=== PATIENT | female | born 1990 | race Caucasian/White ===

== ENCOUNTER → 2016-08-04 | Outpatient (CLI) | payer MEDICAID, SELFPAY ==
[~2016-08-04] VITALS: Ht 172.7 cm; Wt 60.8 kg
[~2016-08-04] MED LIST: ABIL5TAB5 PO; ALBU17IN INH; BENA25CA2 PO; EYE OU; LAMI25TA PO; LIDOCAINE 2% INJ 100 MG/5 ML SDV (FOR ANES.) As Ordered ONE; LINZ145C PO; MIREIUD IU; NS 1,000 ML IV SCH; PROPOFOL 500 MG/50 ML VIAL As Ordered ONE; SING10TA32 PO; TOPA25TA10 PO; TRAZ50TA4 PO; VIST25CA PO; WELLTAB38 PO; ZOLO100T PO
--- NOTE | 2016-08-04 12:05 | ROOR ---
Patient Name: Vero Husain Procedure Date: 08/04/2016 11:27 AM Date of : 1990 Age: 26 Room: OP02 Gender: Female Note Status: Finalized Procedure: Colonoscopy Indications: Suspected irritable bowel syndrome, Irritable bowel syndrome with constipation, previous history of "transient colitis/fecal impaction" Providers: Brooks IQBAL MD Referring MD: [facility] Aleta Requesting Provider: Medicines: Monitored Anesthesia Care Complications: No immediate complications. Procedure: Pre-Anesthesia Assessment: - The heart rate, respiratory rate, oxygen saturations, blood pressure, adequacy of pulmonary ventilation, and response to care were monitored throughout the procedure. The Colonoscope was introduced through the anus and advanced to the terminal ileum, with identification of the appendiceal orifice and IC valve. The colonoscopy was technically difficult and complex due to a tortuous colon. Successful completion of the procedure was aided by changing the patient's position and withdrawing the scope and replacing with the 'babyscope'. The patient tolerated the procedure well. The quality of the bowel preparation was good. Findings: The perianal and digital rectal examinations were normal. The colon (entire examined portion) appeared normal. The terminal ileum appeared normal. Biopsies for histology were taken with a cold forceps from the entire colon for evaluation of microscopic colitis. (Exam: Complete, Prep: Good or Excellent.) Impression: - The entire examined colon is normal. - The examined portion of the ileum was normal. - Biopsies were taken with a cold forceps from the entire colon for evaluation of microscopic colitis. - There is no evidence of colitis. Irritable Bowel Syndrome/IBS is suspected. - ---Note is made of a long redundant colon-likely prone to irregularity, constipation, incomplete emptying symptoms. Recommendation: - Use Linzess (linaclotide) 145 mcg PO daily. - (the script was sent to your pharmacy on file) - Telephone endoscopist for pathology results in 2 weeks. Brooks Iqbal MD Brooks IQBAL MD 08/04/2016 12:04:51 PM This report has been signed electronically. Number of Addenda: 0 Note Initiated On: 08/04/2016 11:27 AM Estimated Blood Loss: Estimated blood loss: none.
[2016-08-04 13:00] VITALS: BP 106/68
== END ==
LOC: M OPP 09:40
PROVIDERS: ATTEND Internal Medicine Gastroenterology
DX: K62.5 Hemorrhage of anus and rectum (principal); K52.9 Noninfective gastroenteritis and colitis, unspecified; K59.00 Constipation, unspecified; Q43.8 Other specified congenital malformations of intestine; F31.9 Bipolar disorder, unspecified; G43.909 Migraine, unspecified, not intractable, without status migrainosus; R23.3 Spontaneous ecchymoses; J45.909 Unspecified asthma, uncomplicated; Z79.899 Other long term (current) drug therapy; Z88.1 Allergy status to other antibiotic agents; Z91.040 Latex allergy status; Z88.0 Allergy status to penicillin; Z91.09 Other allergy status, other than to drugs and biological substances; Z79.51 Long term (current) use of inhaled steroids

== ENCOUNTER → 2016-12-20 | Outpatient (REF) | payer OTHER ==
[~2016-12-20] MED LIST changes: -LIDOCAINE 2% INJ 100 MG/5 ML SDV (FOR ANES.) As Ordered ONE; -NS 1,000 ML IV SCH; -PROPOFOL 500 MG/50 ML VIAL As Ordered ONE
== END ==
LOC: M SFHCLERA 09:41
PROVIDERS: ATTEND Nurse Practitioner Family
DX: J02.9 Acute pharyngitis, unspecified (principal)

== ENCOUNTER → 2016-12-20 | Outpatient (CLI) | payer OTHER ==
--- NOTE | 2016-12-20 10:11 | REP ---
Clinical: shortness of breath. Comparison: 10/05/2015. Technique: PA and lateral. Findings: The mediastinum and cardiac silhouette are normal. The lung manzo are clear and without acute consolidation, effusion, or pneumothorax. The skeletal structures are intact and normal. Impression: 1. No acute cardiopulmonary process. Signed by Abdiel Hernández MD 12/20/2016 10:01 A
== END ==
LOC: M LRY 09:45
PROVIDERS: ATTEND Nurse Practitioner Family
DX: R06.02 Shortness of breath (principal)

== ENCOUNTER → 2017-01-15 | Outpatient (REF) | payer OTHER | LOC: M LAB REF 12:32 | PROVIDERS: ATTEND Family Medicine Addiction Medicine | DX: J02.8 Acute pharyngitis due to other specified organisms (principal) ==

== ENCOUNTER 2017-03-16 01:12 | Emergency (ER) | payer OTHER ==
[~2017-03-16 01:12] MED LIST changes: +ABIL1TAB11 PO; -ABIL5TAB5 PO; +TOPA1TAB PO; -TOPA25TA10 PO; +TRAZ50TA11 PO; -TRAZ50TA4 PO
== END 2017-03-16 02:28 | disposition left against medical advice (07) ==
LOC: M ED 01:12
DX: R11.10 Vomiting, unspecified (principal); Z53.29 Procedure and treatment not carried out because of patient's decision for other reasons

== ENCOUNTER → 2017-05-14 | Outpatient (CLI) | payer OTHER ==
[2017-05-14 15:28] LABS: MEAN CORPUSCULAR HEMOGLOBIN 29.5 pg (27.0-33.0); MEAN CORPUSCULAR HGB CONC 33.4 g/dl (32.0-36.5); MEAN CORPUSCULAR VOLUME 88.3 fl (80.0-96.0); RED CELL DISTRIBUTION WIDTH 12.7 % (11.5-14.5); WHITE BLOOD COUNT 6.5 10^3/uL (4.0-10.0)
== END ==
LOC: M WUC 11:27
PROVIDERS: ATTEND Nurse Practitioner Psychiatric/Mental Health
DX: F33.9 Major depressive disorder, recurrent, unspecified (principal); F41.9 Anxiety disorder, unspecified

== ENCOUNTER → 2017-09-26 | Outpatient (REF) | payer OTHER | LOC: M SFHCLERA 12:06 | DX: R50.9 Fever, unspecified (principal); R05 Cough ==

== ENCOUNTER → 2018-02-22 | Outpatient (CLI) | payer OTHER ==
[2018-02-22 17:26] LABS: BASO # 0.1 10^3/uL (0.0-0.2); BASO % 0.5 % (0.0-1.0); EOS # 0.7 10^3/uL (0.0-0.50); EOS % 5.8 % (0.0-3.0); ESTIMATED AVERAGE GLUCOSE 100 MG/DL (60-110); HEMATOCRIT 44.3 % (36.0-47.0); HEMOGLOBIN 14.9 g/dl (12.0-15.5); HEMOGLOBIN A1c 5.1 %; IMMATURE GRANULOCYTE % 0.3 % (0-3.0); LYMPH # 3.5 10^3/uL (1.5-6.5); LYMPH % 29.2 % (24.0-44.0); MEAN CORPUSCULAR HEMOGLOBIN 29.1 pg (27.0-33.0); MEAN CORPUSCULAR HGB CONC 33.6 g/dl (32.0-36.5); MEAN CORPUSCULAR VOLUME 86.5 fl (80.0-96.0); MONO # 0.6 10^3/uL (0.0-0.8); MONO % 5.3 % (0.0-5.0); NEUTROPHILS # 7.1 10^3/uL (1.8-7.7); NEUTROPHILS % 58.9 % (36.0-66.0); PLATELET COUNT, AUTOMATED 356 10^3/uL (150-450); RED BLOOD COUNT 5.12 10^6/uL (4.00-5.40)
[2018-02-22 17:36] LABS: ALBUMIN 3.7 GM/DL (3.2-5.2); ALKALINE PHOSPHATASE 98 U/L (45-117); ALT/SGPT 29 U/L (12-78); ANION GAP 8 MEQ/L (8-16); AST/SGOT 15 U/L (7-37); BILIRUBIN,TOTAL 0.4 MG/DL (0.2-1.0); BLOOD UREA NITROGEN 8 MG/DL (7-18); CARBON DIOXIDE LEVEL 24 MEQ/L (21-32); CHLORIDE LEVEL 108 MEQ/L (98-107); CREATININE FOR GFR 0.96 MG/DL (0.55-1.30); GLOMERULAR FILTRATION RATE > 60.0 (>60); GLUCOSE, FASTING 80 MG/DL (70-100); POTASSIUM SERUM 4.2 MEQ/L (3.5-5.1); SODIUM LEVEL 140 MEQ/L (136-145); TOTAL PROTEIN 7.4 GM/DL (6.4-8.2); VITAMIN B12 LEVEL 288 PG/ML (247-911)
[2018-02-22 17:58] LABS: TOTAL 25(OH) VITAMIN D 33.7 NG/ML (30.0-100.0)
== END ==
LOC: M WUC 15:29
DX: F31.32 Bipolar disorder, current episode depressed, moderate (principal)
CPT/HCPCS: 84443

== ENCOUNTER → 2018-08-11 | Outpatient (REF) | payer OTHER ==
[~2018-08-11] MED LIST changes: +MIRE1IUD IU; -MIREIUD IU; +TRAZ-160 PO; -TRAZ50TA11 PO
[2018-08-11 15:19] LABS: CHLAMYDIA DNA AMPLIFICATION NEGATIVE (NEGATIVE); GC DNA AMPLIFICATION NEGATIVE (NEGATIVE)
== END ==
LOC: M LAB REF 12:53
PROVIDERS: ATTEND Advanced Practice Midwife
DX: R30.0 Dysuria (principal)

== ENCOUNTER → 2018-09-13 | Outpatient (REF) | payer OTHER | LOC: M LAB REF 13:00 | PROVIDERS: ATTEND Advanced Practice Midwife | DX: Z12.4 Encounter for screening for malignant neoplasm of cervix (principal); R30.0 Dysuria ==

== ENCOUNTER 2019-05-07 13:14 | Emergency (ER) | payer OTHER ==
[~2019-05-07] VITALS: Ht 172.7 cm; Wt 85.1 kg
[~2019-05-07 13:14] MED LIST changes: -TRAZ-160 PO; +TRAZ-252 PO; +ZOFR4TAB16 PO
[2019-05-07] MEDS ORDERED: ABIL1INJ IM (13:21)
[2019-05-07] MEDS ORDERED: IBUPROFEN 400 MG TAB PO ONE (14:30)
[2019-05-07 14:45] VITALS: BP 137/86
== END 2019-05-07 14:48 | disposition home or self-care (01) ==
LOC: M ED 13:14
DX: S80.11XA Contusion of right lower leg, initial encounter (principal); W01.198A Fall on same level from slipping, tripping and stumbling with subsequent striking against other object, initial encounter; Y92.59 Other trade areas as the place of occurrence of the external cause; Y93.89 Activity, other specified; Y99.0 Civilian activity done for income or pay; Z91.048 Other nonmedicinal substance allergy status; Z88.0 Allergy status to penicillin; Z91.040 Latex allergy status; Z88.1 Allergy status to other antibiotic agents; Z79.899 Other long term (current) drug therapy

== ENCOUNTER 2019-06-05 18:17 | Emergency (ER) | payer OTHER ==
[~2019-06-05] VITALS: Ht 172.7 cm; Wt 84.5 kg
[~2019-06-05 18:17] MED LIST changes: +ABIL1INJ IM
[2019-06-05] MEDS ORDERED: SERO1TAB3 PO (18:50)
[2019-06-05] MEDS ORDERED: methylPREDNISolone INJ 125 MG/2 ML VIAL (J2930) IV ONE (19:15)
[2019-06-05] MEDS ORDERED: IPRATROPIUM 0.5MG/ALBUTEROL 2.5MG INH SOL UD 3ML (DUONEB)(J7620) NEB ONE (19:15)
--- NOTE | 2019-06-05 19:37 | REP ---
Two-view chest: 06/05/2019. Indication: Dyspnea. Comparison: 12/20/2016. Findings: The lungs are clear. There is no pleural effusion or pneumothorax. The cardiac silhouette is not enlarged. Impression: No acute cardiopulmonary process. Electronically Signed by Ihsan West DO 06/05/2019 07:28 P
[2019-06-05 19:44] LABS: BASO # 0.1 10^3/uL (0.0-0.2); BASO % 0.5 % (0.0-1.0); EOS # 0.6 10^3/uL (0.0-0.5); EOS % 5.6 % (0.0-3.0); HEMATOCRIT 41.6 % (36.0-47.0); HEMOGLOBIN 13.6 g/dl (12.0-15.5); LYMPH # 2.9 10^3/uL (1.5-5.0); LYMPH % 27.3 % (24.0-44.0); MEAN CORPUSCULAR HEMOGLOBIN 28.9 pg (27.0-33.0); MEAN CORPUSCULAR HGB CONC 32.7 g/dl (32.0-36.5); MEAN CORPUSCULAR VOLUME 88.5 fl (80.0-96.0); MONO # 0.5 10^3/uL (0.0-0.8); MONO % 4.6 % (0.0-5.0); NEUTROPHILS # 6.5 10^3/uL (1.5-8.5); NEUTROPHILS % 61.8 % (36.0-66.0); PLATELET COUNT, AUTOMATED 321 10^3/uL (150-450); WHITE BLOOD COUNT 10.5 10^3/uL (4.0-10.0)
[2019-06-05 20:09] LABS: INFLUENZA A AMPLIFICATION NEGATIVE (NEGATIVE); INFLUENZA B AMPLIFICATION NEGATIVE (NEGATIVE)
[2019-06-05 20:18] LABS: BLOOD UREA NITROGEN 10 MG/DL (7-18); CALCIUM LEVEL 9.3 MG/DL (8.5-10.1); CARBON DIOXIDE LEVEL 27 MEQ/L (21-32); CHLORIDE LEVEL 107 MEQ/L (98-107); CK-MB VALUE MASS < 1.0 NG/ML (<3.6); CPK CREATINE PHOSPHOKINASE 118 U/L (26-192); CREATININE FOR GFR 1.32 MG/DL (0.55-1.30); GLOMERULAR FILTRATION RATE 50.7 (>60); GLUCOSE, FASTING 88 MG/DL (70-100); MB/CK RELATIVE INDEX 0.85 (< OR =4); POTASSIUM SERUM 3.4 MEQ/L (3.5-5.1); SODIUM LEVEL 141 MEQ/L (136-145); TROPONIN I < 0.02 NG/ML (< 0.10)
[2019-06-05] MEDS ORDERED: ISOVUE-370 76% 100ML VIAL (Q9967) As Ordered ONE (20:22)
[2019-06-05 21:30] VITALS: BP 118/81
[2019-06-05] MEDS ORDERED: AZIT-12 PO (21:33)
[2019-06-05] MEDS ORDERED: PRED20TA PO (21:34)
[2019-06-05] MEDS ORDERED: POTASSIUM CHLORIDE 10 MEQ SR TABLET PO ONE (22:00)
--- NOTE | 2019-06-06 06:25 | ECGEPIP ---
[facility] - ED Test Date: 2019-06-05 Pat Name: KERVIN MCMAHAN Department: Room: - Gender: Female Cloth Mender: kirstin : 1990 Requested By: ORALIA Mccrary Order Number: [id number] Reading MD: Graham Shirley Measurements Intervals [place] Rate: 82 P: 35 ME: 167 QRS: 31 QRSD: 80 T: 40 QT: 355 QTc: 416 Interpretive Statements SINUS RHYTHM WITH SINUS ARRHYTHMIA SIMILAR TO 03/29/16 Electronically Signed on 06-06-2019 6:25:38 EST by Graham Shirley
--- NOTE | 2019-06-06 13:03 | REP ---
CT of the chest with IV contrast, CT pulmonary angiography protocol: Comparison is the PA and lateral plain film study earlier today. There are no comparison chest CT studies. There are no emboli in the pulmonary trunk or central pulmonary arteries. There are no emboli in the pulmonary lobe or segment branches. There are no infiltrates or pleural effusions. There are no lung masses or nodules. There is dependent atelectasis in the posterior lung manzo. There is no mediastinal or hilar lymph node enlargement. There is no axillary lymph node enlargement. The thoracic aorta is unremarkable. Cardiac size is normal. There is no pericardial effusion. The visualized upper abdominal contents are unremarkable. Impression: There are no pulmonary emboli. Otherwise, negative CT study of the chest except for dependent atelectasis. Electronically Signed by Suresh Parr MD 06/06/2019 12:54 P
== END 2019-06-05 22:03 | disposition home or self-care (01) ==
LOC: EDBD 18:17 → M ED 18:17
DX: J45.901 Unspecified asthma with (acute) exacerbation (principal); F31.89 Other bipolar disorder; G43.119 Migraine with aura, intractable, without status migrainosus; Z79.899 Other long term (current) drug therapy; J30.89 Other allergic rhinitis; J30.2 Other seasonal allergic rhinitis; Z88.0 Allergy status to penicillin; Z88.1 Allergy status to other antibiotic agents; Z88.8 Allergy status to other drugs, medicaments and biological substances; Z91.040 Latex allergy status
CPT/HCPCS: 71046; 71275; 80048; 82550; 82553; 84443; 85025; 85379; 87502; 93005; 93041; 94760; 96374; 99285; J2930; Q9967

== ENCOUNTER → 2019-06-27 | Outpatient (REF) | payer OTHER ==
[~2019-06-27] MED LIST changes: +AZIT-12 PO; +PRED20TA PO; +SERO1TAB3 PO
[2019-07-04 00:07] LABS: BORDETELLA PARAPERTUSSIS PCR Negative (Negative); BORDETELLA PERTUSSIS BY PCR Negative (Negative)
== END ==
LOC: M SFHCLERA 10:28
PROVIDERS: ATTEND Physician Assistant
DX: Z20.818 Contact with and (suspected) exposure to other bacterial communicable diseases (principal); R05 Cough

== ENCOUNTER → 2020-01-23 | Outpatient (CLI) | payer OTHER ==
[2020-01-23 17:13] LABS: ALBUMIN 3.8 GM/DL (3.2-5.2); ALT/SGPT 28 U/L (12-78); BILIRUBIN,TOTAL 0.5 MG/DL (0.2-1.0); BLOOD UREA NITROGEN 9 MG/DL (7-18); C REACTIVE PROTEIN QUANTITATIV 0.51 MG/DL (0.00-0.30); CALCIUM LEVEL 9.3 MG/DL (8.5-10.1); CARBON DIOXIDE LEVEL 23 MEQ/L (21-32); CHLORIDE LEVEL 108 MEQ/L (98-107); CHOLESTEROL LEVEL 229 MG/DL (<200); CHOLESTEROL RISK RATIO 4.872 (<5); CREATININE FOR GFR 1.03 MG/DL (0.55-1.30); GLOMERULAR FILTRATION RATE > 60.0 (>60); GLUCOSE, FASTING 104 MG/DL (70-100); HDL CHOLESTEROL 47 MG/DL (>40); LDL CHOLESTEROL 160 MG/DL (<100); NON-HDL-C 182 MG/DL; POTASSIUM SERUM 4.8 MEQ/L (3.5-5.1); SODIUM LEVEL 137 MEQ/L (136-145); TOTAL PROTEIN 7.5 GM/DL (6.4-8.2); TRIGLYCERIDES LEVEL 108 MG/DL (<150)
[2020-01-23 17:17] LABS: BASO # 0.1 10^3/uL (0.0-0.2); BASO % 0.3 % (0.0-1.0); EOS # 0.2 10^3/uL (0.0-0.5); EOS % 1.2 % (0.0-3.0); HEMATOCRIT 44.8 % (36.0-47.0); HEMOGLOBIN 14.7 g/dl (12.0-15.5); LYMPH # 1.5 10^3/uL (1.5-5.0); LYMPH % 8.4 % (24.0-44.0); MEAN CORPUSCULAR HEMOGLOBIN 28.2 pg (27.0-33.0); MEAN CORPUSCULAR HGB CONC 32.8 g/dl (32.0-36.5); MONO # 0.8 10^3/uL (0.0-0.8); MONO % 4.6 % (0.0-5.0); NEUTROPHILS # 15.3 10^3/uL (1.5-8.5); NEUTROPHILS % 85.1 % (36.0-66.0); PLATELET COUNT, AUTOMATED 420 10^3/uL (150-450); RED BLOOD COUNT 5.21 10^6/uL (4.00-5.40); WHITE BLOOD COUNT 17.9 10^3/uL (4.0-10.0)
== END ==
LOC: M WUC 14:41
PROVIDERS: ATTEND Physician Assistant Medical
DX: K04.7 Periapical abscess without sinus (principal); Z13.220 Encounter for screening for lipoid disorders

== ENCOUNTER → 2020-01-25 | Outpatient (REF) | payer OTHER ==
[2020-01-25 18:04] LABS: BASO # 0.1 10^3/uL (0.0-0.2); BASO % 0.8 % (0.0-1.0); EOS # 0.8 10^3/uL (0.0-0.5); EOS % 8.6 % (0.0-3.0); HEMATOCRIT 42.5 % (36.0-47.0); HEMOGLOBIN 13.9 g/dl (12.0-15.5); LYMPH # 2.8 10^3/uL (1.5-5.0); LYMPH % 31.5 % (24.0-44.0); MEAN CORPUSCULAR HEMOGLOBIN 28.1 pg (27.0-33.0); MEAN CORPUSCULAR HGB CONC 32.7 g/dl (32.0-36.5); MONO # 0.6 10^3/uL (0.0-0.8); MONO % 6.9 % (0.0-5.0); NEUTROPHILS # 4.7 10^3/uL (1.5-8.5); NEUTROPHILS % 51.9 % (36.0-66.0); PLATELET COUNT, AUTOMATED 382 10^3/uL (150-450); RED BLOOD COUNT 4.94 10^6/uL (4.00-5.40)
[2020-01-25 18:48] LABS: HEMOGLOBIN A1c 5.8 %
== END ==
LOC: M SFHCPLAZ 15:43
PROVIDERS: ATTEND Physician Assistant Medical
DX: Z83.3 Family history of diabetes mellitus (principal); K04.7 Periapical abscess without sinus

== ENCOUNTER → 2020-02-14 | Outpatient (CLI) | payer OTHER | LOC: M PLALAB 15:14 | PROVIDERS: ATTEND Advanced Practice Midwife | DX: Z13.79 Encounter for other screening for genetic and chromosomal anomalies (principal) ==

== ENCOUNTER → 2020-05-27 | Outpatient (REF) | payer OTHER | LOC: M SFHCPLAZ 16:55 | PROVIDERS: ATTEND Physician Assistant Medical | DX: J02.9 Acute pharyngitis, unspecified (principal) ==

== ENCOUNTER → 2020-06-21 | Outpatient (CLI) | payer OTHER ==
[~2020-06-21] MED LIST changes: +BENA25CA4 PO; +PREN1TAB11 PO; +PROZ10CA7 PO
--- NOTE | 2020-06-25 07:06 | SLEEPHOME ---
DATE: 06/21/2020 ORDERED BY: ROCK [facility] home sleep testing was performed due to concern for the obstructive sleep apnea syndrome. For testing, a nocturnal T3 respiratory monitoring device was used. Continuous record was made of pulse, oxygen saturation, air flow, chest and abdominal strain, and body position. 9 hours and 59 minutes of data were reviewed. There were 7 hours and 45 minutes marked as time in bed. During the interval marked time in bed, there were 68 respiratory events identified of 10 seconds in duration or greater for a respiratory event index 8.8. The events seen were obstructive. Baseline pulse rate 77. Pulse rate range 24 to 152. Baseline saturation was 93%. Saturations fell to 65%. Testing was performed in both the supine and non-supine positions. IMPRESSION: Abnormal home sleep testing with repetitive respiratory events and oxygen desaturations to 65% with a respiratory event index of 8.8 is consistent with the obstructive sleep apnea syndrome. RECOMMENDATION: The patient should be encouraged to undergo a formal sleep evaluation. [facility]
== END ==
LOC: M SLEEP HO 10:08
PROVIDERS: ATTEND Physician Assistant Medical
DX: G47.33 Obstructive sleep apnea (adult) (pediatric) (principal)

== ENCOUNTER 2020-06-24 06:45 | Emergency (ER) | payer OTHER ==
[~2020-06-24] VITALS: Ht 172.7 cm; Wt 90.2 kg
[~2020-06-24 06:45] MED LIST changes: -BENA25CA4 PO; -PREN1TAB11 PO; -PROZ10CA7 PO
[2020-06-24] MEDS ORDERED: PREN1TAB11 PO (06:53)
[2020-06-24] MEDS ORDERED: PROZ10CA7 PO (06:53)
[2020-06-24 08:00] LABS: BASO # 0.1 10^3/uL (0.0-0.2); BASO % 0.6 % (0.0-1.0); EOS % 9.1 % (0.0-3.0); HEMOGLOBIN 13.4 g/dl (12.0-15.5); LYMPH # 3.4 10^3/uL (1.5-5.0); LYMPH % 31.5 % (24.0-44.0); MEAN CORPUSCULAR HEMOGLOBIN 28.2 pg (27.0-33.0); MEAN CORPUSCULAR HGB CONC 32.7 g/dl (32.0-36.5); MEAN CORPUSCULAR VOLUME 86.3 fl (80.0-96.0); MONO # 0.5 10^3/uL (0.0-0.8); MONO % 4.6 % (0.0-5.0); NEUTROPHILS # 5.8 10^3/uL (1.5-8.5); NEUTROPHILS % 53.9 % (36.0-66.0); PLATELET COUNT, AUTOMATED 351 10^3/uL (150-450); RED BLOOD COUNT 4.75 10^6/uL (4.00-5.40); WHITE BLOOD COUNT 10.8 10^3/uL (4.0-10.0)
--- NOTE | 2020-06-24 08:14 | REP ---
INDICATION: pain, altered sensation fmh hx clots COMPARISON: None. TECHNIQUE: Lerma scale and color Doppler evaluation of the left lower extremity using linear high frequency transducer. FINDINGS: Ultrasound examination of the left lower extremity deep venous structures from the common femoral vein to the popliteal vein demonstrates normal compressibility flow and wave patterns in response to respiration and augmentation. There is no evidence for deep venous thrombosis. IMPRESSION: No evidence for deep venous thrombosis. <Electronically signed by Abdiel Hernández > 06/24/20 [id number]
[2020-06-24 08:22] LABS: BLOOD UREA NITROGEN 13 MG/DL (7-18); CALCIUM LEVEL 8.9 MG/DL (8.5-10.1); CARBON DIOXIDE LEVEL 23 MEQ/L (21-32); CHLORIDE LEVEL 111 MEQ/L (98-107); CK-MB VALUE MASS < 1.0 NG/ML (<3.6); CPK CREATINE PHOSPHOKINASE 87 U/L (26-192); GLOMERULAR FILTRATION RATE > 60.0 (>60); GLUCOSE, FASTING 100 MG/DL (70-100); MB/CK RELATIVE INDEX 1.15 (< OR =4); POTASSIUM SERUM 4.4 MEQ/L (3.5-5.1); SODIUM LEVEL 140 MEQ/L (136-145)
[2020-06-24 08:34] LABS: HCG, SERUM QUALITATIVE NEGATIVE (NEGATIVE)
[2020-06-24 08:53] VITALS: BP 125/81
[2020-06-25] MEDS ORDERED: BENA25CA4 PO (21:49)
== END 2020-06-24 08:55 | disposition home or self-care (01) ==
LOC: M ED 06:45
DX: M62.831 Muscle spasm of calf (principal); K21.9 Gastro-esophageal reflux disease without esophagitis; F31.89 Other bipolar disorder; F41.9 Anxiety disorder, unspecified; F19.10 Other psychoactive substance abuse, uncomplicated; Z79.899 Other long term (current) drug therapy; Z88.0 Allergy status to penicillin; Z88.1 Allergy status to other antibiotic agents; Z88.8 Allergy status to other drugs, medicaments and biological substances; Z91.89 Other specified personal risk factors, not elsewhere classified; Z91.040 Latex allergy status

== ENCOUNTER 2020-06-25 20:00 | Emergency (ER) | payer OTHER ==
[~2020-06-25] VITALS: Ht 172.7 cm; Wt 90.0 kg
[~2020-06-25 20:00] MED LIST changes: +PREN1TAB11 PO; +PROZ10CA7 PO
[2020-06-25] MEDS ORDERED: FAMOTIDINE 20 MG TAB PO ONE (20:30)
[2020-06-25] MEDS ORDERED: BENA25CA4 PO (21:49)
[2020-06-25 21:57] VITALS: BP 118/71
== END 2020-06-25 22:13 | disposition home or self-care (01) ==
LOC: M ED 20:00
DX: L23.9 Allergic contact dermatitis, unspecified cause (principal); Z79.899 Other long term (current) drug therapy; Z88.0 Allergy status to penicillin; Z88.1 Allergy status to other antibiotic agents; Z88.8 Allergy status to other drugs, medicaments and biological substances; Z91.89 Other specified personal risk factors, not elsewhere classified; Z91.040 Latex allergy status

== ENCOUNTER 2020-06-29 17:17 | Emergency (ER) | payer OTHER ==
[~2020-06-29] VITALS: Ht 172.7 cm; Wt 88.9 kg
[~2020-06-29 17:17] MED LIST changes: +BENA25CA4 PO
[2020-06-29 17:18] VITALS: BP 121/77
[2020-06-29] MEDS ORDERED: OMEP40CA97 PO (17:24)
[2020-06-29] MEDS ORDERED: ACETAMINOPHEN 500 MG TAB PO ONE (18:30)
[2020-06-29] MEDS ORDERED: LIDOCAINE 5% (LIDODERM) PATCH TD ONE (18:30)
[2020-06-29] MEDS ORDERED: CYCLOBENZAPRINE 5MG TABLET PO ONE (18:30)
[2020-06-29] MEDS ORDERED: BACL10TA2 PO (19:33)
[2020-06-29] MEDS ORDERED: LIDO5DIS41 TOP (19:33)
[2020-06-29] MEDS ORDERED: **NOTE PATIENT COMMENT** MISC XX SCH (21:00)
== END 2020-06-29 20:04 | disposition home or self-care (01) ==
LOC: M ED 17:17
DX: S16.1XXA Strain of muscle, fascia and tendon at neck level, initial encounter (principal); M62.838 Other muscle spasm; X58.XXXA Exposure to other specified factors, initial encounter; Y92.9 Unspecified place or not applicable; Y93.9 Activity, unspecified; Y99.9 Unspecified external cause status; G43.909 Migraine, unspecified, not intractable, without status migrainosus; F32.9 Major depressive disorder, single episode, unspecified; F41.9 Anxiety disorder, unspecified; F60.3 Borderline personality disorder; Z79.899 Other long term (current) drug therapy; J30.81 Allergic rhinitis due to animal (cat) (dog) hair and dander; J30.2 Other seasonal allergic rhinitis; Z88.0 Allergy status to penicillin; Z88.1 Allergy status to other antibiotic agents; Z88.8 Allergy status to other drugs, medicaments and biological substances; Z91.040 Latex allergy status

== ENCOUNTER → 2020-09-06 | Outpatient (REF) | payer OTHER ==
[~2020-09-06] MED LIST changes: +BACL10TA2 PO; +LIDO5DIS41 TOP; +OMEP40CA97 PO
[2020-09-06 16:59] LABS: BASO # 0.1 10^3/uL (0.0-0.2); BASO % 0.4 % (0.0-1.0); EOS # 1.2 10^3/uL (0.0-0.5); EOS % 9.4 % (0.0-3.0); HEMATOCRIT 42.6 % (36.0-47.0); HEMOGLOBIN 13.8 g/dl (12.0-15.5); LYMPH # 3.3 10^3/uL (1.5-5.0); LYMPH % 27.1 % (24.0-44.0); MEAN CORPUSCULAR HEMOGLOBIN 28.1 pg (27.0-33.0); MEAN CORPUSCULAR HGB CONC 32.4 g/dl (32.0-36.5); MEAN CORPUSCULAR VOLUME 86.8 fl (80.0-96.0); MONO # 0.7 10^3/uL (0.0-0.8); MONO % 5.8 % (0.0-5.0); NEUTROPHILS % 57.1 % (36.0-66.0); PLATELET COUNT, AUTOMATED 405 10^3/uL (150-450); RED BLOOD COUNT 4.91 10^6/uL (4.00-5.40); WHITE BLOOD COUNT 12.2 10^3/uL (4.0-10.0)
[2020-09-06 17:23] LABS: ALBUMIN 3.7 GM/DL (3.2-5.2); ALT/SGPT 25 U/L (12-78); BILIRUBIN,TOTAL 0.2 MG/DL (0.2-1.0); BLOOD UREA NITROGEN 10 MG/DL (7-18); CALCIUM LEVEL 9.3 MG/DL (8.5-10.1); CARBON DIOXIDE LEVEL 26 MEQ/L (21-32); CHLORIDE LEVEL 106 MEQ/L (98-107); CHOLESTEROL LEVEL 227 MG/DL (<200); CHOLESTEROL RISK RATIO 5.536 (<5); CREATININE FOR GFR 0.95 MG/DL (0.55-1.30); FREE T4 0.79 NG/DL (0.76-1.46); GLOMERULAR FILTRATION RATE > 60.0 (>60); GLUCOSE, FASTING 95 MG/DL (70-100); HCG, SERUM QUALITATIVE NEGATIVE (NEGATIVE); HDL CHOLESTEROL 41 MG/DL (>40); LDL CHOLESTEROL 138 MG/DL (<100); NON-HDL-C 186 MG/DL; POTASSIUM SERUM 4.3 MEQ/L (3.5-5.1); SODIUM LEVEL 138 MEQ/L (136-145); TOTAL PROTEIN 7.7 GM/DL (6.4-8.2); TRIGLYCERIDES LEVEL 241 MG/DL (<150)
[2020-09-06 17:31] LABS: HEMOGLOBIN A1c 5.2 %
== END ==
LOC: M SFHCPLAZ 14:56
PROVIDERS: ATTEND Physician Assistant Medical
DX: J45.909 Unspecified asthma, uncomplicated (principal); Z13.220 Encounter for screening for lipoid disorders; R73.01 Impaired fasting glucose; E66.9 Obesity, unspecified; Z32.01 Encounter for pregnancy test, result positive

== ENCOUNTER → 2020-10-03 | Outpatient (CLI) | payer OTHER ==
--- NOTE | 2020-10-03 16:08 | REPPI ---
INDICATION: M54.5 ACUTE MIDLINE LOW BACK PAIN WITHOUT SCIATICA. COMPARISON: 11/27/2012. TECHNIQUE: Eight views lumbosacral spine performed including lateral flexion and extension views. FINDINGS: No compression fracture. There is no evidence of malalignment. There is no subluxation with flexion or extension. There is no spondylolysis. The disc spaces are normal in thickness. Posterior elements are intact. IMPRESSION: Negative lumbosacral spine series. <Electronically signed by Suresh Lerma > 10/03/20 [id number]
== END ==
LOC: M PLAIMG 14:21
PROVIDERS: ATTEND Physician Assistant Medical
DX: M54.5 Low back pain (principal); R19.7 Diarrhea, unspecified

== ENCOUNTER → 2020-10-24 | Outpatient (REF) | payer OTHER | LOC: M SFHCPLAZ 09:47 | PROVIDERS: ATTEND Physician Assistant | DX: R30.0 Dysuria (principal) ==

== ENCOUNTER → 2020-11-07 | Outpatient (REF) | payer OTHER ==
[2020-11-07 14:12] LABS: APPEARANCE, URINE CLEAR (CLEAR); BACTERIA, URINE AUTO NEGATIVE (NEGATIVE); BILIRUBIN, URINE AUTO NEGATIVE (NEGATIVE); BLOOD, URINE BLOOD NEGATIVE (NEGATIVE); COLOR, URINE YELLOW (YELLOW); GLUCOSE, URINE (UA) AUTO NEGATIVE (NEGATIVE); KETONE, URINE AUTO NEGATIVE (NEGATIVE); LEUKOCYTE ESTERASE, URINE AUTO NEGATIVE (NEGATIVE); MUCUS, URINE SMALL (NEGATIVE); NITRITE, URINE AUTO NEGATIVE (NEGATIVE); PROTEIN, URINE AUTO NEGATIVE (NEGATIVE); RBC, URINE AUTO 1 /HPF (0-3); SPECIFIC GRAVITY URINE AUTO 1.023 (1.002-1.035); SQUAMOUS EPITHELIAL CELL UR AU 0 /HPF (0-6); UROBILINOGEN, URINE AUTO 0.2 mg/dL (0.0-2.0); WBC, URINE AUTO 1 /HPF (0-3)
== END ==
LOC: M SFHCWAGY 13:14
PROVIDERS: ATTEND Physician Assistant Medical
DX: R33.9 Retention of urine, unspecified (principal)

== ENCOUNTER → 2020-12-13 | Outpatient (CLI) | payer OTHER | LOC: M WHC 16:11 | PROVIDERS: ATTEND Obstetrics & Gynecology | DX: R10.2 Pelvic and perineal pain (principal) ==

== ENCOUNTER → 2020-12-17 | Outpatient (REF) | payer OTHER ==
[2020-12-17 11:03] LABS: BASO # 0.1 10^3/uL (0.0-0.2); BASO % 0.6 % (0.0-1.0); EOS # 0.8 10^3/uL (0.0-0.5); EOS % 9.7 % (0.0-3.0); HEMATOCRIT 40.3 % (36.0-47.0); LYMPH # 2.2 10^3/uL (1.5-5.0); LYMPH % 26.6 % (24.0-44.0); MEAN CORPUSCULAR HEMOGLOBIN 28.6 pg (27.0-33.0); MEAN CORPUSCULAR HGB CONC 32.3 g/dl (32.0-36.5); MEAN CORPUSCULAR VOLUME 88.6 fl (80.0-96.0); MONO # 0.5 10^3/uL (0.0-0.8); MONO % 6.2 % (2.0-8.0); NEUTROPHILS # 4.8 10^3/uL (1.5-8.5); NEUTROPHILS % 56.5 % (36.0-66.0); PLATELET COUNT, AUTOMATED 314 10^3/uL (150-450); RED BLOOD COUNT 4.55 10^6/uL (4.00-5.40); WHITE BLOOD COUNT 8.4 10^3/uL (4.0-10.0)
[2020-12-17 11:35] LABS: HCG, SERUM QUALITATIVE NEGATIVE (NEGATIVE)
[2020-12-17 11:40] LABS: ALBUMIN 3.4 GM/DL (3.2-5.2); ALT/SGPT 30 U/L (12-78); BILIRUBIN,TOTAL 0.3 MG/DL (0.2-1.0); BLOOD UREA NITROGEN 11 MG/DL (7-18); CALCIUM LEVEL 8.5 MG/DL (8.5-10.1); CARBON DIOXIDE LEVEL 25 MEQ/L (21-32); CHLORIDE LEVEL 106 MEQ/L (98-107); CHOLESTEROL LEVEL 246 MG/DL (<200); CREATININE FOR GFR 0.79 MG/DL (0.55-1.30); FREE T4 0.82 NG/DL (0.76-1.46); GLOMERULAR FILTRATION RATE > 60.0 (>60); GLUCOSE, FASTING 84 MG/DL (70-100); HDL CHOLESTEROL 49 MG/DL (>40); LDL CHOLESTEROL 172 MG/DL (<100); NON-HDL-C 197 MG/DL; POTASSIUM SERUM 4.6 MEQ/L (3.5-5.1); SODIUM LEVEL 138 MEQ/L (136-145); TRIGLYCERIDES LEVEL 125 MG/DL (<150)
== END ==
LOC: M SFHCPLAZ 09:10
PROVIDERS: ATTEND Physician Assistant Medical
DX: Z13.220 Encounter for screening for lipoid disorders (principal); F33.0 Major depressive disorder, recurrent, mild; N91.2 Amenorrhea, unspecified

== ENCOUNTER → 2020-12-24 | Outpatient (CLI) | payer OTHER ==
--- NOTE | 2020-12-24 08:05 | REP ---
INDICATION: R10.2 PELVIC PAIN COMPARISON: 03/26/2011 TECHNIQUE: Transabdominal pelvic ultrasound followed by transvaginal examination for better evaluation of the endometrium and adnexa with color Doppler evaluation of the ovaries. FINDINGS: Bladder is under distended and measures 5.7 x 1.9 x 5.8 cm Normal anteverted uterus measures 6.3 x 3.3 x 3.8 cm. The endometrial complex measures 5 mm thickness. No discrete uterine or endometrial abnormalities are appreciated. Bilateral ovaries are normal in appearance and vascularity without evidence for torsion. Right ovary measures 2.8 x 1.7 x 2.2 cm; R I = 0.56. Left ovary measures 3.1 x 1.9 x 2.5 cm; R I = 0.57. No pelvic fluid or adnexal mass lesion IMPRESSION: Normal pelvic ultrasound <Electronically signed by Abdiel Hernández > 12/24/20 0801
== END ==
LOC: M WHC 07:17
PROVIDERS: ATTEND Obstetrics & Gynecology
DX: R10.2 Pelvic and perineal pain (principal)

== ENCOUNTER 2021-01-10 17:06 | Emergency (ER) | payer OTHER ==
[~2021-01-10] VITALS: Ht 172.7 cm; Wt 93.2 kg
[2021-01-10 17:06] VITALS: BP 119/64
== END 2021-01-10 17:25 | disposition left against medical advice (07) ==
LOC: M ED 17:06
DX: Z53.21 Procedure and treatment not carried out due to patient leaving prior to being seen by health care provider (principal)

== ENCOUNTER → 2021-01-29 | Outpatient (CLI) | payer OTHER ==
[~2021-01-29] MED LIST changes: +OMEP40CA4 PO; -OMEP40CA97 PO
[2021-01-29 15:22] LABS: BASO # 0.1 10^3/uL (0.0-0.2); BASO % 0.6 % (0.0-1.0); EOS # 1.7 10^3/uL (0.0-0.5); EOS % 16.3 % (0.0-3.0); HEMATOCRIT 42.6 % (36.0-47.0); HEMOGLOBIN 13.6 g/dl (12.0-15.5); LYMPH # 2.6 10^3/uL (1.5-5.0); LYMPH % 24.8 % (24.0-44.0); MEAN CORPUSCULAR HEMOGLOBIN 28.2 pg (27.0-33.0); MEAN CORPUSCULAR HGB CONC 31.9 g/dl (32.0-36.5); MEAN CORPUSCULAR VOLUME 88.4 fl (80.0-96.0); MONO # 0.5 10^3/uL (0.0-0.8); MONO % 4.7 % (2.0-8.0); NEUTROPHILS # 5.5 10^3/uL (1.5-8.5); NEUTROPHILS % 53.2 % (36.0-66.0); PLATELET COUNT, AUTOMATED 389 10^3/uL (150-450); RED BLOOD COUNT 4.82 10^6/uL (4.00-5.40); WHITE BLOOD COUNT 10.4 10^3/uL (4.0-10.0)
[2021-01-29 15:32] LABS: INR 0.94; PROTHROMBIN TIME 12.8 SECONDS (12.5-14.3)
[2021-01-29 15:33] LABS: PARTIAL THROMBOPLASTIN TIME 24.6 SECONDS (24.2-38.5)
[2021-01-29 15:53] LABS: ALBUMIN 3.6 GM/DL (3.2-5.2); ALT/SGPT 30 U/L (12-78); BILIRUBIN,TOTAL 0.3 MG/DL (0.2-1.0); BLOOD UREA NITROGEN 11 MG/DL (7-18); CARBON DIOXIDE LEVEL 25 MEQ/L (21-32); CHLORIDE LEVEL 105 MEQ/L (98-107); CREATININE FOR GFR 0.94 MG/DL (0.55-1.30); GLOMERULAR FILTRATION RATE > 60.0 (>60); GLUCOSE, FASTING 82 MG/DL (70-100); POTASSIUM SERUM 4.6 MEQ/L (3.5-5.1); SODIUM LEVEL 136 MEQ/L (136-145); TOTAL PROTEIN 7.1 GM/DL (6.4-8.2)
== END ==
LOC: M PLALAB 13:40
PROVIDERS: ATTEND Physician Assistant Medical
DX: K92.1 Melena (principal)

== ENCOUNTER 2021-02-06 11:28 | Emergency (ER) | payer OTHER ==
[~2021-02-06] VITALS: Ht 172.7 cm; Wt 90.9 kg
[~2021-02-06 11:28] MED LIST changes: -ALBU8.5H INH; -MELO7.5T35 PO; -ONDA4TAB6 PO; -PROP10TA56 PO; -REGL10TA6 PO
[2021-02-06] MEDS ORDERED: NS 1,000 ML IV SCH (11:35)
[2021-02-06 12:10] LABS: BASO # 0.1 10^3/uL (0.0-0.2); BASO % 0.4 % (0.0-1.0); EOS # 1.8 10^3/uL (0.0-0.5); EOS % 12.2 % (0.0-3.0); HEMATOCRIT 42.7 % (36.0-47.0); HEMOGLOBIN 13.8 g/dl (12.0-15.5); LYMPH # 2.3 10^3/uL (1.5-5.0); LYMPH % 15.7 % (24.0-44.0); MEAN CORPUSCULAR HEMOGLOBIN 27.9 pg (27.0-33.0); MEAN CORPUSCULAR HGB CONC 32.3 g/dl (32.0-36.5); MEAN CORPUSCULAR VOLUME 86.4 fl (80.0-96.0); MONO # 0.6 10^3/uL (0.0-0.8); MONO % 4.2 % (2.0-8.0); NEUTROPHILS # 9.9 10^3/uL (1.5-8.5); NEUTROPHILS % 67.1 % (36.0-66.0); PLATELET COUNT, AUTOMATED 401 10^3/uL (150-450); RED BLOOD COUNT 4.94 10^6/uL (4.00-5.40); WHITE BLOOD COUNT 14.8 10^3/uL (4.0-10.0)
[2021-02-06] MEDS ORDERED: METOCLOPRAMIDE INJ 10MG/2ML VIAL (J2765 PER 1) IV ONE (12:10)
[2021-02-06] MEDS ORDERED: KETOROLAC 30 MG/ML 1ML VIAL IV ONE (12:10)
[2021-02-06 12:35] LABS: ALBUMIN 3.9 GM/DL (3.2-5.2); ALT/SGPT 30 U/L (12-78); BILIRUBIN,DIRECT < 0.1 MG/DL (0.0-0.2); BILIRUBIN,TOTAL 0.4 MG/DL (0.2-1.0); BLOOD UREA NITROGEN 14 MG/DL (7-18); CALCIUM LEVEL 9.2 MG/DL (8.5-10.1); CARBON DIOXIDE LEVEL 23 MEQ/L (21-32); CHLORIDE LEVEL 109 MEQ/L (98-107); CREATININE FOR GFR 0.94 MG/DL (0.55-1.30); GLOMERULAR FILTRATION RATE > 60.0 (>60); GLUCOSE, FASTING 119 MG/DL (70-100); LIPASE 92 U/L (73-393); POTASSIUM SERUM 4.1 MEQ/L (3.5-5.1); SODIUM LEVEL 139 MEQ/L (136-145); TOTAL PROTEIN 7.5 GM/DL (6.4-8.2)
[2021-02-06 12:37] LABS: HCG, SERUM QUALITATIVE NEGATIVE (NEGATIVE)
[2021-02-06] MEDS ORDERED: ISOVUE-370 76% 100ML VIAL As Ordered ONE (13:29)
--- NOTE | 2021-02-06 13:52 | REP ---
INDICATION: abd pain. COMPARISON: 09/26/2014 TECHNIQUE: Axial contrast-enhanced images from the lung bases to the pubic symphysis using 100 cc Isovue 370 intravenous contrast material. Coronal and sagittal reformations obtained. This CT examination was performed using the following dose reduction techniques: Automated exposure control, adjustment of mA and/or kv according to the patient's size, and the use of iterative reconstruction technique. FINDINGS: Liver, spleen, pancreas, gallbladder, bilateral adrenal glands and kidneys are normal. The enteric system demonstrates mild elements of mucosal thickening involving small and large bowel highly suspicious for an acute infectious/inflammatory enterocolitis-primarily involving the distal and sigmoid colon. No evidence for obstruction or perforation. Small amount of associated free fluid identified in the pelvis. No drainable collection or abscess. Pelvis demonstrates normal bladder and age-appropriate uterus/adnexa. No ascites. No free air. No intraperitoneal or retroperitoneal adenopathy. Abdominal aorta and vasculature appear normal. Musculoskeletal structures are intact and without acute osseous abnormality. Lung bases are clear. IMPRESSION: Findings most compatible with acute infectious/inflammatory enterocolitis primarily involving the descending and sigmoid colon. No associated bowel obstruction, perforation, or drainable collection/abscess. <Electronically signed by Abdiel Hernández > 02/06/21 2025
[2021-02-06] MEDS ORDERED: PROP10TA56 PO (14:57)
[2021-02-06] MEDS ORDERED: MELO7.5T35 PO (14:57)
[2021-02-06] MEDS ORDERED: ALBU8.5H INH (14:57)
[2021-02-06] MEDS ORDERED: ONDA4TAB6 PO (14:57)
[2021-02-06] MEDS ORDERED: REGL10TA6 PO (15:22)
[2021-02-06 16:04] VITALS: BP 116/75
--- NOTE | 2021-02-07 08:02 | ED PDOC ---
Post-Departure Follow-Up radiology report faxed to Kristine Justice MD Feb 07, 2021 08:02
== END 2021-02-06 16:05 | disposition home or self-care (01) ==
LOC: M ED 11:28 → EDBD 11:28 → M ED 16:05
DX: K52.9 Noninfective gastroenteritis and colitis, unspecified (principal); K58.9 Irritable bowel syndrome, unspecified; G43.909 Migraine, unspecified, not intractable, without status migrainosus; J45.909 Unspecified asthma, uncomplicated; J30.81 Allergic rhinitis due to animal (cat) (dog) hair and dander; J30.1 Allergic rhinitis due to pollen; Z79.899 Other long term (current) drug therapy; Z88.0 Allergy status to penicillin; Z88.1 Allergy status to other antibiotic agents; Z88.8 Allergy status to other drugs, medicaments and biological substances; Z91.040 Latex allergy status
CPT/HCPCS: 36415; 74177; 80047; 80048; 80076; 83690; 84702; 84703; 85025; 96361; 96374; 96375; 99284; J1885; J2765; Q9967

== ENCOUNTER → 2021-02-06 | Outpatient (REF) | payer OTHER ==
[~2021-02-06] MED LIST changes: +ALBU8.5H INH; +MELO7.5T35 PO; +ONDA4TAB6 PO; +PROP10TA56 PO; +REGL10TA6 PO
== END ==
LOC: M LAB REF 17:17
PROVIDERS: ATTEND Emergency Medicine
DX: R19.7 Diarrhea, unspecified (principal)

== ENCOUNTER → 2021-05-22 | Outpatient (REF) ==
[~2021-05-22] MED LIST changes: +ALBU8.5H INH; +MELO7.5T35 PO; +ONDA4TAB6 PO; +PROP10TA56 PO; +REGL10TA6 PO
== END ==
LOC: M EMP 10:13
PROVIDERS: ATTEND Family Medicine
DX: Z11.52 Encounter for screening for COVID-19 (principal)

== ENCOUNTER → 2021-05-23 | Outpatient (REF) ==
[2021-05-23 12:47] LABS: RSV AMPLIFICATION NEGATIVE (NEGATIVE)
== END ==
LOC: M EMP 11:08
PROVIDERS: ATTEND Family Medicine
DX: Z20.822 Contact with and (suspected) exposure to COVID-19 (principal)

== ENCOUNTER → 2021-05-28 | Outpatient (REF) ==
[2021-05-28 13:04] LABS: RSV AMPLIFICATION NEGATIVE (NEGATIVE)
== END ==
LOC: M EMP 12:07
PROVIDERS: ATTEND Family Medicine
DX: Z20.822 Contact with and (suspected) exposure to COVID-19 (principal)

== ENCOUNTER 2021-06-11 15:57 | Emergency (ER) | payer OTHER ==
[~2021-06-11] VITALS: Ht 172.7 cm; Wt 89.5 kg
[2021-06-11 15:58] VITALS: BP 138/78
--- OUTSIDE RECORDS SUMMARY | 2021-06-11 16:04 | CCD ---
Author Author [facility] Organization [facility] Address Unknown Phone Unavailable Care Team Providers Care Moss Gatherer Name Role Phone Andreea Demarco Unavailable PROBLEMS Type Condition ICD9-CM Code DGV26-YR Code Onset Dates Condition S tatus W/U Status Risk SNOMED Code Notes Problem Other ulcerative colitis without complication K51. 80 Active confirmed 81050568 Problem Family history of migraine headaches Z82.0 Act cleo confirmed 289120217 Problem H/O irritable bowel syndrome Z87.19 Active con firmed 12670361920127 Problem Cyst of ovary, unspecified laterality N83.209 Ac tive confirmed 76785622 Problem Encounter for contraceptive management, unspecified type Z30.9 Active confirmed 185364035 Problem LEVI (obstructive sleep apnea) G47.33 Active confirm ed 20161339 Problem Colon cancer screening Z12.11 Active confirmed 101063050 Problem Lipid screening Z13.220 Active confirmed 305 117199 Problem Exacerbation of asthma, unsp ecified asthma severity, unspecified whether persistent J45.901 Active confirmed 885202188 Problem Gastroesophageal reflux disease, esophagitis pre sence not specified K21.9 Active confirmed 421365086 Problem Mild intermittent asthma without complication J45. 20 Active confirmed 450257141 Problem Family history of diabetes mellitus in first degree relati ve Z83.3 Active confirmed 591310790 Problem Seasonal allergic rhinitis due to pollen J30.1 Active confirmed 47972938 Problem Cervical cancer screening Z12.4 Active confirmed 263988369 Problem Breast cancer screening Z12.39 Active confirmed 824968111 Problem Obstructive sleep apnea G47.33 Active confirmed 32286236 Problem Migraine with aura and without status migrainosu s, not intractable G43.109 Active confirmed 5285279 Problem Obesity (BMI 30.0-34.9) E66.9 Active confirmed 741185816862608 Problem Mild episode of recurrent major depressive disorder F33.0 Active confirmed 349651999 Problem Asthma exacerbation J45.901 Active confirmed 526216838 Problem Infertility, female N97.9 Active confirmed 8081906 Problem Dysthymia F34.1 Active confirmed 55828093 Problem Asthma J45.909 Active confirmed 204314046 Problem Impaired fasting glucose R73.01 Active confirmed 718671423 Problem Positive urine test Z32.01 Active confirm ed 298160571 Problem Seasonal allergic rhinitis, unspecified trigger J3 0.2 Active confirmed 994143383 Problem Amenorrhea N91.2 Active confirmed 43797599 ALLERGIES Allergen (clinical drug ingredient) Drug/Non Drug Allergy do cumented on EMR Reaction Allergy Type Onset Date Status ciprofloxacin Cipro([facility] Code:[address]-72) hives Drug Allergy Active Penicillin (For Allergies Use Only) Hives Drug Allerg y Active metronidazole Flagyl([facility] Code:[address]-53) hives Drug Allergy Active Latex Latex Rash Drug Allergy Active ENCOUNTERS from 1990 to 2021-06-05 Encounter Location Date Provider Diagnosis [place] [id number] [facility] [phone] [place] [address] May, Andreea Demarco IMMUNIZATIONS Vaccine Route Administration Date Status COVID-19 dose #1 given elsewhere Unspecified Unknown Sep Administered Influenza 18 yrs & older Flublok Unknown May 15, 2021 Administered Influenza 6mo & up Fluzone Unknown December 20, 2016 Other s Influenza 6mo & up Fluzone Unknown Jun 03, 2015 Admin istered Influenza 6mo & up Fluzone IM Intramuscular Jul 10, 2014 Admi nistered SOCIAL HISTORY Sex Assigned At : Social History Observation Description Sex Assigned At Unknown Audit Question Answer Notes Total Score: 1 Interpretation: Alcohol Education Drug and Alcohol Question Answer Notes Total Score: 0 Interpretation: No problems reported REASON FOR REFERRAL No Information VITAL SIGNS No information MEDICATIONS Medication SIG (Take, Route, Frequency, Duration) Notes Start Da te End Date Status Propranolol HCl 10 MG 1 tablet Orally bid for 30 Active AirDuo RespiClick 113/14 113-14 MCG/ACT 1 puff Inhalat ion Twice a day for 30 days May, Active Albuterol Sulfate HFA 108 (90 Base) MCG/ACT INHALE 1-2 PUFFS BY MOUTH EVERY 4-6 HOURS NEEDED Active Flonase Allergy Relief 50 MCG/ACT 1-2 sprays each nost ril Nasally Once a day for 30 days Not-Taking Sucralfate 1 GM 1 tablet on an empty stomach Orally four times daily for 30 day(s) Dec, Not-Taking Peak Flow Meter - as directed orally Daily for 999 days Apr, Active FLUoxetine HCl 10 MG 1 capsule Orally Once a day for 30 day(s) November, Active Meloxicam 7.5 MG 1 tablet Orally bid for 30 Not-Taking tiZANidine HCl 2 MG 1 tablet as needed Orally Three times a day for 3 0 Active Omeprazole 40 MG 1 capsule 30 minutes before morning meal Orally bid 30 minutes before breakfast and bedtime for 90 days Dec, Active PROCEDURES No Information RESULTS No Results REASON FOR VISIT work MEDICAL (GENERAL) HISTORY Type Description Date Medical History Blood in stool Medical History Diarrhea Medical History Abdominal pain, generalized Medical History GERD Medical History IBS Medical History ulcerative colitis Medical History Allergic rhinitis, cause unspecified Medical History Hemorrhoids Medical History Migraine Medical History Extrinsic asthma, unspecified Surgical History "Lung scope" -age 3 Surgical History colonoscopy 08-31-11 Hospitalization History pneumonia between ages 5-8 and age [age] Goals Section No Information Health Concerns No Information MEDICAL EQUIPMENT No Information MENTAL STATUS No Information FUNCTIONAL STATUS No Information ASSESSMENTS No Information PLAN OF TREATMENT Next Appt Details Provider Name:Andreea Demarco, 2020-08 11:30:00 AM, [address] [place] [address] , [place], [address], Provider Name:Jena Lacey, 2021-07-02 01:40:00 PM, [address] [place] [address] , [place], [address], Insurance Providers Payer Name Payer Address Payer Phone Insured Name Patient Relati onship to Insured Coverage Start Date Coverage End Date [facility] [address] [facility] [phone] KERVIN MCMAHAN
--- OUTSIDE RECORDS SUMMARY | 2021-06-11 16:04 | CCD ---
Author Author [facility] Organization [facility] Address Unknown Phone Unavailable Care Team Providers Care Concrete Layer Name Role Phone Andreea Demarco Unavailable PROBLEMS Type Condition ICD9-CM Code GSL29-ML Code Onset Dates Condition S tatus W/U Status Risk SNOMED Code Notes Problem Other ulcerative colitis without complication K51. 80 Active confirmed 68991991 Problem Family history of migraine headaches Z82.0 Act cleo confirmed 121857533 Problem H/O irritable bowel syndrome Z87.19 Active con firmed 19271097994054 Problem Cyst of ovary, unspecified laterality N83.209 Ac tive confirmed 82308451 Problem Encounter for contraceptive management, unspecified type Z30.9 Active confirmed 238894319 Problem LEVI (obstructive sleep apnea) G47.33 Active confirm ed 94645710 Problem Colon cancer screening Z12.11 Active confirmed 055238391 Problem Lipid screening Z13.220 Active confirmed 305 583991 Problem Exacerbation of asthma, unsp ecified asthma severity, unspecified whether persistent J45.901 Active confirmed 243083394 Problem Gastroesophageal reflux disease, esophagitis pre sence not specified K21.9 Active confirmed 413437865 Problem Mild intermittent asthma without complication J45. 20 Active confirmed 661128910 Problem Family history of diabetes mellitus in first degree relati ve Z83.3 Active confirmed 716555615 Problem Seasonal allergic rhinitis due to pollen J30.1 Active confirmed 00699233 Problem Cervical cancer screening Z12.4 Active confirmed 438596316 Problem Breast cancer screening Z12.39 Active confirmed 422955683 Problem Obstructive sleep apnea G47.33 Active confirmed 68265564 Problem Migraine with aura and without status migrainosu s, not intractable G43.109 Active confirmed 7557407 Problem Obesity (BMI 30.0-34.9) E66.9 Active confirmed 157922704865226 Problem Mild episode of recurrent major depressive disorder F33.0 Active confirmed 902584260 Problem Asthma exacerbation J45.901 Active confirmed 257146063 Problem Infertility, female N97.9 Active confirmed 1593664 Problem Dysthymia F34.1 Active confirmed 79894390 Problem Asthma J45.909 Active confirmed 969111424 Problem Impaired fasting glucose R73.01 Active confirmed 700919874 Problem Positive urine test Z32.01 Active confirm ed 464513672 Problem Seasonal allergic rhinitis, unspecified trigger J3 0.2 Active confirmed 255808804 Problem Amenorrhea N91.2 Active confirmed 72452000 ALLERGIES Allergen (clinical drug ingredient) Drug/Non Drug Allergy do cumented on EMR Reaction Allergy Type Onset Date Status ciprofloxacin Cipro([facility] Code:[address]-90) hives Drug Allergy Active Penicillin (For Allergies Use Only) Hives Drug Allerg y Active metronidazole Flagyl([facility] Code:[address]-54) hives Drug Allergy Active Latex Latex Rash Drug Allergy Active ENCOUNTERS from 1990 to 2021-06-03 Encounter Location Date Provider Diagnosis [place] [address] [facility] [phone] [place] [address] May, Andreea Demarco IMMUNIZATIONS Vaccine Route Administration [...] Information RESULTS No Results REASON FOR VISIT Hypothyroidism MEDICAL (GENERAL) HISTORY Type Description Date Medical [...] Details Provider Name:Andreea Demarco, 2020-08 11:30:00 AM, [address] [place] [address] , [place], [address], Provider Name:Jena Lacey, 2021-07-02 01:40:00 PM, [address] [place] [address] , [place], [address], Insurance Providers Payer Name Payer Address Payer Phone Insured Name Patient Relati onship to Insured Coverage Start Date Coverage End Date [facility] [address] [facility] [phone] KERVIN MCMAHAN
--- OUTSIDE RECORDS SUMMARY | 2021-06-11 16:04 | CCD ---
Author Author [facility] Organization [facility] Address Unknown Phone Unavailable Care Team Providers Care Senior Mainframe Programmer Analyst Name Role Phone Andreea Demarco Unavailable PROBLEMS Type Condition ICD9-CM Code APE88-IG Code Onset Dates Condition S tatus W/U Status Risk SNOMED Code Notes Problem Other ulcerative colitis without complication K51. 80 Active confirmed 66914185 Problem Family history of migraine headaches Z82.0 Act cleo confirmed 182334080 Problem H/O irritable bowel syndrome Z87.19 Active con firmed 90416599931338 Problem Cyst of ovary, unspecified laterality N83.209 Ac tive confirmed 68808060 Problem Encounter for contraceptive management, unspecified type Z30.9 Active confirmed 446687310 Problem LEVI (obstructive sleep apnea) G47.33 Active confirm ed 20798981 Problem Colon cancer screening Z12.11 Active confirmed 604756555 Problem Lipid screening Z13.220 Active confirmed 305 990478 Problem Exacerbation of asthma, unsp ecified asthma severity, unspecified whether persistent J45.901 Active confirmed 107159449 Problem Gastroesophageal reflux disease, esophagitis pre sence not specified K21.9 Active confirmed 904742669 Problem Mild intermittent asthma without complication J45. 20 Active confirmed 948678744 Problem Family history of diabetes mellitus in first degree relati ve Z83.3 Active confirmed 380510669 Problem Seasonal allergic rhinitis due to pollen J30.1 Active confirmed 55262146 Problem Cervical cancer screening Z12.4 Active confirmed 657213202 Problem Breast cancer screening Z12.39 Active confirmed 225971451 Problem Obstructive sleep apnea G47.33 Active confirmed 41503116 Problem Migraine with aura and without status migrainosu s, not intractable G43.109 Active confirmed 7357868 Problem Obesity (BMI 30.0-34.9) E66.9 Active confirmed 158336364766157 Problem Mild episode of recurrent major depressive disorder F33.0 Active confirmed 655976035 Problem Asthma exacerbation J45.901 Active confirmed 232032200 Problem Infertility, female N97.9 Active confirmed 7691557 Problem Dysthymia F34.1 Active confirmed 21114108 Problem Asthma J45.909 Active confirmed 826767289 Problem Impaired fasting glucose R73.01 Active confirmed 585872751 Problem Positive urine test Z32.01 Active confirm ed 670943395 Problem Seasonal allergic rhinitis, unspecified trigger J3 0.2 Active confirmed 339221428 Problem Amenorrhea N91.2 Active confirmed 51004969 ALLERGIES Allergen (clinical drug ingredient) Drug/Non Drug Allergy do cumented on EMR Reaction Allergy Type Onset Date Status ciprofloxacin Cipro([facility] Code:[address]-56) hives Drug Allergy Active Penicillin (For Allergies Use Only) Hives Drug Allerg y Active metronidazole Flagyl([facility] Code:[address]-50) hives Drug Allergy Active Latex Latex Rash Drug Allergy Active ENCOUNTERS from 1990 to 2021-05-28 Encounter Location Date Provider Diagnosis [address] [phone] [place] [address] May, Andreea Demarco IMMUNIZATIONS Vaccine Route Administration [...] Information RESULTS No Results REASON FOR VISIT 10 day quarantine MEDICAL (GENERAL) HISTORY Type Description Date Medical [...] Details Provider Name:Andreea Demarco, 2020-08 11:30:00 AM, [address] [place] [address] , [place], [address], Provider Name:Jena Lacey, 2021-07-02 01:40:00 PM, [address] [place] [address] , [place], [address], Insurance Providers Payer Name Payer Address Payer Phone Insured Name Patient Relati onship to Insured Coverage Start Date Coverage End Date [facility] [address] [facility] [phone] KERVIN MCMAHAN
--- OUTSIDE RECORDS SUMMARY | 2021-06-11 16:04 | CCD ---
Author Author [facility] Organization [facility] Address Unknown Phone Unavailable Care Team Providers Care Hand Cultivator Name Role Phone Andreea Demarco Unavailable PROBLEMS Type Condition ICD9-CM Code PMP84-KF Code Onset Dates Condition S tatus W/U Status Risk SNOMED Code Notes Problem Encounter for contraceptive management, unspecified type Z30.9 Active confirmed 083111635 Problem Family history of migraine headaches Z82.0 Act cleo confirmed 423192079 Problem Other ulcerative colitis without complication K51. 80 Active confirmed 78109428 Problem Cyst of ovary, unspecified laterality N83.209 Ac tive confirmed 44363421 Problem Colon cancer screening Z12.11 Active confirmed 820622370 Problem Cervical cancer screening Z12.4 Active confirmed 694150199 Problem Exacerbation of asthma, unsp ecified asthma severity, unspecified whether persistent J45.901 Active confirmed 867901228 Problem Asthma J45.909 Active confirmed 823655636 Problem Mild intermittent asthma without complication J45. 20 Active confirmed 997222789 Problem Lipid screening Z13.220 Active confirmed 305 784893 Problem Seasonal allergic rhinitis due to pollen J30.1 Active confirmed 26305432 Problem Gastroesophageal reflux disease, esophagitis pre sence not specified K21.9 Active confirmed 105474480 Problem Breast cancer screening Z12.39 Active confirmed 412946314 Problem Family history of diabetes mellitus in first degree relati ve Z83.3 Active confirmed 359931893 Problem LEVI (obstructive sleep apnea) G47.33 Active confirm ed 60073174 Problem Obstructive sleep apnea G47.33 Active confirmed 75892372 Problem Impaired fasting glucose R73.01 Active confirmed 679260901 Problem Mild episode of recurrent major depressive disorder F33.0 Active confirmed 937675219 Problem Dysthymia F34.1 Active confirmed 12450868 Problem Amenorrhea N91.2 Active confirmed 89260798 Problem H/O irritable bowel syndrome Z87.19 Active con firmed 91969726944750 Problem Asthma exacerbation J45.901 Active confirmed 278489249 Problem Migraine with aura and without status migrainosu s, not intractable G43.109 Active confirmed 6110361 Problem Obesity (BMI 30.0-34.9) E66.9 Active confirmed 148868710073948 Problem Positive urine test Z32.01 Active confirm ed 274581348 Problem Seasonal allergic rhinitis, unspecified trigger J3 0.2 Active confirmed 785877365 ALLERGIES Allergen (clinical drug ingredient) Drug/Non Drug Allergy do cumented on EMR Reaction Allergy Type Onset Date Status ciprofloxacin Cipro([facility] Code:[address]-83) hives Drug Allergy Active Penicillin (For Allergies Use Only) Hives Drug Allerg y Active metronidazole Flagyl([facility] Code:[address]-67) hives Drug Allergy Active Latex Latex Rash Drug Allergy Active ENCOUNTERS from 1990 to 2021-05-23 Encounter Location Date Provider Diagnosis [id number] [facility] [phone] [place] [address] May, Andreea Demarco IMMUNIZATIONS Vaccine Route Administration [...] a day for 30 days May, Active Sucralfate 1 GM 1 tablet on an empty stomach Orally four times daily for 30 day(s) Dec, Active FLUoxetine HCl 10 MG 1 capsule Orally Once a day for 30 day(s) November, Active Flonase Allergy Relief 50 MCG/ACT 1-2 sprays each nost ril Nasally Once a day for 30 days Active Omeprazole 40 MG 1 capsule 30 minutes before morning meal Orally bid 30 minutes before breakfast and bedtime for 90 days Dec, Active Peak Flow Meter - as directed orally Daily for 999 days Apr, Active Meloxicam 7.5 MG 1 tablet Orally bid for 30 Active Albuterol Sulfate HFA 108 (90 Base) MCG/ACT INHALE 1-2 PUFFS BY MOUTH EVERY 4-6 HOURS NEEDED Active tiZANidine HCl 2 MG 1 tablet as needed Orally Three times a day for 3 0 Active PROCEDURES No Information RESULTS No Results REASON FOR VISIT Flu Symptoms MEDICAL (GENERAL) HISTORY Type Description Date Medical [...] Information ASSESSMENTS No Information PLAN OF TREATMENT Medication Medication Name Sig Start Date Stop Date Albuterol Sulfate HFA 108 (90 Base) MCG/ACT INHALE 1-2 PUFFS BY MOUTH EVERY 4-6 HOURS NEEDED Peak Flow Meter - as directed orally Daily for 999 days Apr, AirDuo RespiClick 113/14 113-14 MCG/ACT 1 puff Inhalat ion Twice a day for 30 days May, Omeprazole 40 MG 1 capsule 30 minutes before morning meal Orally bid 30 minutes before breakfast and bedtime for 90 days Dec, Next Appt Details Provider Name:Jena Lacey, 2021-05-28 10:20:00 AM, [address] [facility], , [place], [address], Provider Name:Andreea Demarco, 2020-08 11:30:00 AM, [address] [facility], , [place], [address], Insurance Providers Payer Name Payer Address Payer Phone Insured Name Patient Relati onship to Insured Coverage Start Date Coverage End Date [facility] COMMUNITY PLAN [facility] [address] [facility] [address] KERVIN MCMAHAN self
--- OUTSIDE RECORDS SUMMARY | 2021-06-11 16:05 | CCD | Continuity of Care Document ---
Author Author Vero HUDSON Organization Unknown Address [address] [place] [address] Phone [phone] Care Team Providers Care Olive Picker Name Role Phone [facility] [phone] Problems Description No Information Available Social History Type Date Description Comments Sex Unknown Tobacco Use Start: Unknown Never Smoked Cigarettes ETOH Use Denies alcohol use Allergies and adverse reactions Active Allergies Criticality Reaction | Severity Comments Date Singulair Unable to assess criticality 09/26/2008 Flovent Unable to assess criticality 09/26/2008 Cipro Unable to assess criticality 10/12/2018 Flagyl Unable to assess criticality 10/12/2018 Medications Active Medications SIG Qnty Indications Ordering Provide r Date Albuterol Sulfate (2 .5mg/3ML) 0.083% Nebulizer for use with neb machine, 1 vial inhaled by mouth ever y 4-6 hours as needed 75ml J45.21 Dk Jefferson JR., M.D. 08/05/2017 Prozac Unknown Omeprazole Unknown Immunizations Description No Information Available Vital Signs Date Vital Result Comment 05/17/2021 5:39pm BP Systolic 110 mmHg BP Diastolic 78 mmHg Heart Rate 90 /min Respiratory Rate 18 /min O2 % BldC Oximetry 98 % Body Temperature 96.8 F Weight 197.00 lb Height 68 inches 5'8" BMI (Body Mass Index) 30.0 kg/m2 Pain Level 5 12/06/2018 2:05pm BP Systolic 102 mmHg BP Diastolic 78 mmHg Heart Rate 104 /min Respiratory Rate 17 /min O2 % BldC Oximetry 96 % Body Temperature 97.5 F Weight 160.00 lb Height 68 inches 5'8" BMI (Body Mass Index) 24.3 kg/m2 Pain Level 6 Results Description No Information Available Procedures Date Code Description Status 05/17/2021 07075 Office/Outpatient Established Lo w MDM 20-29 Min Completed Medical Devices Description No Information Available Encounters Type Date Location Provider Dx Diagnosis Office Visit 05/17/2021 12:05p Main Office [facility] J06 .9 Acute upper respiratory infection, unspecified J45.21 Mild intermittent asthma wit h (acute) exacerbation Z20.828 Contact w and exposure to ot h viral communicable diseases Assessments Date Code Description Provider 05/17/2021 J06.9 Acute upper respiratory infectio n, unspecified [facility] Mcgill 05/17/2021 J45.21 Mild intermittent asthma with (a cute) exacerbation [facility] Mcg[facility] 05/17/2021 Z20.828 Contact with and (miller spected) exposure to other viral communicable diseases [facility] Plan of Treatment No Information Available Functional Status Description No Information Available Mental Status Description No Information Available Referrals Description No Information Available
--- OUTSIDE RECORDS SUMMARY | 2021-06-11 16:05 | CCD ---
Author Author [facility] Organization [facility] Address Unknown Phone Unavailable Care Team Providers Care Wool Buyer Name Role Phone Andreea Demarco Unavailable PROBLEMS Type Condition ICD9-CM Code [id number] Code Onset Dates Condition S tatus W/U Status Risk SNOMED Code Notes Problem Encounter for contraceptive management, unspecified type Z30.9 Active confirmed 252228977 Problem Family history of migraine headaches Z82.0 Act cleo confirmed 205044419 Problem Other ulcerative colitis without complication K51. 80 Active confirmed 35935750 Problem Cyst of ovary, unspecified laterality N83.209 Ac tive confirmed 11554890 Problem Colon cancer screening Z12.11 Active confirmed 392415279 Problem Cervical cancer screening Z12.4 Active confirmed 066904094 Problem Exacerbation of asthma, unsp ecified asthma severity, unspecified whether persistent J45.901 Active confirmed 393446031 Problem Asthma J45.909 Active confirmed 094308887 Problem Mild intermittent asthma without complication J45. 20 Active confirmed 129749624 Problem Lipid screening Z13.220 Active confirmed 305 538861 Problem Seasonal allergic rhinitis due to pollen J30.1 Active confirmed 49105750 Problem Gastroesophageal reflux disease, esophagitis pre sence not specified K21.9 Active confirmed 745357741 Problem Breast cancer screening Z12.39 Active confirmed 493417200 Problem Family history of diabetes mellitus in first degree relati ve Z83.3 Active confirmed 449588459 Problem LEVI (obstructive sleep apnea) G47.33 Active confirm ed 73248223 Problem Obstructive sleep apnea G47.33 Active confirmed 06801283 Problem Impaired fasting glucose R73.01 Active confirmed 305071124 Problem Mild episode of recurrent major depressive disorder F33.0 Active confirmed 575603752 Problem Dysthymia F34.1 Active confirmed 04441295 Problem Amenorrhea N91.2 Active confirmed 86221106 Problem H/O irritable bowel syndrome Z87.19 Active con firmed 80208335964570 Problem Asthma exacerbation J45.901 Active confirmed 397426933 Problem Migraine with aura and without status migrainosu s, not intractable G43.109 Active confirmed 5514409 Problem Obesity (BMI 30.0-34.9) E66.9 Active confirmed 172057184255142 Problem Positive urine test Z32.01 Active confirm ed 111334683 Problem Seasonal allergic rhinitis, unspecified trigger J3 0.2 Active confirmed 636636842 ALLERGIES Allergen (clinical drug ingredient) Drug/Non Drug Allergy do cumented on EMR Reaction Allergy Type Onset Date Status ciprofloxacin Cipro([facility] Code:[address]-46) hives Drug Allergy Active Penicillin (For Allergies Use Only) Hives Drug Allerg y Active metronidazole Flagyl([facility] Code:[address]-14) hives Drug Allergy Active Latex (for allergy use only) Rash Drug Allergy Active ENCOUNTERS from 1990 to 2021-05-02 Encounter Location Date Provider Diagnosis [address] [phone] [place] [address] Apr, Andreea Carreroworth Asthma J45.909 IMMUNIZATIONS Vaccine Route Administration Date Status COVID-19 dose #1 given elsewhere Unspecified Unknown Sep Administered Influenza 6mo & up Fluzone Unknown [...] Information RESULTS No Results REASON FOR VISIT Peak Flow Meter MEDICAL (GENERAL) HISTORY Type Description Date Medical [...] No Information FUNCTIONAL STATUS No Information ASSESSMENTS Encounter Date Diagnosis Assessment Notes Treatment Notes Treatm ent Clinical Notes Apr, Asthma (ICD-10 - J45.909) PLAN OF TREATMENT Medication Medication Name Sig [...] Provider Name:Jena Lacey, 2021-05-28 10:20:00 AM, [address] [facility], , [place], [address], Provider Name:Andreea Demarco, 2020-08 11:30:00 AM, [address] [facility], , [place], [address], Insurance Providers Payer Name Payer Address Payer Phone Insured Name Patient Relati onship to Insured Coverage Start Date Coverage End Date [facility] COMMUNITY PLAN [facility] [address] [facility] [address] KERVIN MCMAHAN self
--- OUTSIDE RECORDS SUMMARY | 2021-06-11 16:05 | CCD | Continuity of Care Document ---
Author Author Vero HUDSON Organization Unknown Address [address] [place] [address] Phone [phone] Care Team Providers Care Vocal Artist Name Role Phone [facility] [phone] Problems Description No Information Available Social History [...] Available Procedures Date Code Description Status 05/17/2021 87953 Office/Outpatient Established Lo w MDM 20-29 Min [...]
--- OUTSIDE RECORDS SUMMARY | 2021-06-11 18:38 | CCD ---
Author Author [facility] Organization [facility]st [facility] Address Unknown Phone Unavailable Care Team Providers Care Reading Specialist Name Role Phone Andreea Demarco Unavailable PROBLEMS Type Condition ICD9-CM Code THM07-DC Code Onset Dates Condition S tatus W/U Status Risk SNOMED Code Notes Problem Encounter for contraceptive management, unspecified type Z30.9 Active confirmed 366755757 Problem Family history of migraine headaches Z82.0 Act cleo confirmed 719828520 Problem Other ulcerative colitis without complication K51. 80 Active confirmed 67045438 Problem Cyst of ovary, unspecified laterality N83.209 Ac tive confirmed 35154792 Problem Colon cancer screening Z12.11 Active confirmed 447345772 Problem Cervical cancer screening Z12.4 Active confirmed 078958296 Problem Exacerbation of asthma, unsp ecified asthma severity, unspecified whether persistent J45.901 Active confirmed 257244245 Problem Asthma J45.909 Active confirmed 016244774 Problem Mild intermittent asthma without complication J45. 20 Active confirmed 394637241 Problem Lipid screening Z13.220 Active confirmed 305 613070 Problem Seasonal allergic rhinitis due to pollen J30.1 Active confirmed 00046619 Problem Gastroesophageal reflux disease, esophagitis pre sence not specified K21.9 Active confirmed 344605173 Problem Breast cancer screening Z12.39 Active confirmed 128256640 Problem Family history of diabetes mellitus in first degree relati ve Z83.3 Active confirmed 386884145 Problem LEVI (obstructive sleep apnea) G47.33 Active confirm ed 60274363 Problem Obstructive sleep apnea G47.33 Active confirmed 97677321 Problem Impaired fasting glucose R73.01 Active confirmed 318635312 Problem Mild episode of recurrent major depressive disorder F33.0 Active confirmed 306871841 Problem Dysthymia F34.1 Active confirmed 46544518 Problem Amenorrhea N91.2 Active confirmed 11418834 Problem H/O irritable bowel syndrome Z87.19 Active con firmed 29656675776147 Problem Asthma exacerbation J45.901 Active confirmed 313939644 Problem Migraine with aura and without status migrainosu s, not intractable G43.109 Active confirmed 1723656 Problem Obesity (BMI 30.0-34.9) E66.9 Active confirmed 722993031472931 Problem Positive urine test Z32.01 Active confirm ed 598285132 Problem Seasonal allergic rhinitis, unspecified trigger J3 0.2 Active confirmed 119807503 ALLERGIES Allergen (clinical drug ingredient) Drug/Non Drug Allergy do cumented on EMR Reaction Allergy Type Onset Date Status ciprofloxacin Cipro([facility] Code:[address]-71) hives Drug Allergy Active Penicillin (For Allergies Use Only) Hives Drug Allerg y Active metronidazole Flagyl([facility] Code:[address]-66) hives Drug Allergy Active Latex (for allergy use only) Rash Drug Allergy Active ENCOUNTERS from 1990 to 2021-05-06 Encounter Location Date Provider Diagnosis [address] [facility] [phone] [place] [address] Apr, Andreea Demarco Gastroesophageal reflux dise ase, esophagitis presence not specified K21.9 ; Other ulcerative colitis without complication K51.80 ; Dyspepsia R10.13 and Asthma J45.909 IMMUNIZATIONS Vaccine Route Administration Date [...] REASON FOR REFERRAL No Information VITAL SIGNS Weight 202 lbs Apr, Weight-kg 91.63 kg Apr, Height 67.5 in Apr, BMI 31.17 kg/m2 Apr, Heart Rate 94 /min Apr, Respiratory Rate 18 /min Apr, Temperature 97.1 degrees Fahrenheit Apr, Oximetry 94% Apr, Blood pressure systolic 110 mm Hg Apr, Blood pressure diastolic 68 mm Hg Apr, MEDICATIONS Medication SIG (Take, Route, Frequency, Duration) [...] Information RESULTS No Results REASON FOR VISIT [facility] Follow up MEDICAL (GENERAL) HISTORY Type Description Date Medical [...] Treatment Notes Treatm ent Clinical Notes Apr, Gastroesophageal reflux dise ase, esophagitis presence not specified (ICD-10 - K21.9) Apr, Other ulcerative colitis without complication (I CD-10 - K51.80) Follows c GI in 06/18/2021 again 2017 colonoscopy & Biopsy c Dr. Miles IBS suspect 2011 colon & biopsy Apr, Dyspepsia (ICD-10 - R10.13) resolve Apr, Asthma (ICD-10 - J45.909) Apr, Other 30" chart revie w, H&P, orders/plan PLAN OF TREATMENT Medication Medication Name Sig [...] breakfast and bedtime for 90 days Dec, Treatment Notes Assessment Notes Clinical Notes Other ulcerative colitis without complication Follows c GI in 06/18/2021 [id number] colonoscopy & Biopsy c Dr. Miles IBS [id number] colon & biopsy Dyspepsia resolve Next Appt Details 2 Months c SS Reason: Provider Name:Jena Lacey, 2021-05-28 10:20:00 AM, [address] [place] [address], , [place], [address], Provider Name:Andreea Demarco, 2020-08 11:30:00 AM, [address] [place] [address], , [place], [address], Insurance Providers Payer Name Payer Address Payer Phone Insured Name Patient Relati onship to Insured Coverage Start Date Coverage End Date [facility] COMMUNITY PLAN [facility] [address] [facility] [address] KERVIN MCMAHAN
--- OUTSIDE RECORDS SUMMARY | 2021-06-11 18:38 | CCD ---
Author Author [facility] Organization [facility] Address Unknown Phone Unavailable Care Team Providers Care Technology Assistant Name Role Phone Andreea Demarco Unavailable PROBLEMS Type Condition ICD9-CM Code TTD24-SO Code Onset Dates Condition S tatus W/U Status Risk SNOMED Code Notes Problem Encounter for contraceptive management, unspecified type Z30.9 Active confirmed 315928528 Problem Family history of migraine headaches Z82.0 Act cleo confirmed 202635484 Problem Other ulcerative colitis without complication K51. 80 Active confirmed 78560977 Problem Cyst of ovary, unspecified laterality N83.209 Ac tive confirmed 01686403 Problem Colon cancer screening Z12.11 Active confirmed 635097078 Problem Cervical cancer screening Z12.4 Active confirmed 004004695 Problem Exacerbation of asthma, unsp ecified asthma severity, unspecified whether persistent J45.901 Active confirmed 989364841 Problem Asthma J45.909 Active confirmed 579444357 Problem Mild intermittent asthma without complication J45. 20 Active confirmed 432308886 Problem Lipid screening Z13.220 Active confirmed 305 341279 Problem Seasonal allergic rhinitis due to pollen J30.1 Active confirmed 25462839 Problem Gastroesophageal reflux disease, esophagitis pre sence not specified K21.9 Active confirmed 614049085 Problem Breast cancer screening Z12.39 Active confirmed 497244134 Problem Family history of diabetes mellitus in first degree relati ve Z83.3 Active confirmed 734213293 Problem LEVI (obstructive sleep apnea) G47.33 Active confirm ed 59135205 Problem Obstructive sleep apnea G47.33 Active confirmed 19059723 Problem Impaired fasting glucose R73.01 Active confirmed 275457369 Problem Mild episode of recurrent major depressive disorder F33.0 Active confirmed 956633842 Problem Dysthymia F34.1 Active confirmed 90838750 Problem Amenorrhea N91.2 Active confirmed 62702648 Problem H/O irritable bowel syndrome Z87.19 Active con firmed 32802322286157 Problem Asthma exacerbation J45.901 Active confirmed 124290114 Problem Migraine with aura and without status migrainosu s, not intractable G43.109 Active confirmed 5342743 Problem Obesity (BMI 30.0-34.9) E66.9 Active confirmed 182391412071601 Problem Positive urine test Z32.01 Active confirm ed 224246935 Problem Seasonal allergic rhinitis, unspecified trigger J3 0.2 Active confirmed 497367001 ALLERGIES Allergen (clinical drug ingredient) Drug/Non Drug Allergy do cumented on EMR Reaction Allergy Type Onset Date Status ciprofloxacin Cipro([facility] Code:[address]-41) hives Drug Allergy Active Penicillin (For Allergies Use Only) Hives Drug Allerg y Active metronidazole Flagyl([facility] Code:[address]-27) hives Drug Allergy Active Latex (for allergy use only) Rash Drug Allergy Active ENCOUNTERS from 1990 to 2021-04-15 Encounter Location Date Provider Diagnosis [address] [facility] [phone] [place] [address] Jan, Andreea Demarco IMMUNIZATIONS Vaccine Route Administration Date [...] Notes Start Da te End Date Status AirDuo RespiClick 113/14 113-14 MCG/ACT 1 puff Inhalation Twice a day May, Active Propranolol HCl 10 MG 1 tablet Orally bid for 30 Active Meloxicam 7.5 MG 1 tablet Orally bid for 30 Active Flonase Allergy Relief 50 MCG/ACT 1-2 sprays each nost ril Nasally Once a day for 30 days Active Omeprazole Magnesium 20 MG 1 tablet 30 minutes before morning meal Orally Once a day Active Albuterol Sulfate HFA 108 (90 Base) MCG/ACT INHALE 1-2 PUFFS BY MOUTH EVERY 4-6 HOURS NEEDED for 20 Active tiZANidine HCl 2 MG 1 tablet as needed Orally Three times a day for 3 0 Active FLUoxetine HCl 10 MG 1 capsule Orally Once a day for 30 day(s) November, Active Sucralfate 1 GM 1 tablet on an empty stomach Orally four times daily for 30 day(s) Dec, Active Omeprazole 40 MG 1 capsule 30 minutes before morning meal Orally bid for 30 day(s) Dec, Active PROCEDURES No Information RESULTS No Results REASON FOR VISIT d/c ? MEDICAL (GENERAL) HISTORY Type Description Date Medical [...] Medication Name Sig Start Date Stop Date Omeprazole Magnesium 20 MG 1 tablet 30 minutes before morning meal Orally Once a day Sucralfate 1 GM 1 tablet on an empty stomach Orally four times daily for 30 day(s) Dec, Omeprazole 40 MG 1 capsule 30 minutes before morning meal Orally bid for 30 day(s) Dec, Next Appt Details Provider Name:Andreea Demarco, 04-15 09:30:00 AM, [address] [place] [address], , [place], [address], Provider Name:Jena Lacey, 2021-04-23 01:00:00 PM, [address] [place] [address], , [place], [address], Insurance Providers Payer Name Payer Address Payer Phone Insured Name Patient Relati onship to Insured Coverage Start Date Coverage End Date [facility] COMMUNITY PLAN [facility] [address] [facility] [address] KERVIN MCMAHAN self
--- OUTSIDE RECORDS SUMMARY | 2021-06-11 18:38 | CCD ---
Author Author [facility] Organization [facility] Address Unknown Phone Unavailable Care Team Providers Care Locomotive Boilermaker Name Role Phone Andreea Demarco Unavailable PROBLEMS Type Condition ICD9-CM Code HCH18-TC Code Onset Dates Condition S tatus W/U Status Risk SNOMED Code Notes Problem Encounter for contraceptive management, unspecified type Z30.9 Active confirmed 491238388 Problem Family history of migraine headaches Z82.0 Act cleo confirmed 253391372 Problem Other ulcerative colitis without complication K51. 80 Active confirmed 82197020 Problem Cyst of ovary, unspecified laterality N83.209 Ac tive confirmed 64164386 Problem Colon cancer screening Z12.11 Active confirmed 683760573 Problem Cervical cancer screening Z12.4 Active confirmed 257088799 Problem Exacerbation of asthma, unsp ecified asthma severity, unspecified whether persistent J45.901 Active confirmed 522784077 Problem Asthma J45.909 Active confirmed 111475472 Problem Mild intermittent asthma without complication J45. 20 Active confirmed 891987226 Problem Lipid screening Z13.220 Active confirmed 305 750578 Problem Seasonal allergic rhinitis due to pollen J30.1 Active confirmed 77365689 Problem Gastroesophageal reflux disease, esophagitis pre sence not specified K21.9 Active confirmed 720540446 Problem Breast cancer screening Z12.39 Active confirmed 900530263 Problem Family history of diabetes mellitus in first degree relati ve Z83.3 Active confirmed 014261834 Problem LEVI (obstructive sleep apnea) G47.33 Active confirm ed 37973207 Problem Obstructive sleep apnea G47.33 Active confirmed 36769455 Problem Impaired fasting glucose R73.01 Active confirmed 976265615 Problem Mild episode of recurrent major depressive disorder F33.0 Active confirmed 047220215 Problem Dysthymia F34.1 Active confirmed 84451452 Problem Amenorrhea N91.2 Active confirmed 47317361 Problem H/O irritable bowel syndrome Z87.19 Active con firmed 69046918074108 Problem Asthma exacerbation J45.901 Active confirmed 432696665 Problem Migraine with aura and without status migrainosu s, not intractable G43.109 Active confirmed 0821065 Problem Obesity (BMI 30.0-34.9) E66.9 Active confirmed 797221293685136 Problem Positive urine test Z32.01 Active confirm ed 838012069 Problem Seasonal allergic rhinitis, unspecified trigger J3 0.2 Active confirmed 276883772 ALLERGIES Allergen (clinical drug ingredient) Drug/Non Drug Allergy do cumented on EMR Reaction Allergy Type Onset Date Status ciprofloxacin Cipro([facility] Code:[address]-55) hives Drug Allergy Active Penicillin (For Allergies Use Only) Hives Drug Allerg y Active metronidazole Flagyl([facility] Code:[address]-29) hives Drug Allergy Active Latex (for allergy use only) Rash Drug Allergy Active ENCOUNTERS from 1990 to 2021-04-29 Encounter Location Date Provider Diagnosis [address] [place] [facility] [phone] [place] [address] Apr, Andreea Demarco Gastroesophageal reflux dise ase, esophagitis presence not specified K21.9 IMMUNIZATIONS Vaccine Route Administration Date Status COVID-19 [...] and bedtime for 90 days Dec, Active Albuterol Sulfate HFA 108 (90 Base) MCG/ACT INHALE 1-2 PUFFS BY MOUTH EVERY 4-6 HOURS NEEDED Active Meloxicam 7.5 MG 1 tablet Orally bid for 30 Active Peak Flow Meter - as directed orally Daily for 999 days Apr, Active tiZANidine HCl 2 MG 1 tablet as needed Orally Three times a day for 3 0 Active PROCEDURES No Information RESULTS No Results REASON FOR VISIT clairfy MEDICAL (GENERAL) HISTORY Type Description Date Medical [...] esophagitis presence not specified (ICD-10 - K21.9) PLAN OF TREATMENT Medication Medication Name Sig Start Date Stop Date Peak Flow Meter - as directed orally Daily for 999 days Apr, Albuterol Sulfate HFA 108 (90 Base) MCG/ACT INHALE 1-2 PUFFS BY MOUTH EVERY 4-6 HOURS NEEDED AirDuo RespiClick 113/14 113-14 MCG/ACT 1 puff Inhalat ion Twice a day for 30 days May, Omeprazole 40 MG 1 capsule 30 minutes before morning meal Orally bid 30 minutes before breakfast and bedtime for 90 days Dec, Next Appt Details Provider Name:Jena Lacey, 2021-05-28 10:20:00 AM, [address] [facility], , [place], [address], Provider Name:Andreea Graeme Demarco, 2020-08 11:30:00 AM, [address] [facility], , [place], [address], Insurance Providers Payer Name Payer Address Payer Phone Insured Name Patient Relati onship to Insured Coverage Start Date Coverage End Date [facility] [address] [facility] [phone] KERVIN MCMAHAN self
--- OUTSIDE RECORDS SUMMARY | 2021-06-11 18:38 | CCD ---
Author Author [facility] Organization [facility] Address Unknown Phone Unavailable Care Team Providers Care Hide Buffer Name Role Phone Andreea Demarco Unavailable PROBLEMS Type Condition ICD9-CM Code JKA04-RY Code Onset Dates Condition S tatus W/U Status Risk SNOMED Code Notes Problem Encounter for contraceptive management, unspecified type Z30.9 Active confirmed 760060895 Problem Family history of migraine headaches Z82.0 Act cleo confirmed 148922555 Problem Other ulcerative colitis without complication K51. 80 Active confirmed 19142630 Problem Cyst of ovary, unspecified laterality N83.209 Ac tive confirmed 23468173 Problem Colon cancer screening Z12.11 Active confirmed 111877950 Problem Cervical cancer screening Z12.4 Active confirmed 674085275 Problem Exacerbation of asthma, unsp ecified asthma severity, unspecified whether persistent J45.901 Active confirmed 316989959 Problem Asthma J45.909 Active confirmed 102779063 Problem Mild intermittent asthma without complication J45. 20 Active confirmed 297154598 Problem Lipid screening Z13.220 Active confirmed 305 272207 Problem Seasonal allergic rhinitis due to pollen J30.1 Active confirmed 78186579 Problem Gastroesophageal reflux disease, esophagitis pre sence not specified K21.9 Active confirmed 014553899 Problem Breast cancer screening Z12.39 Active confirmed 777234456 Problem Family history of diabetes mellitus in first degree relati ve Z83.3 Active confirmed 055113705 Problem LEVI (obstructive sleep apnea) G47.33 Active confirm ed 21912881 Problem Obstructive sleep apnea G47.33 Active confirmed 52094632 Problem Impaired fasting glucose R73.01 Active confirmed 382344645 Problem Mild episode of recurrent major depressive disorder F33.0 Active confirmed 355350494 Problem Dysthymia F34.1 Active confirmed 80028391 Problem Amenorrhea N91.2 Active confirmed 95444137 Problem H/O irritable bowel syndrome Z87.19 Active con firmed 42746422065767 Problem Asthma exacerbation J45.901 Active confirmed 367244476 Problem Migraine with aura and without status migrainosu s, not intractable G43.109 Active confirmed 9867294 Problem Obesity (BMI 30.0-34.9) E66.9 Active confirmed 862479894529276 Problem Positive urine test Z32.01 Active confirm ed 897439922 Problem Seasonal allergic rhinitis, unspecified trigger J3 0.2 Active confirmed 168425083 ALLERGIES Allergen (clinical drug ingredient) Drug/Non Drug Allergy do cumented on EMR Reaction Allergy Type Onset Date Status ciprofloxacin Cipro([facility] Code:[address]-65) hives Drug Allergy Active Penicillin (For Allergies Use Only) Hives Drug Allerg y Active metronidazole Flagyl([facility] Code:[address]-19) hives Drug Allergy Active Latex (for allergy use only) Rash Drug Allergy Active ENCOUNTERS from 1990 to 2021-04-23 Encounter Location Date Provider Diagnosis [place] [address] [facility] [phone] [place] [address] Apr, Andreea Demarco IMMUNIZATIONS Vaccine Route Administration Date [...] Information RESULTS No Results REASON FOR VISIT No show MEDICAL (GENERAL) HISTORY Type Description Date Medical [...] Dec, Next Appt Details Provider Name:Andreea Demarco, 04-28 02:00:00 PM, [address] [place] [address], , [place], [address], Provider Name:Jena Lacey, 2021-05-28 10:20:00 AM, [address] [place] [address], , [place], [address], Insurance Providers Payer Name Payer Address Payer Phone Insured Name Patient Relati onship to Insured Coverage Start Date Coverage End Date [facility] [address] [facility] [phone] KERVIN MCMAHAN
--- OUTSIDE RECORDS SUMMARY | 2021-06-11 18:38 | CCD ---
Author Author [facility] Organization [facility] Address Unknown Phone Unavailable Care Team Providers Care Inventory Clerk Name Role Phone Andreea Demarco Unavailable PROBLEMS Type Condition ICD9-CM Code MWH89-SQ Code Onset Dates Condition S tatus W/U Status Risk SNOMED Code Notes Problem Encounter for contraceptive management, unspecified type Z30.9 Active confirmed 699494248 Problem Family history of migraine headaches Z82.0 Act cleo confirmed 241993111 Problem Other ulcerative colitis without complication K51. 80 Active confirmed 30389473 Problem Cyst of ovary, unspecified laterality N83.209 Ac tive confirmed 09735860 Problem Colon cancer screening Z12.11 Active confirmed 611961385 Problem Cervical cancer screening Z12.4 Active confirmed 465312566 Problem Exacerbation of asthma, unsp ecified asthma severity, unspecified whether persistent J45.901 Active confirmed 795873105 Problem Asthma J45.909 Active confirmed 095797140 Problem Mild intermittent asthma without complication J45. 20 Active confirmed 664255398 Problem Lipid screening Z13.220 Active confirmed 305 154700 Problem Seasonal allergic rhinitis due to pollen J30.1 Active confirmed 32768689 Problem Gastroesophageal reflux disease, esophagitis pre sence not specified K21.9 Active confirmed 514443538 Problem Breast cancer screening Z12.39 Active confirmed 970559892 Problem Family history of diabetes mellitus in first degree relati ve Z83.3 Active confirmed 621785748 Problem LEVI (obstructive sleep apnea) G47.33 Active confirm ed 22132361 Problem Obstructive sleep apnea G47.33 Active confirmed 33446436 Problem Impaired fasting glucose R73.01 Active confirmed 605784147 Problem Mild episode of recurrent major depressive disorder F33.0 Active confirmed 077270010 Problem Dysthymia F34.1 Active confirmed 80808688 Problem Amenorrhea N91.2 Active confirmed 91888995 Problem H/O irritable bowel syndrome Z87.19 Active con firmed 03136144206054 Problem Asthma exacerbation J45.901 Active confirmed 106092132 Problem Migraine with aura and without status migrainosu s, not intractable G43.109 Active confirmed 9529111 Problem Obesity (BMI 30.0-34.9) E66.9 Active confirmed 187903343316461 Problem Positive urine test Z32.01 Active confirm ed 713263342 Problem Seasonal allergic rhinitis, unspecified trigger J3 0.2 Active confirmed 190932783 ALLERGIES Allergen (clinical drug ingredient) Drug/Non Drug Allergy do cumented on EMR Reaction Allergy Type Onset Date Status ciprofloxacin Cipro([facility] Code:[address]-17) hives Drug Allergy Active Penicillin (For Allergies Use Only) Hives Drug Allerg y Active metronidazole Flagyl([facility] Code:[address]-05) hives Drug Allergy Active Latex (for allergy use only) Rash Drug Allergy Active ENCOUNTERS from 1990 to 2021-04-18 Encounter Location Date Provider Diagnosis [place] [address] [facility] [phone] [place] [address] Apr, Andreea Demarco IMMUNIZATIONS Vaccine Route Administration [...] Information RESULTS No Results REASON FOR VISIT NO showed MEDICAL (GENERAL) HISTORY Type Description Date Medical [...] Details Provider Name:Andreea Demarco, 04-28 02:00:00 PM, [address] [place] [address], , [place], [address], Provider Name:Jena Lacey, 2021-05-28 10:20:00 AM, [address] [place] [address], , [place], [address], Insurance Providers Payer Name Payer Address Payer Phone Insured Name Patient Relati onship to Insured Coverage Start Date Coverage End Date [facility] [address] [facility] [id number] KERVIN MCMAHAN
--- OUTSIDE RECORDS SUMMARY | 2021-06-11 18:39 | CCD ---
Author Author [facility] Organization [facility] Address Unknown Phone Unavailable Support Name Relationship Address Phone FIVE BELOW [place] [address] KERVIN MCMAHAN Next Of Kin [address] [place] [address] CORRIE GARY Next Of Kin [address] [place] [address] TARGET Next Of Kin [address] [place] [address] Karina Brady Next Of Kin Unknown Unavailable Ciara King Next Of Kin [address] [place] [address] HILARIO [place] Next Of Kin [address] [place] [address] Kiki Chambers Next Of Kin [address] [place] [address] [facility] [place] [address] ST Next Of Kin Unknown Unavailable Shane Mcmahon MD Next Of Kin [address] [place] [address] Moisés Vela Next Of Kin [address] [place] [address] F.Y.E Next Of Kin [address] [place] [address] CHIPOTLE Next Of Kin [address] [facility] [address] [place] [id number] DANOS Next Of Kin [address] [place] [id number] [employer] [place] [address] [employer] [place] [address] Unavailable BATH [employer]KS Next Of Kin [address] [facility] [address] [place] [address] [employer]ATH [employer]ODY Next [place] [address] UE Next Of Kin Unknown Unavailable [place] [address] Unavailable TREASURE Next Of Kin [address] [place] [address] [place] [address] KARINA CLIFTON Next Of Kin [address] [place] [address] KARINA BRADY Next Of Kin [address] [place] [address] CORRIE G[place], [place] [phone] Karina Clifton [employer]CON [employer] [address] [place] [address] Unavailable Care Team Providers Care Framing Carpenter Name Role Phone Maring, Marshal PA Unavailable Unavailable Maring, Marshal PA Unavailable Unavailable Maring, Marshal PA Unavailable Unavailable Maring, Marshal PA Unavailable Unavailable Maring, Marshal PA Unavailable Unavailable Maring, Marshal PA Unavailable Unavailable Maring, Marshal PA Unavailable Unavailable Maring, Marshal PA Unavailable Unavailable Maring, Marshal PA Unavailable Unavailable Maring, Marshal PA Unavailable Unavailable Maring, Marshal PA Unavailable Unavailable Maring, Marshal PA Unavailable Unavailable Maring, Marshal PA Unavailable Unavailable Maring, Marshal PA Unavailable Unavailable Maring, Marshal PA Unavailable Unavailable Maring, Marshal PA Unavailable Unavailable Jeannie Mott PA Unavailable Unavailable LETTIERE, A KIMBERLY PA Unavailable Unavailable LETTIERE, A KIMBERLY PA Unavailable Unavailable LETTIERE, A KIMBERLY PA Unavailable Unavailable LETTIERE, A KIMBERLY PA Unavailable Unavailable LETTIERE, A KIMBERLY PA Unavailable Unavailable LETTIERE, A KIMBERLY PA Unavailable Unavailable LETTIERE, A KIMBERLY PA Unavailable Unavailable LETTIERE, A KIMBERLY PA Unavailable Unavailable LETTIERE, A KIMBERLY PA Unavailable Unavailable LETTIERE, A KIMBERLY PA Unavailable Unavailable LETTIERE, A KIMBERLY PA Unavailable Unavailable LETTIERE, A KIMBERLY PA Unavailable Unavailable LETTIERE, A KIMBERLY PA Unavailable Unavailable LETTIERE, A KIMBERLY PA Unavailable Unavailable LETTIERE, A KIMBERLY PA Unavailable Unavailable LETTIERE, A KIMBERLY PA Unavailable Unavailable LETTIERE, A KIMBERLY PA Unavailable Unavailable LETTIERE, A KIMBERLY PA Unavailable Unavailable LETTIERE, A KIMBERLY PA Unavailable Unavailable LETTIERE, A KIMBERLY PA Unavailable Unavailable LETTIERE, A KIMBERLY PA Unavailable Unavailable LETTIERE, A KIMBERLY PA Unavailable Unavailable LETTIERE, A KIMBERLY PA Unavailable Unavailable LETTIERE, A KIMBERLY PA Unavailable Unavailable LETTIERE, A KIMBERLY PA Unavailable Unavailable LETTIERE, A KIMBERLY PA Unavailable Unavailable LETTIERE, A KIMBERLY PA Unavailable Unavailable LETTIERE, A KIMBERLY PA Unavailable Unavailable LETTIERE, A KIMBERLY PA Unavailable Unavailable LETTIERE, A KIMBERLY PA Unavailable Unavailable LETTIERE, A KIMBERLY PA Unavailable Unavailable ROM, "" Unavailable Unavailable Harish Reynaga MD Unavailable Unavailable Harish Reynaga MD Unavailable Unavailable Harish Reynaga MD Unavailable Unavailable Harish Reynaga MD Unavailable Unavailable Harish Reynaga MD Unavailable Unavailable Harish Reynaga MD Unavailable Unavailable NONE , MD ON NONE Unavailable Unavailable Darlene Pastrana MD Unavailable Unavailable Darlene Pastrana MD Unavailable Unavailable Darlene Pastrana MD Unavailable Unavailable Darlene Pastrana MD Unavailable Unavailable Darlene Pastrana MD Unavailable Unavailable Darlene Pastrana MD Unavailable Unavailable Darlene Pastrana MD Unavailable Unavailable Darlene Pastrana MD Unavailable Unavailable Darlene Pastrana MD Unavailable Unavailable Darlene Pastrana MD Unavailable Unavailable Darlene Pastrana MD Unavailable Unavailable Darlene Pastrana MD Unavailable Unavailable Darlene Pastrana MD Unavailable Unavailable Darlene Pastrana MD Unavailable Unavailable Darlene Pastrana MD Unavailable Unavailable Darlene Pastrana MD Unavailable Unavailable Darlene Pastrana MD Unavailable Unavailable Darlene Pastrana MD Unavailable Unavailable Darlene Pastrana MD Unavailable Unavailable Darlene Pastrana MD Unavailable Unavailable Darlene Pastrana MD Unavailable Unavailable Darlene Pastrana MD Unavailable Unavailable Darlene Pastrana MD Unavailable Unavailable Darlene Pastrana MD Unavailable Unavailable Darlene Pastrana MD Unavailable Unavailable Darlene SPEAR MD Unavailable Unavailable Darlene SPEAR MD Unavailable Unavailable Darlene SPEAR MD Unavailable Unavailable Darlene SPEAR MD Unavailable Unavailable Darlene SPEAR MD Unavailable Unavailable Darlene SPEAR MD Unavailable Unavailable Darlene SPEAR MD Unavailable Unavailable Darlene SPEAR MD Unavailable Unavailable CHRISTIANO, Darlene MOE MD Unavailable Unavailable CHANLIECALEXSANDRA, C ABHI MD Unavailable Unavailable CHANLIECALEXSANDRA, C ABHI MD Unavailable Unavailable NON, PHYSICIAN STAFF Unavailable Unavailable Odilon, Ezequiel Adam MD Unavailable Unavailable Odilon, Ezequiel Adam MD Unavailable Unavailable Odilon, Ezequiel Adam MD Unavailable Unavailable Homer, Ezequiel Jair MD Unavailable Unavailable Homer, Ezequiel Jair MD Unavailable Unavailable Odilon, Ezequiel Jair MD Unavailable Unavailable Homer, Ezequiel Jair MD Unavailable Unavailable Odilon, Ezequiel Jair MD Unavailable Unavailable Homer, Ezequiel Jair MD Unavailable Unavailable Homer, Ezequiel Jair MD Unavailable Unavailable Homer, Ezequiel Jair MD Unavailable Unavailable Odilon, Ezequiel Jair MD Unavailable Unavailable Odilon, Ezequiel Jair MD Unavailable Unavailable Re-disclosure Warning The records that you are about to access may contain information from federally-assisted alcohol or drug abuse programs. If such information is present, then the following federally mandated warning applies: This information has been disclosed to you from records protected by federal confidentiality rules (42 CFR part 2). The federal rules prohibit you from making any further disclosure of this information unless further disclosure is expressly permitted by the written consent of the person to whom it pertains or as otherwise permitted by 42 CFR part 2. A general authorization for the release of medical or other information is NOT sufficient for this purpose. The Federal rules restrict any use of the information to criminally investigate or prosecute any alcohol or drug abuse patient.The records that you are about to access may contain highly sensitive health information, the redisclosure of which is protected by Article 27-F of the [facility] Public Health law. If you continue you may have access to information: Regarding HIV / AIDS; Provided by facilities licensed or operated by the [facility] Office of Mental Health; or Provided by the [facility] Office for People With Developmental Disabilities. If such information is present, then the following [facility] mandated warning applies: This information has been disclosed to you from confidential records which are protected by state law. State law prohibits you from making any further disclosure of this information without the specific written consent of the person to whom it pertains, or as otherwise permitted by law. Any unauthorized further disclosure in violation of state law may result in a fine or nursing home sentence or both. A general authorization for the release of medical or other information is NOT sufficient authorization for further disc losure. Allergies and Adverse Reactions Type Description Substance Reaction Status Data Source(s ) Drug allergy Flagyl Flagyl [facility] Drug allergy Cipro Cipro [facility] Family History Family Member Name Family Member Gender Family Member Status Date o f Status Description Data Source(s) Unknown Unknown Problem MEDENT ([facility], ) Encounters Encounter Providers Location Date Indications Data Source(s ) Outpatient Attender: Cornelia Pastrana MDAttender: Jeannie WILKERSON 05/30/2021 11:57:03 AM EDT - 05/30/2021 02:48:37 PM EDT [facility] ([facility]) Unknown [address] [facility] [place] [address] 05/28/2021 12:00:00 AM EDT eCW1 ([facility]) Unknown [address] [facility] Y [address] 05/28/2021 12:00:00 AM EDT eCW1 ([facility]) Unknown [address] [facility] [address] Y [address] 05/23/2021 12:00:00 AM EDT eCW1 ([facility]) Outpatient Attender: KIMBERLY ladd 05/17/2021 12:05:00 PM EDT MEDENT ([facility]) Unknown [address] [facility] [place] [address] 05/15/2021 12:00:00 AM EDT eCW1 ([facility]) Unknown [address] [facility] [place] [address] 05/01/2021 12:00:00 AM EDT eCW1 ([facility]) Outpatient [address] [facility] Y [address] 04/28/2021 12:00:00 AM EDT eCW1 ([facility]) Unknown [address] [facility] Y [address] 04/28/2021 12:00:00 AM EDT eCW1 ([facility]) Unknown [address] [facility] [address] [place] [address] 04/16/2021 12:00:00 AM EDT eCW1 ([facility]) Unknown [address] [facility] [place] [address] 04/16/2021 12:00:00 AM EDT eCW1 ([facility]) Unknown [address] [facility] [place] [address] 03/10/2021 12:00:00 AM EDT eCW1 ([facility]) Unknown [address] [facility] [place] [address] 02/27/2021 12:00:00 AM EDT eCW1 ([facility] Unknown [address] [facility] [place] [address] 02/13/2021 12:00:00 AM EDT eCW1 ([facility] Outpatient [address] [facility] [place] [address] 01/29/2021 12:00:00 AM EDT eCW1 ([facility]) Unknown [address] [facility] [place] [address] 01/27/2021 12:00:00 AM EDT eCW1 ([facility]) Emergency Attender: ABHI SPEAR MDConsultant: RAJAN SIBLEY 01/26/2021 12:56:00 PM EDT - 01/26/2021 04:33:00 PM EDT [facility] Patient discharged. Emergency Attender: Harish Reynaga MD 01/11/2021 02:32:00 PM EDT - 01/11/2021 06:00:00 PM EDT [facility] Patient discharged. Outpatient Attender: Marshal WILKERSON 01/11/20 04:25:24 PM EDT - 01/10/2021 04:49:19 PM EDT [facility] ([facility] ) Unknown [address] [facility] [place] [address] 12/27/2020 12:00:00 AM EDT eCW1 ([facility]) Unknown [address] [facility] [place] [address] 12/18/2020 12:00:00 AM EDT eCW1 ([facility]) Outpatient [address] [facility] [place] [address] 12/17/2020 12:00:00 AM EDT eCW1 ([facility]) Outpatient [address] [facility] [place] [address] 12/13/2020 12:00:00 AM EDT eCW1 ([facility]) Unknown [address] [facility] [place] [address] 12/09/2020 12:00:00 AM EDT eCW1 ([facility]) Unknown [address] [facility] [place] [address] 12/05/2020 12:00:00 AM EDT eCW1 ([facility]) Unknown [address] [facility] [place] [address] 12/03/2020 12:00:00 AM EDT eCW1 ([facility]) Unknown [address] [facility] [place] [address] 11/15/2020 12:00:00 AM EDT eCW1 ([facility]) Unknown [address] [facility] [place] [address] 11/15/2020 12:00:00 AM EDT eCW1 ([facility]) Outpatient [address] [facility] [place] [address] 11/07/2020 12:00:00 AM EDT eCW1 ([facility]) Outpatient [address] [facility] [place] [address] 10/24/2020 12:00:00 AM EDT eCW1 ([facility]) Unknown [address] [facility] [place] [address] 10/23/2020 12:00:00 AM EDT eCW1 ([facility]) Unknown [address] [facility] [place] [address] 10/07/2020 12:00:00 AM EST eCW1 ([facility]) Unknown [address] [facility] [place] [address] 10/07/2020 12:00:00 AM EST eCW1 ([facility]) Outpatient [address] [facility] [place] [address] 10/03/2020 12:00:00 AM EST eCW1 ([facility]) Unknown [address] [facility] [place] [address] 10/01/2020 12:00:00 AM EST eCW1 ([facility]) Unknown [address] [facility] [place] [address] 09/23/2020 12:00:00 AM EST eCW1 ([facility]) Unknown [address] [facility] [place] [address] 09/18/2020 12:00:00 AM EST eCW1 ([facility] [place] [address] [facility] [place] [address] 09/17/2020 12:00:00 AM EST [facility] Emergency Attender: Jair Donald MD Attender: NONE NONE MDAdmitter: Jair Donald MDConsultant: "" ROM OP-EMERGENCY DEPARTMENT 09/15/2020 10:40:00 AM EST - 09/15/2020 02:15:00 PM EST [facility] Patient discharged. Outpatient [address] [facility] [place] [address] 09/06/2020 12:00:00 AM EST eCW1 ([facility]) Unknown [address] [facility] [place] [address] 09/05/2020 12:00:00 AM EST [facility]CW1 [facility] Outpatient Attender: Marshal WILKERSON 09/01/19 03:11:30 PM EST - 09/01/2020 03:39:47 PM EST [facility] ([facility] ) [place] [address] [facility] [place] [address] 08/28/2020 12:00:00 AM EST eCW1 ([facility]) Unknown [address] [facility] [place] [address] 08/09/2020 12:00:00 AM EST eCW1 ([facility]) Unknown [address] [facility] [place] [address] 07/15/2020 12:00:00 AM EST eCW1 ([facility]) Unknown [address] [facility] [place] [address] 07/09/2020 12:00:00 AM EST eCW1 ([facility]) Unknown [address] [facility] [place] [address] 07/01/2020 12:00:00 AM EST eCW1 ([facility]) Unknown [address] [facility] [place] [address] 06/25/2020 12:00:00 AM EST eCW1 ([facility]) Unknown [address] [facility] [place] [address] 06/10/2020 12:00:00 AM EST eCW1 ([facility]) Outpatient [address] [facility] [place] [address] 05/27/2020 12:00:00 AM EDT eCW1 ([facility]) Unknown [address] [facility] [place] [address] 05/27/2020 12:00:00 AM EDT eCW1 ([facility]) Unknown [address] [facility] [place] [address] 05/27/2020 12:00:00 AM EDT eCW1 ([facility]) Outpatient [address] [facility] [place] [address] 05/16/2020 12:00:00 AM EDT eCW1 ([facility]) Immunizations Vaccine Date Status Description Data Source(s) influenza, recombinant, quadrIvalent,injectable, prese rvative free 05/15/2021 10:16:00 AM EDT completed eCW1 ([facility]) influenza, recombinant, quadrIvalent,injectable, prese rvative free 05/15/2021 10:16:00 AM EDT completed eCW1 ([facility]) influenza, recombinant, quadrIvalent,injectable, prese rvative free 05/15/2021 10:16:00 AM EDT completed eCW1 ([facility]) influenza, recombinant, quadrIvalent,injectable, prese rvative free 05/15/2021 10:16:00 AM EDT completed eCW1 ([facility]) COVID-19 dose #1 given elsewhere Unspecified 10/16/2020 03:3 1:00 PM EDT completed eCW1 ([facility]) COVID-19 dose #1 given elsewhere Unspecified 10/16/2020 03:3 1:00 PM EDT completed eCW1 ([facility]) COVID-19 dose #1 given elsewhere Unspecified 10/16/2020 03:3 1:00 PM EDT completed eCW1 ([facility]) COVID-19 dose #1 given elsewhere Unspecified 10/16/2020 03:3 1:00 PM EDT completed eCW1 ([facility]) COVID-19 dose #1 given elsewhere Unspecified 10/16/2020 03:3 1:00 PM EDT completed eCW1 ([facility]) COVID-19 dose #1 given elsewhere Unspecified 10/16/2020 03:3 1:00 PM EDT completed eCW1 ([facility]) COVID-19 dose #1 given elsewhere Unspecified 10/16/2020 03:3 1:00 PM EDT completed eCW1 ([facility]) COVID-19 dose #1 given elsewhere Unspecified 10/16/2020 03:3 1:00 PM EDT completed eCW1 ([facility]) COVID-19 dose #1 given elsewhere Unspecified 10/16/2020 03:3 1:00 PM EDT completed eCW1 ([facility]) COVID-19 dose #1 given elsewhere Unspecified 10/16/2020 03:3 1:00 PM EDT completed eCW1 ([facility]) COVID-19 dose #1 given elsewhere Unspecified 10/16/2020 03:3 1:00 PM EDT completed eCW1 ([facility]) COVID-19 dose #1 given elsewhere Unspecified 10/16/2020 03:3 1:00 PM EDT completed eCW1 ([facility]) COVID-19 dose #1 given elsewhere Unspecified 10/16/2020 03:3 1:00 PM EDT completed eCW1 ([facility]) COVID-19 dose #1 given elsewhere Unspecified 10/16/2020 03:3 1:00 PM EDT completed eCW1 ([facility]) COVID-19 dose #1 given elsewhere Unspecified 10/16/2020 03:3 1:00 PM EDT completed eCW1 ([facility]) COVID-19 dose #1 given elsewhere Unspecified 10/16/2020 03:3 1:00 PM EDT completed eCW1 ([facility]) COVID-19 dose #1 given elsewhere Unspecified 10/16/2020 03:3 1:00 PM EDT completed eCW1 ([facility]) COVID-19 dose #1 given elsewhere Unspecified 10/16/2020 03:3 1:00 PM EDT completed eCW1 ([facility]) COVID-19 dose #1 given elsewhere Unspecified 10/16/2020 03:3 1:00 PM EDT completed eCW1 ([facility]) COVID-19 dose #1 given elsewhere Unspecified 10/16/2020 03:3 1:00 PM EDT completed eCW1 ([facility]) COVID-19 dose #1 given elsewhere Unspecified 10/16/2020 03:3 1:00 PM EDT completed eCW1 ([facility]) COVID-19 dose #1 given elsewhere Unspecified 10/16/2020 03:3 1:00 PM EDT completed eCW1 ([facility]) COVID-19 dose #1 given elsewhere Unspecified 10/16/2020 03:3 1:00 PM EDT completed eCW1 ([facility]) COVID-19 dose #1 given elsewhere Unspecified 10/16/2020 03:3 1:00 PM EDT completed eCW1 ([facility]) COVID-19 dose #1 given elsewhere Unspecified 10/16/2020 03:3 1:00 PM EDT completed eCW1 ([facility]) COVID-19 dose #1 given elsewhere Unspecified 10/16/2020 03:3 1:00 PM EDT completed eCW1 ([facility]) COVID-19 VACCINE Prashant 10/16/2020 12:00:00 AM EDT completed [facility] Vaccine Series Complete: YESThis Data wa s Submitted to [facility] Via [employer]. Medications Medication Brand Name Start Date Product Form Dose Route Admi nistrative Instructions Pharmacy Instructions Status Indications Reaction Description Data Source(s) Peak Flow Meter - UNK 04/28/2021 12:00:00 AM EDT active Peak Flow Meter - eCW1 ([facility]) Peak Flow Meter - UNK 04/28/2021 12:00:00 AM EDT active Peak Flow Meter - eCW1 ([facility]) Peak Flow Meter - UNK 04/28/2021 12:00:00 AM EDT active Peak Flow Meter - eCW1 ([facility]) Peak Flow Meter - UNK 04/28/2021 12:00:00 AM EDT active Peak Flow Meter - eCW1 ([facility]) Peak Flow Meter - UNK 04/28/2021 12:00:00 AM EDT active Peak Flow Meter - eCW1 ([facility]) Peak Flow Meter - UNK 04/28/2021 12:00:00 AM EDT active Peak Flow Meter - eCW1 ([facility]) Peak Flow Meter - UNK 04/28/2021 12:00:00 AM EDT active Peak Flow Meter - eCW1 ([facility]) Sucralfate 1000 MG Oral Tablet Sucralfate 1 GM Sucralfate 1 GM 01/29/2021 12:00:00 AM EDT 1.0 {tablet_on_an_empty_stomach} active Sucralfate 1 GM eCW1 ([facility]) Omeprazole 40 MG Delayed Release Oral Capsule Omeprazole 40 MG 01/29/2021 12:00:00 AM EDT active Omeprazo le 40 MG eCW1 ([facility]) Omeprazole 40 MG Delayed Release Oral Capsule Omeprazole 40 MG 01/29/2021 12:00:00 AM EDT active Omeprazo le 40 MG eCW1 ([facility]) Omeprazole 40 MG Delayed Release Oral Capsule Omeprazole 40 MG 01/29/2021 12:00:00 AM EDT active Omeprazo le 40 MG eCW1 ([facility]) Sucralfate 1000 MG Oral Tablet Sucralfate 1 GM Sucralfate 1 GM 01/29/2021 12:00:00 AM EDT 1.0 {tablet_on_an_empty_stomach} active Sucralfate 1 GM eCW1 ([facility]) Omeprazole 40 MG Delayed Release Oral Capsule Omeprazole 40 MG 01/29/2021 12:00:00 AM EDT active Omeprazo le 40 MG eCW1 ([facility]) Omeprazole 40 MG Delayed Release Oral Capsule Omeprazole 40 MG 01/29/2021 12:00:00 AM EDT active Omeprazo le 40 MG eCW1 ([facility]) Omeprazole 40 MG Delayed Release Oral Capsule Omeprazole 40 MG 01/29/2021 12:00:00 AM EDT active Omeprazo le 40 MG eCW1 ([facility]) Sucralfate 1000 MG Oral Tablet Sucralfate 1 GM Sucralfate 1 GM 01/29/2021 12:00:00 AM EDT 1.0 {tablet_on_an_empty_stomach} suspended Sucralfate 1 GM eCW1 ([facility]) Omeprazole 40 MG Delayed Release Oral Capsule Omeprazole 40 MG 01/29/2021 12:00:00 AM EDT active Omeprazo le 40 MG eCW1 ([facility]) Sucralfate 1000 MG Oral Tablet Sucralfate 1 GM Sucralfate 1 GM 01/29/2021 12:00:00 AM EDT 1.0 {tablet_on_an_empty_stomach} active Sucralfate 1 GM eCW1 ([facility]) Sucralfate 1000 MG Oral Tablet Sucralfate 1 GM Sucralfate 1 GM 01/29/2021 12:00:00 AM EDT 1.0 {tablet_on_an_empty_stomach} suspended Sucralfate 1 GM eCW1 ([facility]) Omeprazole 40 MG Delayed Release Oral Capsule Omeprazole 40 MG 01/29/2021 12:00:00 AM EDT active Omeprazo le 40 MG eCW1 ([facility]) Sucralfate 1000 MG Oral Tablet Sucralfate 1 GM Sucralfate 1 GM 01/29/2021 12:00:00 AM EDT 1.0 {tablet_on_an_empty_stomach} active Sucralfate 1 GM eCW1 ([facility]) Sucralfate 1000 MG Oral Tablet Sucralfate 1 GM Sucralfate 1 GM 01/29/2021 12:00:00 AM EDT 1.0 {tablet_on_an_empty_stomach} active Sucralfate 1 GM eCW1 ([facility]) Omeprazole 40 MG Delayed Release Oral Capsule Omeprazole 40 MG 01/29/2021 12:00:00 AM EDT active Omeprazo le 40 MG eCW1 ([facility]) Omeprazole 40 MG Delayed Release Oral Capsule Omeprazole 40 MG 01/29/2021 12:00:00 AM EDT active Omeprazo le 40 MG eCW1 ([facility]) Sucralfate 1000 MG Oral Tablet Sucralfate 1 GM Sucralfate 1 GM 01/29/2021 12:00:00 AM EDT 1.0 {tablet_on_an_empty_stomach} active Sucralfate 1 GM eCW1 ([facility]) Omeprazole 40 MG Delayed Release Oral Capsule Omeprazole 40 MG 01/29/2021 12:00:00 AM EDT active Omeprazo le 40 MG eCW1 ([facility]) Sucralfate 1000 MG Oral Tablet Sucralfate 1 GM Sucralfate 1 GM 01/29/2021 12:00:00 AM EDT 1.0 {tablet_on_an_empty_stomach} active Sucralfate 1 GM eCW1 ([facility]) Omeprazole 40 MG Delayed Release Oral Capsule Omeprazole 40 MG 01/29/2021 12:00:00 AM EDT active Omeprazo le 40 MG eCW1 ([facility]) Sucralfate 1000 MG Oral Tablet Sucralfate 1 GM Sucralfate 1 GM 01/29/2021 12:00:00 AM EDT 1.0 {tablet_on_an_empty_stomach} suspended Sucralfate 1 GM eCW1 ([facility]) Sucralfate 1000 MG Oral Tablet Sucralfate 1 GM Sucralfate 1 GM 01/29/2021 12:00:00 AM EDT 1.0 {tablet_on_an_empty_stomach} active Sucralfate 1 GM eCW1 ([facility]) Omeprazole 40 MG Delayed Release Oral Capsule Omeprazole 40 MG 01/29/2021 12:00:00 AM EDT active Omeprazo le 40 MG eCW1 ([facility]) Sucralfate 1000 MG Oral Tablet Sucralfate 1 GM Sucralfate 1 GM 01/29/2021 12:00:00 AM EDT 1.0 {tablet_on_an_empty_stomach} active Sucralfate 1 GM eCW1 ([facility]) Sucralfate 1000 MG Oral Tablet Sucralfate 1 GM Sucralfate 1 GM 01/29/2021 12:00:00 AM EDT 1.0 {tablet_on_an_empty_stomach} active Sucralfate 1 GM eCW1 ([facility]) Fluoxetine 10 MG Oral Capsule FLUoxetine HCl 10 MG FLUoxetin e HCl 10 MG 12/17/2020 12:00:00 AM EDT 1.0 {capsule} active FLUoxetine HCl 10 MG eCW1 ([facility]) Fluoxetine 10 MG Oral Capsule FLUoxetine HCl 10 MG FLUoxetin e HCl 10 MG 12/17/2020 12:00:00 AM EDT 1.0 {capsule} active FLUoxetine HCl 10 MG eCW1 ([facility]) Fluoxetine 10 MG Oral Capsule FLUoxetine HCl 10 MG FLUoxetin e HCl 10 MG 12/17/2020 12:00:00 AM EDT 1.0 {capsule} active FLUoxetine HCl 10 MG eCW1 ([facility]) Fluoxetine 10 MG Oral Capsule FLUoxetine HCl 10 MG FLUoxetin e HCl 10 MG 12/17/2020 12:00:00 AM EDT 1.0 {capsule} active FLUoxetine HCl 10 MG eCW1 ([facility]) Fluoxetine 10 MG Oral Capsule FLUoxetine HCl 10 MG FLUoxetin e HCl 10 MG 12/17/2020 12:00:00 AM EDT 1.0 {capsule} active FLUoxetine HCl 10 MG eCW1 ([facility]) Fluoxetine 10 MG Oral Capsule FLUoxetine HCl 10 MG FLUoxetin e HCl 10 MG 12/17/2020 12:00:00 AM EDT 1.0 {capsule} active FLUoxetine HCl 10 MG eCW1 ([facility]) Fluoxetine 10 MG Oral Capsule FLUoxetine HCl 10 MG FLUoxetin e HCl 10 MG 12/17/2020 12:00:00 AM EDT 1.0 {capsule} active FLUoxetine HCl 10 MG eCW1 ([facility]) Fluoxetine 10 MG Oral Capsule FLUoxetine HCl 10 MG FLUoxetin e HCl 10 MG 12/17/2020 12:00:00 AM EDT 1.0 {capsule} active FLUoxetine HCl 10 MG eCW1 ([facility]) Fluoxetine 10 MG Oral Capsule FLUoxetine HCl 10 MG FLUoxetin e HCl 10 MG 12/17/2020 12:00:00 AM EDT 1.0 {capsule} active FLUoxetine HCl 10 MG eCW1 ([facility]) Fluoxetine 10 MG Oral Capsule FLUoxetine HCl 10 MG FLUoxetin e HCl 10 MG 12/17/2020 12:00:00 AM EDT 1.0 {capsule} active FLUoxetine HCl 10 MG eCW1 ([facility]) Fluoxetine 10 MG Oral Capsule FLUoxetine HCl 10 MG FLUoxetin e HCl 10 MG 12/17/2020 12:00:00 AM EDT 1.0 {capsule} active FLUoxetine HCl 10 MG eCW1 ([facility]) Fluoxetine 10 MG Oral Capsule FLUoxetine HCl 10 MG FLUoxetin e HCl 10 MG 12/17/2020 12:00:00 AM EDT 1.0 {capsule} active FLUoxetine HCl 10 MG eCW1 ([facility]) Fluoxetine 10 MG Oral Capsule FLUoxetine HCl 10 MG FLUoxetin e HCl 10 MG 12/17/2020 12:00:00 AM EDT 1.0 {capsule} active FLUoxetine HCl 10 MG eCW1 ([facility]) Fluoxetine 10 MG Oral Capsule FLUoxetine HCl 10 MG FLUoxetin e HCl 10 MG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 eCW1 ([facility]) Name Value Range Interpretation Code Description Data Ale rce(s) Supporting Document(s) 82 70-100 GLUCOSE, FASTING eCW1 ([facility]) 0.94 0.55-1.30 CREATININE FOR GFR eCW1 ([facility]) 11 7-18 BLOOD UREA NITROGEN eCW1 ([facility]) 136 136-145 SODIUM LEVEL eCW1 ([facility]) > 60.0 >60 GLOMERULAR FILTRATION RATE eCW 1 ([facility]) 105 98-107 CHLORIDE LEVEL eCW1 ([facility]) 4.6 3.5-5.1 POTASSIUM SERUM eCW1 ([facility]) 25 21-32 CARBON DIOXIDE LEVEL eCW1 ([facility]) 9.0 8.5-10.1 CALCIUM LEVEL eCW1 ([facility]) 16 7-37 AST/SGOT eCW1 ([facility]) 30 12-78 ALT/SGPT eCW1 ([facility]) 94 45-117 ALKALINE PHOSPHATASE eCW1 ([facility]) 0.3 0.2-1.0 BILIRUBIN,TOTAL eCW1 ([facility]) 3.6 3.2-5.2 ALBUMIN eCW1 ([facility]) 7.1 6.4-8.2 TOTAL PROTEIN eCW1 ([facility]) 1.0 1.2-2.2 ALBUMIN/GLOBULIN RATIO eCW1 ([facility]) ID Date Data Source CBC with Differential 01/29/2021 12:00:00 AM EDT eCW1 ([facility]) Name Value Range Interpretation Code Description Data Ale rce(s) Supporting Document(s) 10.4 4.0-10.0 WHITE BLOOD COUNT eCW1 ([facility]) 13.6 12.0-15.5 HEMOGLOBIN eCW1 ([facility]) 4.82 4.00-5.40 RED BLOOD COUNT eCW1 ([facility]) 31.9 32.0-36.5 MEAN CORPUSCULAR HGB CONC eCW1 ([facility]) 88.4 80.0-96.0 MEAN CORPUSCULAR VOLUME e CW1 ([facility]) 42.6 36.0-47.0 HEMATOCRIT eCW1 ([facility]) 28.2 27.0-33.0 MEAN CORPUSCULAR HEMOGLOB IN eCW1 ([facility]) 389 150-450 PLATELET COUNT, AUTOMATED eCW1 ([facility]) 12.9 11.5-14.5 RED CELL DISTRIBUTION WID TH eCW1 ([facility]) 53.2 36.0-66.0 NEUTROPHILS % eCW1 ([facility]) 4.7 2.0-8.0 MONO % eCW1 ([facility]) 0.6 0.0-1.0 BASO % eCW1 ([facility]) 24.8 24.0-44.0 LYMPH % eCW1 ([facility]) 16.3 0.0-3.0 EOS % eCW1 ([facility]) 0.5 0.0-0.8 MONO # eCW1 ([facility]) 2.6 1.5-5.0 LYMPH # eCW1 ([facility]) 5.5 1.5-8.5 NEUTROPHILS # eCW1 ([facility]) 1.7 0.0-0.5 EOS # eCW1 ([facility]) 0.1 0.0-0.2 BASO # eCW1 ([facility]) ID Date Data Source [id number] 01/26/2021 12:56:00 PM EDT [facility] 1 OrderSheet [facility] Emergency Department [address] [place] [address] Phone #: ext- [phone] 01/26/2021 12:52 Patient: KERVIN MCMAHAN Sex: F : 1990 Age: 30yWEIGHT:90.7 kg (S) HEIGHT:68 inches (S) BMI:30.4ALLERGIES: Ciprofloxacin, FlagylCHIEF COMPLAINT: abdominal pain, diarrheaDIAGNOSIS: Diarrhea, HemorrhoidsLAB ORDERSOrder Description Priority Entered Acknowledged InitialedCBC w Diff STAT 13:01/26/2021 13:15 Abhi Dudley RN ;CMP STAT 13:01/26/2021 13:15 Abhi Dudley RN ;PT/INR STAT 13:01/26/2021 13:15 Abhi Dudley RN ;PTT STAT 13:01/26/2021 13:15 Abhi Dudley RN ;Urinalysis (Clean STAT 13:01/26/2021 13:35 Abhi Maldonadoton RN ;Type and Screen STAT 13:10 01/26/2021 13:15 Abhi Dudley RN ;HCG Serum Qual STAT 13:01/26/2021 13:15 Abhi Dudley RN ;Occult Blood Stool 13:01/26/2021 13:15 TerryDiagnostic 1 slide Abhi Spear RN ;C Difficile Toxin STAT 13:18 01/26/2021 Ack'd: 16:34 16:34 Syd,Screen Abhi Spear Lisa RN Lisa RN ;DIAGNOSTIC STUDY ORDERSOrder Description Priority Entered Acknowledged Initialed 2 OrderSheet [facility] Emergency Department [address] [place] [address] Phone #: ext- [phone] 01/26/2021 12:52 Patient: KERVIN MCMAHAN Sex: F : 1990 Age: 30yMEDICATION/IV/DRIP/FLUID ORDERSOrder Description Priority Entered Acknowledged InitialedIV NS : 250 mL/hr 13:10 01/26/2021 13:46 Abhi Dudley RN ;Bentyl PO 20 mg 13:10 01/26/2021 13:46 Abhi Dudley RN ; Reason for ordering with alerts: Clinical consideration given -- 13:01/26/2021 Yanique Spearfran 4 mg IVP X 1 14:05 01/26/2021 14:35 Terrydose: 4 mg (NOW Abhi Spear RNx1) ;- (tucks pad for 15:04 01/26/2021 Cancelled: Other 15:18 Christiano,hemorrhoid) Abhi Spear ;GENERAL ORDERSOrder Description Priority Entered Acknowledged InitialedBlood Pressure 13:10 01/26/2021 13:15 SamreenyMonitAbhi Jackson RN ;Oven Dumper 13:01/26/2021 13:15 Ernesto(continuous) Abhi Spear RN ;NPO 13:01/26/2021 13:15 Abhi Dudley RN ;Saline Lock 13:01/26/2021 13:35 Abhi Dudley RN ;[Electronically signed by Kimmy Velarde RN (16:35 01/26/2021)][Electronically signed by Abhi Spear (22:16 01/26/2021)][Electronically locked by Kimmy Velarde RN (16:35 01/26/2021)] Name Value Range Interpretation Code Description Data Ale rce(s) Supporting Document(s) ID Date Data Source [id number] 01/26/2021 12:56:00 PM EDT [facility] 1 Medication Reconciliation Report [facility] Emergency Department [address] [place] [address] Phone #: [phone] uxq- [phone] 01/26/2021 12:52 Patient: EKRVIN MCMAHAN Sex: F : 1990 Age: 30yWeight: 90.7 kgHeight/Length: 68 in.BMI: 30.4ALLERGIES: Ciprofloxacin, FlagylThe patient's Home Medications are listed below:THE FOLLOWING MEDICATIONS NEED TO BE RECONCILED: Albuterol Sulfate Inhalation, prn Meloxicam Oral (15 mg), daily Omeprazole Oral (40 mg), daily Propranolol HCl Oral (10 mg), 2x a day PROzac Oral (10 mg), daily tiZANidine HCl Oral (2 mg), prnThe source(s) of the original Home Medication information:patientThe following Medications were given to the patient in the Emergency Department:IV NS IV Fluids bolus 0, then 250 mL/hr, administered: 13:27 06/27/2021Bentyl [PO] PO 20 mg, administered: 13:25 01/26/2021Zofran [IVP] IVP 4 mg, administered: 14:30 01/26/2021The following Medications were prescribed to the patient:Anusol-HC 2.5 % topical cream with perineal applicator Apply 1 a small amount twice a day for 7 days --to the external hemorrhoid. Dispense 30 gram. Refills: 0. Substitution permitted.Pharmacy - [facility] [id number] [place] [address] ; [place] [address]. . 2 Medication Reconciliation Report [facility] Emergency Department [address] [place] [address] Phone #: ext- [phone] 01/26/2021 12:52 Patient: KERVIN MCMAHAN Sex: F : 1990 Age: 30yondansetron 4 mg disintegrating tablet Take 1 tablet three times a day for 3 days -- prn nausea/vomiting.Dispense 9 tablet. Refills: 0. Substitution permitted.Pharmacy - [facility] [id number] [place] [address] ; [place] [address]. . -- Abhi Spear Name Value Range Interpretation Code Description Data Ale rce(s) Supporting Document(s) ID Date Data Source [id number] 01/26/2021 12:56:00 PM EDT [facility] 1 Medication Administration Record [facility] Emergency Department [address] [place] [address] Phone #: ext- [phone] 01/26/2021 12:52 Patient: KERVIN MCMAHAN Sex: F : 1990 Age: 30yWeight: 90.7 kgHeight/Length: 68 inBMI: 30.4ALLERGIES: Ciprofloxacin, Flagyl Date/Time Medication Administered Medication OrderedStart IV NS IV NS : 250 mL/hr13:27 01/26/2021 Dose: IV FluidsErnesto Francis RN Rate: 250 mL/hr over 4 hour(s)---- Dispensed: 1000 mL bagStop Site: #1 left AC16:30 1LKimmy Lovett RNGiven BENTYL [PO] (DICYCLOMINE HCL) Bentyl PO 20 mg13:25 01/26/2021 Dose: 20 mg Capsules Isela Hurt ZOFRAN [IVP] (ONDANSETRON HCL) Zofran 4 mg IVP X 1 dose: 4 mg14:30 01/26/2021 Dose: 4 mg IVP (NOW x1)Ernesto Francis RN Site: #1 left AC Name Value Range Interpretation Code Description Data Ale rce(s) Supporting Document(s) ID Date Data Source [id number] 01/26/2021 12:56:00 PM EDT [facility] 1 General Instructions [facility] Emergency Department [address] [place] [address] Phone #: ext- [phone] 01/26/2021 12:52 Patient: KERVIN MCMAHAN Sex: F : 1990 Age: 30yDiarrheaBleeding external hemorrhoids. No prolapsed or thrombosed hemorrhoids.INSTRUCTIONS(your hemoglobin and hematocrit were normal. you had a bleeding external hemorrhoid that has stoppedbleeding apply anusol cream on your hemorrhoid. hot sitz bath. take kaopectate 30 mg after eachloose BM not to exceed 8 doses a day. take zofran as needed for nausea and vomiitng).Prescription Medications:Anusol-HC 2.5 % topical cream with perineal applicator Apply 1 a small amount twice a day for 7 days --to the external hemorrhoid. Dispense 30 gram. Refills: 0. Substitution permitted.Pharmacy - [facility] [employer] [place] [address] ; [place] [address]. .ondansetron 4 mg disintegrating tablet Take 1 tablet three times a day for 3 days -- prn nausea/vomiting.Dispense 9 tablet. Refills: 0. Substitution permitted.Pharmacy - [employer] [place] [address] ; [place] [address]. .Follow-up:Follow up with your healthcare provider in three days if not better. Reason for referral: evaluation andtreatment. Summary of care provided to patient via paper. ADDITIONAL INFORMATIONNonspecific Vomiting and Diarrhea (Adult)Vomiting and diarrhea can have many causes, including: Helping your body get rid of harmful substances Gastroenteritis caused by viruses, parasites, bacteria, or toxins. Allergy to or side effect of a food or medicine Severe stress or worry (anxiety) Other illnesses 2 General Instructions [facility] Emergency Department [address] [place] [address] Phone #: ext- [phone] 01/26/2021 12:52 Patient: KERVIN MCMAHAN Sex: F : 1990 Age: 30y PregnancyIt is often hard to pinpoint an exact cause, even with testing. Vomiting and diarrhea often go awaywithin a day or two without problems. If they continue, though, they can lead to too much loss of fluid(dehydration). This can be serious if not treated.Home careMedicines You may use acetaminophen or NSAID medicines like ibuprofen or naproxen to control fever, unless another medicine was prescribed. If you have chronic liver or kidney disease, talk with your healthcare provider before using these medicines. Also talk with your provider if you've had a stomach ulcer or gastrointestinal bleeding. Don't give aspirin to anyone under 18 years of age who is ill with a fever because it may cause severe disease or . Don't use NSAID medicines if you are already taking one for another condition (like arthritis) or are on aspirin (such as for heart disease or after a stroke) 3 General Instructions [facility] Emergency Department [address] [place] [address] Phone #: ext- [phone] 01/26/2021 12:52 Patient: KERVIN MCMAHAN [facility]#: [id number] Sex: F : 1990 Age: 30y Aniu-pvd-ehqyadt medicines for diarrhea, nausea, and vomiting are generally OK unless you have bleeding, fever, or severe abdominal pain.General care If symptoms are severe, rest at home for the next 24 hours, or until you are feeling better. Washing your hands with soap and water, or using alcohol-based hand j2ee software engineer is the best way to stop the spread of infection. Wash your hands after touching anyone who is sick. Wash your hands after using the toilet and before meals. Clean the toilet after each use. Dry your hands with a single use towel. Caffeine, tobacco, and alcohol can make the diarrhea, cramping, and pain worse. Remember, caffeine not only is in coffee, but also is in chocolate, some energy drinks, and teas.Diet Water and clear liquids are important so you don't get dehydrated. Drink a small amount at a time. Don't guzzle down the drinks. That may increase your nausea, make cramping worse, and cause the drinks to come back up. Sports drinks may also help if you are healthy and not too dehydrated. They have too much sugar and not enough electrolytes and can sometimes make things worse. Also, don't drink beverages that are too acidic, like orange juice and grape juice. If you are very dehydrated, commercially available products called oral rehydration solutions are best.Food Don't force yourself to eat, especially if you have cramps, diarrhea, or vomiting. Eat just a little at a time, and then wait a few minutes before you try to eat more. Don't eat fatty, greasy, spicy, or fried foods. Don't eat dairy products if you have diarrhea. They can make it worse.During the first 24 hours (the first full day), follow the diet below: Beverages: Oral rehydration solutions, sports drinks, soft drinks without caffeine, mineral water, and decaffeinated tea and coffee Soups: Clear broth, consomm, and bouillon Desserts: Plain gelatin, popsicles, and fruit juice bars 4 General Instructions [facility] Emergency Department [address] [place] [address] Phone #: ext- [phone] 01/26/2021 12:52 Patient: KERVIN MCMAHAN Sex: F : 1990 Age: 30yDuring the next 24 hours (the second day), you may add the following to the above if you are better. Ifnot, continue what you did the first day: Hot cereal, plain toast, bread, rolls, crackers Plain noodles, rice, mashed potatoes, chicken noodle or rice soup Unsweetened canned fruit (avoid pineapple), bananas Limit fat intake to less than 15 grams per day by avoiding margarine, butter, oils, mayonnaise, sauces, gravies, fried foods, peanut butter, meat, poultry, and fish. Limit fiber. Avoid raw or cooked vegetables, fresh fruits (except bananas) and bran cereals. Limit caffeine and chocolate. No spices or seasonings except salt.During the next 24 hours: Gradually resume a normal diet, as you feel better and your symptoms improve. If at any time your symptoms start getting worse again, go back to clear liquids until you feel better.Food preparation If you have diarrhea, you should not prepare food for others. When preparing foods, wash your hands before and after. Wash your hands or use alcohol-based j2ee software engineer after using cutting boards, countertops, and knives that have been in contact with raw food. Dry your hands with a single use towel. Keep uncooked meats away from cooked and hzgxu-xz-yjw foods.Follow-up careFollow up with your healthcare provider, or as advised. Call if you don't get better in the next 2 to 3days. If a stool (diarrhea) sample was taken, or cultures done, you will be told if they are positive, or ifyour treatment needs to be changed. You may call as directed for the results.If X-rays were taken, you will be notified of any new findings that may affect your careCall 911Call 911 if any of these occur: Trouble breathing 5 General Instructions [facility] Emergency Department [address] [place] [address] Phone #: ext- [phone] 01/26/2021 12:52 Patient: KERVIN MCMAHAN Sex: F : 1990 Age: 30y Chest pain Confusion Severe drowsiness or trouble awakening Fainting or loss of consciousness Rapid heart rate Seizure Stiff neck Severe weakness, dizziness, or lightheadednessWhen to seek medical adviceCall your healthcare provider right away if any of these occur: Bloody or black vomit or stools Severe, steady abdominal pain or any abdominal pain that is getting worse Severe headache or stiff neck An inability to hold down even sips of liquids for more than 12 hours Vomiting that lasts more than 24 hours Diarrhea that lasts more than 24 hours Fever of 100.4F (38.0C) or higher, or as directed by your healthcare provider Yellowish color to your skin or the whites of your eyes Signs of dehydration, such as dry mouth, little urine (less than every 6 hours), or very dark urine [employer]. [address] [place] [address]. All rights reserved. This information is not intended as asubstitute for professional medical care. Always follow your healthcare professional's instructions.Hemorrhoids 6 General Instructions [facility] Emergency Department [address] [place] [address] Phone #: ext- [phone] 01/26/2021 12:52 Patient: KERVIN MCMAHAN Sex: F : 1990 Age: 30yHemorrhoids are swollen and inflamed veins inside the rectum and near the anus. The rectum is thelast several inches of the colon. The anus is the passage between the rectum and the outside of thebody.CausesThe veins can become swollen due to increased pressure in them. This is most often caused by: Chronic constipation or diarrhea Straining when having a bowel movement Sitting too long on the toilet A low-fiber diet PregnancySymptoms Bleeding from the rectum. You may notice this after bowel movements. Lump near the anus Itching around the anus Pain around the anus Mucus leaks from the anusThere are different types of hemorrhoids. Depending on the type you have and the severity, you maybe able to treat yourself at home. In some cases, a procedure may be the best treatment option. Your 7 General Instructions [facility] Emergency Department [address] [place] [id number] Phone #: ext- [phone] 01/26/2021 12:52 Patient: KERVIN MCMAHAN Sex: F : 1990 Age: 30yhealthcare provider can tell you more about this, if needed.Home careGeneral care To get relief from pain or itching, try: o Medicines. Your healthcare provider may recommend stool softeners, suppositories, or laxatives to help manage constipation. Use these exactly as directed. o Sitz baths. A sitz bath involves sitting in a few inches of warm bath water. Be careful not to make the water so hot that you burn yourself--test it before sitting in it. Soak for about 10 to 15 minutes a few times a day. This may help relieve pain. o Topical products. Your healthcare provider may prescribe or recommend creams, ointments, or pads that can be applied to the hemorrhoid. Use these exactly as directed.Tips to help prevent hemorrhoids Eat more fiber. Fiber adds bulk to stool and absorbs water as it moves through your colon. This makes stool softer and easier to pass. o Increase the fiber in your diet with more fiber-rich foods. These i nclude fresh fruit, vegetables, and whole grains. o Take a fiber supplement or bulking agent, if advised by your healthcare provider. These include products such as psyllium or methylcellulose. Drink more water. Your healthcare provider may direct you to drink plenty of water. This can help keep stool soft. Be more active. Frequent exercise aids digestion and helps prevent constipation. It may also help make bowel movements more regular. Don't strain during bowel movements. This can make hemorrhoids more likely. Also, don't sit on the toilet for long periods of time.Follow-up careFollow up with your healthcare provider as advised. If a culture or imaging tests were done, someonewill let you know the results when they are ready. This may take a few days or longer. If yourhealthcare provider recommends a procedure for your hemorrhoids, these options can be discussed.Options may include surgery and outpatient office treatments.When to seek medical advice 8 General Instructions [facility] Emergency Department [address] [place] [address] Phone #: [phone] 01/26/2021 12:52 --------- Patient: KERVIN MCMAHAN Sex: F : 1990 Age: 30yCall your healthcare provider right away if any of these occur: Increased bleeding from the rectum Increased pain around the rectum or anus Weakness or dizzinessCall 911Call 911 if any of these occur: Trouble breathing or swallowing Fainting or loss of consciousness Unusually fast heart rate Vomiting blood Large amounts of blood in stool or black, tarry stools [id number] [employer]. [address] [place] [address]. All rights reserved. This information is not intended as asubstitute for professional medical care. Always follow your healthcare professional's instructions.Lower Gastrointestinal (GI) Bleeding (Stable)You have signs of blood in your stool. This is called rectal b leeding. The bleeding may have begun inanother part of your gastrointestinal (GI) tract. If the blood is bright red, it is likely coming from thelower part of the GI tract. If the blood is black or dark, it might be coming from higher up in the GItract. Very small amounts of GI bleeding may not be visible and can only be discovered during a teston your stool. Possible causes of lower GI bleeding include: Swollen inflamed veins in the rectum (hemorrhoids) Tear in the lining of the anus (anal fissures) Inflammation of a small pouch in the intestine (diverticulitis) Inflammatory bowel disease (Crohn's disease or ulcerative colitis) Polyps (growths) in the intestine Swelling and irritation of the colon (infectious colitis) Colon cancerNote: Iron supplements and medicines for diarrhea or upset stomach can cause black stools. Foodssuch as licorice and red beets can also discolor the stool and be mistaken for bleeding. These are not 9 General Instructions [facility] Emergency Department [address] [place] [address] Phone #: ext- [phone] 01/26/2021 12:52 Patient: KERVIN MCMAHAN Sex: F : 1990 Age: 30ybleeding and are not a cause for alarm.Home careYou have not lost a large amount of blood and your condition appears stable at this time. You mayresume normal activity as long as you feel well.Don't take NSAIDs, such as aspirin, ibuprofen, or naproxen. They can irritate the stomach and causefurther bleeding. If you are taking these medicines for other medical reasons, talk to your healthcareprovider before you stop them.Follow-up careFollow up with your healthcare provider, or as advised. Further tests may be needed to find the causeof your bleeding.When to seek medical adviceCall your healthcare provider right away for any of the following: Large amount of rectal bleeding Increasing abdominal pain Weakness, dizzinessCall 911Call 911 if any of the following occur: Loss of consciousness Vomiting blood [phone] [employer]. [address] [place] [address], [place] [address]. All rights reserved. This information is not intended as asubstitute for professional medical care. Always follow your healthcare professional's instructions. You have been given the following additional information: Vomiting and Diarrhea, Nonspecific (Adult) Hemorrhoids Lower GI Bleeding (Stable) 10 General Instructions [facility] Emergency Department [address] [place] [address] Phone #: [phone]- [phone] 01/26/2021 12:52 Patient: KERVIN MCMAHAN Sex: F : 1990 Age: 30y(Electronically signed by Abhi Spear 01/26/2021 22:16) Name Value Range Interpretation Code Description Data Ale rce(s) Supporting Document(s) ID Date Data Source [id number] 01/26/2021 12:56:00 PM EDT [facility] 1 Clinical Report - Nurses [facility] Emergency Department [address] [place] [address] Phone #: ext- [phone] 01/26/2021 12:52 Patient: KERVIN MCMAHAN Sex: F : 1990 Age: 30yTRIAGEArrived by private vehicle. Historian: patient.Triage time: 12:58 01/26/2021. Acuity: LEVEL 3.Chief Complaint: ABDOMINAL PAIN and DIARRHEA.Alert. No acute distress.( Pt was on Keflex and finished it. Since then she has had dark loose stools. She feels like she had ahemorrhoid pop and is having issues with it, She has passed clots rectally.). 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 SEPSIS SCREEN NEGATIVE. No suspected or confirmedsigns of infection present. --13:04 01/26/21 Daniela Cool R.N.13:01 01/26/21. BP: 113/71. MAP: 85. HR: 63. RR: 16. O2 saturation: 99% on room air. Temp: 97.1 F(oral). Pain level now: 02/08. --13:04 Daniela Cool R.N.Weight: 90.7 kg stated. Height/Length: 68 inches Per Patient. BMI: 30.4. --12:58 01/26/21 Daniela Cool R.N.MedicationsAlbuterol Sulfate Inhalation, as needed. --13:04 01/26/21 Daniela Cool R.N. Meloxicam Oral (Tablet 15 mg), daily. Omeprazole Oral (Capsule Delayed Release 40 mg), daily. Propranolol HCl Oral (Tablet 10 mg), 2x a day. PROzac Oral (Capsule 10 mg), daily. tiZANidine HCl Oral (Tablet 2 mg), as needed. --13:01/26/21 Daniela Cool R.N.AllergiesCiprofloxacin.Flagyl. --13:01/26/21 Daniela Cool R.N.PROBLEMS:Asthma.Back Pain.Anxiety Reaction.Bipolar Disorder. 2 Clinical Report - Nurses [facility] Emergency Department [address] [place] [address] Phone #: [phone]- [phone] 01/26/2021 12:52 Patient: KERVIN MCMAHAN Sex: F : 1990 Age: 30y UTI - Urinary Tract Infection. Ovarian Cyst. Depression. --13:01/26/21 Daniela Cool R.N. Medication/allergy information source: the patient. --13:01/26/21 Dainela Cool R.N. ADDITIONAL SURGERIES: Colonoscopy. --13:01/26/21 Daniela Cool R.N. History PAST MEDICAL HX: Last normal menstrual period- January 18. SOCIAL HX: Never smoker. Occasional alcohol use. Drug use. (Took a Marijuana Edible yesterday to help her stomach). No recent travel. No known contact with a sick individual. She was offered HIV testing but declined. Patient education was provided. She was offered hepatitis C testing but declined. Patient education was provided. She has not traveled outside the [place] Infectious disease exposure: No infectious disease exposure. (COVID screen negative, pt was vaccinated for COVID). Patient is not a known carrier of tuberculosis, hepatitis, HIV, MRSA or VRE. Patient is not a known carrier of CRE. SELF HARM ASSESSMENT: Self harm assessment was performed. The patient answered "no" to the question(s) "Do you have thoughts of harming or killing yourself?", "Do you have a plan for harming or killing yourself?" and "Have you recently had thoughts about harming or killing others?". ABUSE ASSESSMENT: Abuse assessment. The patient had positive responses to the question(s) "Do you feel safe in your home?" (yes). Abuse denied. No suspicion of abuse. No report of abuse. NUTRITIONAL RISK ASSESSMENT: The nutritional risk assessment revealed no deficiencies. FUNCTIONAL ASSESSMENT: Functional assessment: no impairments noted. LEARNING NEEDS ASSESSMENT: The learning needs assessment revealed no barriers. FALL RISK ASSESSMENT: Fall risk assessment completed. No risk factors identified. SKIN INTEGRITY ASSESSMENT: Skin integrity risk assessment completed. No skin integrity risk identified. --13:04 01/26/21 Daniela Cool R.N. Interventions Identification band on patient. --13:04 01/26/21 Daniela Cool R.N. 13:15 01/26/21. Allergy band on patient. --13:50 01/26/21 Ernesto Francis RN.PHYSICAL [id number]:14 01/26/21. Ambulatory to room. 3 Clinical Report - Nurses [facility] Emergency Department [address] [place] [address] Phone #: ext- [phone] 01/26/2021 12:52 Patient: KERVIN MCMAHAN Sex: F : 1990 Age: 30y GENERAL / NEURO / PSYCH: Alert. Oriented X 4. RESPIRATORY: Respirations not labored. Breath sounds within normal limits. CVS: Capillary refill less than 2 seconds. GI / : Abdomen soft and nontender. Bowel sounds within normal limits. SKIN: Skin is warm and dry. --13:14 01/26/21 Ernesto Francis RN.NURSING PROGRESS NOTESPatient gowned. Reassurance given. Three patient identifiers checked. Call light placed in reach. Siderails up x 2. Bed placed in lowest position. Brakes of bed on. --13:04 01/26/21 Daniela Cool R.N. 13:25 01/26/2021 Bentyl (Dicyclomine HCl) PO Capsules 20 mg given. Allergies verified and confirmed 5 rights. Information reviewed with patient. --13:46 01/26/21 Ernesto Francis RN 13:27 01/26/2021 Site #1 started via IV in the left antecubital space with an 20g angiocath; one attempt. Saline lock flushed with 10 mL saline. --13:45 01/26/21 Ernesto Francis RN 13:27 01/26/2021 Started bag #1 1000 mL IV Fluids IV NS; at 250 mL/hr over 4 hour(s) via site #1 via IV pump. Allergies verified and confirmed 5 rights. IV patency established. IV site checked: no pain, redness, or swelling. IV flushed thoroughly pre- and post- medication administration. Information reviewed with patient. --13:46 01/26/21 Ernesto Francis RN Checked patient name and birthdate: patient confirmed. Blood samples drawn from the right antecubital space by tech. Checked patient name and birthdate. Clean catch urine collected; sample sent to lab for urinalysis. Specimen labeled in the presence of the patient ([id number]). --13:47 01/26/21 Ernesto Francis RN 13:58 01/26/21. BP: 102/68. MAP: 79. HR: 68. RR: 19. O2 saturation: 98%. --13:59 01/26/21 [facility] 14:30 01/26/2021 Zofran (Ondansetron HCl) IVP 4 mg given over 30 second(s) via site #1. Allergies verified and confirmed 5 rights. IV patency established. IV site checked: no pain, redness, or swelling. IV flushed thoroughly pre- and post-medication administration. IVP given by RN. Information reviewed with patient. --14:35 01/26/21 Ernesto Francis RN 15:04 01/26/21. BP: 99/61. MAP: 73. HR: 61. RR: 17. O2 saturation: 98%. --15:04 01/26/21 [facility] 16:13 01/26/21. BP: 102/59. MAP: 73. HR: 62. RR: 18. O2 saturation: 97%. --16:14 01/26/21 Eduardo leadlighterLorri Hicks ER TechBernie 16:30 01/26/2021 IV Fluids IV NS via IV site #1 Discontinued: discontinued upon discharge. Total amount infused: 500 mL. --16:35 01/26/21 Kimmy Velarde RN.DISPOSITION / DISCHARGE Condition at departure: improved. No learning barriers present. Discharge instructions provided and 4 Clinical Report - Nurses [facility] Emergency Department [address] [place] [address] Phone #: ext- [phone] 01/26/2021 12:52 Patient: KERVIN MCMAHAN Sex: F : 1990 Age: 30y reviewed with the patient. Reviewed medication(s) side effects, precautions, dosing and course information. Prescription(s) sent electronically to pharmacy. Reviewed referral to a primary care physician. Jud ent verbalized understanding. Written instructions provided. The patient was discharged by the physician. She was discharged home and accompanied by spouse. She left ambulatory and via private vehicle. Spouse driving. --16:34 01/26/21 Kimmy Velarde RN 16:32 01/26/21. BP: 128/76. MAP: 93. HR: 79. RR: 16. O2 saturation: 100%. Temp: 98.2 F. Pain level now: 10/09. --16:34 01/26/21 Kimmy Velarde RN Departure time: 16:34 01/26/2021. --16:34 01/26/21 Kimmy Velarde RN 16:29 01/26/2021 Site #1 removed upon discharge. Pressure dressing applied. --16:34 01/26/21 Kimmy Velarde RN.Locked/Released at 01/26/2021 16:35 by Kimmy Velarde RN Name Value Range Interpretation Code Description Data Ale rce(s) Supporting Document(s) ID Date Data Source [id number] 01/26/2021 12:56:00 PM EDT [facility] 1 Clinical Report - Physicians/Mid Levels [facility] Emergency Department [address] [place] [address] Phone #: ext- [phone] 01/26/2021 12:52 Patient: KERVIN MCMAHAN Sex: F : 1990 Age: 30y Time Seen: 12:53 01/26/2021; initial patient contact, initial documentation. Arrived- By private vehicle. Historian- patient. Disposition decision: 16:18 01/26/2021.HISTORY OF PRESENT ILLNESS Chief Complaint: ABDOMINAL PAIN and DIARRHEA blood in the stools. It is described as cramping. No radiation. It is described as located in the lower abdomen. This started 1 week ago; bleeding started yesterday and is still present (persistent). It was gradual in onset and has been intermittent. At its maximum, severity described as moderate. When seen in the E.D., severity described as moderate. Modifying factors. Not worsened by anything. Not relieved by anything. No nausea, loss of appetite, vomiting or diarrhea. (Patient states that she was taking keflex for an infection and since then has been having diarrhea and had dark stools yesterday she noted blood in her stools that was bright red after her hemorrhoid popped . she has been bleeding from her hemorrhoid so she came to the ER). She has had recent travel.REVIEW OF SYSTEMSLast normal menstrual period- January 17. No constipation, black stools, hematemesis, difficulty withurination or pain with urination. No urinary frequency, bloody stools, fever, headache or sore throat. Nochest pain, difficulty breathing, cough, joint pain or skin rash. No chills or back pain. The patient has nothad weight loss. All other systems reviewed and are negative.PAST HISTORYProblems:Asthma.Back Pain.Anxiety Reaction.Bipolar Disorder.UTI - Urinary Tract Infection.Ovarian Cyst.Depression. Additional Surgeries: Colonoscopy. Medications: Meloxicam Oral (Tablet 15 mg), daily. Omeprazole Oral (Capsule Delayed Release 40 mg), daily. Propranolol HCl Oral (Tablet 10 mg), 2x a day. PROzac Oral (Capsule 10 mg), daily. tiZANidine HCl Oral (Tablet 2 mg), as needed. Albuterol Sulfate Inhalation, as needed. 2 Clinical Report - Physicians/Mid Levels [facility] Emergency Department [address] [place] [address] Phone #: ext- [phone] 01/26/2021 12:52 Patient: KERVIN MCMAHAN Sex: F : 1990 Age: 30y Allergies: Ciprofloxacin. Flagyl.SOCIAL HISTORYNever smoker. Occasional alcohol use. No drug use.ADDITIONAL NOTESThe nursing notes have been reviewed.PHYSICAL EXAMVital Signs: 01/26/2021 13:01 BP: 113/71. MAP: 85. HR: 63. RR: 16. O2 saturation: 99% on room air.Temp: 97.1 F. Pain level now: 7/10. Have been reviewed. Oxygen saturation normal.Appearance: Alert. Oriented X3. No acute distress.Eyes: Pupils equal, round and reactive to light. Eyes normal i nspection.ENT: Pharynx normal.Neck: Normal inspection. Neck supple.CVS: Normal heart rate and rhythm. Heart sounds normal. Pulses normal.Respiratory: No respiratory distress. Painless inspiration. Breath sounds normal. Chest nontender.Abdomen: Soft and nontender. Moderate tenderness in the lower abdomen. No guarding, reboundtenderness or Cobb's or obturator sign present. Bowel sounds normal.Back: Normal inspection. No CVA tenderness.Rectal: Ornament Maker Hand present (lorri). Moderately tender digital exam. Inflamed and bleeding externalhemorrhoids. Sphincter tone normal. Blood per rectum.Skin: Skin warm and dry. Normal skin color. No rash. Normal skin turgor.Extremities: Extremities exhibit normal ROM. No lower extremity edema.Neuro: Oriented X 3. No motor deficit. No sensory deficit.LABS, X-RAYS, AND EKGLaboratory Tests: CBC w Diff: (GRADY: 01/26/2021 13:30) ( MsgRcvd 01/26/2021 14:27) Final results Test Result Flag Units (Reference) CBC W/AUTOMATED DIFF COMPLETE BLOOD COUNT WBC 9.8 10/uL (4.2 - 11.0) RBC 4.68 10/uL (4.20 - 5.40) HEMOGLOBIN 13.4 g/dL (12.0 - 16.0) HEMATOCRIT 39.8 % (37.0 - 47.0) MCV 85.0 fL (81.0 - 101) MCH 28.6 pg (27.0 - 34.0) MCHC 33.7 g/dL (31.0 - 36.0) RDW 13.2 % (11.5 - 14.5) PLATELETS 391 10/uL (150 - 450) MPV 9.6 fL (7.4 - 10.4) NEUT 47.1 % (37.0 - 80.0) LYMPH 27.6 % (25.0 - 40.0) MONO 5.2 % (3.0 - 8.0) EOS 19.3 H % (0.0 - 7.0) 3 Clinical Report - Physicians/Mid Levels [facility] Emergency Department [address] [place] [address] Phone #: ext- [phone] 01/26/2021 12:52 Patient: KERVIN MCMAHAN Sex: F : 1990 Age: 30y BASO 0.5 % (0.0 - 2.5) %IG 0.3 H % (0.0 - 0.0) %NRBC 0.0 % (0.0 - 0.0) #NEUT 4.62 10/uL (2.00 - 6.90) #LYMPH 2.70 10/uL (0.60 - 3.40) #MONO 0.51 10/uL (0.00 - 0.90) #EOS 1.89 H 10/uL (0.00 - 0.70) #BASO 0.05 10/uL (0.00 - 0.20) #IG 0.03 10/uL (0.00 - 0.10) #NRBC 0.00 10/uL (0.00 - 0.00) MANUAL DIFF NOT INDICATED RBC MORPH NOT INDICATEDPT/INR: (GRADY: 01/26/2021 13:30) ( [facility] 01/26/2021 14:42) Final results Test Result Flag Units (Reference) PROTIME 13.1 SECONDS (11.0 - 15.5) INR 0.98 (0.93 - 1.23) \\BLDo\\INR INTERPRETATION\\BLDx\\ Therapeutic range for Coumadin andrelated oral anticoagulants. -International Normalized Ratio (INR): 2.0 - 3.0 for VenousThrombosis, Pulmonary Embolus, Tissue heart valves, Acute OH, Atrial Fibrillation, Valvular heartdisease and recurrent Systemic Embolism. - International Normalized Ratio (INR): 2.5 - 3.5for Mechanical P rosthetic valve.PTT: (GRADY: 01/26/2021 13:30) ( [facility] 01/26/2021 14:42) Final results Test Result Flag Units (Reference) PTT 25.7 SECONDS (24.8 - 36.7)Urinalysis: (GRADY: 01/26/2021 13:25) ( [facility] 01/26/2021 14:28) Final results Test Result Flag Units (Reference) URINALYSIS URINALYSIS SOURCE R COLOR yellow (NORMAL: Yello CLARITY clear (NORMAL: Clear SPEC GRAVITY 1.010 (1.001 - 1.030 pH 7 (5 - 9) GLUCOSE NORM (NORMAL: Negat BILIRUBIN NEG (NORMAL: Negat KETONE NEG (NORMAL: Negat PROTEIN NEG (NORMAL: Negat NITRITE NEG (NORMAL: Negat BLOOD 250 A (NORMAL: Negat LEUK EST NEG (NORMAL: Negat UROBILINOGEN NOR (less than 1.0 MICROSCOPIC See Below WBC 1 - 3 (NORMAL: NONE RBC 0 - 1 (NORMAL: NONE EPITHELIAL FEW (NORMAL: NO NEBeta-HCG, Qual Serum: (GRADY: 01/26/2021 13:30) ( MsgRcvd 01/26/2021 14:43) Final results Test Result Flag Units (Reference) HCG SERUM QUAL NEGATIVE (NORMAL: NEGAT HCG SERUM QL REENTER NEGATIVE (NORMAL: NEGAT { KIT LOT # [id number] ){ KIT EXP DATE07/01/22 ){ PROCEDURAL CONTROL VALID) 4 Clinical Report - Physicians/Mid Levels [facility] Emergency Department [address] [place] [address] Phone #: ext- [phone] 01/26/2021 12:52 Patient: KERVIN MCMAHAN Sex: F : 1990 Age: 30y Occult Blood Stool Diagnostic 1 slide: (GRADY: 01/26/2021 13:10) ( MsgRcvd 01/26/2021 13:30) Final results Test Result Flag Units (Reference) OCCULT BLOOD POSITIVE A (NORMAL: NEGAT OCCULT BLOOD REENTER POSITIVE A (NORMAL: NEGAT { HEMOCCULT LOT # [id number] ){ LOT EXP DATE 12/21 ){ PROCEDURAL CONTROL POS/NEG VALID ).PROGRESS AND PROCEDURESCourse of Care: 14:57 01/26/21. Patient has an external hemorrhoid that was bleeding but has stopped.rectal exam did not show stools on the rectal vault but was heme positive which is most likely secondarytto the blood from the hemorrhoid. her H/H is normal. she has not provided us with stools for c dif 15:03 01/26/21. Patient was given a trial of fluids and crackers in the ER. ordered tuck pads for her hemorrhoids. no BM in the Er. we do not have Tucks pads or anusol cream in the hospital . I prescribe d her anusol cream to be applied BID to the hemorrhoid. Patient and spouse counseled in person several times regarding the patient's stable condition, test results, diagnosis and need for follow-up. Patient and spouse agrees with plan of care. 15:16. Disposition: Discharged home in good and improved condition (16:19). Condition: good and stable. Discharge decision based on the following: patient's condition is improved; patient is ambulatory; patient drinking fluids; patient's exam is improved; no seriously abnormal test results; improving condition on repeat evaluation; social support is adequate; transportation is available; follow-up is available; clinical impression is consistent with outpatient treatment.CLINICAL IMPRESSION Diarrhea Bleeding external hemorrhoids. No prolapsed or thrombosed hemorrhoids.INSTRUCTIONS (your hemoglobin and hematocrit were normal. you had a bleeding external hemorrhoid that has stopped bleeding apply anusol cream on your hemorrhoid. hot sitz bath. take kaopectate 30 mg after each loose BM not to exceed 8 doses a day. take zofran as needed for nausea and vomiitng). Prescription Medications: Anusol-HC 2.5 % topical cream with perineal applicator Apply 1 a small amount twice a day for 7 days -- 5 Clinical Report - Physicians/Mid Levels [facility] Emergency Department [address] [place] [address] Phone #: ext- [phone] 01/26/2021 12:52 Patient: KERVIN MCMAHAN Sex: F : 1990 Age: 30y to the external hemorrhoid. Dispense 30 gram. Refills: 0. Substitution permitted. Pharmacy - [facility] [address] ; [place] [address]. . ondansetron 4 mg disintegrating tablet Take 1 tablet three times a day for 3 days -- prn nausea/vomiting. Dispense 9 tablet. Refills: 0. Substitution permitted. Pharmacy - [facility] [id number] [place] [address] ; [place] [address]. . Follow-up: Follow up with your healthcare provider in three days if not better. Reason for referral: evaluation and treatment. Summary of care provided to patient via paper.(Electronically signed by Abhi Spear 01/26/2021 22:16) Name Value Range Interpretation Code Description Data Ale rce(s) Supporting Document(s) ID Date Data Source [id number] 01/26/2021 02:42:00 PM EDT [facility] Name Value Range Interpretation Code Description Data Ale rce(s) Supporting Document(s) aPTT in Blood by Coagulation assay 25.7 SECONDS 24.8 - 36.7 [facility] ID Date Data Source [id number] 01/26/2021 02:41:00 PM EDT [facility] Name Value Range Interpretation Code Description Data Ale rce(s) Supporting Document(s) Prothrombin time (PT) 13.1 SECONDS 11.0 - 15.5 [facility] INR in Platelet poor plasma by Coagulation assay 0.98 0.93 - 1. 23 [facility] \\BLDo\\INR INTERPRETATION\\BLDx\\ Therapeutic range for Coumadin and related oral anticoagulants. - International Normalized Ratio (INR): 2.0 - 3.0 for Venous Thrombosis, Pulmonary Embolus, Tissue heart valves, Acute OH, Atrial Fibrillation, Valvular heart disease and recurrent Systemic Embolism. -International Normalized Ratio (INR): 2.5 - 3.5 for Mechanical Prosthetic valve. ID Date Data Source [id number] 01/26/2021 02:27:00 PM EDT [facility] Name Value Range Interpretation Code Description Data Ale rce(s) Supporting Document(s) CBC W/AUTOMATED DIFF [facility] COMPLETE BLOOD COUNT Leukocytes [#/volume] in Blood by Automated count 9.8 10^3/uL 4.2 - 1 1.0 [facility] Erythrocytes [#/volume] in Blood by Automated count 4.68 10^6/uL 4. 20 - 5.40 [facility] Hemoglobin [Mass/volume] in Blood 13.4 g/dL 12.0 - 16.0 [facility] Hematocrit [Volume Fraction] of Blood by Automated count 39.8 % 3 7.0 - 47.0 [facility] Erythrocyte mean corpuscular volume [Entitic volume] by Auto mated count 85.0 fL 81.0 - 101 [facility] Erythrocyte mean corpuscular hemoglobin [Entitic mass] by Automated count 28.6 pg 27.0 - 34.0 [facility] Erythrocyte mean corpuscular hemoglobin concentration [Mass/volume] by Automated count 33.7 g/dL 31.0 - 36.0 [facility] Erythrocyte distribution width [Ratio] by Automated count 13.2 % 11.5 - 14.5 [facility] Platelets [#/volume] in Blood by Automated count 391 10^3/uL 150 - 45 0 [facility] Platelet mean volume [Entitic volume] in Blood by Automated count 9.6 fL 7.4 - 10.4 [facility] Neutrophils/100 leukocytes in Blood by Automated count 47.1 % 37. 0 - 80.0 [facility] Lymphocytes/100 leukocytes in Blood by Manual count 27.6 % 25.0 - 40.0 [facility] Monocytes/100 leukocytes in Blood by Automated count 5.2 % 3.0 - 8.0 [facility] Eosinophils/100 leukocytes in Blood by Automated count 19.3 % 0.0 - 7.0 H [facility] Basophils/100 leukocytes in Blood by Automated count 0.5 % 0.0 - 2.5 [facility] %IG 0.3 % 0.0 - 0.0 [facility] %NR[facility] 0.0 % 0.0 - 0.0 [facility] al Neutrophils [#/volume] in Blood by Automated count 4.62 10^3/uL 2.00 - 6.90 [facility] Lymphocytes [#/volume] in Blood by Automated count 2.70 10^3/uL 0.60 - 3.40 [facility] Monocytes [#/volume] in Blood by Automated count 0.51 10^3/uL 0.00 - 0.90 [facility] Eosinophils [#/volume] in Blood by Automated count 1.89 10^3/uL 0.00 - 0.70 H [facility] Basophils [#/volume] in Blood by Automated count 0.05 10^3/uL 0.00 - 0.20 [facility] #IG 0.03 10^3/uL 0.00 - 0.10 [facility] ospital #NRBC 0.00 10^3/uL 0.00 - 0.00 [facility] ospital MANUAL DIFF NOT INDICATED [facility] RBC MORPH NOT INDICATED [facility] spital ID Date Data Source [id number] 01/26/2021 03:23:00 PM EDT [facility] Name Value Range Interpretation Code Description Data Ale rce(s) Supporting Document(s) ABO group [Type] in Blood A [facility] Rh [Type] in Blood POSITIVE [facility] AB SCREEN NEGATIVE NORMAL: NEGATIVE [facility] { ABO/RH REENTER A POSITIVE{ AB SCREEN RE-ENTER NEGATIVE ID Date Data Source [id number] 01/26/2021 02:48:00 PM EDT [facility] Name Value Range Interpretation Code Description Data Ale rce(s) Supporting Document(s) COMPREHENSIVE METABOLIC PANEL [facility] COMPREHENSIVE METABOLIC PANEL Sodium [Moles/volume] in Serum or Plasma 138 mEq/L 134 - 153 [facility] Potassium [Moles/volume] in Serum or Plasma 4.1 mEq/L 3.6 - 5.0 [facility] Chloride [Moles/volume] in Serum or Plasma 104 mEq/L 98 - 107 [facility] Carbon dioxide, total [Moles/volume] in Serum or Plasma 24 MEQ/L 22 - 30 [facility] Glucose [Mass/volume] in Serum or Plasma 98 MG/DL 70 - 99 [facility] BUN 10 MG/DL 7 - 21 [facility] Creatinine [Mass/volume] in Serum or Plasma 0.9 MG/DL 0.7 - 1.5 [facility] BUN/CREAT 11 8 - 27 [facility] al Protein [Mass/volume] in Serum or Plasma 7.6 G/DL 6.3 - 8.2 [facility] Albumin [Mass/volume] in Serum or Plasma 4.2 G/DL 3.9 - 5.0 [facility] Globulin [Mass/volume] in Serum by calculation 3.4 GM/DL 2.4 - 3.2 H [facility] A/G RATIO 1.2 0.8 - 2.0 [facility] Calcium [Mass/volume] in Serum or Plasma 9.6 MG/DL 8.4 - 10.2 [facility] Bilirubin.total [Mass/volume] in Serum or Plasma <0.7 MG/DL 0.2 - 1.3 [facility] Alkaline phosphatase [Enzymatic activity/volume] in Serum or Plasma 100 U/L 38 - 126 [facility] Aspartate aminotransferase [Enzymatic activity/volume] in Serum or Plasma 23 U/L 5 - 40 [facility] Alanine aminotransferase [Enzymatic activity/volume] in Seru m or Plasma 23 U/L 7 - 56 [facility] Anion gap 3 in Serum or Plasma 10.0 mmol/L 8.0 - 16.0 [facility] AGE 30 yrs [facility] NON-AA GFR >60 mL/min [facility] ital AFR AMER GFR >60 mL/min [facility] Ho spital Male GFR In terprentation 20-49 yrs >60 mL/min Normal 50-59 yrs >56 mL/min Normal 60-69 yrs >49 mL/min Normal 70-79yrs >42 mL/min Normal 80 and above >35 mL/min Normal Female GFR Interpretation 20-39 yrs >60 mL/min Normal 40-49 yrs >58 mL/min Normal 50-59 yrs >51 mL/min Normal 60-69 yrs >45 mL/min Normal 70-79 yrs >39 mL/min Normal 80 and above >32 mL/min Normal ID Date Data Source [id number] 01/26/2021 02:43:00 PM EDT [facility] Name Value Range Interpretation Code Description Data Ale rce(s) Supporting Document(s) HCG SERUM QUAL NEGATIVE NORMAL: NEGATIVE [facility] HCG SERUM QL REENTER NEGATIVE NORMAL: NEGATIVE [facility] { KIT LOT # [id number] ){ KIT EXP DATE 07/01/22 ){ PROCEDURAL CONTROL VALID ) ID Date Data Source [id number] 01/26/2021 02:27:00 PM EDT [facility] Name Value Range Interpretation Code Description Data Ale rce(s) Supporting Document(s) [facility] SOURCE R [facility] COLOR yellow NORMAL: Yellow [facility] ospital CLARITY clear NORMAL: Clear [facility] Ho spital Specific gravity of Urine by Test strip 1.010 1.001 - 1.030 [facility] pH 7 5 - 9 [facility] al Glucose [Mass/volume] in Urine by Test strip NORM NORMAL: Negat [facility] Bilirubin.total [Presence] in Urine by Test strip NEG NORMAL: Negative [facility] Ketones [Presence] in Urine by Test strip NEG NORMAL: Negative [facility] Protein [Mass/volume] in Urine by Test strip NEG NORMAL: Negat [facility] Nitrite [Presence] in Urine by Test strip NEG NORMAL: Negative [facility] BLOOD 250 NORMAL: Negative A [facility] LEUK EST NEG NORMAL: Negative [facility] Urobilinogen [Mass/volume] in Urine by Test strip NOR less susi n 1.0 mg/dL [facility] MICROSCOPIC See Below [facility] ital WBC 1 - 3 NORMAL: NONE SEEN [facility] Erythrocytes [#/volume] in Urine by Test strip 0 - 1 NORMAL: NON E SEEN [facility] EPITHELIAL FEW NORMAL: NONE SEEN [facility] ID Date Data Source [id number] 01/26/2021 01:27:00 PM EDT [facility] Name Value Range Interpretation Code Description Data Ale rce(s) Supporting Document(s) OCCULT BLOOD POSITIVE NORMAL: NEGATIVE A [facility] OCCULT BLOOD REENTER POSITIVE NORMAL: NEGATIVE A [facility] { HEMOCCULT LOT # [id number] ){ LOT EXP DATE 12/21 ){ PROCEDURAL CONTROL POS/NEG VALID ) ID Date Data Source [id number] 01/13/2021 10:40:00 AM EDT [facility] [address] [place] [address] PHONE: [phone] FAX: [phone] Name .................. : MARJ GALEANA Acct Number.................. : [id number] ROOM. ................. : [facility] MR Number ................... : [id number] Stay type ............. : E/R Discharge Date......... ... : 01/11/21 Admit Date ......... : 01/11/21 Admit Phys .................... : LUIS MANUEL Colon Date of ....... : 1990 Family Phys ................... : Phone .................. : [phone] Age ................................ : 30 Film# .................. .:[id number] Sex ................................. : F Unsigned transcriptions are preliminary reports and do not represent a medical or legal document CT ABD & PELV W/O ORAL W/O IV [id number] COMPLETE:01/11/21 17:06 ARLEEN [id number] Reason(s): flank pain and UTI. ? renal stone CT OF THE ABDOMEN AND PELVIS WITHOUT CONTRAST: FINDINGS: The liver, spleen, pancreas, adrenals, kidneys appear unremarkable. The gallbladder is contracted, but otherwise appears unremarkable. No calculi are seen at the kidneys. There is no hydronephrosis. No ureteral calculi are seen. There is no bowel dilatation or evidence of obstruction. No free fluid, pneumoperitoneum or lymphadenopathy is i dentified. A very small fat-containing umbilical hernia is present. The uterus and right ovary appear unremarkable. There is a cyst/follicle at the left ovary measuring approximately 2.4 cm. The urinary bladder is unremarkable. Phleboliths are seen in the pelvis. The aorta is normal size without focal aneurysm. The lung bases are clear. No suspicious osseous lesion or acute fracture is identified. The appendix is not clearly identified, but no inflammation is seen in the right lower quadrant to suggest appendicitis. There are no signs of diverticulitis. IMPRESSION: Very small fat-containing umbilical hernia. 2.4 cm cyst/follicle at the left ovary. Further evaluation may be made with ultrasound. Otherwise, no acute disease. While performing the above CT examination, radiation dose reduction was accomplished utilizing automated exposure control, adjusting of the mA and kV based on the patient's body size and/or the use of imperative reconstructive techniques. CT dose: 864.5 mGycm Electronically Reviewed and Signed By Arun Golden MD , 01/13/21 10:40, TDS Transcribe Initials: WILLIAN , Transcribe Date: 01/12/21 11:23, Dictation Date: Page 1 of 2 [place] [address] PHONE: [phone] FAX: [phone] Name .................. : MARJ GALEANA Acct Number.................. : [id number] ROOM. ................. : -1A MR Number ................... : [id number] Stay type ............. : E/R Discharge Date......... ... : 01/11/21 Admit Date ......... : 01/11/21 Admit Phys .................... : LUIS MANUEL Colon Date of ....... : 1990 Family Phys ................... : Phone .................. : [phone] Age ................................ : 30 Film# .................. .:[id number] Sex ................................. : F Unsigned transcriptions are preliminary reports and do not represent a medical or legal document CT ABD & PELV W/O ORAL W/O [place] [id number] COMPLETE:01/11/21 17:06 ARLEEN [id number] Reason(s): flank pain and UTI. ? renal stone Copy for: CHRIS VELARDE via fax Copy for: EMERGENCY DEPT via modem Copy for: 710 MED REC DISCHARGED Page 2 of 2 Name Value Range Interpretation Code Description Data Ale rce(s) Supporting Document(s) ID Date Data Source [id number] 01/11/2021 02:32:00 PM EDT [facility] 1 OrderSheet [facility] Emergency Department [address] [place] [address] Phone #: ext- [phone] 01/11/2021 14:31 Patient: KERVIN MCMAHAN Sex: F : 1990 Age: 30yWEIGHT:92.0 kg (S) HEIGHT:68 inches (S) BMI:30.8ALLERGIES: Ciprofloxacin, FlagylCHIEF COMPLAINT: flank painDIAGNOSIS: Urinary tract infectious disease, Cyst of ovaryLAB ORDERSOrder Description Priority Entered Acknowledged InitialedUrinalysis (Clean STAT 14:47 01/11/2021 14:47 Wendy Peguero) Marian Peguero R.N., R.N.; Per protocol; Reno Reynaga Urine Qual STAT 14:54 01/11/2021 14:54 Syd Velarde Lisa RN; Kimmy CARRIZALES Verbal order per; Angel CallCCBC w Diff STAT 15:12 01/11/2021 15:20 Tristen Velarde RN P.A.-C; Reason for ordering with alerts: Clinical consideration given -- 15:12 01/11/2021 Tristen Glynn-CCMP STAT 15:12 01/11/2021 15:20 Tristen Velarde RN P.A.-C; Reason for ordering with alerts: Clinical consideration given -- 15:12 01/11/2021 Tristen Glynn-CLipase STAT 15:12 01/11/2021 15:20 Tristen Velarde RN P.A.-C; Reason for ordering with alerts: Clinical consideration given -- 15:12 01/11/2021 Tristen Glynn-CCulture, Urine STAT 15:12 01/11/2021 15:20 Syd,(Urine, Clean Tristen Oneal RNCat) P.A.-C; Reason for ordering with alerts: Clinical consideration given -- 15:12 01/11/2021 Tristen Glynn-CLactic Acid STAT 15:12 01/11/2021 15:20 Tristen Velarde RN 2 OrderSheet [facility] Emergency Department [address] [place] [address] Phone #: ext- [phone] 01/11/2021 14:31 [id number] Sex[facility] F : 1990 Age: 30y P.A.-C; Reason for ordering with alerts: Clinical consideration given -- 15:12 01/11/2021 Tristen Glynn-CDIAGNOSTIC STUDY ORDERSOrder Description Priority Entered Acknowledged InitialedCT ABD PEL W/O STAT 16:33 01/11/2021 16:36 Syd,Oral W/O IV Tristen Oneal RNContrast P.A.- C;(Oxygen?(No))(IV?(Yes)) Reason for Study: flank pain and UTI. ? renal stoneMEDICATION/IV/DRIP/FLUID ORDERSOrder Description Priority Entered Acknowledged InitialedNS IV : Bolus 500 15:12 01/11/2021 15:41 Syd,mL, then 100 mL/hr Tristen Oneal RN P.A.-C; Reason for ordering with alerts: Clinical consideration given -- 15:12 01/11/2021 Tristen Glynn-CZofran IVP 4 mg 15:12 01/11/2021 15:41 Tristen Velarde RN P.A.-C; Reason for ordering with alerts: Clinical consideration given -- 15:12 01/11/2021 Tristen Glynn-CTylenol 1 g PO X1 15:12 01/11/2021 15:41 Syd,dose: 1000 mg Tristen Oneal RN(NOW x1) P.A.- C; Reason for ordering with alerts: Clinical consideration given -- 15:12 01/11/2021 Tristen Glynn-CRocephin 17:09 01/11/2021 17:17 Syd,(1gm/50mL) IVPB Tristen Oneal [id number] mg with P.A.-C;Dextrose 50 mlspike bag (D5W)GENERAL ORDERSOrder Description Priority Entered Acknowledged InitialedNPO 15:12 01/11/2021 15:20 Tristen Velarde RN P.A.-C; Reason for ordering with alerts: Clinical consideration given -- 15:12 01/11/2021 Tristen Oropeza P.A.-C 3 OrderSheet [facility] Emergency Department [address] [place] [address] Phone #: ext- [phone] 01/11/2021 14:31 Patient: KERVIN MCMAHAN Sex: F : 1990 Age: 30ySaline Lock 15:12 01/11/2021 15:41 Tristen Velarde RN, P.A.-C; Reason for ordering with alerts: Clinical consideration given -- 15:12 01/11/2021 Tristen Oropeza P.A.-C[Electronically signed by Kimmy Velarde RN (18:01/11/2021)][Electronically signed by Tristen Oropeza P.A.-C (20:01/11/2021)][Electronically locked by Kimmy Velarde RN (18:01/11/2021)] Name Value Range Interpretation Code Description Data Ale rce(s) Supporting Document(s) ID Date Data Source [id number] 01/11/2021 02:32:00 PM EDT [facility] 1 Medication Reconciliation Report [facility] Emergency Department [address] [place] [address] Phone #: ext- [phone] 01/11/2021 14:31 Patient: KERVIN MCMAHAN Sex: F : 1990 Age: 30yWeight: 92.0 kgHeight/Length: 68 in.BMI: 30.8ALLERGIES: Ciprofloxacin, FlagylThe patient's Home Medications are listed below:THE FOLLOWING MEDICATIONS NEED TO BE RECONCILED: Albuterol Sulfate Inhalation, prn Meloxicam Oral (15 mg), daily Omeprazole Oral (40 mg), daily Propranolol HCl Oral (10 mg), 2x a day PROzac Oral (10 mg), daily tiZANidine HCl Oral (2 mg), prnThe source(s) of the original Home Medication information:Not obtained.The following Medications were given to the patient in the Emergency Department:NS [IV] IV Fluids bolus 500 mL over 30 minute(s), then 100 mL/hr, administered: 15:41 01/11/2021Zofran [IVP] IVP 4 mg, administered: 15:01/11/2021Tylenol [PO] PO 1000 mg, administered: 15:01/11/2021OCEPHIN (1GM/50ML) [IVPB] IVPB bolus 0, then 1 gm 100 mL/hr, administered: 17:17 01/11/2021The following Medications were prescribed to the patient:cephalexin 500 mg capsule Take 1 capsule three times a day for 7 days -- Dispense 21 capsule.Refills: 0. Substitution permitted. 2 Medication Reconciliation Report [facility] Emergency Department [address] [place] [address] Phone #: ext- [phone] 01/11/2021 14:31 Patient: KERVIN MCMAHAN Sex: F : 1990 Age: 30yPh[facility]acy [id number] - [id number] [place] [address] ; [place] [address]. Phone: . -- Tristen Oropeza P.A.-C Name Value Range Interpretation Code Description Data Ale rce(s) Supporting Document(s) ID Date Data Source [id number] 01/11/2021 [facility]:32[facility] Administration Record [facility] Emergency Department [address] [place] [address] Phone #: ext- [phone] 01/11/2021 14:31 Patient: KERVIN MCMAHAN Sex: F : 1990 Age: 30yWeight: 92.0 kgHeight/Length: 68 inBMI: 30.8ALLERGIES: Flagyl, Ciprofloxacin Date/Time Medication Administered Medication OrderedStart NS [IV] NS IV : Bolus 500 mL, then 74345:41 01/11/2021 Dose: IV Fluids mL/hrKimmy Velarde RN Rate: 100 mL/hr over 4 hour(s)---- Bolus: 500 mL over 30 minute(s)Stop Dispensed: 1000 mL bag18:01 01/11/2021 Site: #1 right Kimmy Villegas RNGiven ZOFRAN [IVP] (ONDANSETRON HCL) Zofran IVP 4 mg15:41 01/11/2021 Dose: 4 mg IVPLKimmy Lovett RN Site: #1 right ACGiven TYLENOL [PO] (APAP) Tylenol 1 g PO X1 dose: 1000 mg15:41 01/11/2021 Dose: 1000 mg PO (NOW x1)Kimmy Velarde RNStart ROCEPHIN (1GM/50ML) [IVPB] Rocephin (1gm/50mL) IVPB 425129:17 01/11/2021 (CEFTRIAXONE SODIUM) mg with Dextrose 50 ml spike Kimmy Garzon RN Dose: 1 gm IVPB (D5W)---- Rate: 100 mL/hr over 30 minute(s)Stop Dispensed: 50 mL bag17:45 01/11/2021 Site: #1 right Kimmy Villegas RN Name Value Range Interpretation Code Description Data Ale rce(s) Supporting Document(s) ID Date Data Source [id number] 01/11/2021 02:32:00 PM EDT [facility] 1 General Instructions [facility] Emergency Department [address] [place] [address] Phone #: ext- [phone] 01/11/2021 14:31 Patient: KERVIN MCMAHAN Sex: F : 1990 Age: 30yAcute urinary tract infection with cystitis. No hematuria.Single simple left ovarian cyst.INSTRUCTIONSTake Tylenol (Acetaminophen) or Motrin (Ibuprofen) as needed for fever control. Take medicationaccording to label instructions.Drink plenty of fluids.(Recommend to f/u with PCP for repeat UA upon completion of abx regimen.Recommend to utilize OTC Motrin and Tylenol to control inflammation and pain management.Recommend to follow the instructions on the bottle and not to exceed.).Warnings: GENERAL WARNINGS: Return or contact your physician immediately if your conditionworsens or changes unexpectedly, if not improving as expected, or if other problems arise.Prescription Medications:cephalexin 500 mg capsule Take 1 capsule three times a day for 7 days -- Dispense 21 capsule.Refills: 0. Substitution permitted.Pharmacy - [facility] [address] [place] [facility] [id number] [place] [address] ; [place] [address]. .Follow-up:Return to the emergency department as needed. Follow up with your healthcare provider in about twodays if not better. Call for an appointment.Understanding of the discharge instructions verbalized by patient. ADDITIONAL INFORMATIONBladder Infection, Female (Adult) 2 General Instructions [facility] Emergency Department [address] [place] [address] Phone #: ext- [phone] 01/11/2021 14:31 Patient: KERVIN MCMAHAN Sex: F : 1990 Age: 30yUrine normally doesn't have any germs (bacteria) in it. But bacteria can get into the urinary tract fromthe skin around the rectum. Or they can travel in the blood from other parts of the body. Once theyare in your urinary tract, they can cause infection in these areas: The urethra (urethritis) The bladder (cystitis) The kidneys (pyelonephritis)The most common place for an infection is in the bladder. This is called a bladder infection. This isone of the most common infections in women. Most bladder infections are easily treated. They arenot serious unless the infection spreads to the kidney.The terms bladder infection, UTI, and cystitis are often used to describe the same thing. But they arenot always the same. Cystitis is an inflammation of the bladder. The most common cause of cystitis isan infection.SymptomsThe infection causes inflammation in the urethra and bladder. This causes many of the symptoms.The most common symptoms of a bladder infection are: Pain or burning when urinating Having to urinate more often than normal Urgent need to urinate 3 General Instructions [facility] Emergency Department [address] [place] [address] Phone #: mtu- [phone] 01/11/2021 14:31 Patient: KERVIN MCMAHAN Sex: F : 1990 Age: 30y Only a small amount of urine comes out Blood in urine Belly (abdominal) discomfort. This is often in the lower belly above the pubic bone. Cloudy urine Strong- or bad-smelling urine Unable to urinate (urinary retention) Unable to hold urine in (urinary incontinence) Fever Loss of appetite Confusion (in older adults)CausesBladder infections are not contagious. You can't get one from someone else, from a toilet seat, orfrom sharing a bath.The most common cause of bladder infections is bacteria from the bowels. The bacteria get onto theskin around the opening of the urethra. From there, they can get into the urine. Then they travel up tothe bladder, causing inflammation and infection. This often happens because of: Wiping incorrectly after urinating. Always wipe from front to back. Bowel incontinence Procedures such as having a catheter put in Older age Not emptying your bladder. This can give bacteria a chance to grow in your urine. Fluid loss (dehydration) Constipation Having sex Using a diaphragm for controlTreatment 4 General Instructions [facility] Emergency Department [address] [place] [address] Phone #: ext- [phone] 01/11/2021 14:31 Patient: KERVIN MCMAHAN Sex: F : 1990 Age: 30yBladder infections are diagnosed by a urine test and urine culture. They are treated with antibiotics.They often clear up quickly without problems. Treatment helps prevent a more serious kidneyinfection.MedicinesMedicines can help in the treatment of a bladder infection: Take antibiotics until they are used up, even if you feel better. It's important to finish them to make sure the infection has cleared. You can use acetaminophen or ibuprofen for pain, fever, or discomfort, unless another medicine was prescribed. If you have long-term (chronic) liver or kidney disease, talk with your healthcare provider before using these medicines. Also talk with your provider if you've ever had a stomach ulcer or GI (gastrointestinal) bleeding, or are taking blood-thinner medicines. If you are given phenazopydridine to reduce burning with urination, it will make your urine a bright orange color. This can stain clothing.Care and preventionThese self-care steps can help prevent future infections: Drink plenty of fluids. This helps to prevent dehydration and flush out your bladder. Do this unless you must restrict fluids for other health reasons, or your healthcare provider told you not to. Clean yourself correctly after going to the bathroom. Wipe from front to back after using the toilet. This helps prevent the spread of bacteria. Urinate more often. Don't try to hold urine in for a long time. Wear loose-fitting clothes and cotton underwear. Don't wear tight-fitting pants. Improve your diet and prevent constipation. Eat more fresh fruits and vegetables, and fiber. Eat less junk foods and fatty foods. Don't have sex until your symptoms are gone. Don't have caffeine, alcohol, and spicy foods. These can irritate your bladder. Urinate right after you have sex to flush out your bladder. If you use control pills and have frequent bladder infections, discuss it wi th your healthcare provider.Follow-up care 5 General Instructions [facility] Emergency Department [address] [place] [address] Phone #: ext- [phone] 01/11/2021 14:31 Patient: KERVIN MCMAHAN Sex: F : 1990 Age: 30yCall your healthcare provider if all symptoms are not gone after 3 days of treatment. This is especiallyimportant if you have repeat infections.If a culture was done, you will be told if your treatment needs to be changed. If directed, you cancall to find out the results.If X-rays were done, you will be told if the results will affect your treatment.Call [phone] [phone] if any of the following occur: Trouble breathing Hard to wake up or confusion Fainting (loss of consciousness) Fast heart rateWhen to get medical adviceCall your healthcare provider right away if any of these occur: Fever of 100.4F (38.0C) or higher, or as directed by your healthcare provider Symptoms are not better after 3 days of treatment Back or belly pain that gets worse Repeated vomiting, or unable to keep medicine down Weakness or dizziness Vaginal discharge Pain, redness, or swelling in the outer vaginal area (labia) [id number] [employer]. [address] [place] [address], [place] [address]. All rights reserved. This information is not intended as asubstitute for professional medical care. Always follow your healthcare professional's instructions.Ovarian Cysts 6 General Instructions [facility] Emergency Department [address] [place] [address] Phone #: ext- [phone] 01/11/2021 14:31 Patient: KERVIN MCMAHAN Sex: F : 1990 Age: 30yThe ovaries are two small organs located on each side of a woman's uterus (womb). They are part ofthe female reproductive system. Ovarian cysts are sacs filled with fluid or tissue that form on or insidethe ovaries.Ovarian cysts are common in women, especially during childbearing years. There are different typesof cysts. Most are harmless (benign) and go away on their own. They often cause no symptoms. Ifsymptoms do occur, they can include mild pain or pressure in the lower belly (abdomen).Cysts that are large or break (rupture) may cause more severe pain and symptoms. In these cases,you may need hospital care or treatment such as surgery. You may need more extensive treatment ifa cyst causes an ovary to twist (called torsion) or if your doctor suspects your cyst is cancerous. Keepin mind that most cysts are not cancerous, however.General care To help relieve pain, your healthcare provider may recommend using qbdq-dsm-tzzneks pain medicine. If needed, your provide may prescribe stronger pain medicine. Depending on the type of cyst you have, your healthcare provider may advise taking control pills. These help shrink cysts in certain cases. They may also help prevent new cysts from forming. Be sure to take these medicines as directed if they are prescribed. Your healthcare provider may advise you to watch your symptoms over time to see if they go away or worsen. Regular ultrasound tests may also be advised. These can help check if a cyst goes away or grows in size.Follow-up careFollow up with your healthcare provider, or as advised. 7 General Instructions [facility] Emergency Department [address] [place] [address] Phone #: ext- [phone] 01/11/2021 14:31 [id number] Sex[facility] F D OB: 1990 Age: 30yWhen to seek medical adviceCall your healthcare provider right away if any of these occur: Pain worsens or fails to get better with home treatment Fever of 100.4F (38C) or higher (or other fever amount directed by your healthcare provider) Nausea and vomiting Weakness, dizziness, or fainting Abnormal vaginal bleeding [id number] [employer]. [address] [place] [address]. All rights reserved. This information is not intended as asubstitute for professional medical care. Always follow your healthcare professional's instructions.Pelvic Pain, Uncertain CausePelvic pain is pain felt in the lowest part of the belly (abdomen) and between the hipbones. The painmay occur suddenly and recently (acute). Or the pain may last for 6 months or longer (chronic).There are many possible causes of pelvic pain. The pain may be due to a problem in the femalereproductive system. Or, it may be due to a problem in the digestive, urinary, or musculoskeletalsystems.Based on your visit today, the exact cause of your pelvic pain is not certain. Your condition does notappear to be serious at this time. But it is important for you to keep watching for any new symptomsor worsening of your condition. 8 General Instructions [facility] Emergency Department [address] [place] [address] Phone #: ext- [phone] 01/11/2021 14:31 Patient: KERVIN MCMAHAN Sex: F : 1990 Age: 30yGeneral careYour healthcare provider may advise a number of ways to help manage your pain. These can include: Taking ccvo-nsi-ongnloe pain medicine. Stronger pain medicine may also be prescribed, if needed. Applying heat to the pelvic area. Use a heating pad or a hot pack. Taking a hot bath may also help. Getting plenty of rest. Making certain lifestyle changes. These can include practicing good posture and getting regular exercise. Studies have shown that these changes help reduce pelvic pain in some women. Seeing a physical therapist or pain specialist. These healthcare providers can discuss other ways to manage pain with you.Follow-up careFollow up with your healthcare provider, or as advised.When to seek medical adviceCall your healthcare provider right away if any of the following occur: Fever of 100.4F or higher, or as directed by your healthcare provider Pain worsens or you have sudden, severe pain or new pain Nausea, vomiting, sweating, or restlessness Dizziness or fainting Unusual vaginal discharge Abnormal vaginal bleeding (especially bleeding after menopause) [id number] [employer]. [address] [place] [address]. All rights reserved. This information is not intended as asubstitute for professional medical care. Always follow your healthcare professional's instructions. You have been given the following additional information: Bladder Infection, Female (Adult) Ovarian Cyst Pelvic Pain, Unknown Cause 9 General Instructions [facility] Emergency Department [address] [place] [address] Phone #: [phone] 01/11/2021 14:31 Patient: KERVIN MCMAHAN Sex: F : 1990 Age: 30y(Electronically signed by Tristen Oropeza P.A.-C 01/11/2021 20:12) Name Value Range Interpretation Code Description Data Ale rce(s) Supporting Document(s) ID Date Data Source [id number] 01/11/2021 02:32:00 PM EDT [facility] 1 Clinical Report - Nurses [facility] Emergency Department [address] [place] [address] Phone #: ext- [phone] 01/11/2021 14:31 Patient: KERVIN MCMAHAN Sex: F : 1990 Age: 30yTRIAGEArrived by private vehicle. Historian: patient. Accompanied by family.Acuity: LEVEL 3.Chief Complaint: PELVIC PAIN, PAINFUL URINATION and LOW BACK PAIN.Alert. No acute distress.Onset. (2 weeks ago). ( PT has been having pelvic pain, painful urination, and low back pain off and onsince August. This episode has been going on for 2 weeks. She had a pelvic ultrasound 12/24 which cameback normal. Yesterday, [facility] went to [facility] and had a UA that came back normal. She was told to go [facility] ER for further testing.). 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 SEPSIS SCREEN NEGATIVE.No suspected or confirmed signs of infection present.DOROTHY COMA SCORE: 15- eyes open- spontaneous (4); best verbal response- oriented (5); bestmotor response- obeys commands (6). --14:44 01/11/21 Marian Peguero R.N.14:33 01/11/21. BP: 128/84. MAP: 98. HR: 107. RR: 18. O2 saturation: 97%. Temp: 98.3 F. Pain levelnow: 01/09. --14:44 01/11/21 Marian Peguero R.N.Weight: 92 kg stated. Height/Length: 68 inches Per Patient. BMI: 30.8. --14:39 01/11/21 Marian Peguero R.N.MedicationstiZANidine HCl Oral (Tablet 2 mg), as needed. --14:41 01/11/21 Marian Peguero R.N. PROzac Oral (Capsule 10 mg), daily. --14:41 01/11/21 Marian Peguero R.N. Omeprazole Oral (Capsule Delayed Release 40 mg), daily. --14:41 01/11/21 Marian Peguero R.N. Albuterol Sulfate Inhalation, as needed. --14:41 01/11/21 Marian Peguero R.N. Propranolol HCl Oral (Tablet 10 mg), 2x a day. --14:42 01/11/21 Marian Peguero R.N. Meloxi cam Oral (Tablet 15 mg), daily. --14:42 01/11/21 Marian Peguero R.N.AllergiesCiprofloxacin. --14:40 01/11/21 Marian Peguero R.N.Flagyl. --14:40 01/11/21 Marian Peguero R.N. 2 Clinical Report - Nurses [facility] Emergency Department [address] [place] [address] Phone #: ext- [phone] 01/11/2021 14:31 Patient: KERVIN MCMAHAN Sex: F : 1990 Age: 30y PROBLEMS: Bipolar Disorder. Depression. Anxiety Reaction. Back Pain. Asthma. --14:43 01/11/21 Marian Peguero R.N. ADDITIONAL SURGERIES: Colonoscopy. --14:43 01/11/21 Marian Peguero R.N. History PAST MEDICAL HX: Last normal menstrual period- December 18. Denies current . SOCIAL HX: Never smoker. No alcohol use or drug use. She was offered HIV testing but declined and hepatitis C testing but declined. She has not traveled outside the [place] Infectious disease exposure: The patient was not exposed to C-diff, VRE, CRE or Coronavirus. Patient is a known carrier of MRSA. (Had MRSA in 2017 in a tattoo on her wrist). SELF HARM ASSESSMENT: Self harm assessment was performed. The patient answered "no" to the question(s) "Have you recently felt down, depressed, or hopeless?", "Do you have thoughts of harming or killing yourself?", "Do you have a plan for harming or killing yourself?", "Have you recently had thoughts about harming or killing others?", "Do you have any dangerous items in your possession?", "Have you noticed less interest or pleasure in doing things?", "Are you here because you tried to hurt yourself?" and "Have you ever tried to hurt yourself before today?". ABUSE ASSESSMENT: No report of abuse. NUTRITIONAL RISK ASSESSMENT: The nutritional risk assessment revealed no deficiencies. FUNCTIONAL ASSESSMENT: Functional assessment: no impairments noted. LEARNING NEEDS ASSESSMENT: The learning needs assessment revealed no barriers. FALL RISK ASSESSMENT: Fall risk assessment completed. No risk factors identified. SKIN INTEGRITY ASSESSMENT: Skin integrity risk assessment completed. No skin integrity risk identified. --14:44 01/11/21 Marian Peguero R.N. Interventions Identification and allergy band on patient. To treatment room. --14:44 01/11/21 Marian Peguero R.N.PHYSICAL ASSESSMENTAmbulatory to room.GENERAL / NEURO / PSYCH: Alert. Oriented X 4. Appears in no acute distress.HEENT: Mucous membranes are pink. 3 Clinical Report - Nurses [facility] Emergency Department [address] [place] [address] Phone #: [phone]- [phone] 01/11/2021 14:31 Patient: KERVIN MCMAHAN Sex: F : 1990 Age: 30y RESPIRATORY: Respirations not labored. Breath sounds within normal limits. CVS: Capillary refill less than 2 seconds. GI / : Abdomen soft. Abdominal tenderness in the left lower quadrant. Bowel sounds within normal limits. Pain with urination. She has had frequency of urination. Urgency of urination. ( vaginal itching). SKIN: Skin is warm and dry. --15:00 01/11/21 Kimmy Velarde RN.NURSING PROGRESS NOTESPatient gowned. Reassurance given. Two patient identifiers checked. Call light placed in reach.Patient ready for evaluation- ED physician notified. --14:45 01/11/21 Marian Peguero R.N. 15:30 01/11/2021 Site #1 started via IV in the right antecubital space with an 20g angiocath; one attempt. Saline lock flushed with 5 mL saline. --15:40 01/11/21 Kimmy Velarde RN 15:41 01/11/2021 Started bag #1 1000 mL IV Fluids NS; bolus of 500 mL over 30 minute(s) then at 100 mL/hr over 4 hour(s) via site #1 via IV pump. Allergies verified and confirmed 5 rights. IV patency established. IV site checked: no pain, redness, or swelling. IV flushed thoroughly pre- and post- medication administration. Information reviewed with patient including reason for taking this medication. Verbalizes understanding. --15:41 01/11/21 Kimmy Velarde RN 15:41 01/11/2021 Zofran (Ondansetron HCl) IVP 4 mg given via site #1. Allergies verified and confirmed 5 rights. IV patency established. IV site checked: no pain, redness, or swelling. IV flushed thoroughly pre- and post- medication administration. IVP given by RN. Information reviewed with patient including reason for taking this medication. Verbalizes understanding. --15:41 01/11/21 Kimmy Vlearde RN 15:41 01/11/2021 Tylenol (APAP) PO 1000 mg given. Allergies verified and confirmed 5 rights. Information reviewed with patient including reason for taking this medication. Verbalizes understanding. --15:41 6/12/21 Kimmy Velarde RN 16:03 01/11/21. BP: 125/76. MAP: 92. HR: 91. RR: 16. O2 saturation: 99%. --16:03 01/11/21 [place] leadlighter, Lorri, ER Tech1 16:45 01/11/21. BP: 107/61. MAP: 76. HR: 85. RR: 16. O2 saturation: 96%. --16:45 01/11/21 [place] leadlighter, [facility], ER Tech1 ( amb to bathroom without problems). --16:51 01/11/21 Kimmy Velarde RN Patient transported to [place] by wheelchair with radiology specialist. --16:54 01/11/21 Kimmy Velarde RN 17:17 01/11/2021 Started 1 gm of ROCEPHIN (1GM/50ML) (cefTRIAXone Sodium) IVPB in bag #1 50 mL; at 100 mL/hr over 30 minute(s) via site #1. via IV pump. Allergies verified and confirmed 5 rights. IV patency established. IV site checked: no pain, redness, or swelling. IV flushed thoroughly pre- and post-medication administration. Information reviewed with patient including reason for taking this medication. Verbalizes understanding. --17:17 01/11/21 Kimmy Velarde RN 4 Clinical Report - Nurses [facility] Emergency Department [address] [place] [address] Phone #: [phone]- [phone] 01/11/2021 14:31 Patient: KERVIN MCMAHAN Sex: F : 1990 Age: 30y 17:45 01/11/2021 ROCEPHIN (1GM/50ML) IVPB via IV site #1 Discontinued: completed. Total amount infused: 50 mL. --18:02 01/11/21 Kimmy Velarde RN 18:01 01/11/2021 IV Fluids NS via IV site #1 Discontinued: discontinued. Total amount infused: 750 mL. --18:01 01/11/21 Kimmy Velarde RN.DISPOSITION / DISCHARGE 17:51 01/11/21. BP: 107/73. MAP: 84. HR: 81. RR: 16. O2 saturation: 99%. Temp: 98.1 F. Pain level now: 10/09. --17:51 01/11/21 [facility] Tech, [facility] Tech1 Departure time: 17:59 01/11/2021. --17:59 01/11/21 Kimmy Velarde RN Condition at departure: improved and stable. No learning barriers present. Discharge instructions provided and reviewed with the patient. Reviewed medication(s) side effects, precautions, dosing and course information. Prescription(s) sent electronically to pharmacy. Reviewed referrals. Verbalized understanding. Written instructions provided. The patient was discharged by the physician transport assistant. She was discharged home and accompanied by spouse. She left ambulatory and via private vehicle. Spouse driving. --18:00 01/11/21 Kimmy Velarde RN 17:55 01/11/2021 Site #1 removed upon discharge. Pressure dressing applied. --18:00 01/11/21 Kimmy Velarde RN.Locked/Released at 01/11/2021 18:03 by Kimmy Velarde RN Name Value Range Interpretation Code Description Data Ale rce(s) Supporting Document(s) ID Date Data Source [id number] 01/11/2021 02:32:00 PM EDT [facility] 1 Clinical Report - Physicians/Mid Levels [facility] Emergency Department [address] [place] [address] Phone #: ext- [phone] 01/11/2021 14:31 Patient: KERVIN MCMAHAN Sex: F : 1990 Age: 30y Time Seen: 15:12 01/11/2021; initial patient contact, initial documentation. Arrived- By private vehicle. Historian- patient. Disposition decision: 17:47 01/11/2021.HISTORY OF PRESENT ILLNESS Chief Complaint: FLANK PAIN. This started about 2 weeks ago and is still present. It is described as "pain", sharp, cramping and dull and it is described as located in the left pelvis and the left flank. No nausea, loss of appetite, vomiting or diarrhea. (PT has been having pelvic pain, painful urination, and low back pain off and on since August. This episode has been going on for 2 weeks. She had a pelvic ultrasound 12/24 which came back normal. Yesterday, she went to [facility] and had a UA that came back normal. She was told to go to the ER for further testing.)). Similar symptoms previously. None. Recent medical care: Not recently seen/ assessed.REVIEW OF SYSTEMSLast normal menstrual period was 4 weeks ago. No constipation, black stools, hematemesis, bloodystools or fever. No headache, sore throat, chest pain, difficulty breathing or cough. No joint pain, skinrash, chills or back pain. The patient has had difficulty with urination, and pain on urination but not hadweight loss. The patient has had urinary frequency. Last bowel movement: today. All other systemsreviewed and are negative.PAST HISTORYSee nurses notes. Problems: Bipolar Disorder. Depression. Anxiety Reaction. Back Pain. Asthma. Additional Surgeries: Colonoscopy. Medications: Meloxicam Oral (Tablet 15 mg), daily. Propranolol HCl Oral (Tablet 10 mg), 2x a day. Albuterol Sulfate Inhalation, as needed. 2 Clinical Report - Physicians/Mid Levels [facility] Emergency Department [address] [place] [address] Phone #: ext- [phone] 01/11/2021 14:31 Patient: KERVIN MCMAHAN Sex: F : 1990 Age: 30y Omeprazole Oral (Capsule Delayed Release 40 mg), albino y. PROzac Oral (Capsule 10 mg), daily. tiZANidine HCl Oral (Tablet 2 mg), as needed. Allergies: Ciprofloxacin. Flagyl.SOCIAL HISTORYNever smoker. No alcohol use or drug use.ADDITIONAL NOTESThe nursing notes have been reviewed.PHYSICAL EXAMVital Signs: 01/11/2021 14:33 BP: 128/84. MAP: 98. HR: 107. RR: 18. O2 saturation: 97%. Temp: 98.3 F.Pain level now: 01/09. Have been reviewed. Oxygen saturation normal.Appearance: Alert. Oriented X3. No acute distress.Eyes: Eyelids appear normal to inspection. Conjunctivae and sclerae appear normal to inspection.Corneas appear normal to inspection. Pupils equal, round and reactive to light. EOMs intact. Periorbitalareas appear normal to inspection. Anterior chambers clear.ENT: Normal ENT inspection. Airway intact. TM's normal. Ears normal. Nose normal. Nares normal.Pharynx normal. Moist mucous membranes. Uvula midline. Voice normal.Neck: Normal inspection.CVS: Normal heart rate and rhythm. No JVD present. Pulses normal. Capillary refill normal. Strongperipheral pulses. Pulses: right radial 2+; left radial 2+; right dorsalis pedis 2+; left dorsalis pedis 2+; rightposterior tibial 2+; left posterior tibial 2+.Respiratory: Chest normal on inspection. No respiratory distress. Lungs clear. Good chest movement.Breath sounds normal and equal.Abdomen: Soft. Tenderness in the left side of the abdomen, left lower quadrant and lower abdomen.Bowel sounds normal. No distention.Back: Mild CVA tenderness on the left.Skin: Skin warm and dry.Extremities: Extremities exhibit normal ROM. No lower extremity edema. No calf tenderness. No lowerextremity edema.Neuro: Awake. Alert. Mood/affect normal. Speech normal. No motor deficit. No sensory deficit.Psych: Cognition normal. Thought process and content normal. Insight and judgement normal.LABS, X-RAYS, AND EKGCT Abdomen - Pelvis: Chantel house Terence - 01/11/2021 5:23:01 PMno calcs/hydro catherineChantel nava Terence - 01/11/2021 5:22:42 PM 3 Clinical Report - Physicians/Mid Levels [facility] Emergency Department [address] [place] [address] Phone #: ext- [phone] 01/11/2021 14:31 Patient: KERVIN MCMAHAN Sex: F : 1990 Age: 30yVery small fat-containing umbilical hernia. 2.4 cm cyst/follicle of the left ovary. Otherwise, no acute disease.The study was interpreted by the radiologist.Laboratory Tests:CT ABD PEL W/O Oral W/O IV Contrast: (GRADY: 01/11/2021 16:33) ( MogRcvd 01/11/2021 17:06) InProgressCT ABDReason(s): flank pain and UTI. ? renal stoneTRANSPORTATION: WC IV? IV?(Yes) O2? Oxygen?(No) RoCBC w Diff: (CO LL: 01/11/2021 15:25) ( MsgRcvd 01/11/2021 15:37) Final results Test Result Flag Units (Reference) CBC W/AUTOMATED DIFF COMPLETE BLOOD COUNT WBC 10.4 10/uL (4.2 - 11.0) RBC 4.61 10/uL (4.20 - 5.40) HEMOGLOBIN 13.4 g/dL (12.0 - 16.0) HEMATOCRIT 39.6 % (37.0 - 47.0) MCV 85.9 fL (81.0 - 101) MCH 29.1 pg (27.0 - 34.0) MCHC 33.8 g/dL (31.0 - 36.0) RDW 13.3 % (11.5 - 14.5) PLATELETS 369 10/uL (150 - 450) MPV 9.8 fL (7.4 - 10.4) NEUT 56.2 % (37.0 - 80.0) LYMPH 26.7 % (25.0 - 40.0) MONO 4.4 % (3.0 - 8.0) EOS 12.0 H % (0.0 - 7.0) BASO 0.4 % (0.0 - 2.5) %IG 0.3 H % (0.0 - 0.0) %NRBC 0.0 % (0.0 - 0.0) #NEUT 5.82 10/uL (2.00 - 6.90) #LYMPH 2.76 10/uL (0.60 - 3.40) #MONO 0.46 10/uL (0.00 - 0.90) #EOS 1.24 H 10/uL (0.00 - 0.70) #BASO 0.04 10/uL (0.00 - 0.20) #IG 0.03 10/uL (0.00 - 0.10) #NRBC 0.00 10/uL (0.00 - 0.00) MANUAL DIFF NOT INDICATED RBC MORPH NOT INDICATEDCMP: (GRADY: 01/11/2021 15:25) ( MsgRcvd 01/11/2021 15:59) Final results Test Result Flag Units (Reference) COMPREHENSIVE METABOLIC PANEL COMPREHENSIVE METABOLIC PANEL SODIUM 138 mEq/L (134 - 153) POTASSIUM 3.9 mEq/L (3.6 - 5.0) CHLORIDE 106 mEq/L (98 - 107) CO2 22 MEQ/L (22 - 30) GLUCOSE 106 H MG/DL (70 - 99) BUN 12 MG/DL (7 - 21) CREATININE 0.8 MG/DL (0.7 - 1.5) BUN/CREAT 15 (8 - 27) TOTAL PROTEIN 6.8 G/DL (6.3 - 8.2) ALBUMIN 4.1 G/DL (3.9 - 5.0) GLOBULIN 2.7 GM/DL (2.4 - 3.2) 4 Clinical Report - Physicians/Mid Levels [facility] Emergency Department [address] [place] [address] Phone #: ext- [phone] 01/11/2021 14:31 Patient: KERVIN MCMAHAN Sex: F : 1990 Age: 30y A/G RATIO 1.5 (0.8 - 2.0) CALCIUM 9.2 MG/DL (8.4 - 10.2) TOTAL BILI <0.7 MG/DL (0.2 - 1.3) ALKALINE PHOS 90 U/L (38 - 126) SGOT/AST 17 U/L (5 - 40) SGPT/ALT 19 U/L (7 - 56) ANION GAP 10.0 mmol/L (8.0 - 16.0) AGE 30 yrs NON-AA GFR >60 mL/min AFR AMER GFR >60 mL/min Male GFR Interprentation 20-49 yrs >60 mL/min Ripodu26-07 yrs >56 mL/min Normal 60-69 yrs >49 mL/min Normal 70-79yrs>42 mL/min Normal 80 and above >35 mL/min Normal Female GFRInterpretation 20-39 yrs >60 mL/min Normal 40-49 yrs >58 mL/minNormal 50-59 yrs >51 mL/min Normal 60-69 yrs >45 mL/min Zdrguj15-15 yrs >39 mL/min Normal 80 and above >32 mL/min NormalLipase: (GRADY: 01/11/2021 15:25) ( MsgRcvd 01/11/2021 15:52) Final results Test Result Flag Units (Reference) LIPASE 35 U/L (13 - 60)Culture, Urine: (GRADY: 01/11/2021 15:12) ( MsgRcvd 01/11/2021 15:28) CanceledSOURCE: Urine, Clean CatchLactic Acid: (GRADY: 01/11/2021 15:25) ( [facility]37) Final results Test Result Flag Units (Reference) LACTIC ACID 1.4 MMOL/L (0.2 - 2.2)Beta-HCG, Qual Urine: (GRADY: 01/11/2021 14:40) ( [facility] 01/11/2021 15:07) Final results Test Result Flag Units (Reference) HCG URINE QUAL NEGATIVE (NORMAL: NEGAT HCG URINE QL REENTER NEGATIVE (NORMAL: NEGAT { KIT LOT # [id number] ){ KIT EXP [id number] ){ PROCEDURAL CONTROL VALID)Urinalysis: (GRADY: 01/11/2021 14:40) ( [facility] 01/11/2021 15:04) Final results Test Result Flag Units (Reference) URINALYSIS URINALYSIS SOURCE R COLOR red (NORMAL: Yello CLARITY clear (NORMAL: Clear SPEC GRAVITY 1.020 (1.001 - 1.030 pH 5 (5 - 9) GLUCOSE NORM (NORMAL: Negat BILIRUBIN 6 (NORMAL: Negat KETONE NEG (NORMAL: Negat PROTEIN 15 (NORMAL: Negat NITRITE POS (NORMAL: Negat BLOOD NEG (NORMAL: Negat LEUK EST NEG (NORMAL: Negat UROBILINOGEN 8 (less than 1.0 5 Clinical Report - Physicians/Mid Levels [facility] Emergency Department [address] [place] [address] Phone #: ext- [phone] 01/11/2021 14:31 Patient: KERVIN MCMAHAN Sex: F : 1990 Age: 30y MICROSCOPIC See Below WBC 0 - 1 (NORMAL: NONE RBC None Seen (NORMAL: NONE EPITHELIAL MANY A (NORMAL: NONE BACTERIA 1+ SMALL (NORMAL: NONE.PROGRESS AND PROCEDURESCourse of Care: VSS, NAD, AOx3, interacting well and appropriately, no use of accessory muscle, able tospeak full sentences, stable, non-toxic looking. Enter room and pt lying peacefully in bed in NAD. Patient stable. Denies any new issues, concerns, or complaints. Pt presents to the ER with c/o of L flank pain, LLQ, L lower abd pain with UTI s/s of F/U/D. Pt has takend Azo. PE demos NV itnact b/l UE and LE. Noted L CVA tenderness. ? renal stone. Will obtina labs for further eval. Pending restuls. Reviewed results. Discussed with attending. Agrees wiht discharge. Noted UA results. Pt is on AZO. ? if 2/2 tothis. WIll tx and have pt f/uw ith PCP for repeat UA. Enter room and patient lying peacefully in bed in NAD. Patient stable. Denies any new issues, concerns, or complaints. Discussed results with pt. Discussed tx plan with pt. Discussed and counseled on stable condition. Discussed importance of a f/u with PCP. Discussed return to ER criteria. Answered their questions. Indicates and verbalizes that they understand, agree, and will comply with above. Denies any new questions or concerns. Patient has capacity to understand. Discharge decision based on the following: patient's condition is stable; patient's exam is stable; social support is adequate; transportation is available; follow-up is available. Discussed of OTC Motrin and Tylenol to control inflammation and pain management. Informed to follow di rections on bottle that are appropriate for age and/or weight. Discussed case with health care provider (Reynaga). Disposition: Discharged home in good and improved condition. Condition: good and stable.CLINICAL IMPRESSION Acute urinary tract infection with cystitis. No hematuria. Single simple left ovarian cyst. 6 Clinical Report - Physicians/Mid Levels [facility] Emergency Department [address] [place] [address] Phone #: ext- [phone] 01/11/2021 14:31 Patient: KERVIN MCMAHAN [facility]#: [id number] Sex: F : 1990 Age: 30yINSTRUCTIONS Take Tylenol (Acetaminophen) or Motrin (Ibuprofen) as needed for fever control. Take medication according to label instructions. Drink plenty of fluids. (Recommend to f/u with PCP for repeat UA upon completion of abx regimen. Recommend to utilize OTC Motrin and Tylenol to control inflammation and pain management. Recommend to follow the instructions on the bottle and not to exceed.). Warnings: GENERAL WARNINGS: Return or contact your physician immediately if your condition worsens or changes unexpectedly, if not improving as expected, or if other problems arise. Prescription Medications: cephalexin 500 mg capsule Take 1 capsule three times a day for 7 days -- Dispense 21 capsule. Refills: 0. Substitution permitted. Pharmacy - [facility] [id number] [facility] - [id number] [place] [address] ; [place] [address]. . Follow-up: Return to the emergency department as needed. Follow up with your healthcare provider in about two days if not better. Call for an appointment. Understanding of the discharge instructions verbalized by patient.(Electronically signed by Tristen Oropeza P.A.-C 01/11/2021 20:12) Name Value Range Interpretation Code Description Data Ale rce(s) Supporting Document(s) ID Date Data Source [id number] 01/11/2021 03:37:00 PM EDT [facility] Name Value Range Interpretation Code Description Data Ale rce(s) Supporting Document(s) Lactate [Moles/volume] in Serum or Plasma 1.4 MMOL/L 0.2 - 2.2 [facility] ID Date Data Source [id number] 01/11/2021 03:59:00 PM EDT [facility] Name Value Range Interpretation Code Description Data Ale rce(s) Supporting Document(s) COMPREHENSIVE METABOLIC PANEL [facility] COMPREHENSIVE METABOLIC PANEL Sodium [Moles/volume] in Serum or Plasma 138 mEq/L 134 - 153 [facility] Potassium [Moles/volume] in Serum or Plasma 3.9 mEq/L 3.6 - 5.0 [facility] Chloride [Moles/volume] in Serum or Plasma 106 mEq/L 98 - 107 [facility] Carbon dioxide, total [Moles/volume] in Serum or Plasma 22 MEQ/L 22 - 30 [facility] Glucose [Mass/volume] in Serum or Plasma 106 MG/DL 70 - 99 H [facility] BUN 12 MG/DL 7 - 21 [facility] al Creatinine [Mass/volume] in Serum or Plasma 0.8 MG/DL 0.7 - 1.5 [facility] BUN/CREAT 15 8 - 27 [facility] Protein [Mass/volume] in Serum or Plasma 6.8 G/DL 6.3 - 8.2 [facility] Albumin [Mass/volume] in Serum or Plasma 4.1 G/DL 3.9 - 5.0 [facility] Globulin [Mass/volume] in Serum by calculation 2.7 GM/DL 2.4 - 3.2 [facility] A/G RATIO 1.5 0.8 - 2.0 [facility] Calcium [Mass/volume] in Serum or Plasma 9.2 MG/DL 8.4 - 10.2 [facility] Bilirubin.total [Mass/volume] in Serum or Plasma <0.7 MG/DL 0.2 - 1.3 [facility] Alkaline phosphatase [Enzymatic activity/volume] in Serum or Plasma 90 U/L 38 - 126 [facility] Aspartate aminotransferase [Enzymatic activity/volume] in Serum or Plasma 17 U/L 5 - 40 [facility] Alanine aminotransferase [Enzymatic activity/volume] in Seru m or Plasma 19 U/L 7 - 56 [facility] Anion gap 3 in Serum or Plasma 10.0 mmol/L 8.0 - 16.0 [facility] AGE 30 yrs [facility] al NON-AA GFR >60 mL/min [facility] ital AFR AMER GFR >60 mL/min [facility] Ho spital Male GFR In terprentation 20-49 yrs >60 mL/min Normal 50-59 yrs >56 mL/min Normal 60-69 yrs >49 mL/min Normal 70-79yrs >42 mL/min Normal 80 and above >35 mL/min Normal Female GFR Interpretation 20-39 yrs >60 mL/min Normal 40-49 yrs >58 mL/min Normal 50-59 yrs >51 mL/min Normal 60-69 yrs >45 mL/min Normal 70-79 yrs >39 mL/min Normal 80 and above >32 mL/min Normal ID Date Data Source [id number] 01/11/2021 03:52:00 PM EDT [facility] Name Value Range Interpretation Code Description Data Ale rce(s) Supporting Document(s) Lipase [Enzymatic activity/volume] in Serum or Plasma 35 U/L 13 - 60 [facility] ID Date Data Source [id number] 01/11/2021 03:37:00 PM EDT [facility] Name Value Range Interpretation Code Description Data Ale rce(s) Supporting Document(s) CBC W/AUTOMATED DIFF [facility] COMPLETE BLOOD COUNT Leukocytes [#/volume] in Blood by Automated count 10.4 10^3/uL 4.2 - 11.0 [facility] Erythrocytes [#/volume] in Blood by Automated count 4.61 10^6/uL 4. 20 - 5.40 [facility] Hemoglobin [Mass/volume] in Blood 13.4 g/dL 12.0 - 16.0 [facility] Hematocrit [Volume Fraction] of Blood by Automated count 39.6 % 3 7.0 - 47.0 [facility] Erythrocyte mean corpuscular volume [Entitic volume] by Auto mated count 85.9 fL 81.0 - 101 [facility] Erythrocyte mean corpuscular hemoglobin [Entitic mass] by Automated count 29.1 pg 27.0 - 34.0 [facility] Erythrocyte mean corpuscular hemoglobin concentration [Mass/volume] by Automated count 33.8 g/dL 31.0 - 36.0 [facility] Erythrocyte distribution width [Ratio] by Automated count 13.3 % 11.5 - 14.5 [facility] Platelets [#/volume] in Blood by Automated count 369 10^3/uL 150 - 45 0 [facility] Platelet mean volume [Entitic volume] in Blood by Automated count 9.8 fL 7.4 - 10.4 [facility] Neutrophils/100 leukocytes in Blood by Automated count 56.2 % 37. 0 - 80.0 [facility] Lymphocytes/100 leukocytes in Blood by Manual count 26.7 % 25.0 - 40.0 [facility] Monocytes/100 leukocytes in Blood by Automated count 4.4 % 3.0 - 8.0 [facility] Eosinophils/100 leukocytes in Blood by Automated count 12.0 % 0.0 - 7.0 H [facility] Basophils/100 leukocytes in Blood by Automated count 0.4 % 0.0 - 2.5 [facility] %IG 0.3 % 0.0 - 0.0 H [facility] al %NRBC 0.0 % 0.0 - 0.0 [facility] al Neutrophils [#/volume] in Blood by Automated count 5.82 10^3/uL 2.00 - 6.90 [facility] Lymphocytes [#/volume] in Blood by Automated count 2.76 10^3/uL 0.60 - 3.40 [facility] Monocytes [#/volume] in Blood by Automated count 0.46 10^3/uL 0.00 - 0.90 [facility] Eosinophils [#/volume] in Blood by Automated count 1.24 10^3/uL 0.00 - 0.70 H [facility] Basophils [#/volume] in Blood by Automated count 0.04 10^3/uL 0.00 - 0.20 [facility] #IG 0.03 10^3/uL 0.00 - 0.10 [facility] #NRBC 0.00 10^3/uL 0.00 - 0.00 [facility] MANUAL DIFF NOT INDICATED [facility] RBC MORPH NOT INDICATED [facility] spital ID Date Data Source [id number] 01/16/2021 01:05:00 PM EDT [facility] Name Value Range Interpretation Code Description Data Ale rce(s) Supporting Document(s) CULTURE URINE [facility] spital _CULTURE URINE_$$[id number]$$[id number]$$[id number]$$[id number]$$[id number]$$[id number]$$172675$$261657$$442998$$ 560243$$818394$$394145$$351824$$568494$$957916$$016396$$730847$$080704$$526989$$ 132667$$474854$$576859$$371192$$219577$$410103$$217404$$[id number] -- Continued on next page --Patient: MARJ GALEANA Order: [id number] Page 2Culture: CULTURE URINE Status: Final ==== -- Continued on next page --Patient: MARJ GALEANA Order: [id number] Page 2Culture: CULTURE URINE Status: Prelim =====$$[id number]$$[id number] DATE/TIME: 01/16/2021 11:06Culture: CULTURE URINE Status: FinalIsolate 1 Enterococcus faecalis Flag: A . . . . . . .725,000-50,000 colony forming units per mL Previous result entered on 01/15/2021 05:52 ET Microbiological testing to rule out the presence of possible pathogensis in progress.Urine Culture,Comprehensive: [id number] faecalis Flag: APatient: MARJ GALEANA Order: [id number] Page 3Culture: CULTURE URINE Status: Final ISOLATE 1 Enterococcus faecalis Isolate 1Antibiotic ELBA IntUnits ug/mL Ciprofloxacin S S . . . . . .185-9Levofloxacin S S . . . . . .33089- 8Nitrofurantoin S S . . . . . .363-2Penicillin S S . . . . . .6932-8Tetracycline R R . . . . . .496-0Vancomycin S S . . . . . .524-9P1 Test performed by: [employer] [facility] #: [id number] [address] [place] [address] [id number] [facility] [id number] Director : Sam Marte MD NPI #:Brownell Operator : 01/15/[email or web address].SENT REF 01/16/[email or web address].SENT REF ID Date Data Source [id number] 01/11/2021 03:07:00 PM EDT [facility] Name Value Range Interpretation Code Description Data Ale rce(s) Supporting Document(s) HCG URINE QUAL NEGATIVE NORMAL: NEGATIVE [facility] HCG URINE QL REENTER NEGATIVE NORMAL: NEGATIVE Ca [facility] { KIT LOT # [id number] ){ KIT EXP DATE 07-01-22 ){ PROCEDURAL CONTROL VALID ) ID Date Data Source [id number] 01/11/2021 03:01:00 PM EDT [facility] Name Value Range Interpretation Code Description Data Ale rce(s) Supporting Document(s) URINALYSIS [facility] mini URINALYSIS SOURCE R [facility] COLOR red NORMAL: Yellow [facility] CLARITY clear NORMAL: Clear [facility] Specific gravity of Urine by Test strip 1.020 1.001 - 1.030 [facility] pH 5 5 - 9 [facility] Glucose [Mass/volume] in Urine by Test strip NORM NORMAL: Negat [facility] Bilirubin.total [Presence] in Urine by Test strip 6 NORMAL: Negative [facility] Ketones [Presence] in Urine by Test strip NEG NORMAL: Negative [facility] Protein [Mass/volume] in Urine by Test strip 15 NORMAL: Negat [facility] Nitrite [Presence] in Urine by Test strip POS NORMAL: Negative [facility] BLOOD NEG NORMAL: Negative [facility] Leukocyte esterase [Presence] in Urine by Test strip NEG SACHIN L: Negative [facility] Urobilinogen [Mass/volume] in Urine by Test strip 8 less susi n 1.0 mg/dL [facility] MICROSCOPIC See Below [facility] ital WBC 0 - 1 NORMAL: NONE SEEN [facility] Erythrocytes [#/volume] in Urine by Test strip None Seen NORMAL: NON E SEEN [facility] EPITHELIAL MANY NORMAL: NONE SEEN A [facility] Bacteria [Presence] in Urine sediment by Light microscopy 1+ SMALL NORMAL: NONE SEEN [facility] ID Date Data Source LIPID PANEL (CARDIAC RISK) 12/17/2020 12:00:00 AM EDT eCW1 ( [facility]) Name Value Range Interpretation Code Description Data Ale rce(s) Supporting Document(s) Triglyceride [Mass/volume] in Serum or Plasma by calculation 125 <150 TRIGLYCERIDES LEVEL eCW1 ([facility]) Cholesterol [Moles/volume] in Serum or Plasma 246 <200 CHOLESTEROL LEVEL eCW1 ([facility]) Cholesterol in HDL [Moles/volume] in Serum or Plasma 49 >40 HDL CHOLESTEROL eCW1 ([facility]) Cholesterol in LDL [Mass/volume] in Serum or Plasma by calculation 172 <100 LDL CHOLESTEROL [facility] ([facility]) 197 NON-HDL-C eC ([facility]) 5.020 <5 CHOLESTEROL RISK RATIO eCW1 ([facility]) ID Date Data Source HCG SERUM QUALITATIVE 12/17/2020 12:00:00 AM EDT eCW1 ([facility]) Name Value Range Interpretation Code Description Data Ale rce(s) Supporting Document(s) NEGATIVE NEGATIVE HCG, SERUM QUALITATIVE eC W1 ([facility]) ID Date Data Source FREE T4 & TSH PANEL 12/17/2020 12:00:00 AM EDT eCW1 ([facility]) Name Value Range Interpretation Code Description Data Ale rce(s) Supporting Document(s) 3.550 0.358-3.740 THYROID STIMULATING HORM ONE eCW1 ([facility]) 0.82 0.76-1.46 FREE T4 eCW1 ([facility]) ID Date Data Source URINE CULTURE 11/07/2020 12:00:00 AM EDT eCW1 ([facility]) Name Value Range Interpretation Code Description Data Ale rce(s) Supporting Document(s) URINE CULTURE eCW1 ([facility]) ID Date Data Source UA URINALYSIS 11/07/2020 12:00:00 AM EDT eCW1 ([facility]) Name Value Range Interpretation Code Description Data Ale rce(s) Supporting Document(s) UA URINALYSIS eCW1 ([facility]) ID Date Data Source GASTROINTESTINAL GI PANEL (GIPANEL) 10/03/2020 12:00:00 AM EST eCW1 ([facility]) Name Value Range Interpretation Code Description Data Ale rce(s) Supporting Document(s) This Gastrointestinal PCR Panel detects the following bacteria, GASTROINTESTINAL (GI) PANEL eCW1 ([facility]) ID Date Data Source PLZ SPINE LS W/BENDING 10/03/2020 12:00:00 AM EST eCW1 ([facility]) Name Value Range Interpretation Code Description Data Ale rce(s) Supporting Document(s) PLZ SPINE LS W/BENDING eCW1 ([facility]) ID Date Data Source [id number] 09/15/2020 10:40:00 AM EST [facility] PAGE: [address] [place], [place] [id number] [facility] [place] [id number] MED REC NUM: [id number] : 1990 Physician Discharge Report Clinical Report - Physicians/[facility] Department [address] [place] [id number] Patient: KERVIN MCMAHAN : F : 1990 Age: 30yArrival: 09/15/2020 10:40 Departure: 09/15/2020 14:15 Disposition: Discharge Weight:89.8 kg. Height/Length:68 inches. BMI:30.1 Time Seen: 11:05 09/15/2020. Arrived- By ambulance. Historian- patient. HISTORY OF PRESENT ILLNESSChief Complaint: ALLERGIC REACTION and "HIVES". This started today and is still present. The patient has had a skin rash, itching and swelling but not had trouble swallowing. No difficulty breathing, dizziness or fainting episodes. No cause has been identified. She has recently taken medication (lomotil and tylenol). The patient received treatment from the paramedics prior to arrival including Benadryl. (30-year-old female presents to the ED with generalized hives all over her body since this morning. Patient states she had 2 bouts of diarrhea earlier this morning and took Lomotil and Tylenol. Shortly after taking that she started having generalized hives all over her body which worsened. She took Benadryl 25 mg and EMS gave another 25 mg upon arrival. Patient states she is never had any history with hives and using the 2 drugs. Patient states she did not start any new medications, soaps, or perfumes. Patient denies any trouble breathing, trouble swallowing, dizziness or fainting.). REVIEW OF SYSTEMSNo chills, fatigue, fever, muscle aches or eye irritation. No ear pain, runny nose, sore throat, chest pain or cough. No difficulty breathing, pedal edema, abdominal pain, diarrhea or nausea. No vomiting, urinary frequency, hematuria, back pain or joint pain. No neck pain, dizziness, fainting PAGE: [facility] [address] REC NUM: [id number] : 1990 episodes, headache or difficulty with urination. The patient has had a moderate skin rash consisting of "redness" and "hives" with generalized distribution. All other systems reviewed and are negative. PAST HISTORYSee nurses notes. Problems:no known problems. Additional Surgeries:no known surgeries. Medications: Vitamins Oral 1 pill, daily at bedtime.FLUoxetine HCl Oral (Tablet 10 mg) 1 tablet, daily at bedtime.Omeprazole Oral (Tablet Delayed Release 20 mg) 1 tablet, daily at bedtime.Albuterol Sulfate HFA Inhalation 2 puffs, 4x a day as needed. Allergies:Ciprofloxacin.Flagyl. SOCIAL HISTORYNever smoker. No alcohol use or drug use. No recent travel. FAMILY HISTORYNo significant family medical history. ADDITIONAL NOTESThe nursing notes have been reviewed. PHYSICAL EXAMVital Signs: 09/15/2020 10:43 BP: 122/86. MAP: 98. HR: 88. RR: 19. O2 saturation: 100%. Temp: 98.8 F. Have been reviewed. Blood pressure normal. Oxygen saturation: room air- oxygen saturation normal. Appearance: Alert. Oriented X3. No acute distress. Anxious. Patient in mild distress. Head and Neck: Normal external inspection. Neck: Neck supple. CVS: Heart sounds normal. Respiratory: Breath sounds normal. Abdomen: Nontender. Skin: Skin warm and dry. Erythema. Extremities: Normal external inspection. Skin: Urticaria. Normal skin color. Skin rash. Neuro: Oriented X 3. No motor deficit. No sensory deficit. LABS, X-RAYS, AND EKG PAGE: [address] [id number] [facility] [address] [address] [facility] REC NUM: [id number] [phone] : 1990 Laboratory Tests: EGFR (CALCULATED): (GRADY: 09/15/2020 11:40)( MsgRcvd 09/15/2020 12:06) Final results Test Result Flag Units (Reference)ESTIMATED GFR (CALCULATED) EGFR 92 >59 mL/min/1.73m2 EGFR, -SYRIAN 107 >59 mL/min/1.58m3Lqfw: Persistent reduction for 3 months or more in an eGFR <60 mL/min/1.73m2 defines CKD. Patients with eGFR values >=60 mL/min/1.73m2 may also have CKD if evidence of persistent proteinuria is present. Additional information may be found at [email or web address]. CBC w Diff: (GRADY: 09/15/2020 11:40)( MogRcvd 09/15/2020 11:50) Final results Test Result Flag Units (Reference)WBC 14.5 H x10E3/uL (4.3-10.9) RBC 4.96 x10E6/uL (3.80-5.30) HEMOGLOBIN 14.2 g/dl (11.8-15.8) HEMATOCRIT 42.8 % (35.0-47.0) MCV 86.3 fl (82.0-98.0) MCH 28.6 pg (27.5- 33.5) MCHC 33.2 g/dl (32.0-36.0) RDW 14.5 % (11.5-14.5) PLATELET COUNT 407 H x10E3/uL (130-400) MPV 10.4 fl (8.6-12.6) SEGMENTED NEUTROPHILS 75.9 H % (44.0-74.0) PAGE: [address] [id number] [place] [address] [facility] REC NUM: [id number] : 1990 LYMPHOCYTES 14.2 L % (15.0-45.0) MONOCYTES 4.5 % (2.0-13.0) EOSINOPHILS 5.2 % (0.0-6.0) BASOPHILS 0.2 % (0.0-2.0) NEUTROPHIL ABSOLUTE 11.0 H x10E3/uL (1.4-7.0) LYMPHOCYTES ABSOLUTE 2.1 x10E3/uL (1.0-3.4) MONOCYTE ABSOLUTE 0.7 x10E3/uL (0.2-1.0) EOSINOPHIL ABSOLUTE 0.8 H x10E3/uL (0.0-0.5) BASOPHIL ABSOLUTE 0.0 x10E3/uL (0.0-0.2) ELECTROCARDIOGRAM-EMERGENCY DEPT: (GRADY: 09/15/2020 11:15)( [facility] Canceled CT ABD & Pelvis w/o IV Contrast w/o Oral Contrast: (GRADY: 09/15/2020 11:15)( [facility] 13:33) Final results Exam [id number] -- CT OF THE ABDOMEN AND PELVIS""History:30-year-old female. Diarrhea beginning today. Irritable bowel syndrome.Asthma. Cutaneous rash today""Technique: Multidetector helical CT examination through the abdomen and pelviswas performed. Multiplanar contiguous axial, parasagittal, and paracoronalreformatted images are presented. CT imaging was performed utilizing dosereduction techniques including automated exposure control and iterativereconstruction technique.""Contrast: No contrast was administered for the exam. No oral contrast wasadministered for the exam.""C omparison: None""FINDINGS: PAGE: [place] [id number] [facility] [address] REC NUM: [id number] : 1990 "&qu ot;Lower chest: The lung bases are clear. The cardiomediastinal silhouette andlower chest wall are normal""Liver: Normal size, shape and density with normal vascular lucencies. 2 smallcysts are seen in the left lobe measuring approximately 5 mm each.""Gallbladder and Biliary Tree: In situ without density, inflammation or ductaldilation""Spleen: Normal""Pancreas: There is no evidence of mass, cyst or pancreatitis.""Adrenal glands: Normal""Kidneys: No cortical lesion. No hydronephrosis or stone""Vessels and lymph nodes: No adenopathy. No vascular anomaly'""Bowel and peritoneum: The colon is collapsed and empty from the hepatic flexureto the rectum. The transverse colon shows what appears to be mural edema andslight pericolonic stranding suspicious for colitis. The descending colon has asimilar though less thickened appearance and may represent normal collapsedappearance. The cecum and ascending colon are normal. The te rminal ileum andremainder the small bowel is unremarkable. Normal appendix is visualized. Thestomach and duodenum are unremarkable. There is no ascites.""Bladder: Normal""Pelvis: The uterine fundus lies left of midline. The right ovary is normal.There is a cyst associated with the left ovary measuring approximately 4 cm indiameter with a mean central density of 9 Hounsfield units ""Abdominal wall: Normal""Bones: There is slight retrolisthesis and narrowing at the L5-S1 disc levelwithout other significant finding.""IMPRESSION:""FINDINGS COMPATIBLE WITH COLITIS INVOLVING THE TRANSVERSE COLON WITH SOME PAGE: [address] [place] [address] NUM: [id number] : 1990 MURALEDEMA AND SLIGHT PERICOLONIC STRANDING""THE DESCENDING COLON IS SIMILAR IN APPEARANCE THOUGH RELATIVELY COLLAPSED ANDPOSSIBLY NORMAL.""THERE IS NO BOWEL OBSTRUCTION OR DILATION""THERE IS NO INFLAMMATORY CHANGE. THE APPENDIX IS NORMAL""THERE IS A 4 CM LEFT OVARIAN CYST.""""""""Electronically Signed By: JE BRIDGES MDDate: 09/15/2020 13:32 Comprehensive Panel: (GRADY: 09/15/2020 11:40)( MsgRcvd 09/15/2020 12:06) Final results Test Result Flag Units (Reference)GLUCOSE 116 H mg/dl (70-100) BUN 9 mg/dl (4-18) CREATININE, SERUM 0.85 mg/dl (0.50-1.10) SODIUM 136 mmol/l (136-146) POTASSIUM 4.0 mmol/l (3.5-5.3) CHLORIDE 102 mmol/l (96-109) CARBON DIOXIDE 21 mmol/l (20-32) ALBUMIN 4.1 g/dl (3.5-5.0) PROTEIN, TOTAL 7.4 g/dl (6.4-8.2) CALCIUM 9.1 mg/dl (8.4-10.4) ALKALINE PHOSPHATASE 101 U/l (10-118) SGOT (AST) 15 U/l (3-40) PAGE: [address] [place], [place] [id number] [facility] [address] REC NUM: [id number] : 1990 SGPT (ALT) 16 U/l (7-50) BILIRUBIN, TOTAL 0.17 L mg/dl (0.30-1.20) BUN/CREATININE RATIO 10.6 (6.0-20.0) GLOBULIN 3.3 g/dl (2.3-3.5) ANION GAP 13.0 mmol/l (7.0-16.0) OSMOLALITY (CALCULATED) 272 L mos/kg (280-300) A/G RATIO 1.2 (1.0-2.0) Lipase: (GRADY: 09/15/2020 11:40)( [facility] Final results Test Result Flag Units (Reference)LIPASE 34 U/L (1-64) Urinalysis, Culture if indicated: (GRADY: 09/15/2020 12:15)( MsgRcvd 09/15/2020 12:46) Final results Test Result Flag Units (Reference)URINE COLOR YELLOW (YELLOW) URINE APPEARANCE CLEAR (CLEAR) URINE SPECIFIC GRAVITY 1.025 (1.003-1.035) URINE LEUKOCYTES NEGATIVE (NEGATIVE) URINE NITRITE NEGATIVE (NEGATIVE) URINE PH 5.0 (5.0-8.0) URINE PROTEIN NEGATIVE mg/dl (NEGATIVE) URINE GLUCOSE NEGATIVE mg/dl (NEGATIVE) URINE KETONES NEGATIVE mg/dl (NEGATIVE) URINE UROBILINOGEN 0.2 mg/dl (NORMAL OR <1) PAGE: [address] [id number] [place] [address] [facility] REC NUM: [id number] : 1990 URINE BILIRUBIN NEGATIVE (NEGATIVE) URINE OCCULT BLOOD NEGATIVE (NEGATIVE) URINE MICROSCOPIC PERFORMED Microscopic performed. Elements observed are listed. If no elements are listed,the Microscopic is negative. WBC 0-1 hpf (0-5) BACTERIA TRACE AB hpf (NEGATIVE) EPITHELIAL CELLS 2-5 hpf (0-5) URINE C+S IF INDICATED NOT INDICATED Urin e Qual: (GRADY: 09/15/2020 12:15)( MsgRcvd 09/15/2020 12:38) Final results Test Result Flag Units (Reference), URINE NEGATIVE (NEGATIVE) . PROGRESS AND PROCEDURESCourse of Care: CT scan showed colitis involving the transverse colon. Patient is stable and ready to be discharged. Patient was evaluated for hives. Patient was given a cocktail for her allergic reaction. Patient feels much better and the hives are almost gone. Waiting for CT results if that comes back normal; discharge. Patient is stable. Symptoms better. Patient counseled in person regarding the patient's stable condition, test results, diagnosis and need for additional testing and follow-up. Patient agrees with plan of care. Disposition: Discharged home in stable condition. Condition: stable. 09/15/2020 12:30 BP: 118/79. MAP: 92. HR: 77. RR: 19. Vital Signs: have been reviewed. Blood pres sure normal. Oxygen saturation: room air- oxygen saturation normal. CLINICAL IMPRESSION PAGE: [address] [phone] [place] [address] [facility] REC NUM: [id number] : 1990 Acute hives secondary to allergy. INSTRUCTIONS(Follow up with PCP. Return to ED if symptoms worsen.). Follow-up:Return to the emergency department if not better. Understanding of the discharge instructions verbalized by patient. Follow-up with: Follow up tomorrow if not well. Reason for referral: evaluation and treatment. Summary of care provided to patient and family. (Electronically signed by BC BUCKLEY PA 09/15/2020 16:30) Addezequiel for KERVIN MCMAHAN VisitID: [id number] Date: 09/15/2020 09/15/2020 1 1:03The patient was evaluated during the global COVID-19 pandemic, and that diagnosis was suspected/considered upon their initial presentation. Their evaluation, treatment and testing was consistent with current guidelines for patients who present with complaints or symptoms that may be related to COVID- 19. (Electronically signed by BC BUCKLEY - 09/15/2020 11:03) Name Value Range Interpretation Code Description Data Ale rce(s) Supporting Document(s) ID Date Data Source [id number] 09/15/2020 10:40:00 AM EST [facility] PAGE: [address] [place] [address] [address] [facility] [address] REC NUM: [id number] : 1990 Med Reconciliation Patient: KERVIN MCMAHAN Medication Reconciliation Report [facility] [id number] [place] [address] [phone], FRegistration Date/Time: 09/15/2020 10:40 Weight: 89.8 kgHeight/Length: 68 in.BMI: 30.1 ALLERGIES:Ciprofloxacin, Flagyl The patient's Home Medications are listed below: THE FOLLOWING MEDICATIONS NEED TO BE RECONCILED: Albuterol Sulfate HFA Inhalation 2 puffs, 4x a day, prn FLUoxet ine HCl Oral (10 mg) 1 tablet, daily, at bedtime Omeprazole Oral (20 mg) 1 tablet, daily, at bedtime Vitamins Oral 1 pill, daily, at bedtime The source(s) of the original Home Medication information: Not obtained.The following Medications were given to the patient in the Emergency Department:Metoclopramide [IVP] IVP 10 mg, administered: 11:54 09/15/2020Methylprednisolone Sodium Succ [IVP] IVP 125 mg, administered: 11:57 09/15/2020Famotidine [IVP] IVP 20 mg, administered: 11:59 09/15/2020The following Medications were prescribed to the patient: None. Name Value Range Interpretation Code Description Data [facility] rce(s) Supporting Document(s) ID Date Data Source [id number] 09/15/2020 12:45:00 PM EST [facility] Name Value Range Interpretation Code Description Data [facility] rce(s) Supporting Document(s) URINE COLOR YELLOW YELLOW [facility] URINE APPEARANCE CLEAR CLEAR [facility] URINE SPECIFIC GRAVITY 1.025 1.003-1.035 [facility] URINE LEUKOCYTES NEGATIVE NEGATIVE [facility] URINE NITRITE NEGATIVE NEGATIVE [facility]ital URINE PH 5.0 5.0-8.0 [facility] URINE PROTEIN NEGATIVE mg/dl NEGATIVE [facility] URINE GLUCOSE NEGATIVE mg/dl NEGATIVE [facility] URINE KETONES NEGATIVE mg/dl NEGATIVE [facility] URINE UROBILINOGEN 0.2 mg/dl NORMAL OR <1 [facility] URINE BILIRUBIN NEGATIVE NEGATIVE [facility] URINE OCCULT BLOOD NEGATIVE NEGATIVE [facility] URINE MICROSCOPIC PERFORMED [facility] Microscopic performed . Elements observed are listed. If no elements are listed,the Microscopic is negative. WBC 0-1 hpf 0-5 [facility] BACTERIA TRACE hpf NEGATIVE A [facility] EPITHELIAL CELLS 2-5 hpf 0-5 [facility] URINE C+S IF INDICATED NOT INDICATED [facility] R [facility], [place] [address] * ID Date Data Source [id number] 09/15/2020 12:38:00 PM EST [facility] Name Value Range Interpretation Code Description Data Ale rce(s) Supporting Document(s) , URINE NEGATIVE NEGATIVE [facility], [facility] of [address] [address] * ID Date Data Source [id number] 09/15/2020 12:06:00 PM EST [facility] Name Value Range Interpretation Code Description Data Ale rce(s) Supporting Document(s) ESTIMATED GFR (CALCULATED) [facility] EGFR 92 [facility] >59 mL/min/1.73m2 EGFR, -SYRIAN 107 [facility] >59 mL/min/1.61g8Yntr: Persistent reduction for 3 months or more in an eGFR <60 mL/min/1.73m2 defines CKD. Patients with eGFR values >=60 mL/min/1.73m2 may also have CKD if evidence of persistent proteinuria is present. Additional information may be found at [email or web address]. R [facility], Dept of [address] [address] * ID Date Data Source [id number] 09/15/2020 12:06:00 PM [facility] Name Value Range Interpretation Code Description Data Ale rce(s) Supporting Document(s) LIPASE 34 U/L 1-64 [facility] R [facility], [facility] of [address] [address] * ID Date Data Source [id number] 09/15/2020 12:06:00 PM [facility] Name Value Range Interpretation Code Description Data Ale rce(s) Supporting Document(s) GLUCOSE 116 mg/dl 70-100 H [facility] BUN 9 mg/dl 4-18 [facility] CREATININE, SERUM 0.85 mg/dl 0.50-1.10 [facility] SODIUM 136 mmol/l 136-146 [facility] mini POTASSIUM 4.0 mmol/l 3.5-5.3 [facility] mini CHLORIDE 102 mmol/l 96-109 [facility] mini CARBON DIOXIDE 21 mmol/l 20-32 [facility] ospital ALBUMIN 4.1 g/dl 3.5-5.0 [facility] al PROTEIN, TOTAL 7.4 g/dl 6.4-8.2 [facility] ospital CALCIUM 9.1 mg/dl 8.4-10.4 [facility] ALKALINE PHOSPHATASE 101 U/l 10-118 [facility] SGOT (AST) 15 U/l 3-40 [facility] mini SGPT (ALT) 16 U/l 7-50 [facility] BILIRUBIN, TOTAL 0.17 mg/dl 0.30-1.20 L [facility] BUN/CREATININE RATIO 10.6 6.0-20.0 [facility] GLOBULIN 3.3 g/dl 2.3-3.5 [facility] ANION GAP 13.0 mmol/l 7.0-16.0 [facility] OSMOLALITY (CALCULATED) 272 mos/kg 280-300 L [facility] A/G RATIO 1.2 1.0-2.0 [facility] R [facility], [place] [address] * ID Date Data Source [id number] 09/15/2020 11:50:00 AM EST [facility] Name Value Range Interpretation Code Description Data Ale rce(s) Supporting Document(s) WBC 14.5 x10E3/uL 4.3-10.9 H [facility] spital RBC 4.96 x10E6/uL 3.80-5.30 [facility] HEMOGLOBIN 14.2 g/dl 11.8-15.8 [facility] HEMATOCRIT 42.8 % 35.0-47.0 [facility] MCV 86.3 fl 82.0-98.0 [facility] MCH 28.6 pg 27.5-33.5 [facility] MCHC 33.2 g/dl 32.0-36.0 [facility] RDW 14.5 % 11.5-14.5 [facility] PLATELET COUNT 407 x10E3/uL 130-400 H [facility] MPV 10.4 fl 8.6-12.6 [facility] SEGMENTED NEUTROPHILS 75.9 % 44.0-74.0 H [facility] LYMPHOCYTES 14.2 % 15.0-45.0 L [facility] ital MONOCYTES 4.5 % 2.0-13.0 [facility] al EOSINOPHILS 5.2 % 0.0-6.0 [facility] ital BASOPHILS 0.2 % 0.0-2.0 [facility] al NEUTROPHIL ABSOLUTE 11.0 x10E3/uL 1.4-7.0 H [facility] LYMPHOCYTES ABSOLUTE 2.1 x10E3/uL 1.0-3.4 [facility] MONOCYTE ABSOLUTE 0.7 x10E3/uL 0.2-1.0 [facility] EOSINOPHIL ABSOLUTE 0.8 x10E3/uL 0.0-0.5 H [facility] BASOPHIL ABSOLUTE 0.0 x10E3/uL 0.0-0.2 [facility] R [facility], [place] [address] * ID Date Data Source [id number] 09/15/2020 01:33:32 PM EST [facility] CT OF THE ABDOMEN AND PELVISHistory:30-y ear-old female. Diarrhea beginning today. Irritable bowel syndrome.Asthma. Cutaneous rash todayTechnique: Multidetector helical CT examination through the abdomen and pelviswas performed. Multiplanar contiguous axial, parasagittal, and paracoronalreformatted images are presented. CT imaging was performed utilizing dosereduction techniques including automated exposure control and iterativereconstruction technique.Contrast: No contrast was administered for the exam. No oral contrast wasadministered for the exam.Comparison: NoneFINDINGS:Lower chest: The lung bases are clear. The cardiomediastinal silhouette andlower chest wall are normalLiver: Normal size, shape and density with normal vascular lucencies. 2 smallcysts are seen in the left lobe measuring approximately 5 mm each.Gallbladder and Biliary Tree: In situ without density, inflammation or ductaldilationSpleen: NormalPancreas: There is no evidence of mass, cyst or pancreatitis.Adrenal glands: NormalKidneys: No cortical lesion. No hydronephrosis or stoneVessels and lymph nodes: No adenopathy. No vascular anomaly'Bowel and peritoneum: The colon is collapsed and empty from the hepatic flexureto the rectum. The transverse colon shows what appears to be mural edema andslight pericolonic stranding suspicious for colitis. The descending colon has asimilar though less thickened appearance and may represent normal collapsedappearance. The cecum and ascending colon are normal. The terminal ileum andremainder the small bowel is unremarkable. Normal appendix is visualized. Thestomach and duodenum are unremarkable. There is no ascites.Bladder: NormalPelvis: The uterine fundus lies left of midline. The right ovary is normal.There is a cyst associated with the left ovary measuring approximately 4 cm indiameter with a mean central density of 9 Hounsfield unitsAbdominal wall: NormalBones: There is slight retrolisthesis and narrowing at the L5-S1 disc levelwithout other significant finding.IMPRESSION:FINDINGS COMPATIBLE WITH COLITIS INVOLVING THE TRANSVERSE COLON WITH SOME MURALEDEMA AND SLIGHT PERICOLONIC STRANDINGTHE DESCENDING COLON IS SIMILAR IN APPEARANCE THOUGH RELATIVELY COLLAPSED ANDPOSSIBLY NORMAL.THERE IS NO BOWEL OBSTRUCTION OR DILATIONTHERE IS NO INFLAMMATORY CHANGE. THE APPENDIX IS NORMALTHERE IS A 4 CM LEFT OVARIAN CYST.Electronically Signed By: JE BRIDGES MDDate: 09/15/2020 13:32 Name Value Range Interpretation Code Description Data Ale rce(s) Supporting Document(s) ID Date Data Source [id number] 09/06/2020 12:00:00 AM EST eCW1 ([facility]) Name Value Range Interpretation Code Description Data Ale rce(s) Supporting Document(s) Hemoglobin A1c/Hemoglobin.total in Blood 5.2 HEMOGLOBIN A1c [facility] ([facility]) ID Date Data Source [id number] 06/28/2020 12:00:00 AM EST [facility] Name Value Range Interpretation Code Description Data Ale rce(s) Supporting Document(s) SARS coronavirus 2 RNA [Presence] in Res piratory specimen by JUDITH with probe detection [facility] This lab was ordered by John Cochran and reported by [employer]. ID Date Data Source Rapid Strep (Marni Strep A+ KATYA) 05/27/2020 04:04:04 AM EDT eCW1 ([facility]) Name Value Range Interpretation Code Description Data Ale rce(s) Supporting Document(s) yes Internal Controls Perform ed (Y/N) eCW1 ([facility]) negatiove Rapid Strep (Marni Strep A+ KATYA) eCW1 ([facility]) Result (Positive/Negative) eCW 1 ([facility]) ID Date Data Source Test, Urine 05/16/2020 04:18:20 AM EDT eCW1 ([facility]) Name Value Range Interpretation Code Description Data Ale rce(s) Supporting Document(s) Choriogonadotropin.beta subunit ( test) [Presence] in U rine negative Test, Urine eCW1 ([facility]) yes Internal QC Acceptable (Y/N) e CW1 ([facility]) ID Date Data Source [id number] 04/28/2020 12:00:00 AM EDT [facility] Name Value Range Interpretation Code Description Data Ale rce(s) Supporting Document(s) SARS coronavirus 2 RNA [Presence] in Res piratory specimen by JUDITH with probe detection [facility] This lab was ordered by [facility] and reported by [employer]. Procedure Social History No Information Vital Signs ID Date Data Source UNK Name Value Range Interpretation Code Description Data Source(s) Systolic blood pressure 110 mm[Hg] 110 mm[Hg] [facility] Diastolic blood pressure 78 mm[Hg] 78 mm[Hg] [facility] ([facility]) Heart rate 90 /min 90 /min [facility] ([facility]) Oxygen saturation in Arterial blood by Pulse oximetry 98 % 98 % [facility] ([facility]) Body temperature 96.8 [degF] 96.8 [degF] [facility] ([facility]) Respiratory rate 18 /min 18 /min [facility] ( [facility]) Body weight 197.00 [lb_av] 197.00 [lb_av] [facility] ([facility]) Body height 68 [in_i] 68 [in_i] [facility] 5'8" Body mass index (BMI) [Ratio] 30.0 kg/m2 30.0 k g/m2 [facility] ([facility]) Body weight 202 [lb_av] 202 [lb_av] eCW1 ([facility]) Body weight 91.63 kg 91.63 kg eCW1 ([facility]) Body height 67.5 [in_i] 67.5 [in_i] eCW1 ([facility]) Body mass index (BMI) [Ratio] 31.17 kg/m2 31.17 kg/m2 eCW1 ([facility]) Heart rate 94 /min 94 /min eCW1 ([facility]) Respiratory rate 18 /min 18 /min eCW1 ([facility]) Body temperature 97.1 [degF] 97.1 [degF] eCW1 ( [facility]) Systolic blood pressure 110 mm[Hg] 110 mm[Hg] e CW1 ([facility]) Diastolic blood pressure 68 mm[Hg] 68 mm[Hg] eCW1 ([facility]) Body weight 204 [lb_av] 204 [lb_av] eCW1 ([facility]) Body height 67.5 [in_i] 67.5 [in_i] eCW1 ([facility]) Body mass index (BMI) [Ratio] 31.48 kg/m2 31.48 kg/m2 eCW1 ([facility]) Heart rate 77 /min 77 /min eCW1 ([facility]) Respiratory rate 18 /min 18 /min eCW1 ([facility]) Body temperature 97.5 [degF] 97.5 [degF] eCW1 ( [facility]) Systolic blood pressure 122 mm[Hg] 122 mm[Hg] e CW1 ([facility]) Diastolic blood pressure 78 mm[Hg] 78 mm[Hg] eCW1 ([facility]) Body weight 205 [lb_av] 205 [lb_av] eCW1 ([facility]) Body height 67.5 [in_i] 67.5 [in_i] eCW1 ([facility]) Body mass index (BMI) [Ratio] 31.63 kg/m2 31.63 kg/m2 eCW1 ([facility]) Heart rate 80 /min 80 /min eCW1 ([facility]) Respiratory rate 18 /min 18 /min eCW1 ([facility]) Body temperature 97 [degF] 97 [degF] eCW1 ([facility]) Systolic blood pressure 124 mm[Hg] 124 mm[Hg] e CW1 ([facility]) Diastolic blood pressure 80 mm[Hg] 80 mm[Hg] eCW1 ([facility]) Body weight 197 [lb_av] 197 [lb_av] eCW1 ([facility]) Body weight 89.36 kg 89.36 kg eCW1 ([facility]) Body height 67.5 [in_i] 67.5 [in_i] eCW1 ([facility]) Body mass index (BMI) [Ratio] 30.4 kg/m2 30.4 k g/m2 eCW1 ([facility]) Systolic blood pressure 110 mm[Hg] 110 mm[Hg] e CW1 ([facility]) Diastolic blood pressure 78 mm[Hg] 78 mm[Hg] eCW1 ([facility]) Body weight 195.4 [lb_av] 195.4 [lb_av] eCW1 ([facility]) Body height 67.5 [in_i] 67.5 [in_i] eCW1 ([facility]) Body mass index (BMI) [Ratio] 30.15 kg/m2 30.15 kg/m2 eCW1 ([facility]) Heart rate 124 /min 124 /min eCW1 ([facility]) Respiratory rate 18 /min 18 /min eCW1 ([facility]) Body temperature 97.8 [degF] 97.8 [degF] eCW1 ( [facility]) Systolic blood pressure 102 mm[Hg] 102 mm[Hg] e CW1 ([facility]) Diastolic blood pressure 68 mm[Hg] 68 mm[Hg] eCW1 ([facility]) Body weight 196.8 [lb_av] 196.8 [lb_av] eCW1 ([facility]) Heart rate 111 /min 111 /min eCW1 ([facility]) Respiratory rate 18 /min 18 /min eCW1 ([facility]) Body temperature 98.3 [degF] 98.3 [degF] eCW1 ( [facility]) Systolic blood pressure 112 mm[Hg] 112 mm[Hg] e CW1 ([facility]) Diastolic blood pressure 72 mm[Hg] 72 mm[Hg] eCW1 ([facility]) Body height 67.5 [in_i] 67.5 [in_i] eCW1 ([facility]) Body mass index (BMI) [Ratio] 30.36 kg/m2 30.36 kg/m2 eCW1 ([facility]) Body weight 197 [lb_av] 197 [lb_av] eCW1 ([facility]) Body height 67.5 [in_i] 67.5 [in_i] eCW1 ([facility]) Body mass index (BMI) [Ratio] 30.4 kg/m2 30.4 k g/m2 W1 ([facility]) Heart rate 99 /min 99 /min eCW1 ([facility]) Respiratory rate 18 /min 18 /min eCW1 ([facility]) Body temperature 97.3 [degF] 97.3 [degF] eCW1 ( [facility]) Systolic blood pressure 110 mm[Hg] 110 mm[Hg] e CW1 ([facility]) Diastolic blood pressure 80 mm[Hg] 80 mm[Hg] eCW1 ([facility]) Body weight 199 [lb_av] 199 [lb_av] eCW1 ([facility]) Body height 67.5 [in_i] 67.5 [in_i] eCW1 ([facility]) Body mass index (BMI) [Ratio] 30.70 kg/m2 30.70 kg/m2 eCW1 ([facility]) Heart rate 90 /min 90 /min eCW1 ([facility]) Respiratory rate 18 /min 18 /min eCW1 ([facility]) Body temperature 98.9 [degF] 98.9 [degF] eCW1 ( [facility]) Systolic blood pressure 120 mm[Hg] 120 mm[Hg] e CW1 ([facility]) Diastolic blood pressure 60 mm[Hg] 60 mm[Hg] eCW1 ([facility]) Body weight 199 [lb_av] 199 [lb_av] eCW1 ([facility]) Body height 67.5 [in_i] 67.5 [in_i] eCW1 ([facility]) Body mass index (BMI) [Ratio] 30.70 kg/m2 30.70 kg/m2 eCW1 ([facility]) Heart rate 104 /min 104 /min eCW1 ([facility]) Respiratory rate 18 /min 18 /min eCW1 ([facility]) Body temperature [degF] eCW1 ([facility]) Systolic blood pressure 100 mm[Hg] 100 mm[Hg] e CW1 ([facility]) Diastolic blood pressure 60 mm[Hg] 60 mm[Hg] eCW1 ([facility]) Body weight 197 [lb_av] 197 [lb_av] eCW1 ([facility]) Body height 67.5 [in_i] 67.5 [in_i] eCW1 ([facility]) Body mass index (BMI) [Ratio] 30.40 kg/m2 30.40 kg/m2 eCW1 ([facility]) Systolic blood pressure 110 mm[Hg] 110 mm[Hg] e CW1 ([facility]) Diastolic blood pressure 72 mm[Hg] 72 mm[Hg] eCW1 ([facility]) ID Date Data Source [id number] 09/19/2020 09:10:55 AM EST [facility] Name Value Range Interpretation Code Description Data Source(s) WEIGHT RECORDED 89.8 KG 89.8 KG [facility] Height 172.72 CM 172.72 CM [facility] Patient Treatment Plan of Care Planned Activity Planned Date Details Description Data Source (s) Peak Flow Meter - 04/28/2021 12:00:00 AM EDT eCW1 ([facility]) Peak Flow Meter - 04/28/2021 12:00:00 AM EDT eCW1 ([facility]) Peak Flow Meter - 04/28/2021 12:00:00 AM EDT eCW1 ([facility]) Peak Flow Meter - 04/28/2021 12:00:00 AM EDT eCW1 ([facility]) Omeprazole 40 MG Delayed Release Oral Capsule 01/29/2021 12:00:00 A M EDT eCW1 ([facility]) Omeprazole 40 MG Delayed Release Oral Capsule 01/29/2021 12:00:00 A M EDT eCW1 ([facility]) Omeprazole 40 MG Delayed Release Oral Capsule 01/29/2021 12:00:00 A M EDT eCW1 ([facility]) Omeprazole 40 MG Delayed Release Oral Capsule 01/29/2021 12:00:00 A M EDT eCW1 ([facility]) Omeprazole 40 MG Delayed Release Oral Capsule 01/29/2021 12:00:00 A M EDT eCW1 ([facility]) Sucralfate 1000 MG Oral Tablet 01/29/2021 12:00:00 AM EDT eCW1 ([facility]) Omeprazole 40 MG Delayed Release Oral Capsule 01/29/2021 12:00:00 A M EDT eCW1 ([facility]) Sucralfate 1000 MG Oral Tablet 01/29/2021 12:00:00 AM EDT eCW1 ([facility]) Omeprazole 40 MG Delayed Release Oral Capsule 01/29/2021 12:00:00 A M EDT eCW1 ([facility]) Sucralfate 1000 MG Oral Tablet 01/29/2021 12:00:00 AM EDT eCW1 ([facility]) Omeprazole 40 MG Delayed Release Oral Capsule 01/29/2021 12:00:00 A M EDT eCW1 ([facility]) Sucralfate 1000 MG Oral Tablet 01/29/2021 12:00:00 AM EDT eCW1 ([facility]) Omeprazole 40 MG Delayed Release Oral Capsule 01/29/2021 12:00:00 A M EDT eCW1 ([facility]) Sucralfate 1000 MG Oral Tablet 01/29/2021 12:00:00 AM EDT eCW1 ([facility]) Omeprazole 40 MG Delayed Release Oral Capsule 01/29/2021 12:00:00 A M EDT eCW1 ([facility]) Sucralfate 1000 MG Oral Tablet 01/29/2021 12:00:00 AM EDT eCW1 ([facility]) Fluoxetine 10 MG Oral Capsule 12/17/2020 12:00:00 AM EDT eCW1 ([facility]) Fluoxetine 10 MG Oral Capsule 12/17/2020 12:00:00 AM EDT eCW1 ([facility]) Fluoxetine 10 MG Oral Capsule 12/17/2020 12:00:00 AM EDT eCW1 ([facility]) Fluoxetine 10 MG Oral Capsule 12/17/2020 12:00:00 AM EDT eCW1 ([facility]) Fluoxetine 10 MG Oral Capsule 12/17/2020 12:00:00 AM EDT eCW1 ([facility]) Fluoxetine 10 MG Oral Capsule 12/17/2020 12:00:00 AM EDT eCW1 ([facility]) Minocycline 50 MG Oral Capsule 11/19/2020 12:00:00 AM EDT eCW1 ([facility]) Minocycline 50 MG Oral Capsule 11/19/2020 12:00:00 AM EDT eCW1 ([facility]) Minocycline 50 MG Oral Capsule 11/19/2020 12:00:00 AM EDT eCW1 ([facility]) meloxicam 7.5 MG Oral Tablet 11/07/2020 12:00:00 AM EDT eCW1 ([facility]) tizanidine 2 MG Oral Tablet 11/07/2020 12:00:00 AM EDT eCW1 ([facility]) meloxicam 7.5 MG Oral Tablet 11/07/2020 12:00:00 AM EDT eCW1 ([facility]) tizanidine 2 MG Oral Tablet 11/07/2020 12:00:00 AM EDT eCW1 ([facility]) meloxicam 7.5 MG Oral Tablet 11/07/2020 12:00:00 AM EDT eCW1 ([facility]) tizanidine 2 MG Oral Tablet 11/07/2020 12:00:00 AM EDT eCW1 ([facility]) meloxicam 7.5 MG Oral Tablet 11/07/2020 12:00:00 AM EDT eCW1 ([facility]) tizanidine 2 MG Oral Tablet 11/07/2020 12:00:00 AM EDT eCW1 ([facility]) Minocycline 100 MG Oral Capsule 11/07/2020 12:00:00 AM EDT eCW1 ([facility]) meloxicam 7.5 MG Oral Tablet 11/07/2020 12:00:00 AM EDT eCW1 ([facility]) tizanidine 2 MG Oral Tablet 11/07/2020 12:00:00 AM EDT eCW1 ([facility]) Minocycline 100 MG Oral Capsule 11/07/2020 12:00:00 AM EDT eCW1 ([facility]) Prednisone 20 MG Oral Tablet 10/24/2020 12:00:00 AM EDT eCW1 ([facility]) Flonase Allergy Relief 50 MCG/ACT 10/24/2020 12:00:00 AM EDT eCW1 ([facility]) Prednisone 20 MG Oral Tablet 10/24/2020 12:00:00 AM EDT eCW1 ([facility]) Flonase Allergy Relief 50 MCG/ACT 10/24/2020 12:00:00 AM EDT eCW1 ([facility]) Ciprofloxacin 500 MG Oral Tablet 10/07/2020 12:00:00 AM EST eCW1 ([facility]) Ciprofloxacin 500 MG Oral Tablet 10/07/2020 12:00:00 AM EST eCW1 ([facility]) Ciprofloxacin 500 MG Oral Tablet 10/07/2020 12:00:00 AM EST eCW1 ([facility]) Diclofenac Sodium 0.01 MG/MG Topical Gel [Voltaren] 10/04/19 21 12:00:00 AM EST eCW1 ([facility]) Diclofenac Sodium 0.01 MG/MG Topical Gel [Voltaren] 10/04/19 21 12:00:00 AM EST eCW1 ([facility]) Diclofenac Sodium 0.01 MG/MG Topical Gel [Voltaren] 10/04/19 21 12:00:00 AM EST eCW1 ([facility]) Diclofenac Sodium 0.01 MG/MG Topical Gel [Voltaren] 10/04/19 21 12:00:00 AM EST eCW1 ([facility]) Propranolol Hydrochloride 10 MG Oral Tablet 09/12/2020 12:00:00 AM EST eCW1 ([facility]) Propranolol Hydrochloride 10 MG Oral Tablet 09/12/2020 12:00:00 AM EST eCW1 ([facility]) Propranolol Hydrochloride 10 MG Oral Tablet 09/12/2020 12:00:00 AM EST eCW1 ([facility]) Propranolol Hydrochloride 10 MG Oral Tablet 09/12/2020 12:00:00 AM EST eCW1 ([facility]) [employer] RespiClick 113/14 113-14 MCG/ACT 05/27/2020 12:00:00 AM EDT eCW1 ([facility]) [employer] RespiClick 113/14 113-14 MCG/ACT 05/27/2020 12:00:00 AM EDT eCW1 ([facility]) [employer] RespiClick 113/14 113-14 MCG/ACT 05/27/2020 12:00:00 AM EDT eCW1 ([facility]) [employer] RespiClick 113/14 113-14 MCG/ACT 05/27/2020 12:00:00 AM EDT eCW1 ([facility]) [employer] RespiClick 113/14 113-14 MCG/ACT 05/27/2020 12:00:00 AM EDT eCW1 ([facility]) [employer] RespiClick 113/14 113-14 MCG/ACT 05/27/2020 12:00:00 AM EDT eCW1 ([facility]) [employer] RespiClick 113/14 113-14 MCG/ACT 05/27/2020 12:00:00 AM EDT eCW1 ([facility]) [employer] RespiClick 113/14 113-14 MCG/ACT 05/27/2020 12:00:00 AM EDT eCW1 ([facility]) [employer] RespiClick 113/14 113-14 MCG/ACT 05/27/2020 12:00:00 AM EDT eCW1 ([facility]) [employer] RespiClick 113/14 113-14 MCG/ACT 05/27/2020 12:00:00 AM EDT eCW1 ([facility]) [employer] RespiClick 113/14 113-14 MCG/ACT 05/27/2020 12:00:00 AM EDT eCW1 ([facility]) [employer] RespiClick 113/14 113-14 MCG/ACT 05/27/2020 12:00:00 AM EDT eCW1 ([facility]) [employer] RespiClick 113/14 113-14 MCG/ACT 05/27/2020 12:00:00 AM EDT eCW1 ([facility]) [employer] RespiClick 113/14 113-14 MCG/ACT 05/27/2020 12:00:00 AM EDT eCW1 ([facility]) [employer] Respi[employer] 113/14 113-14 MCG/ACT 05/27/2020 12:00:00 AM EDT eCW1 ([facility]) [employer] Respi[employer] 113/14 113-14 MCG/ACT 05/27/2020 12:00:00 AM EDT eCW1 ([facility]) [employer] Respi[employer] 113/14 113-14 MCG/ACT 05/27/2020 12:00:00 AM EDT eCW1 ([facility]) [facility] 113-14 MCG/ACT 05/27/2020 12:00:00 AM EDT eCW1 ([facility]) [facility]/14 113-14 MCG/ACT 05/27/2020 12:00:00 AM EDT eCW1 ([facility]) [facility]/14 113-14 MCG/ACT 05/27/2020 12:00:00 AM EDT eCW1 ([facility])
== END 2021-06-11 17:10 | disposition left against medical advice (07) ==
LOC: M ED 15:57
DX: Z53.21 Procedure and treatment not carried out due to patient leaving prior to being seen by health care provider (principal)

== ENCOUNTER → 2021-06-15 | Outpatient (CLI) | payer OTHER ==
[~2021-06-15] MED LIST changes: +IPRA0.00
[2021-06-15 12:22] LABS: FREE T4 0.85 NG/DL (0.76-1.46); THYROID STIMULATING HORMONE 2.12 uIU/ML (0.358-3.740)
[2021-06-16 10:38] LABS: PROLACTIN 12.9 NG/ML
[2021-06-16 10:39] LABS: ESTRADIOL 26.9 PG/ML; FOLLICLE STIMULATING HORMONE 6.2 mIU/mL; LUTEINIZING HORMONE 7.8 mIU/mL
== END ==
LOC: M LAB 11:19
PROVIDERS: ATTEND Advanced Practice Midwife
DX: N97.9 Female infertility, unspecified (principal); Z87.42 Personal history of other diseases of the female genital tract

== ENCOUNTER 2021-06-16 16:13 | Emergency (ER) | payer OTHER ==
[~2021-06-16 16:13] MED LIST changes: -IPRA0.00
[2021-06-16] MEDS ORDERED: IPRA0.00 (16:23)
[2021-06-16] MEDS ORDERED: NS 1,000 ML IV ONE (16:45)
[2021-06-16] MEDS ORDERED: IPRATROPIUM 0.5MG/ALBUTEROL 2.5MG INH SOL UD 3ML (DUONEB) NEB ONE (16:50)
[2021-06-16 17:27] LABS: BASO # 0.1 10^3/uL (0.0-0.2); BASO % 0.5 % (0.0-1.0); EOS # 1.1 10^3/uL (0.0-0.5); EOS % 10.4 % (0.0-3.0); HEMATOCRIT 41.8 % (36.0-47.0); HEMOGLOBIN 13.4 g/dl (12.0-15.5); LYMPH # 2.9 10^3/uL (1.5-5.0); LYMPH % 27.6 % (24.0-44.0); MEAN CORPUSCULAR HEMOGLOBIN 27.4 pg (27.0-33.0); MEAN CORPUSCULAR HGB CONC 32.1 g/dl (32.0-36.5); MEAN CORPUSCULAR VOLUME 85.5 fl (80.0-96.0); MONO # 0.6 10^3/uL (0.0-0.8); MONO % 5.9 % (2.0-8.0); NEUTROPHILS # 5.8 10^3/uL (1.5-8.5); NEUTROPHILS % 55.3 % (36.0-66.0); PLATELET COUNT, AUTOMATED 375 10^3/uL (150-450); RED BLOOD COUNT 4.89 10^6/uL (4.00-5.40); WHITE BLOOD COUNT 10.5 10^3/uL (4.0-10.0)
[2021-06-16 17:45] LABS: BLOOD UREA NITROGEN 11 MG/DL (7-18); CALCIUM LEVEL 9.4 MG/DL (8.5-10.1); CARBON DIOXIDE LEVEL 25 MEQ/L (21-32); CHLORIDE LEVEL 110 MEQ/L (98-107); CREATININE FOR GFR 0.99 MG/DL (0.55-1.30); GLOMERULAR FILTRATION RATE > 60.0 (>60); GLUCOSE, FASTING 56 MG/DL (70-100); MAGNESIUM LEVEL 2.2 MG/DL (1.8-2.4); POTASSIUM SERUM 4.4 MEQ/L (3.5-5.1); SODIUM LEVEL 140 MEQ/L (136-145)
[2021-06-16 17:49] LABS: HCG, SERUM QUALITATIVE NEGATIVE (NEGATIVE)
--- NOTE | 2021-06-16 18:07 | REP ---
INDICATION: cough COMPARISON: 06/05/2019 TECHNIQUE: Portable AP view of the chest FINDINGS: The mediastinum and cardiac silhouette are stable and within normal limits for portable technique. The lung manzo are clear without acute consolidation, effusion, or pneumothorax. Skeletal structures are intact. IMPRESSION: No acute cardiopulmonary process appreciated. <Electronically signed by Abdiel Hernández > 06/16/21 [id number]
--- OUTSIDE RECORDS SUMMARY | 2021-06-16 18:11 | CCD ---
Author Author [facility] Organization [facility] Address Unknown Phone Unavailable Support Name Relationship Address Phone SK* Next Of Kin [address] [place] [address] [place] [address] KERVIN MCMAHAN Next Of [address] [place] [address] CORRIE GARY Next Of Kin [address] [place] [address] TARGET Next Of Kin [address] [facility] [place] [address] Karina Brady Next Of Kin Unknown Unavailable Ciara King Next Of Kin [address] [place] [address] [place] Next Of Kin [address] [address] [place] [address] Kiki Chambers Next Of Kin [address] [place] [address] [facility] [place] [address] ST Next Of Kin Unknown Unavailable Shane Mcmahon MD Next Of Kin [address] [place] [address] Moisés Vela Next Of Kin [address] [place] [address] F.Y.E Next Of Kin [address] [place] [address] CHIPOTLE Next Of Kin [address] [address] [place] [address] DANOS [place] [address] [place] [address] [employer] [place] [address] [employer] [address] Unavailable BATH [employer]KS Next Of Kin [address] [facility] [address] [place] [address] [employer]ATH [employer]ODY Next [place] R[place] [address] UE Next Of Kin Unknown Unavailable [place] [address] Unavailable TREASURE Next Of Kin [address] [place] [address] [employer] [place] [address] KARINA CLIFTON Next Of Kin [facility] [address] [place] [address] KARINA BRADY Next Of Kin [facility] [address] [place] [address] CORRIE G[place], [place] [phone] Karina Clifton ECON [facility] [address] [place] [address] Unavailable Care Team Providers Care Shaker Washer Name Role Phone Maring, Marshal PA Unavailable [...] Unavailable Unavailable Maring, Marshal PA Unavailable Unavailable Jaennie Mott PA Unavailable Unavailable LETTIERE, A KIMBERLY PA Unavailable Unavailable LETTIERE, A KIMBERLY PA Unavailable Unavailable LETTIERE, A KIMBERLY PA Unavailable Unavailable LETTIERE, A KIMBERLY PA Unavailable Unavailable LETTIERE, A KIMBERLY PA Unavailable Unavailable LETTIERE, A KIMBERLY PA Unavailable Unavailable LETTIERE, A KIMBERLY PA Unavailable Unavailable LETTIERE, A KMIBERLY PA Unavailable Unavailable LETTIERE, A KIMBERLY PA [...] Unavailable LETTIERE, A KIMBERLY PA Unavailable Unavailable GIOVANNI, "" Unavailable Unavailable Harish Reynaga MD Unavailable Unavailable Harish Reynaga MD Unavailable Unavailable Harish Reynaga MD Unavailable Unavailable Harish Reynaga MD Unavailable Unavailable Harish Reynaga MD Unavailable Unavailable Harish Reynaga MD Unavailable Unavailable NONE DEAN OF EDUCATION, MD RODNEY NONE Unavailable Unavailable Darlene Pastrana MD Unavailable [...] Unavailable Unavailable Darlene SPEAR MD Unavailable Unavailable CHANLIECCO, C SHYANNE MD Unavailable Unavailable CHANLIECCO, C SHYANNE MD Unavailable Unavailable CHANLIECCO, C SHYANNE MD Unavailable Unavailable CHANLIECCO, C SHYANNE MD Unavailable Unavailable CHANLIECCO, C SHYANNE MD Unavailable Unavailable CHANLIECCO, C SHYANNE MD Unavailable Unavailable CHANLIECCO, C SHYANNE MD Unavailable Unavailable NON, PHYSICIAN STAFF Unavailable Unavailable Rodeo, Ezequiel Adam MD Unavailable Unavailable Rodeo, Ezequiel Adam MD Unavailable Unavailable Odilon, Ezequiel Jair MD Unavailable Unavailable Odilon, Ezequiel Jair MD Unavailable Unavailable Rodeo, Ezequiel Jair MD Unavailable Unavailable Rodeo, Ezequiel Jair MD Unavailable Unavailable Odilon, Ezequiel Jair MD Unavailable Unavailable Odilon, Ezequiel Jair MD Unavailable Unavailable Rodeo, Ezequiel Jair MD Unavailable Unavailable Odilon, Ezequiel Jair MD Unavailable Unavailable Rodeo, Ezequiel Jair MD Unavailable Unavailable Odilon, Ezequiel [...] is protected by Article 27-F of the [facility] Public Health law. If you continue you may have access to information: Regarding HIV / AIDS; Provided by facilities licensed or operated by the [facility] Office of Mental Health; or Provided by the [facility] Office for People With Developmental Disabilities. If such information is present, then the following [facility] mandated warning applies: This information has been [...] law may result in a fine or fpc sentence or both. A general authorization for the release of medical or other information is NOT sufficient authorization for further disc losure. Allergies and Adverse Reactions Type Description Substance Reaction Status Data Source(s ) Drug allergy Flagyl Flagyl [facility] Drug [facility] Family History Family Member Name Family Member Gender Family Member Status Date o f Status Description Data Source(s) Unknown Unknown Problem MEDENT ([facility], ) Encounters Encounter Providers Location Date Indications Data Source(s ) Outpatient Attender: Cornelia Pastrana MDAttender: Jeannie WILKERSON 05/30/2021 11:57:03 AM EDT - 05/30/2021 02:48:37 PM EDT [facility] ([facility]) Unknown [address] [facility] [address] [address] 05/28/2021 12:00:00 AM EDT eCW1 ([facility]) Unknown [address] [facility] [place] [address] 05/28/2021 12:00:00 AM EDT eCW1 ([facility]) Unknown [address] [facility] [place] [address] 05/23/2021 12:00:00 AM EDT eCW1 ([facility]) Outpatient Attender: KIMBERLY ladd 05/17/2021 12:05:00 PM EDT MEDENT ([facility]) Unknown [address] [facility] Y [address] 05/15/2021 12:00:00 AM EDT eCW1 ([facility]) Unknown [address] [facility] Y [address] 05/01/2021 12:00:00 AM EDT eCW1 ([facility]) Outpatient [address] [facility] Y [address] 04/28/2021 12:00:00 AM EDT eCW1 ([facility]) Unknown [address] [facility] Y [address] 04/28/2021 12:00:00 AM EDT [facility]CW1 ([facility]) [place] [address] [facility] [place] [address] 04/16/2021 12:00:00 AM EDT eCW1 ([facility]) [place] [address] [facility] [place] [address] 04/16/2021 12:00:00 AM EDT eCW1 ([facility]) [place] [address] [facility] [place] [address] 03/10/2021 12:00:00 AM EDT eCW1 ([facility]) [place] [address] [facility] [place] [address] 02/27/2021 12:00:00 AM EDT eCW1 ([facility]) [place] [address] [facility] [place] [address] 02/13/2021 12:00:00 AM EDT eCW1 ([facility]) [place] [address] [facility] [place] [address] 01/29/2021 12:00:00 AM EDT eCW1 ([facility]) [place] [address] [facility] [place] [address] 01/27/2021 12:00:00 AM EDT [facility]CW1 [facility] Emergency Attender: SHYANNE SPEAR MDConsultant: RAJAN SIBLEY 01/26/2021 12:56:00 PM EDT - 01/26/2021 04:33:00 PM EDT [facility] Patient discharged. Emergency Attender: Harish Reynaga MD 01/11/2021 02:32:00 PM EDT - 01/11/2021 06:00:00 PM EDT [facility] Patient discharged. Outpatient Attender: Marshal WILKERSON 01/11/20 04:25:24 PM EDT - 01/10/2021 04:49:19 PM EDT [facility] ([facility] ) [place] [address] [facility] [address] 12/27/2020 12:00:00 AM EDT eCW1 ([facility]) [place] [address] [facility] [place] [address] 12/18/2020 12:00:00 AM EDT eCW1 ([facility]) Outpatient [address] [facility] [place] [address] 12/17/2020 12:00:00 AM EDT eCW1 ([facility]) Outpatient [address] [facility] [place] [address] 12/13/2020 12:00:00 AM EDT eCW1 ([facility]) [place] [address] [facility] [place] [address] 12/09/2020 12:00:00 AM EDT eCW1 ([facility]) [place] [address] [facility] [place] [address] 12/05/2020 12:00:00 AM EDT eCW1 ([facility]) [place] [address] [facility] [place] [address] 12/03/2020 12:00:00 AM EDT eCW1 ([facility]) Unknown [address] [facility] [place] [address] 11/15/2020 12:00:00 AM EDT eCW1 ([facility]) [place] [address] [facility] [place] [address] 11/15/2020 12:00:00 AM EDT eCW1 ([facility]) [place] [address] [facility] [place] [address] 11/07/2020 12:00:00 AM EDT eCW1 ([facility]) Outpatient [address] [facility] [place] [address] 10/24/2020 12:00:00 AM EDT eCW1 ([facility]) Unknown [address] [facility] [place] [address] 10/23/2020 12:00:00 AM EDT eCW1 ([facility]) [place] [address] [facility] [place] [address] 10/07/2020 12:00:00 AM EST eCW1 ([facility]) [place] [address] [facility] [place] [address] 10/07/2020 12:00:00 AM EST [facility]CW1 ([facility]) [place] [address] [facility] [place] [address] 10/03/2020 12:00:00 AM EST [facility]CW1 ([facility]) [place] [address] [facility] [place] [address] 10/01/2020 12:00:00 AM EST [facility]CW1 ([facility]) [place] [address] [facility] [place] [address] 09/23/2020 12:00:00 AM EST eCW1 ([facility]) [place] [address] [facility] [place] [address] 09/18/2020 12:00:00 AM EST eCW1 ([facility]) Unknown [address] [facility] [place] [address] 09/17/2020 12:00:00 AM EST eCW1 ([facility]) Emergency Attender: Jair Donald MD Attender: NONE NONE NPAdmitter: Jair Donald MDConsultant: "" GIOVANNI OP-EMERGENCY DEPARTMENT 09/15/2020 10:40:00 AM EST - 09/15/2020 02:15:00 PM EST [facility] Patient discharged. [place] [address] [facility] [place] [address] 09/06/2020 12:00:00 AM EST eCW1 ([facility]) Unknown [address] [facility] [place] [address] 09/05/2020 12:00:00 AM EST eCW1 ([facility]) Outpatient Attender: Marshal WILKERSON 09/01/19 03:11:30 PM EST - 09/01/2020 03:39:47 PM EST [facility] ([facility] ) [place] [address] [facility] [place] [address] 08/28/2020 12:00:00 AM EST eCW1 ([facility]) [place] [address] [facility] [place] [address] 08/09/2020 12:00:00 AM EST eCW1 ([facility]) [place] [address] [facility] [place] [address] 07/15/2020 12:00:00 AM EST eCW1 ([facility]) Unknown [address] [facility] [place] [address] 07/09/2020 12:00:00 AM EST eCW1 ([facility]) [place] [address] [facility] [place] [address] 07/01/2020 12:00:00 AM EST eCW1 ([facility]) [place] [address] [facility] [place] [address] 06/25/2020 12:00:00 AM EST eCW1 ([facility]) Unknown [address] [facility] [place] [address] 06/10/2020 12:00:00 AM EST [facility]CW1 ([facility]) Outpatient [address] [facility] [place] [address] 05/27/2020 12:00:00 AM EDT eCW1 ([facility]) Unknown [address] [facility] [place] [address] 05/27/2020 12:00:00 AM EDT eCW1 ([facility]) [place] [address] [facility] [place] [address] 05/27/2020 12:00:00 AM EDT eCW1 ([facility]) [place] [address] [facility] [place] [address] 05/16/2020 12:00:00 AM EDT eCW1 ([facility]) Immunizations Vaccine Date Status Description Data Source(s) influenza, recombinant, quadrIvalent,injectable, prese rvative free 05/15/2021 10:16:00 AM EDT completed eCW1 ([facility]) influenza, recombinant, quadrIvalent,injectable, prese rvative free 05/15/2021 10:16:00 AM EDT completed eCW1 ([facility]) influenza, recombinant, quadrIvalent,injectable, prese rvative free 05/15/2021 10:16:00 AM EDT completed eCW1 ([facility]) influenza, recombinant, quadrIvalent,injectable, prese rvative free 05/15/2021 10:16:00 AM EDT completed eCW1 ([facility]) COVID-19 dose #1 given elsewhere Unspecified 10/16/2020 03:3 1:00 PM EDT completed eCW1 ([facility]) COVID-19 dose #1 given elsewhere Unspecified 10/16/2020 03:3 1:00 PM EDT completed eCW1 ([facility]) COVID-19 dose #1 given elsewhere Unspecified 10/16/2020 03:3 1:00 PM EDT completed eCW1 ([facility]) COVID-19 dose #1 given elsewhere Unspecified 10/16/2020 03:3 1:00 PM EDT completed eCW1 ([facility]) COVID-19 dose #1 given elsewhere Unspecified 10/16/2020 03:3 1:00 PM EDT completed eCW1 ([facility]) COVID-19 dose #1 given elsewhere Unspecified 10/16/2020 03:3 1:00 PM EDT completed eCW1 ([facility]) COVID-19 dose #1 given elsewhere Unspecified 10/16/2020 03:3 1:00 PM EDT completed eCW1 ([facility]) COVID-19 dose #1 given elsewhere Unspecified 10/16/2020 03:3 1:00 PM EDT completed eCW1 ([facility]) COVID-19 dose #1 given elsewhere Unspecified 10/16/2020 03:3 1:00 PM EDT completed eCW1 ([facility]) COVID-19 dose #1 given elsewhere Unspecified 10/16/2020 03:3 1:00 PM EDT completed eCW1 ([facility]) COVID-19 dose #1 given elsewhere Unspecified 10/16/2020 03:3 1:00 PM EDT completed eCW1 ([facility]) COVID-19 dose #1 given elsewhere Unspecified 10/16/2020 03:3 1:00 PM EDT completed eCW1 ([facility]) COVID-19 dose #1 given elsewhere Unspecified 10/16/2020 03:3 1:00 PM EDT completed eCW1 ([facility]) COVID-19 dose #1 given elsewhere Unspecified 10/16/2020 03:3 1:00 PM EDT completed eCW1 ([facility]) COVID-19 dose #1 given elsewhere Unspecified 10/16/2020 03:3 1:00 PM EDT completed eCW1 ([facility]) COVID-19 dose #1 given elsewhere Unspecified 10/16/2020 03:3 1:00 PM EDT completed eCW1 ([facility]) COVID-19 dose #1 given elsewhere Unspecified 10/16/2020 03:3 1:00 PM EDT completed eCW1 ([facility]) COVID-19 dose #1 given elsewhere Unspecified 10/16/2020 03:3 1:00 PM EDT completed eCW1 ([facility]) COVID-19 dose #1 given elsewhere Unspecified 10/16/2020 03:3 1:00 PM EDT completed eCW1 ([facility]) COVID-19 dose #1 given elsewhere Unspecified 10/16/2020 03:3 1:00 PM EDT completed eCW1 ([facility]) COVID-19 dose #1 given elsewhere Unspecified 10/16/2020 03:3 1:00 PM EDT completed eCW1 ([facility]) COVID-19 dose #1 given elsewhere Unspecified 10/16/2020 03:3 1:00 PM EDT completed eCW1 ([facility]) COVID-19 dose #1 given elsewhere Unspecified 10/16/2020 03:3 1:00 PM EDT completed eCW1 ([facility]) COVID-19 dose #1 given elsewhere Unspecified 10/16/2020 03:3 1:00 PM EDT completed eCW1 ([facility]) COVID-19 dose #1 given elsewhere Unspecified 10/16/2020 03:3 1:00 PM EDT completed eCW1 ([facility]) COVID-19 dose #1 given elsewhere Unspecified 10/16/2020 03:3 1:00 PM EDT completed eCW1 ([facility]) COVID-19 VACCINE Prashant 10/16/2020 12:00:00 AM EDT completed [facility] Vaccine Series Complete: YESThis Data wa s Submitted to [facility] Via [employer]. Medications Medication Brand Name Start Date Product Form Dose Route Admi nistrative Instructions Pharmacy Instructions Status Indications Reaction Description Data Source(s) Peak Flow Meter - UNK 04/28/2021 12:00:00 AM EDT active Peak Flow Meter - eCW1 ([facility]) Peak Flow Meter - UNK 04/28/2021 12:00:00 AM EDT active Peak Flow Meter - eCW1 ([facility]) Peak Flow Meter - UNK 04/28/2021 12:00:00 AM EDT active Peak Flow Meter - eCW1 ([facility]) Peak Flow Meter - UNK 04/28/2021 12:00:00 AM EDT active Peak Flow Meter - eCW1 ([facility]) Peak Flow Meter - UNK 04/28/2021 12:00:00 AM EDT active Peak Flow Meter - eCW1 ([facility]) Peak Flow Meter - UNK 04/28/2021 12:00:00 AM EDT active Peak Flow Meter - eCW1 ([facility]) Peak Flow Meter - UNK 04/28/2021 12:00:00 AM EDT active Peak Flow Meter - eCW1 ([facility]) Sucralfate 1000 MG Oral Tablet Sucralfate 1 GM Sucralfate 1 GM 01/29/2021 12:00:00 AM EDT 1.0 {tablet_on_an_empty_stomach} active Sucralfate 1 GM eCW1 ([facility]) Omeprazole 40 MG Delayed Release Oral Capsule Omeprazole 40 MG 01/29/2021 12:00:00 AM EDT active Omeprazo le 40 MG eCW1 ([facility]) Omeprazole 40 MG Delayed Release Oral Capsule Omeprazole 40 MG 01/29/2021 12:00:00 AM EDT active Omeprazo le 40 MG eCW1 ([facility]) Omeprazole 40 MG Delayed Release Oral Capsule Omeprazole 40 MG 01/29/2021 12:00:00 AM EDT active Omeprazo le 40 MG eCW1 ([facility]) Sucralfate 1000 MG Oral Tablet Sucralfate 1 GM Sucralfate 1 GM 01/29/2021 12:00:00 AM EDT 1.0 {tablet_on_an_empty_stomach} active Sucralfate 1 GM eCW1 ([facility]) Omeprazole 40 MG Delayed Release Oral Capsule Omeprazole 40 MG 01/29/2021 12:00:00 AM EDT active Omeprazo le 40 MG eCW1 ([facility]) Omeprazole 40 MG Delayed Release Oral Capsule Omeprazole 40 MG 01/29/2021 12:00:00 AM EDT active Omeprazo le 40 MG eCW1 ([facility]) Omeprazole 40 MG Delayed Release Oral Capsule Omeprazole 40 MG 01/29/2021 12:00:00 AM EDT active Omeprazo le 40 MG eCW1 ([facility]) Sucralfate 1000 MG Oral Tablet Sucralfate 1 GM Sucralfate 1 GM 01/29/2021 12:00:00 AM EDT 1.0 {tablet_on_an_empty_stomach} suspended Sucralfate 1 GM eCW1 ([facility]) Omeprazole 40 MG Delayed Release Oral Capsule Omeprazole 40 MG 01/29/2021 12:00:00 AM EDT active Omeprazo le 40 MG eCW1 ([facility]) Sucralfate 1000 MG Oral Tablet Sucralfate 1 GM Sucralfate 1 GM 01/29/2021 12:00:00 AM EDT 1.0 {tablet_on_an_empty_stomach} active Sucralfate 1 GM eCW1 ([facility]) Sucralfate 1000 MG Oral Tablet Sucralfate 1 GM Sucralfate 1 GM 01/29/2021 12:00:00 AM EDT 1.0 {tablet_on_an_empty_stomach} suspended Sucralfate 1 GM eCW1 ([facility]) Omeprazole 40 MG Delayed Release Oral Capsule Omeprazole 40 MG 01/29/2021 12:00:00 AM EDT active Omeprazo le 40 MG eCW1 ([facility]) Sucralfate 1000 MG Oral Tablet Sucralfate 1 GM Sucralfate 1 GM 01/29/2021 12:00:00 AM EDT 1.0 {tablet_on_an_empty_stomach} active Sucralfate 1 GM eCW1 ([facility]) Sucralfate 1000 MG Oral Tablet Sucralfate 1 GM Sucralfate 1 GM 01/29/2021 12:00:00 AM EDT 1.0 {tablet_on_an_empty_stomach} active Sucralfate 1 GM eCW1 ([facility]) Omeprazole 40 MG Delayed Release Oral Capsule Omeprazole 40 MG 01/29/2021 12:00:00 AM EDT active Omeprazo le 40 MG eCW1 ([facility]) Omeprazole 40 MG Delayed Release Oral Capsule Omeprazole 40 MG 01/29/2021 12:00:00 AM EDT active Omeprazo le 40 MG eCW1 ([facility]) Sucralfate 1000 MG Oral Tablet Sucralfate 1 GM Sucralfate 1 GM 01/29/2021 12:00:00 AM EDT 1.0 {tablet_on_an_empty_stomach} active Sucralfate 1 GM eCW1 ([facility]) Omeprazole 40 MG Delayed Release Oral Capsule Omeprazole 40 MG 01/29/2021 12:00:00 AM EDT active Omeprazo le 40 MG eCW1 ([facility]) Sucralfate 1000 MG Oral Tablet Sucralfate 1 GM Sucralfate 1 GM 01/29/2021 12:00:00 AM EDT 1.0 {tablet_on_an_empty_stomach} active Sucralfate 1 GM eCW1 ([facility]) Omeprazole 40 MG Delayed Release Oral Capsule Omeprazole 40 MG 01/29/2021 12:00:00 AM EDT active Omeprazo le 40 MG eCW1 ([facility]) Sucralfate 1000 MG Oral Tablet Sucralfate 1 GM Sucralfate 1 GM 01/29/2021 12:00:00 AM EDT 1.0 {tablet_on_an_empty_stomach} suspended Sucralfate 1 GM eCW1 ([facility]) Sucralfate 1000 MG Oral Tablet Sucralfate 1 GM Sucralfate 1 GM 01/29/2021 12:00:00 AM EDT 1.0 {tablet_on_an_empty_stomach} active Sucralfate 1 GM eCW1 ([facility]) Omeprazole 40 MG Delayed Release Oral Capsule Omeprazole 40 MG 01/29/2021 12:00:00 AM EDT active Omeprazo le 40 MG eCW1 ([facility]) Sucralfate 1000 MG Oral Tablet Sucralfate 1 GM Sucralfate 1 GM 01/29/2021 12:00:00 AM EDT 1.0 {tablet_on_an_empty_stomach} active Sucralfate 1 GM eCW1 ([facility]) Sucralfate 1000 MG Oral Tablet Sucralfate 1 GM Sucralfate 1 GM 01/29/2021 12:00:00 AM EDT 1.0 {tablet_on_an_empty_stomach} active Sucralfate 1 GM eCW1 ([facility]) Fluoxetine 10 MG Oral Capsule FLUoxetine HCl 10 MG FLUoxetin e HCl 10 MG 12/17/2020 12:00:00 AM EDT 1.0 {capsule} active FLUoxetine HCl 10 MG eCW1 ([facility]) Fluoxetine 10 MG Oral Capsule FLUoxetine HCl 10 MG FLUoxetin e HCl 10 MG 12/17/2020 12:00:00 AM EDT 1.0 {capsule} active FLUoxetine HCl 10 MG eCW1 ([facility]) Fluoxetine 10 MG Oral Capsule FLUoxetine HCl 10 MG FLUoxetin e HCl 10 MG 12/17/2020 12:00:00 AM EDT 1.0 {capsule} active FLUoxetine HCl 10 MG eCW1 ([facility]) Fluoxetine 10 MG Oral Capsule FLUoxetine HCl 10 MG FLUoxetin e HCl 10 MG 12/17/2020 12:00:00 AM EDT 1.0 {capsule} active FLUoxetine HCl 10 MG eCW1 ([facility]) Fluoxetine 10 MG Oral Capsule FLUoxetine HCl 10 MG FLUoxetin e HCl 10 MG 12/17/2020 12:00:00 AM EDT 1.0 {capsule} active FLUoxetine HCl 10 MG eCW1 ([facility]) Fluoxetine 10 MG Oral Capsule FLUoxetine HCl 10 MG FLUoxetin e HCl 10 MG 12/17/2020 12:00:00 AM EDT 1.0 {capsule} active FLUoxetine HCl 10 MG eCW1 ([facility]) Fluoxetine 10 MG Oral Capsule FLUoxetine HCl 10 MG FLUoxetin e HCl 10 MG 12/17/2020 12:00:00 AM EDT 1.0 {capsule} active FLUoxetine HCl 10 MG eCW1 ([facility]) Fluoxetine 10 MG Oral Capsule FLUoxetine HCl 10 MG FLUoxetin e HCl 10 MG 12/17/2020 12:00:00 AM EDT 1.0 {capsule} active FLUoxetine HCl 10 MG eCW1 ([facility]) Fluoxetine 10 MG Oral Capsule FLUoxetine HCl 10 MG FLUoxetin e HCl 10 MG 12/17/2020 12:00:00 AM EDT 1.0 {capsule} active FLUoxetine HCl 10 MG eCW1 ([facility]) Fluoxetine 10 MG Oral Capsule FLUoxetine HCl 10 MG FLUoxetin e HCl 10 MG 12/17/2020 12:00:00 AM EDT 1.0 {capsule} active FLUoxetine HCl 10 MG eCW1 ([facility]) Fluoxetine 10 MG Oral Capsule FLUoxetine HCl 10 MG FLUoxetin e HCl 10 MG 12/17/2020 12:00:00 AM EDT 1.0 {capsule} active FLUoxetine HCl 10 MG eCW1 ([facility]) Fluoxetine 10 MG Oral Capsule FLUoxetine HCl 10 MG FLUoxetin e HCl 10 MG 12/17/2020 12:00:00 AM EDT 1.0 {capsule} active FLUoxetine HCl 10 MG eCW1 ([facility]) Fluoxetine 10 MG Oral Capsule FLUoxetine HCl 10 MG FLUoxetin e HCl 10 MG 12/17/2020 12:00:00 AM EDT 1.0 {capsule} active FLUoxetine HCl 10 MG eCW1 ([facility]) Fluoxetine 10 MG Oral Capsule FLUoxetine HCl 10 MG FLUoxetin e HCl 10 MG 12/17/2020 12:00:00 AM EDT 1.0 {capsule} active FLUoxetine HCl 10 MG eCW1 ([facility]) Fluoxetine 10 MG Oral Capsule FLUoxetine HCl 10 MG FLUoxetin e HCl 10 MG 12/17/2020 12:00:00 AM EDT 1.0 {capsule} active FLUoxetine HCl 10 MG eCW1 ([facility]) Fluoxetine 10 MG Oral Capsule FLUoxetine HCl 10 MG FLUoxetin e HCl 10 MG 12/17/2020 12:00:00 AM EDT 1.0 {capsule} active FLUoxetine HCl 10 MG eCW1 ([facility]) Fluoxetine 10 MG Oral Capsule FLUoxetine HCl 10 MG FLUoxetin e HCl 10 MG 12/17/2020 12:00:00 AM EDT 1.0 {capsule} active FLUoxetine HCl 10 MG eCW1 ([facility]) Fluoxetine 10 MG Oral Capsule FLUoxetine HCl 10 MG FLUoxetin e HCl 10 MG 12/17/2020 12:00:00 AM EDT 1.0 {capsule} active FLUoxetine HCl 10 MG eCW1 ([facility]) Fluoxetine 10 MG Oral Capsule FLUoxetine HCl 10 MG FLUoxetin e HCl 10 MG 12/17/2020 12:00:00 AM EDT 1.0 {capsule} active FLUoxetine HCl 10 MG eCW1 ([facility]) Minocycline 50 MG Oral Capsule Minocycline HCl 50 MG Minocyc line HCl 50 MG 11/19/2020 12:00:00 AM EDT 1.0 {capsule} active Minocycline HCl 50 MG eCW1 ([facility]) Minocycline 50 MG Oral Capsule Minocycline HCl 50 MG Minocyc line HCl 50 MG 11/19/2020 12:00:00 AM EDT 1.0 {capsule} active Minocycline HCl 50 MG eCW1 ([facility]) Minocycline 50 MG Oral Capsule Minocycline HCl 50 MG Minocyc line HCl 50 MG 11/19/2020 12:00:00 AM EDT 1.0 {capsule} active Minocycline HCl 50 MG eCW1 ([facility]) Minocycline 50 MG Oral Capsule Minocycline HCl 50 MG Minocyc line HCl 50 MG 11/19/2020 12:00:00 AM EDT 1.0 {capsule} active Minocycline HCl 50 MG eCW1 ([facility]) Minocycline 50 MG Oral Capsule Minocycline HCl 50 MG Minocyc line HCl 50 MG 11/19/2020 12:00:00 AM EDT 1.0 {capsule} suspend ed Minocycline HCl 50 MG eCW1 ([facility]) Minocycline 50 MG Oral Capsule Minocycline HCl 50 MG Minocyc line HCl 50 MG 11/19/2020 12:00:00 AM EDT 1.0 {capsule} active Minocycline HCl 50 MG eCW1 ([facility]) Minocycline 50 MG Oral Capsule Minocycline HCl 50 MG Minocyc line HCl 50 MG 11/19/2020 12:00:00 AM EDT 1.0 {capsule} active Minocycline HCl 50 MG eCW1 ([facility]) Minocycline 50 MG Oral Capsule Minocycline HCl 50 MG Minocyc line HCl 50 MG 11/19/2020 12:00:00 AM EDT 1.0 {capsule} active Minocycline HCl 50 MG eCW1 ([facility]) Minocycline 50 MG Oral Capsule Minocycline HCl 50 MG Minocyc line HCl 50 MG 11/19/2020 12:00:00 AM EDT 1.0 {capsule} active Minocycline HCl 50 MG eCW1 ([facility]) Minocycline 50 MG Oral Capsule Minocycline HCl 50 MG Minocyc line HCl 50 MG 11/19/2020 12:00:00 AM EDT 1.0 {capsule} active Minocycline HCl 50 MG eCW1 ([facility]) meloxicam 7.5 MG Oral Tablet Meloxicam 7.5 MG Meloxicam 7.5 MG 11/07/2020 12:00:00 AM EDT 1.0 {tablet} active Me loxicam 7.5 MG eCW1 ([facility]) Minocycline 100 MG Oral Capsule Minocycline HCl 100 MG Minoc ycline HCl 100 MG 11/07/2020 12:00:00 AM EDT 1.0 {capsule} active Minocycline HCl 100 MG eCW1 ([facility]) meloxicam 7.5 MG Oral Tablet Meloxicam 7.5 MG Meloxicam 7.5 MG 11/07/2020 12:00:00 AM EDT 1.0 {tablet} active Me loxicam 7.5 MG eCW1 ([facility]) tizanidine 2 MG Oral Tablet Tizanidine HCl 2 MG Tizanidine H Cl 2 MG 11/07/2020 12:00:00 AM EDT 1.0 {tablet_as_needed} active Tizanidine HCl 2 MG eCW1 ([facility]) tizanidine 2 MG Oral Tablet Tizanidine HCl 2 MG Tizanidine H Cl 2 MG 11/07/2020 12:00:00 AM EDT 1.0 {tablet_as_needed} active Tizanidine HCl 2 MG eCW1 ([facility]) tizanidine 2 MG Oral Tablet Tizanidine HCl 2 MG Tizanidine H Cl 2 MG 11/07/2020 12:00:00 AM EDT 1.0 {tablet_as_needed} active Tizanidine HCl 2 MG eCW1 ([facility]) meloxicam 7.5 MG Oral Tablet Meloxicam 7.5 MG Meloxicam 7.5 MG 11/07/2020 12:00:00 AM EDT 1.0 {tablet} active Me loxicam 7.5 MG eCW1 ([facility]) tizanidine 2 MG Oral Tablet Tizanidine HCl 2 MG Tizanidine H Cl 2 MG 11/07/2020 12:00:00 AM EDT 1.0 {tablet_as_needed} active Tizanidine HCl 2 MG eCW1 ([facility]) Minocycline 100 MG Oral Capsule Minocycline HCl 100 MG Minoc ycline HCl 100 MG 11/07/2020 12:00:00 AM EDT 1.0 {capsule} active Minocycline HCl 100 MG eCW1 ([facility]) meloxicam 7.5 MG Oral Tablet Meloxicam 7.5 MG Meloxicam 7.5 MG 11/07/2020 12:00:00 AM EDT 1.0 {tablet} active Me loxicam 7.5 MG eCW1 ([facility]) tizanidine 2 MG Oral Tablet Tizanidine HCl 2 MG Tizanidine H Cl 2 MG 11/07/2020 12:00:00 AM EDT 1.0 {tablet_as_needed} active Tizanidine HCl 2 MG eCW1 ([facility]) meloxicam 7.5 MG Oral Tablet Meloxicam 7.5 MG Meloxicam 7.5 MG 11/07/2020 12:00:00 AM EDT 1.0 {tablet} active Me loxicam 7.5 MG eCW1 ([facility]) Flonase Allergy Relief 50 MCG/ACT Flonase Allergy Relief 50 MCG/ACT 10/24/2020 12:00:00 AM EDT active Flonase Allergy Relief 50 MCG/ACT eCW1 ([facility]) Prednisone 20 MG Oral Tablet PredniSONE 20 MG PredniSONE 20 MG 10/24/2020 12:00:00 AM EDT 1.0 {tablet} active Pr edniSONE 20 MG eCW1 ([facility]) Flonase Allergy Relief 50 MCG/ACT Flonase Allergy Relief 50 MCG/ACT 10/24/2020 12:00:00 AM EDT active Flonase Allergy Relief 50 MCG/ACT eCW1 ([facility]) Prednisone 20 MG Oral Tablet PredniSONE 20 MG PredniSONE 20 MG 10/24/2020 12:00:00 AM EDT 1.0 {tablet} active Pr edniSONE 20 MG eCW1 ([facility]) Ciprofloxacin 500 MG Oral Tablet Ciprofloxacin HCl 500 MG Ciprofloxacin HCl 500 MG 10/07/2020 12:00:00 AM EST 1.0 {tablet} activ e Ciprofloxacin HCl 500 MG eCW1 ([facility]) Ciprofloxacin 500 MG Oral Tablet Ciprofloxacin HCl 500 MG Ciprofloxacin HCl 500 MG 10/07/2020 12:00:00 AM EST 1.0 {tablet} activ e Ciprofloxacin HCl 500 MG eCW1 ([facility]) Ciprofloxacin 500 MG Oral Tablet Ciprofloxacin HCl 500 MG Ciprofloxacin HCl 500 MG 10/07/2020 12:00:00 AM EST 1.0 {tablet} activ e Ciprofloxacin HCl 500 MG eCW1 ([facility]) Diclofenac Sodium 0.01 MG/MG Topical Gel [Voltaren] Voltaren 1 % Voltaren 1 % 10/03/2020 12:00:00 AM EST active Voltaren 1 % eCW1 ([facility]) Diclofenac Sodium 0.01 MG/MG Topical Gel [Voltaren] Voltaren 1 % Voltaren 1 % 10/03/2020 12:00:00 AM EST active Voltaren 1 % eCW1 ([facility]) Diclofenac Sodium 0.01 MG/MG Topical Gel [Voltaren] Voltaren 1 % Voltaren 1 % 10/03/2020 12:00:00 AM EST active Voltaren 1 % eCW1 ([facility]) Diclofenac Sodium 0.01 MG/MG Topical Gel [Voltaren] Voltaren 1 % Voltaren 1 % 10/03/2020 12:00:00 AM EST active Voltaren 1 % eCW1 ([facility]) Diclofenac Sodium 0.01 MG/MG Topical Gel [Voltaren] Voltaren 1 % Voltaren 1 % 10/03/2020 12:00:00 AM EST active Voltaren 1 % eCW1 ([facility]) Diclofenac Sodium 0.01 MG/MG Topical Gel [Voltaren] Voltaren 1 % Voltaren 1 % 10/03/2020 12:00:00 AM EST active Voltaren 1 % eCW1 ([facility]) Propranolol Hydrochloride 10 MG Oral Tablet Propranolo l HCl 10 MG Propranolol HCl 10 MG 09/12/2020 12:00:00 AM EST 1.0 {tablet} ac tive Propranolol HCl 10 MG eCW1 ([facility]) Propranolol Hydrochloride 10 MG Oral Tablet Propranolo l HCl 10 MG Propranolol HCl 10 MG 09/12/2020 12:00:00 AM EST 1.0 {tablet} ac tive Propranolol HCl 10 MG eCW1 ([facility]) Propranolol Hydrochloride 10 MG Oral Tablet Propranolo l HCl 10 MG Propranolol HCl 10 MG 09/12/2020 12:00:00 AM EST 1.0 {tablet} ac tive Propranolol HCl 10 MG eCW1 ([facility]) Propranolol Hydrochloride 10 MG Oral Tablet Propranolo l HCl 10 MG Propranolol HCl 10 MG 09/12/2020 12:00:00 AM EST 1.0 {tablet} ac tive Propranolol HCl 10 MG eCW1 ([facility]) [employer] 113/14 113-14 MCG/ACT [employer] 11 10/13 113-14 MCG/ACT 05/27/2020 12:00:00 AM EDT 1.0 {puff} active [employer] 113/14 113-14 MCG/ACT eCW1 ([facility]) [employer] /14 113-14 MCG/ACT [employer] 11 10/13 113-14 MCG/ACT 05/27/2020 12:00:00 AM EDT 1.0 {puff} active [employer] 113/14 113-14 MCG/ACT eCW1 ([facility]) [employer] 113/14 113-14 MCG/ACT [employer] 11 10/13 113-14 MCG/ACT 05/27/2020 12:00:00 AM EDT 1.0 {puff} active [employer] 113/14 113-14 MCG/ACT eCW1 ([facility]) [employer] 113/14 113-14 MCG/ACT [employer] 11 10/13 113-14 MCG/ACT 05/27/2020 12:00:00 AM EDT 1.0 {puff} active [employer] 113/14 113-14 MCG/ACT eCW1 ([facility]) [employer] 113/14 113-14 MCG/ACT [employer] 11 10/13 113-14 MCG/ACT 05/27/2020 12:00:00 AM EDT 1.0 {puff} active [employer] 113/14 113-14 MCG/ACT eCW1 ([facility]) [employer] 113/14 113-14 MCG/ACT [employer] 11 10/13 113-14 MCG/ACT 05/27/2020 12:00:00 AM EDT 1.0 {puff} active [employer] 113/14 113-14 MCG/ACT eCW1 ([facility]) [employer] /14 113-14 MCG/ACT [employer] 11 10/13 113-14 MCG/ACT 05/27/2020 12:00:00 AM EDT 1.0 {puff} active [employer] /14 113-14 MCG/ACT eCW1 ([facility]) [employer] /14 113-14 MCG/ACT [employer] 11 10/13 113-14 MCG/ACT 05/27/2020 12:00:00 AM EDT 1.0 {puff} active [employer] 14 113-14 MCG/ACT eCW1 ([facility]) [employer] /14 113-14 MCG/ACT [employer] 11 10/13 113-14 MCG/ACT 05/27/2020 12:00:00 AM EDT 1.0 {puff} active [employer] 113/14 113-14 MCG/ACT eCW1 ([facility]) [employer] 113/14 113-14 MCG/ACT [employer] 11 10/13 113-14 MCG/ACT 05/27/2020 12:00:00 AM EDT 1.0 {puff} active [employer] 113/14 113-14 MCG/ACT eCW1 ([facility]) [employer] 113/14 113-14 MCG/ACT [employer] 11 10/13 113-14 MCG/ACT 05/27/2020 12:00:00 AM EDT 1.0 {puff} active [employer] 113/14 113-14 MCG/ACT eCW1 ([facility]) [employer] 113/14 113-14 MCG/ACT [employer] 11 3/14 113-14 MCG/ACT 05/27/2020 12:00:00 AM EDT 1.0 {puff} active [employer] 113/14 113-14 MCG/ACT eCW1 ([facility]) [employer] 113/14 113-14 MCG/ACT [employer] 11 10/13 113-14 MCG/ACT 05/27/2020 12:00:00 AM EDT 1.0 {puff} active [employer] 113/14 113-14 MCG/ACT eCW1 ([facility]) [employer] 113/14 113-14 MCG/ACT [employer] 11 10/13 113-14 MCG/ACT 05/27/2020 12:00:00 AM EDT 1.0 {puff} active [employer] 113/14 113-14 MCG/ACT eCW1 ([facility]) [employer] 113/14 113-14 MCG/ACT [employer] 11 10/13 113-14 MCG/ACT 05/27/2020 12:00:00 AM EDT 1.0 {puff} active [employer] 113/14 113-14 MCG/ACT eCW1 ([facility]) [employer] 113/14 113-14 MCG/ACT [employer] 11 10/13 113-14 MCG/ACT 05/27/2020 12:00:00 AM EDT 1.0 {puff} active [employer] 113/14 113-14 MCG/ACT eCW1 ([facility]) [employer] 113/14 113-14 MCG/ACT [employer] 11 14 113-14 MCG/ACT 05/27/2020 12:00:00 AM EDT 1.0 {puff} active [employer] 113/14 113-14 MCG/ACT eCW1 ([facility]) [employer] 113/14 113-14 MCG/ACT [employer] 11 14 113-14 MCG/ACT 05/27/2020 12:00:00 AM EDT 1.0 {puff} active [employer] 113/14 113-14 MCG/ACT eCW1 ([facility]) [employer] 113/14 113-14 MCG/ACT [employer] 11 10/13 113-14 MCG/ACT 05/27/2020 12:00:00 AM EDT 1.0 {puff} active [employer] 113/14 113-14 MCG/ACT eCW1 ([facility]) [employer] 113/14 113-14 MCG/ACT [employer] 11 10/13 113-14 MCG/ACT 05/27/2020 12:00:00 AM EDT 1.0 {puff} active [employer] /14 113-14 MCG/ACT eCW1 ([facility]) [employer] /14 113-14 MCG/ACT [employer] 11 10/13 113-14 MCG/ACT 05/27/2020 12:00:00 AM EDT 1.0 {puff} active [employer] 113/14 113-14 MCG/ACT eCW1 ([facility]) [employer] 113/14 113-14 MCG/ACT [employer] 11 10/13 113-14 MCG/ACT 05/27/2020 12:00:00 AM EDT 1.0 {puff} active [employer] 113/14 113-14 MCG/ACT eCW1 ([facility]) [employer] 113/14 113-14 MCG/ACT [employer] 11 10/13 113-14 MCG/ACT 05/27/2020 12:00:00 AM EDT 1.0 {puff} active [employer] 113/14 113-14 MCG/ACT eCW1 ([facility]) [employer] 113/14 113-14 MCG/ACT [employer] 11 14 113-14 MCG/ACT 05/27/2020 12:00:00 AM EDT 1.0 {puff} active [employer] 113/14 113-14 MCG/ACT eCW1 ([facility]) [employer] 113/14 113-14 MCG/ACT [employer] 11 14 113-14 MCG/ACT 05/27/2020 12:00:00 AM EDT 1.0 {puff} active [employer] 113/14 113-14 MCG/ACT eCW1 ([facility]) [employer] 113/14 113-14 MCG/ACT [employer] 11 14 113-14 MCG/ACT 05/27/2020 12:00:00 AM EDT 1.0 {puff} active [employer] 113/14 113-14 MCG/ACT eCW1 ([facility]) [employer] 113/14 113-14 MCG/ACT [employer] 11 10/13 113-14 MCG/ACT 05/27/2020 12:00:00 AM EDT 1.0 {puff} active [employer] 113/14 113-14 MCG/ACT eCW1 ([facility]) [employer] 113/14 113-14 MCG/ACT [employer] 11 14 113-14 MCG/ACT 05/27/2020 12:00:00 AM EDT 1.0 {puff} active [employer] 113/14 113-14 MCG/ACT eCW1 ([facility]) [employer] 113/14 113-14 MCG/ACT [employer] 11 14 113-14 MCG/ACT 05/27/2020 12:00:00 AM EDT 1.0 {puff} active [employer] 113/14 113-14 MCG/ACT eCW1 ([facility]) [employer] 113/14 113-14 MCG/ACT [employer] 11 14 113-14 MCG/ACT 05/27/2020 12:00:00 AM EDT 1.0 {puff} active [employer] 113/14 113-14 MCG/ACT eCW1 ([facility]) [employer] 113/14 113-14 MCG/ACT [employer] 11 14 113-14 MCG/ACT 05/27/2020 12:00:00 AM EDT 1.0 {puff} active [employer] 113/14 113-14 MCG/ACT eCW1 ([facility]) [employer] 113/14 113-14 MCG/ACT [employer] 11 /14 113-14 MCG/ACT 05/27/2020 12:00:00 AM EDT 1.0 {puff} active [employer] 113/14 113-14 MCG/ACT eCW1 ([facility]) [employer] 113/14 113-14 MCG/ACT [employer] 11 10/13 113-14 MCG/ACT 05/27/2020 12:00:00 AM EDT 1.0 {puff} active [employer] 113/14 113-14 MCG/ACT eCW1 ([facility]) [employer] 113/14 113-14 MCG/ACT [employer] 11 10/13 113-14 MCG/ACT 05/27/2020 12:00:00 AM EDT 1.0 {puff} active [employer] 113/14 113-14 MCG/ACT eCW1 ([facility]) [employer] 113/14 113-14 MCG/ACT [employer] 11 10/13 113-14 MCG/ACT 05/27/2020 12:00:00 AM EDT 1.0 {puff} active [employer] 113/14 113-14 MCG/ACT eCW1 ([facility]) [employer] 113/14 113-14 MCG/ACT [employer] 11 14 113-14 MCG/ACT 05/27/2020 12:00:00 AM EDT 1.0 {puff} active [employer] 113/14 113-14 MCG/ACT eCW1 ([facility]) [employer] 113/14 113-14 MCG/ACT [employer] 11 /14 113-14 MCG/ACT 05/27/2020 12:00:00 AM EDT 1.0 {puff} active [employer] 113/14 113-14 MCG/ACT eCW1 ([facility]) [employer] 113/14 113-14 MCG/ACT [employer] 11 10/13 113-14 MCG/ACT 05/27/2020 12:00:00 AM EDT 1.0 {puff} active [employer] 113/14 113-14 MCG/ACT eCW1 ([facility]) [employer] 113/14 113-14 MCG/ACT [employer] 11 10/13 113-14 MCG/ACT 05/27/2020 12:00:00 AM EDT 1.0 {puff} active [employer] 113/14 113-14 MCG/ACT eCW1 ([facility]) [employer] /14 113-14 MCG/ACT [employer] 11 10/13 113-14 MCG/ACT 05/27/2020 12:00:00 AM EDT 1.0 {puff} active [employer] 113/14 113-14 MCG/ACT eCW1 ([facility]) [employer] /14 113-14 MCG/ACT [employer] 11 10/13 113-14 MCG/ACT 05/27/2020 12:00:00 AM EDT 1.0 {puff} active [employer] 113/14 113-14 MCG/ACT eCW1 ([facility]) [employer] 113/14 113-14 MCG/ACT [employer] 11 10/13 113-14 MCG/ACT 05/27/2020 12:00:00 AM EDT 1.0 {puff} active [employer] 113/14 113-14 MCG/ACT eCW1 ([facility]) [employer] 113/14 113-14 MCG/ACT [employer] 11 10/13 113-14 MCG/ACT 05/27/2020 12:00:00 AM EDT 1.0 {puff} active [employer] 113/14 113-14 MCG/ACT eCW1 ([facility]) [employer] 113/14 113-14 MCG/ACT [employer] 11 10/13 113-14 MCG/ACT 05/27/2020 12:00:00 AM EDT 1.0 {puff} active [employer] /14 113-14 MCG/ACT eCW1 ([facility]) [employer] 113/14 113-14 MCG/ACT [employer] 11 10/13 113-14 MCG/ACT 05/27/2020 12:00:00 AM EDT 1.0 {puff} active [employer] 113-14 MCG/ACT eCW1 ([facility]) [employer] /14 113-14 MCG/ACT [employer] 11 10/13 113-14 MCG/ACT 05/27/2020 12:00:00 AM EDT 1.0 {puff} active [employer] 14 113-14 MCG/ACT eCW1 ([facility]) Insurance Providers Payer name Policy type / Coverage type Policy ID Covered democrat ID Covered democrat's relationship to coello Policy Coello Plan Information [facility] COMMUNITY PLAN [id number] SELF [id number] Medicaid [place] Medicaid [id number] Self Medicaid S [id number] Managed Care - Community Plan [facility] P [id number] S [id number] Medicaid S [id number] S [id number] Managed Care - [facility] Community Plan P [id number] S [id number] Managed Care Community Plan [facility] P [id number] S [id number] D Managed Care [facility] P [id number] S [id number] Medicaid S [id number] S [id number] [facility] Commercial Insurance Co. [id number] Self [id number] [facility] Commercial Insurance Co. [id number] Self [id number] [facility] MEDICAID [id number] S [id number] D Managed Care [facility] P [id number] S [id number] Managed Care - [facility] Community Plan P [id number] S [id number] RPR- Needs Payer Match [id number] Self [id number] [facility] MEDICAID [id number] S [id number] [facility] MEDICAID [id number] S [id number] [facility] COMMUNITY PLAN [facility] [id number] SP [id number] [employer] COMP [id number] SP [id number] Medicaid Dental O [id number] S [id number] [facility] O [id number] S [id number] [facility] COMM[facility] [id number] SP [id number] Self Pay P UNAVAILABLE S UNAVAILA BLE Managed Care - Community Plan [facility] P [id number] S [id number] [facility] Health Maintenance Organization ([facility]) [id number] Self [id number] [facility] Health Maintenance Organization (O) [id number] Self [id number] [facility] Health Maintenance Organization (O) [id number] Self [id number] BLUE CROSS BLUE SHIELD-O/P [id number] 18 [id number] [facility] COMMUNITY PLAN XIX [id number] 18 [id number] [facility] Health Maintenance Organization ([facility]) [id number] Self [id number] [facility] COMMUNITY PLAN [facility] [id number] SP [id number] SELF PAY ONLY [id number] SP [id number] [facility] COMMUNITY PLAN [facility] [id number] SP [id number] [facility] Health Maintenance Organization (O) [id number] Self [id number] [facility] Health Maintenance Organization (O) [id number] Self [id number] [facility] [id number] [facility] Health Maintenance Organization ([facility]) [id number] Self [id number] [facility] Health Maintenance [facility] ([facility]) [id number] Self [id number] [facility]) O [id number] S [id number] MEDICAID [id number] SP [id number] [facility] Part [id number] [facility] COMMUNITY [facility] [id number] SP [id number] [facility] [id number] BS [facility] B [id number] C [id number] [facility] [id number] BS [place] [facility] B [id number] C [id number] MEDICAID M [id number] S [id number] [employer] O [id number] S [id number] [employer] FA[employer] [id number] SP [id number] [employer]ULT [id number] SP [id number] [facility] [id number] BC BS [place] [id number] [employer] [id number] [employer] [id number] SELF PAY UNAVAILABLE SP UNAVAILA BLE [facility] COMMUNITY [facility] [id number] SP [id number] Problems, Conditions, and Diagnoses Code Display Name Description Problem Type Effective Dates Data Source(s) K25681 Unspecified asthma, uncomplicated Unspecified as thma, uncomplicated Diagnosis 01/26/2021 12:56:00 PM EDT [facility] K644 Residual hemorrhoidal skin tags Residual hemorrhoidal skin tags Diagnosis 01/26/2021 12:56:00 PM EDT [facility] R197 Diarrhea, unspecified Diarrhea, unspecified Diagnosis 01/26/2021 12:56:00 PM EDT [facility] [id number] Other ovarian cyst, left side Other ovarian cyst, left side Diagnosis 01/11/2021 02:32:00 PM EDT [facility] N3000 Acute cystitis without hematuria Acute cystitis without hematuria Diagnosis 01/11/2021 02:32:00 PM EDT [facility] R102 Pelvic and perineal pain Pelvic and perineal pain Diag nosis 01/11/2021 02:32:00 PM EDT [facility] N83.202 UNSPECIFIED OVARIAN CYST LEFT SIDE UNSPECIFIED O VARIAN CYST, LEFT SIDE Diagnosis 09/19/2020 09:10:00 AM [facility] R19.7 Diarrhea, unspecified DIARRHEA, UNSPECIFIED Diagnosis 09/19/2020 09:10:00 AM [facility] L50.0 Allergic urticaria ALLERGIC URTICARIA Diagnosis 09:10:00 AM [facility] N97.9 [id number] Infertility, female Problem 05/28/2021 12:00 :00 AM EDT eCW1 ([facility]) N91.2 [id number] Amenorrhea Problem 12/17/2020 12:00:00 AM ED T eCW1 ([facility]) F33.0 [id number] Mild episode of recurrent major depressiv e disorder Problem 12/17/2020 12:00:00 AM EDT eCW1 ([facility]) J30.2 [id number] Seasonal allergic rhinitis, unspecified t car stower Problem 10/24/2020 12:00:00 AM EDT eCW1 ([facility]) Z32.01 [id number] Positive urine test Problem 09/06/2020 12:00:00 AM EST eCW1 ([facility]) R73.01 Impaired fasting glucose Impaired fasting glucose Prob harinder 09/06/2020 12:00:00 AM EST eCW1 ([facility]) E66.9 [id number] Obesity (BMI 30.0-34.9) Problem 0 09/06/2020 12:00:00 AM EST eCW1 ([facility]) G43.980 [id number] Migraine with aura a nd without status migrainosus, not intractable Problem 09/06/2020 12:00:00 AM EST eCW1 ([facility]) G47.33 [id number] Obstructive sleep apnea Problem 07/10/2020 1 2:00:00 AM EST eCW1 ([facility]) G47.33 [id number] LEVI (obstructive sleep apnea) Problem 05/27/2020 12:00:00 AM EDT eCW1 ([facility]) Surgeries/Procedures Procedure Description Date Indications Data Source(s) OFFICE OUTPATIENT VISIT 15 MINUTES 05/17/2021 12:00:00 AM EDT [facility] ([facility]) uro PVR (Post Voiding Residual) Bladder Scan 12:00:00 AM EDT eCW1 ([facility]) Results ID Date Data Source [id number] 06/10/2021 12:00:00 AM EST [facility] Name Value Range Interpretation Code Description Data Ale rce(s) Supporting Document(s) SARS coronavirus 2 Ag NEGATIVE [facility] This lab was ordered by [facility] and reported by [facility]. ID Date Data Source [id number] 05/30/2021 02:00:00 PM EDT [facility] Name Value Range Interpretation Code Description Data Ale rce(s) Supporting Document(s) SARS-CoV-2 RNA Resp Ql JUDITH+probe NOT DETECTED [facility] This lab was ordered by SHILO jim and reported by SHILO Lopez. ID Date Data Source [id number] 05/28/2021 12:20:00 PM EDT [facility] Name Value Range Interpretation Code Description Data Ale rce(s) Supporting Document(s) SARS coronavirus 2 RNA [Presence] in Res piratory specimen by JUDITH with probe detection NEGATIVE [facility] This lab was ordered by [facility] a nd reported by [facility]. ID Date Data Source [id number] 05/27/2021 12:00:00 AM EDT [facility] Name Value Range Interpretation Code Description Data Ale rce(s) Supporting Document(s) SARS coronavirus 2 Ag NEGATIVE [facility] This lab was ordered by [facility] and reported by [facility]. ID Date Data Source [id number] 05/23/2021 11:09:00 AM EDT [facility] Name Value Range Interpretation Code Description Data Ale rce(s) Supporting Document(s) SARS coronavirus 2 RNA [Presence] in Res piratory specimen by JUDITH with probe detection NEGATIVE [facility] This lab was ordered by [facility] a nd reported by [facility]. ID Date Data Source [id number] 05/22/2021 10:27:00 AM EDT [facility] Name Value Range Interpretation Code Description Data Ale rce(s) Supporting Document(s) SARS coronavirus 2 RNA [Presence] in Res piratory specimen by JUDITH with probe detection NEGATIVE [facility] This lab was ordered by [facility] a nd reported by [facility]. ID Date Data Source [id number] 05/20/2021 12:00:00 AM EDT [facility] Name Value Range Interpretation Code Description Data Ale rce(s) Supporting Document(s) SARS coronavirus 2 Ag NEGATIVE [facility] This lab was ordered by [facility] and reported by [facility]. ID Date Data Source [id number] 05/13/2021 12:00:00 AM EDT [facility] Name Value Range Interpretation Code Description Data Ale rce(s) Supporting Document(s) SARS coronavirus 2 Ag NEGATIVE [facility] and reported by [facility]. ID Date Data Source [id number] 05/06/2021 12:00:00 AM EDT [facility] Name Value Range Interpretation Code Description Data Ale rce(s) Supporting Document(s) SARS coronavirus 2 Ag NEGATIVE [facility] and reported by [facility]. ID Date Data Source [id number] 04/29/2021 12:00:00 AM EDT [facility] Name Value Range Interpretation Code Description Data Ale rce(s) Supporting Document(s) SARS coronavirus 2 Ag NEGATIVE [facility] This lab was ordered by [facility] and reported by [facility]. ID Date Data Source [id number] 04/22/2021 12:00:00 AM EDT [facility] Name Value Range Interpretation Code Description Data Ale rce(s) Supporting Document(s) SARS coronavirus 2 Ag NEGATIVE [facility] This lab was ordered by [facility] Srivast[facility] and reported by [facility]. ID Date Data Source [id number] 04/10/2021 12:00:00 AM EDT [facility] Name Value Range Interpretation Code Description Data Ale rce(s) Supporting Document(s) SARS coronavirus 2 Ag NEGATIVE [facility] This lab was ordered by [facility] Srivastava [facility] and reported by [facility]. ID Date Data Source H PYLORI SERUM QUANT IGA 01/29/2021 12:00:00 AM EDT eCW1 ([facility]) Name Value Range Interpretation Code Description Data Ale rce(s) Supporting Document(s) <9.0 0.0-8.9 H PYLORI SERUM QUANT IGA eCW1 ([facility]) ID Date Data Source PT & APTT 01/29/2021 12:00:00 AM EDT eCW1 ([facility]) Name Value Range Interpretation Code Description Data Ale rce(s) Supporting Document(s) 12.8 12.5-14.3 PROTHROMBIN TIME eCW1 ([facility]) 0.94 INR eCW1 ([facility]) 24.6 24.2-38.5 PARTIAL THROMBOPLASTIN TI ME eCW1 ([facility]) ID Date Data Source Comprehensive Metabolic Profile (CMP) 01/29/2021 12:00:00 AM EDT eCW1 ([facility]) Name Value Range Interpretation Code Description Data Ale rce(s) Supporting Document(s) 82 70-100 GLUCOSE, FASTING eCW1 ([facility]) 0.94 0.55-1.30 CREATININE FOR GFR eCW1 ([facility]) 11 7-18 BLOOD UREA NITROGEN eCW1 ([facility]) 136 136-145 SODIUM LEVEL eCW1 ([facility]) > 60.0 >60 GLOMERULAR FILTRATION RATE eCW 1 ([facility]) 105 98-107 CHLORIDE LEVEL eCW1 ([facility]) 4.6 3.5-5.1 POTASSIUM SERUM eCW1 ([facility]) 25 21-32 CARBON DIOXIDE LEVEL eCW1 ([facility]) 9.0 8.5-10.1 CALCIUM LEVEL eCW1 ([facility]) 16 7-37 AST/SGOT eCW1 ([facility]) 30 12-78 ALT/SGPT eCW1 ([facility]) 94 45-117 ALKALINE PHOSPHATASE eCW1 ([facility]) 0.3 0.2-1.0 BILIRUBIN,TOTAL eCW1 ([facility]) 3.6 3.2-5.2 ALBUMIN eCW1 ([facility]) 7.1 6.4-8.2 TOTAL PROTEIN eCW1 ([facility]) 1.0 1.2-2.2 ALBUMIN/GLOBULIN RATIO eCW1 ([facility]) ID Date Data Source CBC with Differential 01/29/2021 12:00:00 AM EDT eCW1 ([facility]) Name Value Range Interpretation Code Description Data Ale rce(s) Supporting Document(s) 10.4 4.0-10.0 WHITE BLOOD COUNT eCW1 ([facility]) 13.6 12.0-15.5 HEMOGLOBIN eCW1 ([facility]) 4.82 4.00-5.40 RED BLOOD COUNT eCW1 ([facility]) 31.9 32.0-36.5 MEAN CORPUSCULAR HGB CONC eCW1 ([facility]) 88.4 80.0-96.0 MEAN CORPUSCULAR VOLUME e CW1 ([facility]) 42.6 36.0-47.0 HEMATOCRIT eCW1 ([facility]) 28.2 27.0-33.0 MEAN CORPUSCULAR HEMOGLOB IN eCW1 ([facility]) 389 150-450 PLATELET COUNT, AUTOMATED eCW1 ([facility]) 12.9 11.5-14.5 RED CELL DISTRIBUTION WID TH eCW1 ([facility]) 53.2 36.0-66.0 NEUTROPHILS % eCW1 ([facility]) 4.7 2.0-8.0 MONO % eCW1 ([facility]) 0.6 0.0-1.0 BASO % eCW1 ([facility]) 24.8 24.0-44.0 LYMPH % eCW1 ([facility]) 16.3 0.0-3.0 EOS % eCW1 ([facility]) 0.5 0.0-0.8 MONO # eCW1 ([facility]) 2.6 1.5-5.0 LYMPH # eCW1 ([facility]) 5.5 1.5-8.5 NEUTROPHILS # eCW1 ([facility]) 1.7 0.0-0.5 EOS # eCW1 ([facility]) 0.1 0.0-0.2 BASO # eCW1 ([facility]) ID Date Data Source [id number] 01/26/2021 12:56:00 PM EDT [facility] 1 OrderSheet [facility] Emergency Department [address] [place] [address] Phone #: ext- [phone] 01/26/2021 12:52 Patient: KERVIN MCMAHAN Sex: F : 1990 Age: 30yWEIGHT:90.7 kg (S) HEIGHT:68 inches (S) BMI:30.4ALLERGIES: Ciprofloxacin, FlagylCHIEF COMPLAINT: abdominal pain, diarrheaDIAGNOSIS: Diarrhea, HemorrhoidsLAB ORDERSOrder Description Priority Entered Acknowledged InitialedCBC w Diff STAT 13:01/26/2021 13:15 Ernesto Spear, Shyanne Francis RN ;CMP STAT 13:01/26/2021 13:15 Shyanne Dudley RN ;PT/INR STAT 13:01/26/2021 13:15 Shyanne Dudley RN ;PTT STAT 13:01/26/2021 13:15 Shyanne Dudley RN ;Urinalysis (Clean STAT 13:01/26/2021 13:35 TerryCatch) Shyanne Spear RN ;Type and Screen STAT 13:01/26/2021 13:15 Shyanen Dudley RN ;HCG Serum Qual STAT 13:01/26/2021 13:15 Shyanne Dudley RN ;Occult Blood Stool 13:01/26/2021 13:15 TerryDiagnostic 1 slide Shyanne Spear RN ;C Difficile Toxin STAT 13:18 01/26/2021 Ack'd: 16:34 16:34 Balbir Velarde Victoria LaFrance, Lisa RN Lisa RN ;DIAGNOSTIC STUDY ORDERSOrder Description Priority Entered Acknowledged Initialed 2 OrderSheet [facility] Emergency Department [address] [place] [address] Phone #: ext- [phone] 01/26/2021 12:52 Patient: KERVIN MCMAHAN Sex: F : 1990 Age: 30yMEDICATION/IV/DRIP/FLUID ORDERSOrder Description Priority Entered Acknowledged InitialedIV NS : 250 mL/hr 13:01/26/2021 13:46 Shyanne Dudley RN ;Bentyl PO 20 mg 13:01/26/2021 13:46 Shyanne Dudley RN ; Reason for ordering with alerts: Clinical consideration given -- 13:01/26/2021 Esteban Spearan 4 mg IVP X 1 14:01/26/2021 14:35 Terrydose: 4 mg (NOW Shyanne Spear RNx1) ;- (tucks pad for 15:04 01/26/2021 Cancelled: Other 15:18 Beatris,hemorrhoid) Shyanne Spear ;GENERAL ORDERSOrder Description Priority Entered Acknowledged InitialedBlood Pressure 13:01/26/2021 13:15 SamreenyMonitor Shyanne Spear RN ;Instrument Assembly Supervisor 13:01/26/2021 13:15 Ernesto(continuous) Shyanne Spear RN ;NPO 13:01/26/2021 13:15 Shyanne Dudley RN ;Saline Lock 13:01/26/2021 13:35 Shyanne Dudley RN ;[Electronically signed by Kimmy Velarde RN (16:35 01/26/2021)][Electronically signed by Shyanne Spear (22:16 01/26/2021)][Electronically locked by Kimmy Velarde RN (16:35 01/26/2021)] Name Value Range Interpretation Code Description Data Ale rce(s) Supporting Document(s) ID Date Data Source [id number] 01/26/2021 12:56:00 PM EDT [facility] 1 Medication Reconciliation Report [facility] Emergency Department [address] [place] [address] Phone #: [phone]- [phone] 01/26/2021 12:52 Patient: KERVIN MCMAHAN Sex: F [...] bolus 0, then 250 mL/hr, administered: 13:27 01/26/2021entyl [PO] PO 20 mg, administered: 13:25 01/26/2021Zofran [IVP] IVP 4 mg, administered: 14:30 01/26/2021The following Medications were prescribed to the patient:Anusol-HC 2.5 % topical cream with perineal applicator Apply 1 a small amount twice a day for 7 days --to the external hemorrhoid. Dispense 30 gram. Refills: 0. Substitution permitted.Pharmacy - [facility] [place] [address] ; [place] [address]. . 2 Medication Reconciliation Report [facility] Emergency Department [address] [place] [address] Phone #: ext- [phone] 01/26/2021 12:52 Patient: KERVIN MCMAHAN Sex: F : 1990 Age: 30yondansetron 4 mg disintegrating tablet Take 1 tablet three times a day for 3 days -- prn nausea/vomiting.Dispense 9 tablet. Refills: 0. Substitution permitted.Pharmacy - [facility] [place] [address] ; [place] [address]. . -- Shyanne Spear Name Value Range Interpretation Code Description Data Ale rce(s) Supporting Document(s) ID Date Data Source [id number] 01/26/2021 12:56:00 PM EDT [facility] 1 Medication Administration Record [facility] Emergency Department [address] [place] [address] Phone #: ext- [phone] 01/26/2021 12:52 Patient: [...] rce(s) Supporting Document(s) ID Date Data Source [id number] 01/26/2021 12:56:00 PM EDT [facility] 1 General Instructions [facility] Emergency Department [address] [place] [address] Phone #: ext- [phone] 01/26/2021 12:52 [id number] Sex[facility] F : 1990 Age: 30yDiarrheaBleeding external [...] 30 gram. Refills: 0. Substitution permitted.Pharmacy - [facility] [place] [address] ; [place] [address]. .ondansetron 4 mg disintegrating tablet Take 1 tablet three times a day for 3 days -- prn nausea/vomiting.Dispense 9 tablet. Refills: 0. Substitution permitted.Pharmacy - [facility] [place] [address] ; [place] [address]. .Follow-up:Follow up with your healthcare provider in [...] worry (anxiety) Other illnesses 2 General Instructions [facility] Emergency Department [address] [place] [address] Phone #: ext- [phone] 01/26/2021 12:52 Patient: KERVIN MCMAHAN Sex: F [...] or after a stroke) 3 General Instructions [facility] Emergency Department [address] [place] [address] Phone #: ext- [phone] 01/26/2021 12:52 Patient: KERVIN MCMAHAN Sex: F : 1990 Age: 30y Oavr-vrn-emrxyvv medicines for diarrhea, nausea, and vomiting are generally OK unless you have bleeding, fever, or severe abdominal pain.General care If symptoms are severe, rest at home for the next 24 hours, or until you are feeling better. Washing your hands with soap and water, or using alcohol-based hand cyber intelligence analyst is the best way to stop the [...] and fruit juice bars 4 General Instructions [facility] Emergency Department [address] [place] [address] Phone #: ext- [phone] 01/26/2021 12:52 Patient: [...] after. Wash your hands or use alcohol-based cyber intelligence analyst after using cutting boards, countertops, and knives that have been in contact with raw food. Dry your hands with a single use towel. Keep uncooked meats away from cooked and lggxi-ed-kly foods.Follow-up careFollow up with your healthcare provider, [...] these occur: Trouble breathing 5 General Instructions [facility] Emergency Department [address] [place] [address] Phone #: ext- [phone] 01/26/2021 12:52 Patient: KERVIN MCMAHAN Sex: F [...] every 6 hours), or very dark urine [phone] [employer] [place] [address]. All rights reserved. This information is not intended as asubstitute for professional medical care. Always follow your healthcare professional's instructions.Hemorrhoids 6 General Instructions [facility] Emergency Department [address] [place] [address] Phone #: ext- [phone] 01/26/2021 12:52 Patient: [...] best treatment option. Your 7 General Instructions [facility] Emergency Department [address] [place] [address] Phone #: ext- [phone] 01/26/2021 12:52 [facility]: [id number] Sex: F : 1990 Age: 30yhealthcare provider [...] to seek medical advice 8 General Instructions [facility] Department [address] [place] [address] Phone #: rsk- [phone] 01/26/2021 12:52 --------- Patient: KERVIN MCMAHAN Sex: [...] blood in stool or black, tarry stools [phone] [employer] [place] [address]. All rights reserved. This information is not [...] bleeding. These are not 9 General Instructions [facility] Department [address] [place] [address] Phone #: ext- [phone] 01/26/2021 12:52 Patient: [...] following occur: Loss of consciousness Vomiting blood [phone] [employer] [place] [id number]. All rights reserved. This information is not intended as asubstitute for professional medical care. Always follow your healthcare professional's instructions. You have been given the following additional information: Vomiting and Diarrhea, Nonspecific (Adult) Hemorrhoids Lower GI Bleeding (Stable) 10 General Instructions [facility] Emergency Department [address] [place], [place] [id number] Phone #: [phone]- [phone] 01/26/2021 12:52 Patient: KERVIN MCMAHAN Sex: F : 1990 Age: 30y(Electronically signed by Shyanne Spear 01/26/2021 22:16) Name Value Range Interpretation Code Description Data Ale rce(s) Supporting Document(s) ID Date Data Source [id number] 01/26/2021 12:56:00 PM EDT [facility] 1 Clinical Report - Nurses [facility] Department [address] [place] [address] Phone #: ext- [phone] 01/26/2021 12:52 Patient: [...] rectally.). She has had diarrhea andabdominal pain.Treatment ENVIRONMENTAL HEALTH AND SAFETY MANAGER:(Tums).SEPSIS SCREEN: SIRS SCREEN NEGATIVE. SEPSIS SCREEN NEGATIVE. No suspected or confirmedsigns of infection present. --13:04 01/26/21 Daniela Cool R.N.13:01 01/26/21. BP: 113/71. MAP: 85. HR: 63. RR: 16. O2 saturation: 99% on room air. Temp: 97.1 F(oral). Pain level now: 02/08. --13:04 Cool, Daniela, R.N.Weight: 90.7 kg stated. Height/Length: 68 inches Per Patient. BMI: 30.4. --12:58 01/26/21 Daniela Cool R.N.MedicationsAlbuterol Sulfate Inhalation, as needed. --13:04 01/26/21 Daniela Cool R.N. Meloxicam Oral (Tablet 15 mg), daily. Omeprazole Oral (Capsule Delayed Release 40 mg), daily. Propranolol HCl Oral (Tablet 10 mg), 2x a day. PROzac Oral (Capsule 10 mg), daily. tiZANidine HCl Oral (Tablet 2 mg), as needed. --13:04 01/26/21 Daniela Cool R.N.AllergiesCiprofloxacin.Flagyl. --13:04 01/26/21 Daniela Cool R.N.PROBLEMS:Asthma.Back Pain.Anxiety Reaction.Bipolar Disorder. 2 Clinical Report - Nurses [facility] Emergency Department [address] [place] [address] Phone #: [phone]- [phone] 01/26/2021 12:52 Patient: KERVIN MCMAHAN [facility]#: [id number] Sex: F : 1990 Age: 30y UTI - Urinary Tract Infection. Ovarian Cyst. Depression. --13:04 01/26/21 Daniela Cool R.N. Medication/allergy information source: the patient. --13:04 01/26/21 Daniela Cool R.N. ADDITIONAL SURGERIES: Colonoscopy. --13:04 01/26/21 Daniela Cool R.N. History PAST MEDICAL HX: [...] on patient. --13:50 01/26/21 Ernesto Francis RN.PHYSICAL [id number] 01/26/21. Ambulatory to room. 3 Clinical Report - Nurses [facility] Department [address] [place] [address] Phone #: ext- [phone] 01/26/2021 12:52 Patient: KERVIN MCMAHAN Sex: F [...] labeled in the presence of the patient (2331). --13:47 01/26/21 Ernesto Francis RN 13:58 01/26/21. BP: 102/68. MAP: 79. HR: 68. RR: 19. O2 saturation: 98%. --13:59 01/26/21 Lorri Mullins ED, ER Tech1 14:30 01/26/2021 Zofran (Ondansetron HCl) IVP [...] RR: 17. O2 saturation: 98%. --15:04 01/26/21 [facility] Tech1 16:13 01/26/21. BP: 102/59. MAP: 73. HR: 62. RR: 18. O2 saturation: 97%. --16:14 01/26/21 [facility] Tech1 16:30 01/26/2021 IV Fluids IV NS via IV site #1 Discontinued: discontinued upon discharge. Total amount infused: 500 mL. --16:35 01/26/21 Kimmy Velarde RN.DISPOSITION / DISCHARGE Condition at departure: improved. No learning barriers present. Discharge instructions provided and 4 Clinical Report - Nurses [facility] Department [address] [place] [address] Phone #: ext- [phone] 01/26/2021 12:52 Patient: [...] rce(s) Supporting Document(s) ID Date Data Source [id number] 01/26/2021 12:56:00 PM EDT [facility] 1 Clinical Report - Physicians/Mid Levels [facility] Emergency Department [address] [place] [address] Phone #: ext- [phone] 01/26/2021 12:52 Patient: [...] needed. 2 Clinical Report - Physicians/Mid Levels [facility] Department [address] [place] [address] Phone #: ext- [phone] 01/26/2021 12:52 Patient: KERVIN MCMAHAN Sex: F : 1990 Age: 30y Allergies: Ciprofloxacin. Flagyl.SOCIAL HISTORYNever smoker. Occasional alcohol use. No drug use.ADDITIONAL NOTESThe nursing notes have been reviewed.PHYSICAL EXAMVital Signs: 01/26/2021 13:01 BP: 113/71. MAP: 85. HR: 63. RR: 16. O2 saturation: 99% on room air.Temp: 97.1 F. Pain level now: 02/08. Have been reviewed. Oxygen saturation normal.Appearance: Alert. [...] sounds normal.Back: Normal inspection. No CVA tenderness.Rectal: Hand Loom Weaver present (lorri). Moderately tender digital exam. Inflamed [...] 7.0) 3 Clinical Report - Physicians/Mid Levels [facility] Department [address] [place] [address] Phone #: ext- [phone] 01/26/2021 12:52 Patient: KERVIN MCMAHAN [facility]#: [id number] Sex: F : 1990 Age: 30y BASO [...] MORPH NOT INDICATEDPT/INR: (GRADY: 01/26/2021 13:30) ( [facility] 01/26/[facility]21 14:42) Final results Test Result Flag Units (Reference) PROTIME 13.1 SECONDS (11.0 - 15.5) INR 0.98 (0.93 - 1.23) \\BLDo\\INR INTERPRETATION\\BLDx\\ Therapeutic range for Coumadin andrelated oral anticoagulants. -International Normalized Ratio (INR): 2.0 - 3.0 for VenousThrombosis, Pulmonary Embolus, Tissue heart valves, Acute NC, Atrial Fibrillation, Valvular heartdisease and recurrent Systemic Embolism. - International Normalized Ratio (INR): 2.5 - 3.5for Mechanical P rosthetic valve.PTT: (GRADY: 01/26/2021 13:30) ( [facility] 01/26/2021 14:42) Final results Test Result Flag Units (Reference) PTT 25.7 SECONDS (24.8 - 36.7)Urinalysis: (GRADY: 01/26/2021 13:25) ( [facility] 01/26/2021 14:28) Final results Test Result Flag [...] NEBeta-HCG, Qual Serum: (GRADY: 01/26/2021 13:30) ( [facility] 01/26/2021 14:43) Final results Test Result Flag Units (Reference) HCG SERUM QUAL NEGATIVE (NORMAL: NEGAT HCG SERUM QL REENTER NEGATIVE (NORMAL: NEGAT { KIT LOT # [id number] ){ KIT EXP DATE07/01/22 ){ PROCEDURAL CONTROL VALID) 4 Clinical Report - Physicians/Mid Levels [facility] Emergency Department [address] [place] [address] Phone #: ext- [phone] 01/26/2021 12:52 Patient: KERVIN MCMAHAN Sex: F : 1990 Age: 30y Occult Blood Stool Diagnostic 1 slide: (GRADY: 01/26/2021 13:10) ( [facility] 01/26/2021 13:30) Final results Test Result Flag Units (Reference) OCCULT BLOOD POSITIVE A (NORMAL: NEGAT OCCULT BLOOD REENTER POSITIVE A (NORMAL: NEGAT { HEMOCCULT LOT # [id number] ){ LOT EXP DATE 12/21 ){ PROCEDURAL [...] -- 5 Clinical Report - Physicians/Mid Levels [facility] Emergency Department [address] [place] [address] Phone #: ext- [phone] 01/26/2021 12:52 [id number] Sex: F : 1990 Age: 30y to the external hemorrhoid. Dispense 30 gram. Refills: 0. Substitution permitted. Pharmacy - [facility] [address] [place] [address] ; [place] [address]. . ondansetron 4 mg disintegrating tablet Take 1 tablet three times a day for 3 days -- prn nausea/vomiting. Dispense 9 tablet. Refills: 0. Substitution permitted. Pharmacy - [facility] [place] [address] ; [place] [address]. . Follow-up: Follow up with your healthcare provider in three days if not better. Reason for referral: evaluation and treatment. Summary of care provided to patient via paper.(Electronically signed by Shyanne Spear 01/26/2021 22:16) Name Value Range Interpretation Code Description Data [facility](s) Supporting Document(s) ID Date Data Source [id number] 01/26/2021 02:42:00 PM EDT [facility] Name Value Range Interpretation Code Description Data [facility]) Supporting Document(s) aPTT in Blood by Coagulation assay 25.7 SECONDS 24.8 - 36.7 [facility] ID Date Data Source [id number] 01/26/2021 02:41:00 PM EDT [facility] Name Value Range Interpretation Code Description Data [facility](s) Supporting Document(s) Prothrombin time (PT) 13.1 SECONDS 11.0 - 15.5 [facility] INR in Platelet poor plasma by Coagulation assay 0.98 0.93 - 1. 23 [facility] \\BLDo\\INR INTERPRETATION\\BLDx\\ Therapeutic range for Coumadin and related oral anticoagulants. - International Normalized Ratio (INR): 2.0 - 3.0 for Venous Thrombosis, Pulmonary Embolus, Tissue heart valves, Acute NC, Atrial Fibrillation, Valvular heart disease and recurrent Systemic Embolism. -International Normalized Ratio (INR): 2.5 - 3.5 for Mechanical Prosthetic valve. ID Date Data Source [id number] 01/26/2021 02:27:00 PM EDT [facility] Name Value Range Interpretation Code Description Data Ale rce(s) Supporting Document(s) CBC W/AUTOMATED DIFF [facility] COMPLETE BLOOD COUNT Leukocytes [#/volume] in Blood by Automated count 9.8 10^3/uL 4.2 - 1 1.0 [facility] Erythrocytes [#/volume] in Blood by Automated count 4.68 10^6/uL 4. 20 - 5.40 [facility] Hemoglobin [Mass/volume] in Blood 13.4 g/dL 12.0 - 16.0 [facility] Hematocrit [Volume Fraction] of Blood by Automated count 39.8 % 3 7.0 - 47.0 [facility] Erythrocyte mean corpuscular volume [Entitic volume] by Auto mated count 85.0 fL 81.0 - 101 [facility] Erythrocyte mean corpuscular hemoglobin [Entitic mass] by Automated count 28.6 pg 27.0 - 34.0 [facility] Erythrocyte mean corpuscular hemoglobin concentration [Mass/volume] by Automated count 33.7 g/dL 31.0 - 36.0 [facility] Erythrocyte distribution width [Ratio] by Automated count 13.2 % 11.5 - 14.5 [facility] Platelets [#/volume] in Blood by Automated count 391 10^3/uL 150 - 45 0 [facility] Platelet mean volume [Entitic volume] in Blood by Automated count 9.6 fL 7.4 - 10.4 [facility] Neutrophils/100 leukocytes in Blood by Automated count 47.1 % 37. 0 - 80.0 [facility] Lymphocytes/100 leukocytes in Blood by Manual count 27.6 % 25.0 - 40.0 [facility] Monocytes/100 leukocytes in Blood by Automated count 5.2 % 3.0 - 8.0 [facility] Eosinophils/100 leukocytes in Blood by Automated count 19.3 % 0.0 - 7.0 [facility] Basophils/100 leukocytes in Blood by Automated count 0.5 % 0.0 - 2.5 [facility] %IG 0.3 % 0.0 - 0.0 [facility] %NRBC 0.0 % 0.0 - 0.0 [facility] al Neutrophils [#/volume] in Blood by Automated count 4.62 10^3/uL 2.00 - 6.90 [facility] Lymphocytes [#/volume] in Blood by Automated count 2.70 10^3/uL 0.60 - 3.40 [facility] Monocytes [#/volume] in Blood by Automated count 0.51 10^3/uL 0.00 - 0.90 [facility] Eosinophils [#/volume] in Blood by Automated count 1.89 10^3/uL 0.00 - 0.70 [facility] Basophils [#/volume] in Blood by Automated count 0.05 10^3/uL 0.00 - 0.20 [facility] #IG 0.03 10^3/uL 0.00 - 0.10 [facility] ospital #NRBC 0.00 10^3/uL 0.00 - 0.00 [facility] ospital MANUAL DIFF NOT INDICATED [facility] RBC MORPH NOT INDICATED [facility] spital ID Date Data Source [id number] 01/26/2021 03:23:00 PM EDT [facility] Name Value Range Interpretation Code Description Data Ale rce(s) Supporting Document(s) ABO group [Type] in Blood A [facility] Rh [Type] in Blood POSITIVE [facility] AB SCREEN NEGATIVE NORMAL: NEGATIVE [facility] { ABO/RH REENTER A POSITIVE{ AB SCREEN RE-ENTER NEGATIVE ID Date Data Source [id number] 01/26/2021 02:48:00 PM EDT [facility] Name Value Range Interpretation Code Description Data Ale rce(s) Supporting Document(s) COMPREHENSIVE METABOLIC PANEL [facility] COMPREHENSIVE METABOLIC PANEL Sodium [Moles/volume] in Serum or Plasma 138 mEq/L 134 - 153 [facility] Potassium [Moles/volume] in Serum or Plasma 4.1 mEq/L 3.6 - 5.0 [facility] Chloride [Moles/volume] in Serum or Plasma 104 mEq/L 98 - 107 [facility] Carbon dioxide, total [Moles/volume] in Serum or Plasma 24 MEQ/L 22 - 30 [facility] Glucose [Mass/volume] in Serum or Plasma 98 MG/DL 70 - 99 [facility] BUN 10 MG/DL 7 - 21 [facility] Creatinine [Mass/volume] in Serum or Plasma 0.9 MG/DL 0.7 - 1.5 [facility] BUN/CREAT 11 8 - 27 [facility] al Protein [Mass/volume] in Serum or Plasma 7.6 G/DL 6.3 - 8.2 [facility] Albumin [Mass/volume] in Serum or Plasma 4.2 G/DL 3.9 - 5.0 [facility] Globulin [Mass/volume] in Serum by calculation 3.4 GM/DL 2.4 - 3.2 H [facility] A/G RATIO 1.2 0.8 - 2.0 [facility] Calcium [Mass/volume] in Serum or Plasma 9.6 MG/DL 8.4 - 10.2 [facility] Bilirubin.total [Mass/volume] in Serum or Plasma <0.7 MG/DL 0.2 - 1.3 [facility] Alkaline phosphatase [Enzymatic activity/volume] in Serum or Plasma 100 U/L 38 - 126 [facility] Aspartate aminotransferase [Enzymatic activity/volume] in Serum or Plasma 23 U/L 5 - 40 [facility] Alanine aminotransferase [Enzymatic activity/volume] in Seru m or Plasma 23 U/L 7 - 56 [facility] Anion gap 3 in Serum or Plasma 10.0 mmol/L 8.0 - 16.0 [facility] AGE 30 yrs [facility] al NON-AA GFR >60 mL/min [facility] ital AFR AMER GFR >60 mL/min [facility] spital Male GFR In terprentation [...] >32 mL/min Normal ID Date Data Source [id number] 01/26/2021 02:43:00 PM EDT [facility] Name Value Range Interpretation Code Description Data Ale rce(s) Supporting Document(s) HCG SERUM QUAL NEGATIVE NORMAL: NEGATIVE [facility] HCG SERUM QL REENTER NEGATIVE NORMAL: NEGATIVE [facility] { KIT LOT # [id number] ){ KIT EXP DATE 07/01/22 ){ PROCEDURAL CONTROL VALID ) ID Date Data Source [id number] 01/26/2021 02:27:00 PM EDT [facility] Name Value Range Interpretation Code Description Data Ale rce(s) Supporting Document(s) [facility]IS [facility] SOURCE R [facility] COLOR yellow NORMAL: Yellow [facility]sp[facility] CLARITY clear NORMAL: Clear [facility] spital Specific gravity of Urine by Test strip 1.010 1.001 - 1.030 [facility] pH 7 5 - 9 [facility] Glucose [Mass/volume] in Urine by Test strip NORM [facility]AL[facility] Bilirubin.total [Presence] in Urine by Test strip NEG NORMAL: Negative [facility] Ketones [Presence] in Urine by Test strip NEG NORMAL: Negative [facility] Protein [Mass/volume] in Urine by Test strip NEG [facility]ORMAL[facility] Nitrite [Presence] in Urine by Test strip NEG NORMAL: Negative [facility] BLOOD 250 NORMAL: Negative [facility] LEUK EST NEG NORMAL: Negative [facility] Urobilinogen [Mass/volume] in Urine by Test strip NOR less susi n 1.0 mg/dL [facility] MICROSCOPIC See Below [facility] ital WBC 1 - 3 NORMAL: NONE SEEN [facility] Erythrocytes [#/volume] in Urine by Test strip 0 - 1 NORMAL: NON E SEEN [facility] EPITHELIAL FEW NORMAL: NONE SEEN [facility] Hospital ID Date Data Source [id number] 01/26/2021 01:27:00 PM EDT [facility] Name Value Range Interpretation Code Description Data Ale rce(s) Supporting Document(s) OCCULT BLOOD POSITIVE NORMAL: NEGATIVE A [facility] OCCULT BLOOD REENTER POSITIVE NORMAL: NEGATIVE A [facility] { HEMOCCULT LOT # [id number] ){ LOT EXP DATE 12/21 ){ PROCEDURAL CONTROL POS/NEG VALID ) ID Date Data Source [id number] 01/13/2021 10:40:00 AM EDT [facility] [address] [place] [address] PHONE: [phone] FAX: [phone] Name .................. : MARJ GALEANA Acct Number.................. : [id number] ROOM. ................. : [facility] MR Number ................... : [id number] Stay type ............. : E/R Discharge Date......... ... : 01/11/21 Admit Date ......... : 01/11/21 Admit Phys .................... : LUIS MANUEL Colon Date of ....... : 1990 Family Phys ................... : Phone .................. : [phone] Age ................................ : 30 Film# .................. .:[id number] Sex ................................. : F Unsigned transcriptions are preliminary reports and do not represent a medical or legal document CT ABD & PELV W/O ORAL W/O IV [id number] COMPLETE:01/11/21 17:06 [facility] [id number] Reason(s): flank pain and UTI. ? renal [...] 11:23, Dictation Date: Page 1 of 2 [place] [address] PHONE: [phone] FAX: [phone] Name .................. : MARJ GALEANA Acct Number.................. : [id number] ROOM. ................. : TR-1A MR Number ................... : [id number] Stay type ............. : E/R Discharge Date......... ... : 01/11/21 Admit Date ......... : 01/11/21 Admit Phys .................... : LUIS MANUEL Colon Date of ....... : 1990 Family Phys ................... : Phone .................. : [phone] Age ................................ : 30 Film# .................. .:[id number] Sex ................................. : F Unsigned transcriptions are preliminary reports and do not represent a medical or legal document CT ABD & PELV W/O ORAL W/O IV [id number] COMPLETE:01/11/21 17:06 [facility] [id number] Reason(s): flank pain and UTI. ? renal stone Copy for: CHRIS VELARDE via fax Copy for: EMERGENCY DEPT via [place] Copy for: 710 MED REC DISCHARGED Page 2 of 2 Name Value Range Interpretation Code Description Data Ale rce(s) Supporting Document(s) ID Date Data Source [id number] 01/11/2021 02:32:00 PM EDT [facility] 1 OrderSheet [facility] Emergency Department [address] [place] [address] Phone #: ext- [phone] 01/11/2021 14:31 Patient: KERVIN MCMAHAN Sex: F : 1990 Age: 30yWEIGHT:92.0 kg (S) HEIGHT:68 inches (S) BMI:30.8ALLERGIES: Ciprofloxacin, FlagylCHIEF COMPLAINT: flank painDIAGNOSIS: Urinary tract infectious disease, Cyst of ovaryLAB ORDERSOrder Description Priority Entered Acknowledged InitialedUrinalysis (Clean STAT 14:47 01/11/2021 14:47 Wendy Peguero) Marian PegueroN. RJasonNJason; Per protocol; Reno Reynaga Urine Qual STAT 14:54 01/11/2021 14:54 Syd Velarde Lisa RN; Kimmy CARRIZALES Verbal order per; Angel MILESBC w Diff STAT 15:12 01/11/2021 15:20 Tristen [...] Tristen Glynn-CCulture, Urine STAT 15:12 01/11/2021 15:20 Syd(Urine, Clean Tristen Oneal RNCatch) P.A.-C; Reason for ordering with alerts: Clinical consideration given -- 15:12 01/11/2021 Tristen Glynn-CLactic Acid STAT 15:12 01/11/2021 15:20 Tristen Velarde RN 2 OrderSheet [facility] Emergency Department [address] [place] [address] Phone #: ext- [phone] 01/11/2021 14:31 Patient: KERVIN MCMAHAN Sex: F : 1990 Age: 30y P.A.-C; Reason for ordering with alerts: Clinical consideration given -- 15:12 01/11/2021 Tristen Glynn-CDIAGNOSTIC STUDY ORDERSOrder Description Priority Entered Acknowledged InitialedCT ABD PEL W/O STAT 16:33 01/11/2021 16:36 Sdy,Oral W/O IV Tristen Oneal RNContrast P.A.- C;(Oxygen?(No))(IV?(Yes)) [...] 17:09 01/11/2021 17:17 Syd,(1gm/50mL) IVPB Tristen Oneal [id number] mg with P.Yolanda-C;Dextrose 50 mlspike bag (D5W)GENERAL ORDERSOrder Description Priority Entered Acknowledged InitialedNPO 15:12 01/11/2021 15:20 Tristen Velarde RN P.A.-C; Reason for ordering with alerts: Clinical consideration given -- 15:01/11/2021 Tristen Oropeza P.A.-C 3 OrderSheet [facility] Emergency Department [address] [place] [address] Phone #: ext- [phone] 01/11/2021 14:31 Patient: KERVIN MCMAHAN Sex: F : 1990 Age: 30ySaline Lock 15:12 01/11/2021 15:41 Tristen Velarde RN P.A.-C; Reason for ordering with alerts: Clinical consideration given -- 15:01/11/2021 Tristen Oropeza P.A.-C[Electronically signed by Kimmy Velarde RN (18:01/11/2021)][Electronically signed by Tristen Oropeza P.A.-C (20:12 01/11/2021)][Electronically locked by Kimmy Velarde RN (18:01/11/2021)] Name Value Range Interpretation Code Description Data Ale rce(s) Supporting Document(s) ID Date Data Source [id number] 01/11/2021 02:32:00 PM EDT [facility] 1 Medication Reconciliation Report [facility] Emergency Department [address] [place] [address] Phone #: qcr- [phone] 01/11/2021 14:31 Patient: KERVIN MCMAHAN Sex: F [...] 15:41 01/11/2021Zofran [IVP] IVP 4 mg, administered: 15:41 01/11/2021Tylenol [PO] PO 1000 mg, administered: 15:41 01/11/2021OCEPHIN (1GM/50ML) [IVPB] IVPB bolus 0, then 1 gm 100 mL/hr, administered: 17:17 01/11/2021The following Medications were prescribed to the patient:cephalexin 500 mg capsule Take 1 capsule three times a day for 7 days -- Dispense 21 capsule.Refills: 0. Substitution permitted. 2 Medication Reconciliation Report [facility] Emergency Department [address] [place] [address] Phone #: ext- [phone] 01/11/2021 14:31 Patient: KERVIN MCMAHAN Sex: F : 1990 Age: 30yPharmacy - [facility] [address] [facility] [employer] - [address] [facility] ; [place] [address]. [phone] . -- Tristen Oropeza P.A.-C Name Value Range Interpretation Code Description Data Ale rce(s) Supporting Document(s) ID Date Data Source [id number] 01/11/2021 02:32:00 PM EDT [facility] 1 Medication Administration Record [facility] Emergency Department [address] [place] [address] Phone #: ext- [phone] 01/11/2021 14:31 Patient: KERVIN MCMAHAN Sex: F : 1990 Age: 30yWeight: 92.0 kgHeight/Length: 68 inBMI: 30.8ALLERGIES: Flagyl, Ciprofloxacin Date/Time Medication Administered Medication OrderedStart NS [IV] NS IV : Bolus 500 mL, then 49459:01/11/2021 Dose: IV Fluids mL/hrKimmy Velarde RN Rate: [...] 01/11/2021 Dose: 1000 mg PO (NOW x1)Kimmy Velarde, RNStart ROCEPHIN (1GM/50ML) [IVPB] Rocephin (1gm/50mL) IVPB 200788:17 01/11/2021 (CEFTRIAXONE SODIUM) mg with Dextrose 50 ml spike Kimmy Garzon RN Dose: 1 gm IVPB (D5W)---- Rate: 100 mL/hr over 30 minute(s)Stop Dispensed: 50 mL bag17:45 01/11/2021 Site: #1 right Kimmy Villegas RN Name Value Range Interpretation Code Description Data Ale rce(s) Supporting Document(s) ID Date Data Source [id number] 01/11/2021 02:32:00 PM EDT [facility] 1 General Instructions [facility] Emergency Department [address] [place] [address] Phone #: ext- [phone] 01/11/2021 14:31 Patient: [...] Dispense 21 capsule.Refills: 0. Substitution permitted.Pharmacy - [facility] [address] [place] - [address] [facility] ; [place] [address]. .Follow-up:Return to the emergency department as needed. Follow up with your healthcare provider in about twodays if not better. Call for an appointment.Understanding of the discharge instructions verbalized by patient. ADDITIONAL INFORMATIONBladder Infection, Female (Adult) 2 General Instructions [facility] Emergency Department [address] [place] [address] Phone #: ext- [phone] 01/11/2021 14:31 Patient: [...] Urgent need to urinate 3 General Instructions [facility] Emergency Department [address] [place] [address] Phone #: [phone]- [phone] 01/11/2021 14:31 Patient: KERVIN MCMAHAN Sex: F [...] a diaphragm for controlTreatment 4 General Instructions [facility] Emergency Department [address] [place] [address] Phone #: ext- [phone] 01/11/2021 14:31 Patient: [...] your healthcare provider.Follow-up care 5 General Instructions [facility] Emergency Department [address] [place] [address] Phone #: ext- [phone] 01/11/2021 14:31 Patient: [...] if the results will affect your treatment.Call [phone] if any of the following occur: Trouble [...] swelling in the outer vaginal area (labia) [phone] [employer]. [address] [place] [address]. All rights reserved. This information is not intended as asubstitute for professional medical care. Always follow your healthcare professional's instructions.Ovarian Cysts 6 General Instructions [facility] Emergency Department [address] [place] [address] Phone #: ext- [phone] 01/11/2021 14:31 Patient: [...] pain, your healthcare provider may recommend using fdlk-xnw-llifrxb pain medicine. If needed, your provide may [...] provider, or as advised. 7 General Instructions [facility] Emergency Department [address] [place] [address] Phone #: ext- [phone] 01/11/2021 14:31 [id number] Sex: F D OB: 1990 Age: 30yWhen to seek medical adviceCall your healthcare provider right away if any of these occur: Pain worsens or fails to get better with home treatment Fever of 100.4F (38C) or higher (or other fever amount directed by your healthcare provider) Nausea and vomiting Weakness, dizziness, or fainting Abnormal vaginal bleeding [phone] [employer]. [address] [place] [address]. All rights reserved. This information is not [...] worsening of your condition. 8 General Instructions [facility] Emergency Department [address] [place] [address] Phone #: ext- [phone] 01/11/2021 14:31 Patient: KERVIN MCMAHAN Sex: F : 1990 Age: 30yGeneral careYour healthcare provider may advise a number of ways to help manage your pain. These can include: Taking lqov-axp-wbftfqn pain medicine. Stronger pain medicine may also [...] Abnormal vaginal bleeding (especially bleeding after menopause) [phone] [employer] [place] [address], [place] [address]. All rights reserved. This information is not intended as asubstitute for professional medical care. Always follow your healthcare professional's instructions. You have been given the following additional information: Bladder Infection, Female (Adult) Ovarian Cyst Pelvic Pain, Unknown Cause 9 General Instructions [facility] Emergency Department [address] [place] [address] Phone #: [phone]- [phone] 01/11/2021 14:31 Patient: KERVIN MCMAHAN Sex: F : 1990 Age: 30y(Electronically signed by Tristen Oropeza P.A.-C 01/11/2021 20:12) Name Value Range Interpretation Code Description Data Ale rce(s) Supporting Document(s) ID Date Data Source [id number] 01/11/2021 02:32:00 PM EDT [facility] 1 Clinical Report - Nurses [facility] Emergency Department [address] [place] [address] Phone #: ext- [phone] 01/11/2021 14:31 Patient: [...] back normal. She was told to go [facility] ER for further testing.). No abnormal bleeding or fever.Treatment ENVIRONMENTAL HEALTH AND SAFETY MANAGER:Seen within the last 24 hours at another [...] Peguero R.N. 2 Clinical Report - Nurses [facility] Emergency Department [address] [place] [address] Phone #: ext- [phone] 01/11/2021 14:31 Patient: [...] are pink. 3 Clinical Report - Nurses [facility] Emergency Department [address] [place] [address] Phone #: ext- [phone] 01/11/2021 14:31 Patient: KERVIN MCMAHAN Sex: F [...] --15:41 01/11/21 Kimmy Velarde RN 15:41 01/11/2021 Tylenol (APAP) PO 1000 mg given. Allergies verified and confirmed 5 rights. Information reviewed with patient including reason for taking this medication. Verbalizes understanding. --15:41 01/11/21 Kimmy Velarde RN 16:03 01/11/21. BP: 125/76. MAP: 92. HR: 91. RR: 16. O2 saturation: 99%. --16:03 01/11/21 [place] bibliographic services specialist, [employer] Tech1 16:45 01/11/21. BP: 107/61. MAP: 76. HR: 85. RR: 16. O2 saturation: 96%. --16:45 01/11/21 [place] bibliographic services specialist, Lorri, Tech1 ( amb to bathroom without problems). --16:51 01/11/21 Kimmy Velarde RN Patient transported to [place] by wheelchair with associate professor of radiology. --16:54 01/11/21 Kimmy Velarde RN 17:17 01/11/2021 [...] Velarde RN 4 Clinical Report - Nurses [facility] Emergency Department [address] [place] [address] Phone #: ext- [phone] 01/11/2021 14:31 Patient: [id number] Sex: F : 1990 Age: 30y 17:45 [...] F. Pain level now: 10/09. --17:51 01/11/21 [facility] Tech1 Departure time: 17:59 01/11/2021. --17:59 01/11/21 Kimmy Velarde RN Condition at departure: improved and stable. No learning barriers present. Discharge instructions provided and reviewed with the patient. Reviewed medication(s) side effects, precautions, dosing and course information. Prescription(s) sent electronically to pharmacy. Reviewed referrals. Verbalized understanding. Written instructions provided. The patient was discharged by the physician clinical assistant. She was discharged home and accompanied by spouse. She left ambulatory and via private vehicle. Spouse driving. --18:00 01/11/21 Kimmy Velarde RN 17:55 01/11/2021 Site #1 removed upon discharge. Pressure dressing applied. --18:00 01/11/21 Kimmy Velarde RN.Locked/Released at 01/11/2021 18:03 by Kimmy Velarde RN Name Value Range Interpretation Code Description Data Ale rce(s) Supporting Document(s) ID Date Data Source [id number] 01/11/2021 02:32:00 PM EDT [facility] 1 Clinical Report - Physicians/Mid Levels [facility] Emergency Department [address] [place] [address] Phone #: ext- [phone] 01/11/2021 14:31 Patient: KERVIN MCMAHAN Sex: F [...] needed. 2 Clinical Report - Physicians/Mid Levels [facility] Emergency Department [address] [place] [address] Phone #: ext- [phone] 01/11/2021 14:31 Patient: [id number] Sex: F : 1990 Age: 30y Omeprazole [...] house Terence - 01/11/2021 5:23:01 PMno calcs/hydro arvindChantel betancur Terence - 01/11/2021 5:22:42 PM 3 Clinical Report - Physicians/Mid Levels [facility] Emergency Department [address] [place] [address] Phone #: ext- [phone] 01/11/2021 14:31 Patient: KERVIN MCMAHAN Sex: F : 1990 Age: 30yVery small fat-containing umbilical hernia. 2.4 cm cyst/follicle of the left ovary. Otherwise, no acute disease.The study was interpreted by the radiologist.Laboratory Tests:CT ABD PEL W/O Oral W/O IV Contrast: (GRADY: 01/11/2021 16:33) ( MsgRcvd 01/11/2021 17:06) InProgressCT ABDReason(s): flank pain and [...] 3.2) 4 Clinical Report - Physicians/Mid Levels [facility] Emergency Department [address] [place] [address] Phone #: ext- [phone] 01/11/2021 14:31 Patient: [...] Male GFR Interprentation 20-49 yrs >60 mL/min Nvftjs30-59 yrs >56 mL/min Normal 60-69 yrs >49 mL/min Normal 70-79yrs>42 mL/min Normal 80 and above >35 mL/min Normal Female GFRInterpretation 20-39 yrs >60 mL/min Normal 40-49 yrs >58 mL/minNormal 50-59 yrs >51 mL/min Normal 60-69 yrs >45 mL/min Jxfkhh47-04 yrs >39 mL/min Normal 80 and above >32 mL/min NormalLipase: (GRADY: 01/11/2021 15:25) ( [facility] 01/11/[facility]21 15:52) Final results Test Result Flag Units (Reference) LIPASE 35 U/L (13 - 60)Culture, Urine: (GRADY: 01/11/2021 15:12) ( [facility] 01/11/2021 15:28) CanceledSOURCE: Urine, Clean CatchLactic Acid: (GRADY: 01/11/2021 15:25) ( [facility] 01/11/2021 15:37) Final results Test Result Flag Units (Reference) LACTIC ACID 1.4 MMOL/L (0.2 - 2.2)Beta-HCG, Qual Urine: (GRADY: 01/11/2021 14:40) ( [facility] 01/11/2021 15:07) Final results Test Result Flag Units (Reference) HCG URINE QUAL NEGATIVE (NORMAL: NEGAT HCG URINE QL REENTER NEGATIVE (NORMAL: NEGAT { KIT LOT # [id number] ){ KIT EXP [id number] ){ PROCEDURAL CONTROL VALID)Urinalysis: (GRADY: 01/11/2021 14:40) ( [facility] 01/11/2021 15:04) Final results Test Result Flag [...] 1.0 5 Clinical Report - Physicians/Mid Levels [facility] Emergency Department [address] [place] [address] Phone #: ext- [phone] 01/11/2021 14:31 Patient: [id number] Sex: F : 1990 Age: 30y MICROSCOPIC [...] of F/U/D. Pt has takend Azo. PE zoniaos NV itnact b/l UE and LE. Noted [...] cyst. 6 Clinical Report - Physicians/Mid Levels [facility] Emergency Department [address] [place] [address] Phone #: ext- [phone] 01/11/2021 14:31 Patient: KERVIN MCMAHAN Sex: F : 1990 Age: 30yINSTRUCTIONS Take [...] capsule. Refills: 0. Substitution permitted. Pharmacy - [facility] [address] [facility] - [address] [place] [address] ; [place] [address]. . Follow-up: Return to the emergency department as needed. Follow up with your healthcare provider in about two days if not better. Call for an appointment. Understanding of the discharge instructions verbalized by patient.(Electronically signed by Tristen Oropeza P.A.-C 01/11/2021 20:12) Name Value Range Interpretation Code Description Data Ale rce(s) Supporting Document(s) ID Date Data Source [id number] 01/11/2021 03:37:00 PM EDT [facility] Name Value Range Interpretation Code Description Data Ale rce(s) Supporting Document(s) Lactate [Moles/volume] in Serum or Plasma 1.4 MMOL/L 0.2 - 2.2 [facility] ID Date Data Source [id number] 01/11/2021 03:59:00 PM EDT [facility] Name Value Range Interpretation Code Description Data Ale rce(s) Supporting Document(s) COMPREHENSIVE METABOLIC PANEL [facility] COMPREHENSIVE METABOLIC PANEL Sodium [Moles/volume] in Serum or Plasma 138 mEq/L 134 - 153 [facility] Potassium [Moles/volume] in Serum or Plasma 3.9 mEq/L 3.6 - 5.0 [facility] Chloride [Moles/volume] in Serum or Plasma 106 mEq/L 98 - 107 [facility] Carbon dioxide, total [Moles/volume] in Serum or Plasma 22 MEQ/L 22 - 30 [facility] Glucose [Mass/volume] in Serum or Plasma 106 MG/DL 70 - 99 H [facility] BUN 12 MG/DL 7 - 21 [facility] al Creatinine [Mass/volume] in Serum or Plasma 0.8 MG/DL 0.7 - 1.5 [facility] BUN/CREAT 15 8 - 27 [facility] al Protein [Mass/volume] in Serum or Plasma 6.8 G/DL 6.3 - 8.2 [facility] Albumin [Mass/volume] in Serum or Plasma 4.1 G/DL 3.9 - 5.0 [facility] Globulin [Mass/volume] in Serum by calculation 2.7 GM/DL 2.4 - 3.2 [facility] A/G RATIO 1.5 0.8 - 2.0 [facility] Calcium [Mass/volume] in Serum or Plasma 9.2 MG/DL 8.4 - 10.2 [facility] Bilirubin.total [Mass/volume] in Serum or Plasma <0.7 MG/DL 0.2 - 1.3 [facility] Alkaline phosphatase [Enzymatic activity/volume] in Serum or Plasma 90 U/L 38 - 126 [facility] Aspartate aminotransferase [Enzymatic activity/volume] in Serum or Plasma 17 U/L 5 - 40 [facility] Alanine aminotransferase [Enzymatic activity/volume] in Seru m or Plasma 19 U/L 7 - 56 [facility] Anion gap 3 in Serum or Plasma 10.0 mmol/L 8.0 - 16.0 [facility] AGE 30 yrs [facility] NON-AA GFR >60 mL/min [facility] AFR AMER GFR >60 mL/min [facility] Male GFR In terprentation [...] >32 mL/min Normal ID Date Data Source [id number] 01/11/2021 03:52:00 PM EDT [facility] Name Value Range Interpretation Code Description Data Ale rce(s) Supporting Document(s) Lipase [Enzymatic activity/volume] in Serum or Plasma 35 U/L 13 - 60 [facility] ID Date Data Source [id number] 01/11/2021 03:37:00 PM EDT [facility] Name Value Range Interpretation Code Description Data Ale rce(s) Supporting Document(s) CBC W/AUTOMATED DIFF [facility] COMPLETE BLOOD COUNT Leukocytes [#/volume] in Blood by Automated count 10.4 10^3/uL 4.2 - 11.0 [facility] Erythrocytes [#/volume] in Blood by Automated count 4.61 10^6/uL 4. 20 - 5.40 [facility] Hemoglobin [Mass/volume] in Blood 13.4 g/dL 12.0 - 16.0 [facility] Hematocrit [Volume Fraction] of Blood by Automated count 39.6 % 3 7.0 - 47.0 [facility] Erythrocyte mean corpuscular volume [Entitic volume] by Auto mated count 85.9 fL 81.0 - 101 [facility] Erythrocyte mean corpuscular hemoglobin [Entitic mass] by Automated count 29.1 pg 27.0 - 34.0 [facility] Erythrocyte mean corpuscular hemoglobin concentration [Mass/volume] by Automated count 33.8 g/dL 31.0 - 36.0 [facility] Erythrocyte distribution width [Ratio] by Automated count 13.3 % 11.5 - 14.5 [facility] Platelets [#/volume] in Blood by Automated count 369 10^3/uL 150 - 45 0 [facility] Platelet mean volume [Entitic volume] in Blood by Automated count 9.8 fL 7.4 - 10.4 [facility] Neutrophils/100 leukocytes in Blood by Automated count 56.2 % 37. 0 - 80.0 [facility] Lymphocytes/100 leukocytes in Blood by Manual count 26.7 % 25.0 - 40.0 [facility] Monocytes/100 leukocytes in Blood by Automated count 4.4 % 3.0 - 8.0 [facility] Eosinophils/100 leukocytes in Blood by Automated count 12.0 % 0.0 - 7.0 H [facility] Basophils/100 leukocytes in Blood by Automated count 0.4 % 0.0 - 2.5 [facility] %IG 0.3 % 0.0 - 0.0 [facility]BC 0.0 % 0.0 - 0.0 [facility] al Neutrophils [#/volume] in Blood by Automated count 5.82 10^3/uL 2.00 - 6.90 [facility] Lymphocytes [#/volume] in Blood by Automated count 2.76 10^3/uL 0.60 - 3.40 [facility] Monocytes [#/volume] in Blood by Automated count 0.46 10^3/uL 0.00 - 0.90 [facility] Eosinophils [#/volume] in Blood by Automated count 1.24 10^3/uL 0.00 - 0.70 H [facility] Basophils [#/volume] in Blood by Automated count 0.04 10^3/uL 0.00 - 0.20 [facility] #IG 0.03 10^3/uL 0.00 - 0.10 [facility] #NRBC 0.00 10^3/uL 0.00 - 0.00 [facility] MANUAL DIFF NOT INDICATED [facility] RBC MORPH NOT INDICATED [facility] ID Date Data Source [id number] 01/16/2021 01:05:00 PM EDT [facility] Name Value Range Interpretation Code Description Data Ale rce(s) Supporting Document(s) CULTURE URINE [facility] _CULTURE URINE_$$[id number]$$[id number]$$822577$$695196$$039440$$352922$$685713$$546936$$130606$$ 001252$$021916$$848678$$643489$$444182$$698955$$530455$$847555$$081351$$609924$$ 852745$$520137$$428307$$716057$$049956$$582964$$772663$$929273 -- Continued on next page --Patient: MARJ GALEANA Order: [id number] Page 2Culture: CULTURE URINE Status: Final ==== -- Continued on next page --Patient: MARJ GALEANA Order: [id number] Page 2Culture: CULTURE URINE Status: Prelim =====$$[id number]$$[id number] DATE/TIME: 01/16/2021 11:06Culture: CULTURE URINE Status: FinalIsolate 1 Enterococcus faecalis Flag: A . . . . . . .725,000-50,000 colony forming units per mL Previous result entered on 01/15/2021 05:52 ET Microbiological testing to rule out the presence of possible pathogensis in progress.Urine Culture,Comprehensive: B2Rncttykglffy faecalis Flag: APatient: MAJR GALEANA Order: [id number] Page 3Culture: CULTURE URINE Status: Final ISOLATE 1 Enterococcus faecalis Isolate 1Antibiotic ELBA IntUnits ug/mL Ciprofloxacin S S . . . . . .185-9Levofloxacin S S . . . . . .98471- 8Nitrofurantoin S S . . . . . .363-2Penicillin S S . . . . . .6932-8Tetracycline R R . . . . . .496-0Vancomycin S S . . . . . .524-9P1 Test performed by: [facility] #: [id number] [address] [place] [id number] [facility] [id number] Director : Sam Marte MD NPI #:Thermal Cutter Hand : 01/15/[email or web address].XMT.SENT REF 01/16/21.1305.XMT.SENT REF ID Date Data Source [id number] 01/11/2021 03:07:00 PM EDT [facility] Name Value Range Interpretation Code Description Data Ale rce(s) Supporting Document(s) HCG URINE QUAL NEGATIVE NORMAL: NEGATIVE [facility] HCG URINE QL REENTER NEGATIVE NORMAL: NEGATIVE [facility] { KIT LOT # [id number] ){ KIT EXP DATE 07-01-22 ){ PROCEDURAL CONTROL VALID ) ID Date Data Source [id number] 01/11/2021 03:01:00 PM EDT [facility] Name Value Range Interpretation Code Description Data Ale rce(s) Supporting Document(s) [facility] COLOR red NORMAL: Yellow [facility] CLARITY clear NORMAL: Clear [facility] Specific gravity of Urine by Test strip 1.020 1.001 - 1.030 [facility] pH 5 5 - 9 [facility] al Glucose [Mass/volume] in Urine by Test strip NORM NORMAL: [facility] Bilirubin.total [Presence] in Urine by Test strip 6 NORMAL: Negative [facility] Ketones [Presence] in Urine by Test strip NEG NORMAL: Negative [facility] Protein [Mass/volume] in Urine by Test strip 15 NORMAL: Negat [facility] Nitrite [Presence] in Urine by Test strip POS NORMAL: Negative [facility] BLOOD NEG NORMAL: Negative [facility] Leukocyte esterase [Presence] in Urine by Test strip NEG SACHIN L: Negative [facility] Urobilinogen [Mass/volume] in Urine by Test strip 8 less susi n 1.0 mg/dL [facility] MICROSCOPIC See Below [facility] ital WBC 0 - 1 NORMAL: NONE SEEN [facility] Erythrocytes [#/volume] in Urine by Test strip None Seen NORMAL: NON E SEEN [facility] EPITHELIAL MANY NORMAL: NONE SEEN A [facility] Bacteria [Presence] in Urine sediment by Light microscopy 1+ SMALL NORMAL: NONE SEEN [facility] ID Date Data Source LIPID PANEL (CARDIAC RISK) 12/17/2020 12:00:00 AM EDT [facility] ( [facility]) Name Value Range Interpretation Code Description Data Ale rce(s) Supporting Document(s) Triglyceride [Mass/volume] in Serum or Plasma by calculation 125 <150 TRIGLYCERIDES LEVEL eCW1 ([facility]) Cholesterol [Moles/volume] in Serum or Plasma 246 <200 CHOLESTEROL LEVEL [facility] ([facility]) Cholesterol in HDL [Moles/volume] in Serum or Plasma 49 >40 HDL CHOLESTEROL [facility] ([facility]) Cholesterol in LDL [Mass/volume] in Serum or Plasma by calculation 172 <100 LDL CHOLESTEROL eCW1 ([facility]) 197 NON-HDL-C eCW1 ([facility]) 5.020 <5 CHOLESTEROL RISK RATIO eCW1 ([facility]) ID Date Data Source HCG SERUM QUALITATIVE 12/17/2020 12:00:00 AM EDT eCW1 ([facility]) Name Value Range Interpretation Code Description Data Ale rce(s) Supporting Document(s) NEGATIVE NEGATIVE HCG, SERUM QUALITATIVE eC W1 ([facility]) ID Date Data Source FREE T4 & TSH PANEL 12/17/2020 12:00:00 AM EDT eCW1 ([facility]) Name Value Range Interpretation Code Description Data Ale rce(s) Supporting Document(s) 3.550 0.358-3.740 THYROID STIMULATING HORM ONE eCW1 ([facility]) 0.82 0.76-1.46 FREE T4 eCW1 ([facility]) ID Date Data Source URINE CULTURE 11/07/2020 12:00:00 AM EDT eCW1 ([facility]) Name Value Range Interpretation Code Description Data Ale rce(s) Supporting Document(s) URINE CULTURE eCW1 ([facility]) ID Date Data Source UA URINALYSIS 11/07/2020 12:00:00 AM EDT eCW1 ([facility]) Name Value Range Interpretation Code Description Data Ale rce(s) Supporting Document(s) UA URINALYSIS eCW1 ([facility]) ID Date Data Source GASTROINTESTINAL GI PANEL (GIPANEL) 10/03/2020 12:00:00 AM EST eCW1 ([facility]) Name Value Range Interpretation Code Description Data Ale rce(s) Supporting Document(s) This Gastrointestinal PCR Panel detects the following bacteria, GASTROINTESTINAL (GI) PANEL eCW1 ([facility]) ID Date Data Source PLZ SPINE LS W/BENDING 10/03/2020 12:00:00 AM EST eCW1 ([facility]) Name Value Range Interpretation Code Description Data Ale rce(s) Supporting Document(s) PLZ SPINE LS W/BENDING eCW1 ([facility]) ID Date Data Source [id number] 09/15/2020 10:40:00 AM EST [facility] PAGE: [address] [place] [address] [address] [place] [address] [facility] NUM: [id number] : 1990 Physician Discharge Report Clinical Report - [facility] [address] [place] [address] Patient: KERVIN MCMAHAN : F : 1990 [...] pain. No neck pain, dizziness, fainting PAGE: [address] [place], [place] [address] [facility] [address] NUM: [id number] : 1990 episodes, headache or difficulty with [...] sensory deficit. LABS, X-RAYS, AND EKG PAGE: [address] [place] [address] [address]IN [address] [facility] [address] [place] [address] REC NUM: [id number] [phone] : 1990 Laboratory Tests: EGFR (CALCULATED): (GRADY: 09/15/2020 11:40)( [facility] 09/15/2020 12:06) Final results Test Result Flag Units (Reference)ESTIMATED GFR (CALCULATED) EGFR 92 >59 mL/min/1.73m2 EGFR, -MALDIVIAN 107 >59 mL/min/1.33i9Ybtz: Persistent reduction for 3 months or more in an eGFR <60 mL/min/1.73m2 defines CKD. Patients with eGFR values >=60 mL/min/1.73m2 may also have CKD if evidence of persistent proteinuria is present. Additional information may be found at [email or web address]. CBC w Diff: (GRADY: 09/15/2020 11:40)( [facility] 09/15/2020 11:50) Final results Test Result Flag Units (Reference)WBC 14.5 H x10E3/uL (4.3-10.9) RBC 4.96 x10E6/uL (3.80-5.30) HEMOGLOBIN 14.2 g/dl (11.8-15.8) HEMATOCRIT 42.8 % (35.0-47.0) MCV 86.3 fl (82.0-98.0) MCH 28.6 pg (27.5- 33.5) MCHC 33.2 g/dl (32.0-36.0) RDW 14.5 % (11.5-14.5) PLATELET COUNT 407 H x10E3/uL (130-400) MPV 10.4 fl (8.6-12.6) SEGMENTED NEUTROPHILS 75.9 H % (44.0-74.0) PAGE: [address] [place] [address] , [place] [address] [facility] REC NUM: [id number] : 1990 LYMPHOCYTES 14.2 L % (15.0-45.0) MONOCYTES 4.5 % (2.0-13.0) EOSINOPHILS 5.2 % (0.0-6.0) BASOPHILS 0.2 % (0.0-2.0) NEUTROPHIL ABSOLUTE 11.0 H x10E3/uL (1.4-7.0) LYMPHOCYTES ABSOLUTE 2.1 x10E3/uL (1.0-3.4) MONOCYTE ABSOLUTE 0.7 x10E3/uL (0.2-1.0) EOSINOPHIL ABSOLUTE 0.8 H x10E3/uL (0.0-0.5) BASOPHIL ABSOLUTE 0.0 x10E3/uL (0.0-0.2) ELECTROCARDIOGRAM-EMERGENCY DEPT: (GRADY: 09/15/2020 11:15)( [facility] 09/15/2020 11:33) Canceled CT ABD & Pelvis w/o IV Contrast w/o Oral Contrast: (GRADY: 09/15/2020 11:15)( MsgRcvd 09/15/2020 13:33) Final results Exam [id number] -- CT OF THE ABDOMEN AND PELVIS""History:30-year-old [...] wasadministered for the exam.""C omparison: None""FINDINGS: PAGE: [address] [place] [address] [facility] REC NUM: [id number] : 1990 "&qu ot;Lower chest: The lung [...] INVOLVING THE TRANSVERSE COLON WITH SOME PAGE: [address] [place] [address] , [place] [address] [facility] REC NUM: [id number] : 1990 MURALEDEMA AND SLIGHT PERICOLONIC STRANDING""THE [...] (10-118) SGOT (AST) 15 U/l (3-40) PAGE: [address] [place] [address] REC NUM: [id number] : 1990 SGPT (ALT) 16 U/l (7-50) BILIRUBIN, TOTAL 0.17 L mg/dl (0.30-1.20) BUN/CREATININE RATIO 10.6 (6.0-20.0) GLOBULIN 3.3 g/dl (2.3-3.5) ANION GAP 13.0 mmol/l (7.0-16.0) OSMOLALITY (CALCULATED) 272 L mos/kg (280-300) A/G RATIO 1.2 (1.0-2.0) Lipase: (GRADY: 09/15/2020 11:40)( MsgRcvd 09/15/2020 12:06) Final [...] UROBILINOGEN 0.2 mg/dl (NORMAL OR <1) PAGE: [address] [place] [address] [facility] REC NUM: [id number] : 1990 URINE BILIRUBIN NEGATIVE (NEGATIVE) URINE [...] air- oxygen saturation normal. CLINICAL IMPRESSION PAGE: [address] [place] [address] [facility] REC NUM: [id number] : 1990 Acute hives secondary to allergy. INSTRUCTIONS(Follow up with PCP. Return to ED if symptoms worsen.). Follow-up:Return to the emergency department if not better. Understanding of the discharge instructions verbalized by patient. Follow-up with: Follow up tomorrow if not well. Reason for referral: evaluation and treatment. Summary of care provided to patient and family. (Electronically signed by BC BUCKLEY PA 09/15/2020 16:30) Addenda for KERVIN MCMAHAN VisitID: [id number] Date: 09/15/2020 09/15/2020 1 1:03The patient was [...] rce(s) Supporting Document(s) ID Date Data Source [id number] 09/15/2020 10:40:00 AM EST [facility] PAGE: [address] [place] [address] [address] [place] [address] [facility] REC NUM: [id number] : 1990 Med Reconciliation Patient: KERVIN MCMAHAN Medication Reconciliation Report Medical CenterVisitID: [id number] [place] [address] [phone], FRegistration Date/Time: 09/15/2020 10:40 Weight: 89.8 kgHeight/Length: [...] Name Value Range Interpretation Code Description Data [facility] rce(s) Supporting Document(s) ID Date Data Source [id number] 09/15/2020 12:45:00 PM EST [facility] Name Value Range Interpretation Code Description Data [facility] rce(s) Supporting Document(s) URINE COLOR YELLOW YELLOW [facility] URINE APPEARANCE CLEAR CLEAR [facility] URINE SPECIFIC GRAVITY 1.025 1.003-1.035 [facility] URINE LEUKOCYTES NEGATIVE NEGATIVE [facility] URINE NITRITE NEGATIVE NEGATIVE [facility] spital URINE PH 5.0 5.0-8.0 [facility] URINE PROTEIN NEGATIVE mg/dl NEGATIVE [facility] URINE GLUCOSE NEGATIVE mg/dl NEGATIVE [facility] URINE KETONES NEGATIVE mg/dl NEGATIVE [facility] URINE UROBILINOGEN 0.2 mg/dl NORMAL OR <1 [facility] URINE BILIRUBIN NEGATIVE NEGATIVE [facility] URINE OCCULT BLOOD NEGATIVE NEGATIVE [facility] URINE MICROSCOPIC PERFORMED [facility] Microscopic performed . Elements observed are listed. If no elements are listed,the Microscopic is negative. WBC 0-1 hpf 0-5 [facility] BACTERIA TRACE hpf NEGATIVE A [facility] EPITHELIAL CELLS 2-5 hpf 0-5 [facility] URINE C+S IF INDICATED NOT INDICATED [facility] R [facility], Dept of [address] [address] * ID Date Data Source [id number] 09/15/2020 12:38:00 PM [facility] Name Value Range Interpretation Code Description Data Ale rce(s) Supporting Document(s) , URINE NEGATIVE NEGATIVE [facility] [address] [address] * ID Date Data Source [id number] 09/15/2020 12:06:00 PM [facility] Name Value Range Interpretation Code Description Data Ale rce(s) Supporting Document(s) ESTIMATED GFR (CALCULATED) [facility] EGFR 92 [facility] >59 mL/min/1.73m2 EGFR, -MALDIVIAN 107 [facility] >59 mL/min/1.87g5Glft: Persistent reduction for 3 months or more in an eGFR <60 mL/min/1.73m2 defines CKD. Patients with eGFR values >=60 mL/min/1.73m2 may also have CKD if evidence of persistent proteinuria is present. Additional information may be found at [email or web address]. R [facility], Dept of [address] [address] * ID Date Data Source [id number] 09/15/2020 12:06:00 PM [facility] Name Value Range Interpretation Code Description Data Ale rce(s) Supporting Document(s) LIPASE 34 U/L 1-64 [facility] R [facility], Dept of [address] [address] * ID Date Data Source [id number] 09/15/2020 12:06:00 PM [facility] Name Value Range Interpretation Code Description Data Ale rce(s) Supporting Document(s) GLUCOSE 116 mg/dl 70-100 H [facility] BUN 9 mg/dl 4-18 [facility] CREATININE, SERUM 0.85 mg/dl 0.50-1.10 [facility] SODIUM 136 mmol/l 136-146 [facility] POTASSIUM 4.0 mmol/l 3.5-5.3 [facility] mini CHLORIDE 102 mmol/l 96-109 [facility] CARBON DIOXIDE 21 mmol/l 20-32 [facility]spital ALBUMIN 4.1 g/dl 3.5-5.0 [facility] PROTEIN, TOTAL 7.4 g/dl 6.4-8.2 [facility] ospital CALCIUM 9.1 mg/dl 8.4-10.4 [facility] ALKALINE PHOSPHATASE 101 U/l 10-118 [facility] SGOT (AST) 15 U/l 3-40 [facility] SGPT (ALT) 16 U/l 7-50 [facility] BILIRUBIN, TOTAL 0.17 mg/dl 0.30-1.20 L [facility] BUN/CREATININE RATIO 10.6 6.0-20.0 [facility] GLOBULIN 3.3 g/dl 2.3-3.5 [facility] ANION GAP 13.0 mmol/l 7.0-16.0 [facility] OSMOLALITY (CALCULATED) 272 mos/kg 280-300 L [facility] A/G RATIO 1.2 1.0-2.0 [facility] R [facility], [place] [address] * ID Date Data Source [id number] 09/15/2020 11:50:00 AM EST [facility] Name Value Range Interpretation Code Description Data Ale rce(s) Supporting Document(s) WBC 14.5 x10E3/uL 4.3-10.9 H [facility] spital RBC 4.96 x10E6/uL 3.80-5.30 [facility] HEMOGLOBIN 14.2 g/dl 11.8-15.8 [facility] mini HEMATOCRIT 42.8 % 35.0-47.0 [facility] MCV 86.3 fl 82.0-98.0 [facility] MCH 28.6 pg 27.5-33.5 [facility] MCHC 33.2 g/dl 32.0-36.0 [facility] RDW 14.5 % 11.5-14.5 [facility] PLATELET COUNT 407 x10E3/uL 130-400 H [facility] MPV 10.4 fl 8.6-12.6 [facility] SEGMENTED NEUTROPHILS 75.9 % 44.0-74.0 H [facility] LYMPHOCYTES 14.2 % 15.0-45.0 L [facility] MONOCYTES 4.5 % 2.0-13.0 [facility] EOSINOPHILS 5.2 % 0.0-6.0 [facility] BASOPHILS 0.2 % 0.0-2.0 [facility] NEUTROPHIL ABSOLUTE 11.0 x10E3/uL 1.4-7.0 H [facility] LYMPHOCYTES ABSOLUTE 2.1 x10E3/uL 1.0-3.4 [facility] MONOCYTE ABSOLUTE 0.7 x10E3/uL 0.2-1.0 [facility] EOSINOPHIL ABSOLUTE 0.8 x10E3/uL 0.0-0.5 H [facility] BASOPHIL ABSOLUTE 0.0 x10E3/uL 0.0-0.2 [facility], [place] [address] * ID Date Data Source [id number] 09/15/2020 01:33:32 PM EST [facility] CT OF THE ABDOMEN AND [...] Name Value Range Interpretation Code Description Data [facility] rce(s) Supporting Document(s) ID Date Data Source [id number] 09/06/2020 12:00:00 AM EST eCW1 ([facility]) Name Value Range Interpretation Code Description Data [facility] rce(s) Supporting Document(s) Hemoglobin A1c/Hemoglobin.total in Blood 5.2 HEMOGLOBIN A1c eCW1 ([facility]) ID Date Data Source [id number] 06/28/2020 12:00:00 AM EST [facility] Name Value Range Interpretation Code Description [facility](s) SARS coronavirus 2 RNA [Presence] in Res piratory specimen by JUDITH with probe detection [facility] This lab was ordered by [facility] and reported by [employer] [facility]. ID Date Data Source Rapid Strep (Marni Strep A+ KATYA) 05/27/2020 04:04:04 AM EDT eCW1 ([facility]) Name Value Range Interpretation Code Description Data Ale rce(s) Supporting Document(s) yes Internal Controls Perform ed (Y/N) eCW1 ([facility]) negatiove Rapid Strep (Marni Strep A+ KATYA) eCW1 ([facility]) Result (Positive/Negative) eCW 1 ([facility]) ID Date Data Source Test, Urine 05/16/2020 04:18:20 AM EDT eCW1 ([facility]) Name Value Range Interpretation Code Description Data Ale rce(s) Supporting Document(s) Choriogonadotropin.beta subunit ( test) [Presence] in U rine negative Test, Urine eCW1 ([facility]) yes Internal QC Acceptable (Y/N) e CW1 ([facility]) ID Date Data Source [id number] 04/28/2020 12:00:00 AM EDT [facility] Name Value Range Interpretation Code Description Data Ale rce(s) Supporting Document(s) SARS coronavirus 2 RNA [Presence] in Res piratory specimen by JUDITH with probe detection [facility] This lab was ordered by [facility] and reported by [employer] [facility]. Procedure Social History No Information Vital Signs ID Date Data Source UNK Name Value Range Interpretation Code Description Data Source(s) Oxygen saturation in Arterial blood by Pulse oximetry 98 % 98 % [facility] ([facility], [facility]) Systolic blood pressure 110 mm[Hg] 110 mm[Hg] [facility] Diastolic blood pressure 78 mm[Hg] 78 mm[Hg] [facility] ([facility]) Body temperature 96.8 [degF] 96.8 [degF] [facility] ([facility], [facility]) Body weight 197.00 [lb_av] 197.00 [lb_av] [facility] ([facility], [facility]) Body height 68 [in_i] 68 [in_i] [facility] ([facility], [facility]) 5'8" Body mass index (BMI) [Ratio] 30.0 kg/m2 30.0 k g/m2 [facility] ([facility], [facility]) Heart rate 90 /min 90 /min [facility] ([facility], [facility]) Respiratory rate 18 /min 18 /min [facility] ( [facility], [facility]) Body weight 202 [lb_av] 202 [lb_av] eCW1 ([facility]) Body weight 91.63 kg 91.63 kg eCW1 ([facility]) Body height 67.5 [in_i] 67.5 [in_i] eCW1 ([facility]) Body mass index (BMI) [Ratio] 31.17 kg/m2 31.17 kg/m2 eCW1 ([facility]) Heart rate 94 /min 94 /min eCW1 ([facility]) Respiratory rate 18 /min 18 /min eCW1 ([facility]) Body temperature 97.1 [degF] 97.1 [degF] eCW1 ( [facility]) Systolic blood pressure 110 mm[Hg] 110 mm[Hg] e CW1 ([facility]) Diastolic blood pressure 68 mm[Hg] 68 mm[Hg] eCW1 ([facility]) Body weight 204 [lb_av] 204 [lb_av] eCW1 ([facility]) Body height 67.5 [in_i] 67.5 [in_i] eCW1 ([facility]) Body mass index (BMI) [Ratio] 31.48 kg/m2 31.48 kg/m2 W1 ([facility]) Heart rate 77 /min 77 /min eCW1 ([facility]) Respiratory rate 18 /min 18 /min eCW1 ([facility]) Body temperature 97.5 [degF] 97.5 [degF] eCW1 ( [facility]) Systolic blood pressure 122 mm[Hg] 122 mm[Hg] e CW1 ([facility]) Diastolic blood pressure 78 mm[Hg] 78 mm[Hg] eCW1 ([facility]) Body weight 205 [lb_av] 205 [lb_av] eCW1 ([facility]) Body height 67.5 [in_i] 67.5 [in_i] eCW1 ([facility]) Body mass index (BMI) [Ratio] 31.63 kg/m2 31.63 kg/m2 eCW1 ([facility]) Heart rate 80 /min 80 /min eCW1 ([facility]) Respiratory rate 18 /min 18 /min eCW1 ([facility]) Body temperature 97 [degF] 97 [degF] eCW1 ([facility]) Systolic blood pressure 124 mm[Hg] 124 mm[Hg] e CW1 ([facility]) Diastolic blood pressure 80 mm[Hg] 80 mm[Hg] eCW1 ([facility]) Body weight 197 [lb_av] 197 [lb_av] eCW1 ([facility]) Body weight 89.36 kg 89.36 kg eCW1 ([facility]) Body height 67.5 [in_i] 67.5 [in_i] eCW1 ([facility]) Body mass index (BMI) [Ratio] 30.4 kg/m2 30.4 k g/m2 eCW1 ([facility]) Systolic blood pressure 110 mm[Hg] 110 mm[Hg] e CW1 ([facility]) Diastolic blood pressure 78 mm[Hg] 78 mm[Hg] eCW1 ([facility]) Body weight 195.4 [lb_av] 195.4 [lb_av] eCW1 ([facility]) Body height 67.5 [in_i] 67.5 [in_i] eCW1 ([facility]) Body mass index (BMI) [Ratio] 30.15 kg/m2 30.15 kg/m2 eCW1 ([facility]) Heart rate 124 /min 124 /min eCW1 ([facility]) Respiratory rate 18 /min 18 /min eCW1 ([facility]) Body temperature 97.8 [degF] 97.8 [degF] eCW1 ( [facility]) Systolic blood pressure 102 mm[Hg] 102 mm[Hg] e CW1 ([facility]) Diastolic blood pressure 68 mm[Hg] 68 mm[Hg] eCW1 ([facility]) Heart rate 111 /min 111 /min eCW1 ([facility]) Body weight 196.8 [lb_av] 196.8 [lb_av] eCW1 ([facility]) Body height 67.5 [in_i] 67.5 [in_i] eCW1 ([facility]) Body mass index (BMI) [Ratio] 30.36 kg/m2 30.36 kg/m2 eCW1 ([facility]) Respiratory rate 18 /min 18 /min eCW1 ([facility]) Body temperature 98.3 [degF] 98.3 [degF] eCW1 ( [facility]) Systolic blood pressure 112 mm[Hg] 112 mm[Hg] e CW1 ([facility]) Diastolic blood pressure 72 mm[Hg] 72 mm[Hg] eCW1 ([facility]) Body weight 197 [lb_av] 197 [lb_av] eCW1 ([facility]) Body height 67.5 [in_i] 67.5 [in_i] eCW1 ([facility]) Body mass index (BMI) [Ratio] 30.4 kg/m2 30.4 k g/m2 eCW1 ([facility]) Heart rate 99 /min 99 /min eCW1 ([facility]) Respiratory rate 18 /min 18 /min eCW1 ([facility]) Body temperature 97.3 [degF] 97.3 [degF] eCW1 ( [facility]) Systolic blood pressure 110 mm[Hg] 110 mm[Hg] e CW1 ([facility]) Diastolic blood pressure 80 mm[Hg] 80 mm[Hg] eCW1 ([facility]) Body weight 199 [lb_av] 199 [lb_av] eCW1 ([facility]) Body height 67.5 [in_i] 67.5 [in_i] eCW1 ([facility]) Body mass index (BMI) [Ratio] 30.70 kg/m2 30.70 kg/m2 eCW1 ([facility]) Heart rate 90 /min 90 /min eCW1 ([facility]) Respiratory rate 18 /min 18 /min eCW1 ([facility]) Body temperature 98.9 [degF] 98.9 [degF] eCW1 ( [facility]) Systolic blood pressure 120 mm[Hg] 120 mm[Hg] e CW1 ([facility]) Diastolic blood pressure 60 mm[Hg] 60 mm[Hg] eCW1 ([facility]) Body weight 199 [lb_av] 199 [lb_av] eCW1 ([facility]) Body height 67.5 [in_i] 67.5 [in_i] eCW1 ([facility]) Body mass index (BMI) [Ratio] 30.70 kg/m2 30.70 kg/m2 eCW1 ([facility]) Heart rate 104 /min 104 /min eCW1 ([facility]) Respiratory rate 18 /min 18 /min eCW1 ([facility]) Body temperature [degF] eCW1 ([facility]) Systolic blood pressure 100 mm[Hg] 100 mm[Hg] e CW1 ([facility]) Diastolic blood pressure 60 mm[Hg] 60 mm[Hg] eCW1 ([facility]) Body weight 197 [lb_av] 197 [lb_av] eCW1 ([facility]) Body height 67.5 [in_i] 67.5 [in_i] eCW1 ([facility]) Body mass index (BMI) [Ratio] 30.40 kg/m2 30.40 kg/m2 eCW1 ([facility]) Systolic blood pressure 110 mm[Hg] 110 mm[Hg] e CW1 ([facility]) Diastolic blood pressure 72 mm[Hg] 72 mm[Hg] eCW1 ([facility]) ID Date Data Source [id number] 09/19/2020 09:10:55 AM EST [facility] Name Value Range Interpretation Code Description Data Source(s) WEIGHT RECORDED 89.8 KG 89.8 KG [facility] Height 172.72 CM 172.72 CM [facility] Patient Treatment Plan of Care Planned Activity Planned Date Details Description Data Source (s) Peak Flow Meter - 04/28/2021 12:00:00 AM EDT eCW1 ([facility]) Peak Flow Meter - 04/28/2021 12:00:00 AM EDT eCW1 ([facility]) Peak Flow Meter - 04/28/2021 12:00:00 AM EDT eCW1 ([facility]) Peak Flow Meter - 04/28/2021 12:00:00 AM EDT eCW1 ([facility]) Omeprazole 40 MG Delayed Release Oral Capsule 01/29/2021 12:00:00 A M EDT eCW1 ([facility]) Omeprazole 40 MG Delayed Release Oral Capsule 01/29/2021 12:00:00 A M EDT eCW1 ([facility]) Omeprazole 40 MG Delayed Release Oral Capsule 01/29/2021 12:00:00 A M EDT eCW1 ([facility]) Omeprazole 40 MG Delayed Release Oral Capsule 01/29/2021 12:00:00 A M EDT eCW1 ([facility]) Omeprazole 40 MG Delayed Release Oral Capsule 01/29/2021 12:00:00 A M EDT eCW1 ([facility]) Sucralfate 1000 MG Oral Tablet 01/29/2021 12:00:00 AM EDT eCW1 ([facility]) Omeprazole 40 MG Delayed Release Oral Capsule 01/29/2021 12:00:00 A M EDT eCW1 ([facility]) Sucralfate 1000 MG Oral Tablet 01/29/2021 12:00:00 AM EDT eCW1 ([facility]) Omeprazole 40 MG Delayed Release Oral Capsule 01/29/2021 12:00:00 A M EDT eCW1 ([facility]) Sucralfate 1000 MG Oral Tablet 01/29/2021 12:00:00 AM EDT eCW1 ([facility]) Omeprazole 40 MG Delayed Release Oral Capsule 01/29/2021 12:00:00 A M EDT eCW1 ([facility]) Sucralfate 1000 MG Oral Tablet 01/29/2021 12:00:00 AM EDT eCW1 ([facility]) Omeprazole 40 MG Delayed Release Oral Capsule 01/29/2021 12:00:00 A M EDT eCW1 ([facility]) Sucralfate 1000 MG Oral Tablet 01/29/2021 12:00:00 AM EDT eCW1 ([facility]) Omeprazole 40 MG Delayed Release Oral Capsule 01/29/2021 12:00:00 A M EDT eCW1 ([facility]) Sucralfate 1000 MG Oral Tablet 01/29/2021 12:00:00 AM EDT eCW1 ([facility]) Fluoxetine 10 MG Oral Capsule 12/17/2020 12:00:00 AM EDT eCW1 ([facility]) Fluoxetine 10 MG Oral Capsule 12/17/2020 12:00:00 AM EDT eCW1 ([facility]) Fluoxetine 10 MG Oral Capsule 12/17/2020 12:00:00 AM EDT eCW1 ([facility]) Fluoxetine 10 MG Oral Capsule 12/17/2020 12:00:00 AM EDT eCW1 ([facility]) Fluoxetine 10 MG Oral Capsule 12/17/2020 12:00:00 AM EDT eCW1 ([facility]) Fluoxetine 10 MG Oral Capsule 12/17/2020 12:00:00 AM EDT eCW1 ([facility]) Minocycline 50 MG Oral Capsule 11/19/2020 12:00:00 AM EDT eCW1 ([facility]) Minocycline 50 MG Oral Capsule 11/19/2020 12:00:00 AM EDT eCW1 ([facility]) Minocycline 50 MG Oral Capsule 11/19/2020 12:00:00 AM EDT eCW1 ([facility]) meloxicam 7.5 MG Oral Tablet 11/07/2020 12:00:00 AM EDT eCW1 ([facility]) tizanidine 2 MG Oral Tablet 11/07/2020 12:00:00 AM EDT eCW1 ([facility]) meloxicam 7.5 MG Oral Tablet 11/07/2020 12:00:00 AM EDT eCW1 ([facility]) tizanidine 2 MG Oral Tablet 11/07/2020 12:00:00 AM EDT eCW1 ([facility]) meloxicam 7.5 MG Oral Tablet 11/07/2020 12:00:00 AM EDT eCW1 ([facility]) tizanidine 2 MG Oral Tablet 11/07/2020 12:00:00 AM EDT eCW1 ([facility]) meloxicam 7.5 MG Oral Tablet 11/07/2020 12:00:00 AM EDT eCW1 ([facility]) tizanidine 2 MG Oral Tablet 11/07/2020 12:00:00 AM EDT eCW1 ([facility]) Minocycline 100 MG Oral Capsule 11/07/2020 12:00:00 AM EDT eCW1 ([facility]) meloxicam 7.5 MG Oral Tablet 11/07/2020 12:00:00 AM EDT eCW1 ([facility]) tizanidine 2 MG Oral Tablet 11/07/2020 12:00:00 AM EDT eCW1 ([facility]) Minocycline 100 MG Oral Capsule 11/07/2020 12:00:00 AM EDT eCW1 ([facility]) Prednisone 20 MG Oral Tablet 10/24/2020 12:00:00 AM EDT eCW1 ([facility]) Flonase Allergy Relief 50 MCG/ACT 10/24/2020 12:00:00 AM EDT eCW1 ([facility]) Prednisone 20 MG Oral Tablet 10/24/2020 12:00:00 AM EDT eCW1 ([facility]) Flonase Allergy Relief 50 MCG/ACT 10/24/2020 12:00:00 AM EDT eCW1 ([facility]) Ciprofloxacin 500 MG Oral Tablet 10/07/2020 12:00:00 AM EST eCW1 ([facility]) Ciprofloxacin 500 MG Oral Tablet 10/07/2020 12:00:00 AM EST eCW1 ([facility]) Ciprofloxacin 500 MG Oral Tablet 10/07/2020 12:00:00 AM EST eCW1 ([facility]) Diclofenac Sodium 0.01 MG/MG Topical Gel [Voltaren] 10/04/19 21 12:00:00 AM EST eCW1 ([facility]) Diclofenac Sodium 0.01 MG/MG Topical Gel [Voltaren] 10/04/19 21 12:00:00 AM EST eCW1 ([facility]) Diclofenac Sodium 0.01 MG/MG Topical Gel [Voltaren] 10/04/19 21 12:00:00 AM EST eCW1 ([facility]) Diclofenac Sodium 0.01 MG/MG Topical Gel [Voltaren] 10/04/19 21 12:00:00 AM EST eCW1 ([facility]) Propranolol Hydrochloride 10 MG Oral Tablet 09/12/2020 12:00:00 AM EST eCW1 ([facility]) Propranolol Hydrochloride 10 MG Oral Tablet 09/12/2020 12:00:00 AM EST eCW1 ([facility]) Propranolol Hydrochloride 10 MG Oral Tablet 09/12/2020 12:00:00 AM EST eCW1 ([facility]) Propranolol Hydrochloride 10 MG Oral Tablet 09/12/2020 12:00:00 AM EST eCW1 ([facility]) AirDuo RespiClick 113/14 113-14 MCG/ACT 05/27/2020 12:00:00 AM EDT eCW1 ([facility]) [employer] RespiClick 113/14 113-14 MCG/ACT 05/27/2020 12:00:00 AM EDT eCW1 ([facility]) [employer] RespiClick 113/14 113-14 MCG/ACT 05/27/2020 12:00:00 AM EDT eCW1 ([facility]) [employer] RespiClick 113/14 113-14 MCG/ACT 05/27/2020 12:00:00 AM EDT eCW1 ([facility]) [employer] RespiClick 113/14 113-14 MCG/ACT 05/27/2020 12:00:00 AM EDT eCW1 ([facility]) [employer] RespiClick 113/14 113-14 MCG/ACT 05/27/2020 12:00:00 AM EDT eCW1 ([facility]) [employer] Respi[employer] 113/14 113-14 MCG/ACT 05/27/2020 12:00:00 AM EDT eCW1 ([facility]) [employer] RespiClick 113/14 113-14 MCG/ACT 05/27/2020 12:00:00 AM EDT eCW1 ([facility]) [employer] RespiClick 113/14 113-14 MCG/ACT 05/27/2020 12:00:00 AM EDT eCW1 ([facility]) [employer] RespiClick 113/14 113-14 MCG/ACT 05/27/2020 12:00:00 AM EDT eCW1 ([facility]) [employer] Respi[employer] 113/14 113-14 MCG/ACT 05/27/2020 12:00:00 AM EDT eCW1 ([facility]) [employer] Respi[employer] 113/14 113-14 MCG/ACT 05/27/2020 12:00:00 AM EDT eCW1 ([facility]) [employer] Respi[employer] 113/14 113-14 MCG/ACT 05/27/2020 12:00:00 AM EDT eCW1 ([facility]) [employer] RespiClick 113/14 113-14 MCG/ACT 05/27/2020 12:00:00 AM EDT eCW1 ([facility]) [employer] RespiClick 113/14 113-14 MCG/ACT 05/27/2020 12:00:00 AM EDT eCW1 ([facility]) [employer] RespiClick 113/14 113-14 MCG/ACT 05/27/2020 12:00:00 AM EDT eCW1 ([facility]) [employer] RespiClick 113/14 113-14 MCG/ACT 05/27/2020 12:00:00 AM EDT eCW1 ([facility]) [employer] Respi[employer] 113/14 113-14 MCG/ACT 05/27/2020 12:00:00 AM EDT eCW1 ([facility]) [employer] Respi[employer] 113/14 113-14 MCG/ACT 05/27/2020 12:00:00 AM EDT eCW1 ([facility]) [employer] Respi[employer] 113/14 113-14 MCG/ACT 05/27/2020 12:00:00 AM EDT eCW1 ([facility])
[2021-06-16 18:30] VITALS: BP 118/74
--- NOTE | 2021-06-16 18:47 | ECGEPIP ---
[facility] - ED Test Date: 2021-06-16 Pat Name: KERVIN MCMAHAN Department: Room: - Gender: Female Payroll Clerk: cassy : 1990 Requested By: Kristine Sequeira Order Number: [id number] Reading MD: Graham Shirley Measurements Intervals [place] Rate: 76 P: 32 KS: 162 QRS: 38 QRSD: 72 T: 34 QT: 386 QTc: 434 Interpretive Statements Normal sinus rhythm POOR R WAVE PROGRESSION SIMILAR TO 06/05/19 Electronically Signed on 06-16-2021 18:46:40 EST by Graham Shirley
== END 2021-06-16 18:42 | disposition home or self-care (01) ==
LOC: M ED 16:13 → EDBD 16:13 → M ED 18:42
DX: R55 Syncope and collapse (principal); Z88.0 Allergy status to penicillin; Z91.040 Latex allergy status; Z88.8 Allergy status to other drugs, medicaments and biological substances

== ENCOUNTER → 2021-07-03 | Outpatient (CLI) | payer OTHER ==
[~2021-07-03] MED LIST changes: +IPRA0.00 INH; +TIZA2CAP PO
== END ==
LOC: M WUC 10:02
PROVIDERS: ATTEND Advanced Practice Midwife
DX: N97.9 Female infertility, unspecified (principal); Z87.42 Personal history of other diseases of the female genital tract

== ENCOUNTER → 2021-07-22 | Outpatient (CLI) | payer OTHER ==
[~2021-07-22] MED LIST changes: +ISOVUE-300 61% 50ML VIAL As Ordered ONE; +ISOVUE-370 76% 100ML VIAL As Ordered ONE
--- NOTE | 2021-07-22 13:05 | REP ---
INDICATION: INFERTILITY. COMPARISON: None. TECHNIQUE: Referring clinician catheterized the cervix and injected contrast, I performed fluoroscopy. FINDINGS: Uterine cavity opacifies well with no contour abnormality or filling defect identified. Right fallopian tube opacifies with contrast. It is not significantly dilated. There is free intraperitoneal spillage on the right. The left fallopian tube is not visualized. IMPRESSION: Patent, normal appearing right fallopian tube. Left fallopian tube is not visualized and presumably is obstructed. 0.9 minutes fluoroscopy time utilized. <Electronically signed by Suresh Lerma > 07/22/21 [id number]
== END ==
LOC: M RADPRO 11:59
PROVIDERS: ATTEND Obstetrics & Gynecology
DX: N97.9 Female infertility, unspecified (principal)
CPT/HCPCS: 58340; 74740; Q9967

== ENCOUNTER → 2021-07-27 | Outpatient (REF) ==
[~2021-07-27] MED LIST changes: -ISOVUE-300 61% 50ML VIAL As Ordered ONE; -ISOVUE-370 76% 100ML VIAL As Ordered ONE
== END ==
LOC: M EMP 10:25
PROVIDERS: ATTEND Family Medicine
DX: Z20.828 Contact with and (suspected) exposure to other viral communicable diseases (principal)

== ENCOUNTER → 2021-07-30 | Outpatient (CLI) | payer OTHER | LOC: M LABSMTC 10:45 | PROVIDERS: ATTEND Anesthesiology | DX: Z01.818 Encounter for other preprocedural examination (principal); Z11.52 Encounter for screening for COVID-19 ==

== ENCOUNTER → 2021-07-31 | Outpatient (REF) | LOC: M EMP 10:46 | PROVIDERS: ATTEND Family Medicine | DX: Z20.822 Contact with and (suspected) exposure to COVID-19 (principal) ==

== ENCOUNTER → 2021-08-08 | Outpatient (REF) | LOC: M EMP 10:29 | PROVIDERS: ATTEND Family Medicine | DX: Z20.822 Contact with and (suspected) exposure to COVID-19 (principal) ==

== ENCOUNTER 2021-09-27 00:08 | Emergency (ER) | payer OTHER ==
[~2021-09-27] VITALS: Ht 172.7 cm; Wt 88.6 kg
[~2021-09-27 00:08] MED LIST changes: +FLUO10CA18 PO; +FLUT1INH2 INH; +MULTTAB20 PO
[2021-09-27] MEDS ORDERED: NS 1,000 ML IV ONE ×2 (00:45→01:40)
[2021-09-27] MEDS ORDERED: CETIRIZINE (ZyrTEC) 10 MG TAB PO ONE (00:45)
[2021-09-27] MEDS ORDERED: ONDANSETRON 4MG/2ML VIAL IV ONE (00:45)
[2021-09-27 01:02] LABS: BASO # 0.1 10^3/uL (0.0-0.2); BASO % 0.4 % (0.0-1.0); EOS # 0.6 10^3/uL (0.0-0.5); EOS % 4.4 % (0.0-3.0); HEMATOCRIT 35.7 % (36.0-47.0); HEMOGLOBIN 11.7 g/dl (12.0-15.5); LYMPH # 2.9 10^3/uL (1.5-5.0); LYMPH % 19.8 % (24.0-44.0); MEAN CORPUSCULAR HEMOGLOBIN 27.2 pg (27.0-33.0); MEAN CORPUSCULAR HGB CONC 32.8 g/dl (32.0-36.5); MONO # 0.8 10^3/uL (0.0-0.8); MONO % 5.5 % (2.0-8.0); NEUTROPHILS # 10.1 10^3/uL (1.5-8.5); NEUTROPHILS % 69.3 % (36.0-66.0); PLATELET COUNT, AUTOMATED 325 10^3/uL (150-450); WHITE BLOOD COUNT 14.6 10^3/uL (4.0-10.0)
[2021-09-27 01:33] LABS: ALBUMIN 3.7 GM/DL (3.2-5.2); ALT/SGPT 34 U/L (12-78); BILIRUBIN,TOTAL 0.2 MG/DL (0.2-1.0); BLOOD UREA NITROGEN 16 MG/DL (7-18); CALCIUM LEVEL 9.3 MG/DL (8.5-10.1); CARBON DIOXIDE LEVEL 21 MEQ/L (21-32); CHLORIDE LEVEL 109 MEQ/L (98-107); CREATININE FOR GFR 1.34 MG/DL (0.55-1.30); GLOMERULAR FILTRATION RATE 49.1 (>60); GLUCOSE, FASTING 113 MG/DL (70-100); POTASSIUM SERUM 4.2 MEQ/L (3.5-5.1); SODIUM LEVEL 138 MEQ/L (136-145); TOTAL PROTEIN 7.3 GM/DL (6.4-8.2)
[2021-09-27 02:05] LABS: HCG, SERUM QUALITATIVE NEGATIVE (NEGATIVE)
[2021-09-27] MEDS ORDERED: AUGMENTIN 875 MG TAB PO ONE (02:15)
[2021-09-27] MEDS ORDERED: CETI10CA2 PO (02:55)
[2021-09-27] MEDS ORDERED: AMOX875T2 PO (02:55)
[2021-09-27] MEDS ORDERED: EPIP0.3I2 IM (02:59)
[2021-09-27 03:07] VITALS: BP 115/66
== END 2021-09-27 03:08 | disposition home or self-care (01) ==
LOC: M ED 00:08
DX: J01.90 Acute sinusitis, unspecified (principal); T36.8X5A Adverse effect of other systemic antibiotics, initial encounter; Z87.19 Personal history of other diseases of the digestive system; K21.9 Gastro-esophageal reflux disease without esophagitis; G43.909 Migraine, unspecified, not intractable, without status migrainosus; J45.909 Unspecified asthma, uncomplicated; F32.9 Major depressive disorder, single episode, unspecified; F41.9 Anxiety disorder, unspecified; Z79.899 Other long term (current) drug therapy; Z88.0 Allergy status to penicillin; Z88.1 Allergy status to other antibiotic agents; Z91.040 Latex allergy status; Z91.89 Other specified personal risk factors, not elsewhere classified
CPT/HCPCS: 80053; 84703; 85025; 96361; 96374; 99284; J2405

== ENCOUNTER → 2021-10-10 | Outpatient (CLI) | payer OTHER ==
[~2021-10-10] MED LIST changes: +AMOX875T2 PO; +CETI10CA2 PO; +EPIP0.3I2 IM
== END ==
LOC: M PLAIMG 15:22
PROVIDERS: ATTEND Physician Assistant
DX: L98.9 Disorder of the skin and subcutaneous tissue, unspecified (principal); M85.432 Solitary bone cyst, left ulna and radius

== ENCOUNTER 2021-11-15 21:52 | Emergency (ER) | payer OTHER ==
[~2021-11-15] VITALS: Ht 172.7 cm; Wt 90.7 kg
[2021-11-16] MEDS ORDERED: METHOCARBAMOL 1,000 MG/10 ML VIAL (J2800) IV ONE (00:10)
[2021-11-16] MEDS ORDERED: ONDANSETRON 4MG/2ML VIAL IV ONE (00:10)
[2021-11-16] MEDS ORDERED: KETOROLAC 30 MG/ML 1ML VIAL IV ONE (00:10)
[2021-11-16] MEDS ORDERED: MORPHINE 4 MG/ML 1ML VIAL/SYRINGE IV PRN (00:10)
[2021-11-16] MEDS ORDERED: METH-1165 PO (02:29)
[2021-11-16] MEDS ORDERED: NAPR-837 PO (02:29)
[2021-11-16] MEDS ORDERED: ONDA4TAB6 PO (02:29)
[2021-11-16 02:30] VITALS: BP 126/83
== END 2021-11-16 02:41 | disposition home or self-care (01) ==
LOC: M ED 21:52
DX: S16.1XXA Strain of muscle, fascia and tendon at neck level, initial encounter (principal); W19.XXXA Unspecified fall, initial encounter; Y92.9 Unspecified place or not applicable; Y93.9 Activity, unspecified; Y99.9 Unspecified external cause status; M54.50 Low back pain, unspecified; J30.81 Allergic rhinitis due to animal (cat) (dog) hair and dander; J30.1 Allergic rhinitis due to pollen; Z79.899 Other long term (current) drug therapy; Z88.8 Allergy status to other drugs, medicaments and biological substances; Z88.0 Allergy status to penicillin; Z88.1 Allergy status to other antibiotic agents; Z91.040 Latex allergy status
CPT/HCPCS: 70450; 72125; 96374; 96375; 99284; J1885; J2270; J2405; J2800

== ENCOUNTER → 2021-12-15 | Outpatient (CLI) | payer OTHER ==
[~2021-12-15] MED LIST changes: +METH-1165 PO; +NAPR-837 PO
[2021-12-15 17:55] LABS: BASO # 0.1 10^3/uL (0.0-0.2); BASO % 0.4 % (0.0-1.0); EOS % 8.6 % (0.0-3.0); HEMATOCRIT 39.3 % (36.0-47.0); HEMOGLOBIN 12.5 g/dl (12.0-15.5); LYMPH # 3.8 10^3/uL (1.5-5.0); LYMPH % 33.6 % (24.0-44.0); MEAN CORPUSCULAR HEMOGLOBIN 27.1 pg (27.0-33.0); MEAN CORPUSCULAR HGB CONC 31.8 g/dl (32.0-36.5); MEAN CORPUSCULAR VOLUME 85.1 fl (80.0-96.0); MONO # 0.6 10^3/uL (0.0-0.8); MONO % 5.1 % (2.0-8.0); NEUTROPHILS # 5.9 10^3/uL (1.5-8.5); PLATELET COUNT, AUTOMATED 423 10^3/uL (150-450); RED BLOOD COUNT 4.62 10^6/uL (4.00-5.40); WHITE BLOOD COUNT 11.4 10^3/uL (4.0-10.0)
[2021-12-15 18:22] LABS: ALBUMIN 3.6 GM/DL (3.2-5.2); ALT/SGPT 26 U/L (12-78); BILIRUBIN,TOTAL 0.3 MG/DL (0.2-1.0); BLOOD UREA NITROGEN 10 MG/DL (7-18); CALCIUM LEVEL 8.9 MG/DL (8.5-10.1); CARBON DIOXIDE LEVEL 25 MEQ/L (21-32); CHLORIDE LEVEL 108 MEQ/L (98-107); CHOLESTEROL LEVEL 248 MG/DL (<200); CHOLESTEROL RISK RATIO 5.904 (<5); CREATININE FOR GFR 0.92 MG/DL (0.55-1.30); GLOMERULAR FILTRATION RATE > 60.0 (>60); GLUCOSE, FASTING 87 MG/DL (70-100); HCG, SERUM QUANTITATIVE < 1.0 MIU/ML; HDL CHOLESTEROL 42 MG/DL (>40); LDL CHOLESTEROL 162 MG/DL (<100); NON-HDL-C 206 MG/DL; POTASSIUM SERUM 4.1 MEQ/L (3.5-5.1); SODIUM LEVEL 139 MEQ/L (136-145); TOTAL PROTEIN 7.3 GM/DL (6.4-8.2); TRIGLYCERIDES LEVEL 219 MG/DL (<150)
== END ==
LOC: M PLALAB 14:51
PROVIDERS: ATTEND Physician Assistant
DX: N91.1 Secondary amenorrhea (principal); E03.9 Hypothyroidism, unspecified; J45.20 Mild intermittent asthma, uncomplicated; E78.5 Hyperlipidemia, unspecified

== ENCOUNTER 2022-02-23 14:47 | Emergency (ER) | payer OTHER ==
[2022-02-23 17:26] LABS: BASO # 0.1 10^3/uL (0.0-0.2); BASO % 0.6 % (0.0-1.0); EOS # 0.8 10^3/uL (0.0-0.5); HEMATOCRIT 37.3 % (36.0-47.0); HEMOGLOBIN 12.1 g/dl (12.0-15.5); LYMPH # 3.4 10^3/uL (1.5-5.0); LYMPH % 40.6 % (24.0-44.0); MEAN CORPUSCULAR HEMOGLOBIN 27.8 pg (27.0-33.0); MEAN CORPUSCULAR HGB CONC 32.4 g/dl (32.0-36.5); MEAN CORPUSCULAR VOLUME 85.7 fl (80.0-96.0); MONO # 0.5 10^3/uL (0.0-0.8); MONO % 5.9 % (2.0-8.0); NEUTROPHILS # 3.6 10^3/uL (1.5-8.5); NEUTROPHILS % 42.8 % (36.0-66.0); PLATELET COUNT, AUTOMATED 363 10^3/uL (150-450); RED BLOOD COUNT 4.35 10^6/uL (4.00-5.40); WHITE BLOOD COUNT 8.3 10^3/uL (4.0-10.0)
[2022-02-23 17:30] VITALS: BP 105/56
[2022-02-23] MEDS ORDERED: diphenhydrAMINE 50MG/ML VIAL (J1200) IV ONE (17:45)
[2022-02-23] MEDS ORDERED: NS 1,000 ML IV ONE (17:45)
[2022-02-23] MEDS ORDERED: METOCLOPRAMIDE INJ 10MG/2ML VIAL (J2765 PER 1) IV ONE (17:45)
[2022-02-23 19:33] LABS: BLOOD UREA NITROGEN 11 MG/DL (7-18); CALCIUM LEVEL 8.7 MG/DL (8.5-10.1); CARBON DIOXIDE LEVEL 22 mmol/L (20-29); CHLORIDE LEVEL 114 MEQ/L (98-107); CREATININE FOR GFR 0.91 MG/DL (0.55-1.30); GLOMERULAR FILTRATION RATE > 60.0 (>60); GLUCOSE, FASTING 111 MG/DL (70-100); POTASSIUM SERUM 4.4 MEQ/L (3.5-5.1); SODIUM LEVEL 142 MEQ/L (136-145)
[2022-02-23] MEDS ORDERED: PROP10TA56 PO (19:41)
== END 2022-02-23 19:55 | disposition home or self-care (01) ==
LOC: M ED 14:47
DX: G43.909 Migraine, unspecified, not intractable, without status migrainosus (principal); J45.909 Unspecified asthma, uncomplicated; G47.33 Obstructive sleep apnea (adult) (pediatric); K21.9 Gastro-esophageal reflux disease without esophagitis; K51.919 Ulcerative colitis, unspecified with unspecified complications; J01.30 Acute sphenoidal sinusitis, unspecified; Z79.899 Other long term (current) drug therapy; J30.81 Allergic rhinitis due to animal (cat) (dog) hair and dander; J30.89 Other allergic rhinitis; J30.1 Allergic rhinitis due to pollen; Z88.0 Allergy status to penicillin; Z88.1 Allergy status to other antibiotic agents; Z91.040 Latex allergy status; Z91.89 Other specified personal risk factors, not elsewhere classified
CPT/HCPCS: 70450; 80048; 84702; 85025; 96361; 96374; 96375; 99284; J1200; J2765

== ENCOUNTER → 2022-04-16 | Outpatient (REF) | payer OTHER | LOC: M SFHCADAM 08:29 | PROVIDERS: ATTEND Physician Assistant | DX: Z01.84 Encounter for antibody response examination (principal) ==

== ENCOUNTER → 2022-05-04 | Outpatient (CLI) | payer OTHER | LOC: M WUC 11:18 | PROVIDERS: ATTEND Obstetrics & Gynecology | DX: Z32.00 Encounter for pregnancy test, result unknown (principal) ==

== ENCOUNTER → 2022-05-06 | Outpatient (CLI) | payer OTHER ==
[2022-05-06 13:45] LABS: HCG, SERUM QUANTITATIVE 413 MIU/ML
[2022-05-06 23:39] LABS: ESTRADIOL 361.2 PG/ML; FOLLICLE STIMULATING HORMONE 0.8 mIU/mL; LUTEINIZING HORMONE < 0.1 mIU/mL
[2022-05-07 17:51] LABS: PROGESTERONE 23.53 NG/ML
== END ==
LOC: M WUC 11:12
PROVIDERS: ATTEND Obstetrics & Gynecology
DX: Z31.49 Encounter for other procreative investigation and testing (principal); Z11.3 Encounter for screening for infections with a predominantly sexual mode of transmission; Z32.00 Encounter for pregnancy test, result unknown; N97.8 Female infertility of other origin; O20.0 Threatened abortion; O09.00 Supervision of pregnancy with history of infertility, unspecified trimester; N91.2 Amenorrhea, unspecified

== ENCOUNTER 2022-05-13 07:57 | Emergency (ER) | payer OTHER ==
[~2022-05-13] VITALS: Ht 172.7 cm; Wt 95.0 kg
[2022-05-13 07:58] VITALS: BP 129/70
[2022-05-13] MEDS ORDERED: ONDANSETRON 4MG 2ML VIAL IV ONE (08:25)
[2022-05-13] MEDS ORDERED: ACETAMINOPHEN TAB 650MG DOSE (2X325MG) PO ONE (08:30)
[2022-05-13 08:34] LABS: APPEARANCE, URINE MANUAL CLEAR (CLEAR); BILIRUBIN, URINE MANUAL NEGATIVE (NEGATIVE); BLOOD URINE MANUAL NEGATIVE (NEGATIVE); COLOR, URINE MANUAL YELLOW (YELLOW); GLUCOSE, URINE (UA) MANUAL NEGATIVE (NEGATIVE); KETONE, URINE MANUAL NEGATIVE (NEGATIVE); LEUKOCYTE ESTERASE, URINE MAN NEGATIVE (NEGATIVE); PROTEIN, URINE MANUAL NEGATIVE (NEGATIVE); UROBILINOGEN, URINE MANUAL NORMAL (NORMAL)
[2022-05-13 08:35] LABS: NITRITE, URINE MANUAL NEGATIVE (NEGATIVE)
[2022-05-13 09:24] LABS: HEMATOCRIT 39.6 % (36.0-47.0); HEMOGLOBIN 12.9 g/dl (12.0-15.5); MEAN CORPUSCULAR HEMOGLOBIN 27.3 pg (27.0-33.0); MEAN CORPUSCULAR HGB CONC 32.6 g/dl (32.0-36.5); MEAN CORPUSCULAR VOLUME 83.9 fl (80.0-96.0); PLATELET COUNT, AUTOMATED 377 10^3/uL (150-450); RED BLOOD COUNT 4.72 10^6/uL (4.00-5.40); WHITE BLOOD COUNT 10.3 10^3/uL (4.0-10.0)
[2022-05-13] MEDS ORDERED: NS 1,000 ML IV ONE (09:35)
[2022-05-13 09:58] LABS: ALBUMIN 3.5 GM/DL (3.2-5.2); ALT/SGPT 33 U/L (12-78); BILIRUBIN,TOTAL 0.2 MG/DL (0.2-1.0); BLOOD UREA NITROGEN 11 MG/DL (7-18); CALCIUM LEVEL 9.1 MG/DL (8.5-10.1); CARBON DIOXIDE LEVEL 22 MEQ/L (21-32); CHLORIDE LEVEL 107 MEQ/L (98-107); CREATININE FOR GFR 0.89 MG/DL (0.55-1.30); GLOMERULAR FILTRATION RATE > 60.0 (>60); GLUCOSE, FASTING 106 MG/DL (70-100); POTASSIUM SERUM 4.4 MEQ/L (3.5-5.1); SODIUM LEVEL 135 MEQ/L (136-145); TOTAL PROTEIN 7.4 GM/DL (6.4-8.2)
== END 2022-05-13 11:23 | disposition home or self-care (01) ==
LOC: M ED 07:57
DX: O26.93 Pregnancy related conditions, unspecified, third trimester (principal); O21.8 Other vomiting complicating pregnancy; Z91.040 Latex allergy status; Z88.1 Allergy status to other antibiotic agents; Z88.0 Allergy status to penicillin; Z88.8 Allergy status to other drugs, medicaments and biological substances; Z3A.00 Weeks of gestation of pregnancy not specified
CPT/HCPCS: 76801; 76817; 80053; 81002; 85027; 93976; 96361; 96374; 99283; J2405

== ENCOUNTER 2022-06-27 06:25 | Emergency (ER) | payer OTHER ==
[~2022-06-27] VITALS: Ht 172.7 cm; Wt 97.2 kg
[2022-06-27 08:15] LABS: BASO % 0.2 % (0.0-1.0); EOS # 0.7 10^3/uL (0.0-0.5); EOS % 4.9 % (0.0-3.0); HEMATOCRIT 35.2 % (36.0-47.0); HEMOGLOBIN 11.4 g/dl (12.0-15.5); LYMPH # 2.2 10^3/uL (1.5-5.0); MEAN CORPUSCULAR HEMOGLOBIN 26.9 pg (27.0-33.0); MEAN CORPUSCULAR HGB CONC 32.4 g/dl (32.0-36.5); MONO # 0.8 10^3/uL (0.0-0.8); MONO % 5.6 % (2.0-8.0); NEUTROPHILS # 10.9 10^3/uL (1.5-8.5); NEUTROPHILS % 73.9 % (36.0-66.0); PLATELET COUNT, AUTOMATED 336 10^3/uL (150-450); RED BLOOD COUNT 4.24 10^6/uL (4.00-5.40); WHITE BLOOD COUNT 14.8 10^3/uL (4.0-10.0)
[2022-06-27 08:55] LABS: ALBUMIN 3.1 G/DL (3.2-5.2); ALKALINE PHOSPHATASE 84 U/L (46-116); ALT/SGPT 15 U/L (7.0-40); AST/SGOT 13 U/L (<34); BILIRUBIN,TOTAL 0.2 MG/DL (0.3-1.2); BLOOD UREA NITROGEN 8 MG/DL (9-23); CALCIUM LEVEL 9.1 MG/DL (8.5-10.1); CARBON DIOXIDE LEVEL 22 MMOL/L (20-31); CHLORIDE LEVEL 104 MMOL/L (98-107); CREATININE FOR GFR 0.77 MG/DL (0.55-1.30); GLOMERULAR FILTRATION RATE > 60.0 (>60); GLUCOSE, FASTING 97 MG/DL (60-100); HCG, SERUM QUANTITATIVE 81699.1 MIU/ML (<4.2); LIPASE 35 U/L (12-53); POTASSIUM SERUM 4.3 MMOL/L (3.5-5.1); SODIUM LEVEL 137 MMOL/L (136-145); TOTAL PROTEIN 6.4 G/DL (5.7-8.2)
[2022-06-27] MEDS ORDERED: ONDANSETRON 4MG 2ML VIAL IV ONE (09:10)
[2022-06-27] MEDS ORDERED: MIRA3350 PO (10:19)
[2022-06-27] MEDS ORDERED: MAGN296S16 PO (11:32)
[2022-06-27] MEDS ORDERED: MAGNESIUM CITRATE 300 ML BTL PO ONE (11:55)
[2022-06-27 12:15] VITALS: BP 129/78
== END 2022-06-27 12:19 | disposition home or self-care (01) ==
LOC: M ED 06:25
DX: O99.611 Diseases of the digestive system complicating pregnancy, first trimester (principal); Z3A.12 12 weeks gestation of pregnancy; Z88.0 Allergy status to penicillin; Z88.1 Allergy status to other antibiotic agents; Z91.09 Other allergy status, other than to drugs and biological substances; Z79.51 Long term (current) use of inhaled steroids; Z79.899 Other long term (current) drug therapy

== ENCOUNTER → 2022-07-17 | Outpatient (CLI) | payer OTHER ==
[~2022-07-17] MED LIST changes: +MAGN296S16 PO; +MIRA3350 PO
[2022-07-17 17:32] LABS: HEMATOCRIT 35.3 % (36.0-47.0); HEMOGLOBIN 11.5 g/dl (12.0-15.5); MEAN CORPUSCULAR HEMOGLOBIN 27.3 pg (27.0-33.0); MEAN CORPUSCULAR HGB CONC 32.6 g/dl (32.0-36.5); MEAN CORPUSCULAR VOLUME 83.6 fl (80.0-96.0); PLATELET COUNT, AUTOMATED 345 10^3/uL (150-450); RED BLOOD COUNT 4.22 10^6/uL (4.00-5.40); WHITE BLOOD COUNT 14.6 10^3/uL (4.0-10.0)
[2022-07-17 18:27] LABS: HIV 1&2 SCREEN CENTAUR NEGATIVE (NEGATIVE)
[2022-07-17 18:35] LABS: HEPATITIS C VIRUS ABY INDEX 0.1 INDEX (<0.8)
[2022-07-17 19:54] LABS: GC DNA AMPLIFICATION NEGATIVE (NEGATIVE)
== END ==
LOC: M PLALAB 15:16
PROVIDERS: ATTEND Obstetrics & Gynecology
DX: Z34.92 Encounter for supervision of normal pregnancy, unspecified, second trimester (principal)

== ENCOUNTER 2022-08-06 07:27 | Emergency (ER) | payer OTHER ==
[~2022-08-06] VITALS: Ht 172.7 cm; Wt 98.1 kg
[2022-08-06 07:27] VITALS: BP 117/64
== END 2022-08-06 09:45 | disposition left against medical advice (07) ==
LOC: M ED 07:27
DX: Z53.21 Procedure and treatment not carried out due to patient leaving prior to being seen by health care provider (principal)

== ENCOUNTER → 2022-09-04 | Outpatient (CLI) | payer OTHER | LOC: M WHC 12:31 | PROVIDERS: ATTEND Obstetrics & Gynecology | DX: Z34.92 Encounter for supervision of normal pregnancy, unspecified, second trimester (principal); Z3A.21 21 weeks gestation of pregnancy ==

== ENCOUNTER → 2022-10-06 | Outpatient (CLI) | payer OTHER ==
[~2022-10-06] MED LIST changes: +MONT-5 PO; -SING10TA32 PO
== END ==
LOC: M WHC 09:17
PROVIDERS: ATTEND Advanced Practice Midwife
DX: O99.512 Diseases of the respiratory system complicating pregnancy, second trimester (principal); Z3A.26 26 weeks gestation of pregnancy

== ENCOUNTER → 2022-10-16 | Outpatient (CLI) | payer OTHER ==
[2022-10-16 13:36] LABS: HEMATOCRIT 31.4 % (36.0-47.0); MEAN CORPUSCULAR HEMOGLOBIN 27.2 pg (27.0-33.0); MEAN CORPUSCULAR HGB CONC 31.8 g/dl (32.0-36.5); MEAN CORPUSCULAR VOLUME 85.6 fl (80.0-96.0); PLATELET COUNT, AUTOMATED 319 10^3/uL (150-450); RED BLOOD COUNT 3.67 10^6/uL (4.00-5.40); WHITE BLOOD COUNT 16.5 10^3/uL (4.0-10.0)
[2022-10-16 13:47] LABS: FREE T4 0.88 NG/DL (0.89-1.76); THYROID STIMULATING HORMONE 2.991 uIU/ML (0.55-4.78)
[2022-10-16 15:02] LABS: GC DNA AMPLIFICATION NEGATIVE (NEGATIVE)
== END ==
LOC: M PLALAB 08:22
PROVIDERS: ATTEND Advanced Practice Midwife
DX: O99.512 Diseases of the respiratory system complicating pregnancy, second trimester (principal); Z3A.00 Weeks of gestation of pregnancy not specified

== ENCOUNTER → 2022-12-18 | Outpatient (REF) | payer OTHER | LOC: M PLALAB 10:13 | PROVIDERS: ATTEND Advanced Practice Midwife | DX: O99.343 Other mental disorders complicating pregnancy, third trimester (principal); Z3A.00 Weeks of gestation of pregnancy not specified ==

== ENCOUNTER 2022-12-28 20:15 | Outpatient (CLI) | payer OTHER ==
[~2022-12-28] VITALS: Ht 172.7 cm; Wt 100.3 kg
[2022-12-28] MEDS ORDERED: ACET325C5 PO (20:31)
[2022-12-28] MEDS ORDERED: LEVO50TA5 PO (20:31)
[2022-12-28 20:33] VITALS: BP 140/79
[2022-12-28] MEDS ORDERED: HOME MED LIST COMPLETE! XX SCH (20:35)
[2022-12-28 20:48] VITALS: BP 146/86
[2022-12-28 21:34] VITALS: BP 144/84
[2022-12-28 21:40] LABS: HEMATOCRIT 34.8 % (36.0-47.0); HEMOGLOBIN 11.1 g/dl (12.0-15.5); MEAN CORPUSCULAR HEMOGLOBIN 27.1 pg (27.0-33.0); MEAN CORPUSCULAR HGB CONC 31.9 g/dl (32.0-36.5); MEAN CORPUSCULAR VOLUME 85.1 fl (80.0-96.0); PLATELET COUNT, AUTOMATED 265 10^3/uL (150-450); RED BLOOD COUNT 4.09 10^6/uL (4.00-5.40); WHITE BLOOD COUNT 9.7 10^3/uL (4.0-10.0)
[2022-12-28 21:46] LABS: TOTAL PROTEIN,RANDOM URINE 40.2 MG/DL (0.0-14.0)
[2022-12-28 21:51] LABS: CREATININE,RANDOM URINE 231.3 MG/DL
[2022-12-28 22:01] LABS: URIC ACID 4.6 MG/DL (3.1-7.8)
[2022-12-28 22:03] LABS: LDH LACTATE DEHYDROGENASE 134 U/L (120-246)
[2022-12-28 22:04] LABS: ALT/SGPT 27 U/L (7.0-40); AST/SGOT 21 U/L (<34); BILIRUBIN,TOTAL 0.2 MG/DL (0.3-1.2); CREATININE FOR GFR 0.66 MG/DL (0.55-1.30); GLOMERULAR FILTRATION RATE > 60.0 (>60)
[2022-12-28 22:09] VITALS: BP 130/85
== END 2022-12-28 22:30 | disposition home or self-care (01) ==
LOC: M LDO 20:15
PROVIDERS: ATTEND Advanced Practice Midwife
DX: O36.8130 Decreased fetal movements, third trimester, not applicable or unspecified (principal); O99.353 Diseases of the nervous system complicating pregnancy, third trimester; G43.109 Migraine with aura, not intractable, without status migrainosus; O99.613 Diseases of the digestive system complicating pregnancy, third trimester; K58.9 Irritable bowel syndrome, unspecified; O99.343 Other mental disorders complicating pregnancy, third trimester; F41.8 Other specified anxiety disorders; Z3A.37 37 weeks gestation of pregnancy
CPT/HCPCS: 36415; 59025; 82247; 82565; 82570; 83615; 84156; 84450; 84460; 84550; 85027; G0463

== ENCOUNTER 2023-01-04 19:33 | Outpatient (CLI) | payer OTHER ==
[~2023-01-04] VITALS: Ht 172.7 cm; Wt 100.5 kg
[~2023-01-04 19:33] MED LIST changes: +ACET325C5 PO; +LEVO50TA5 PO
[2023-01-04 20:00] VITALS: BP 128/70
[2023-01-04 20:26] VITALS: BP 114/69
== END 2023-01-04 21:40 | disposition home or self-care (01) ==
LOC: M LDO 19:33
PROVIDERS: ATTEND Advanced Practice Midwife
DX: O26.893 Other specified pregnancy related conditions, third trimester (principal); N89.8 Other specified noninflammatory disorders of vagina; O99.353 Diseases of the nervous system complicating pregnancy, third trimester; G43.109 Migraine with aura, not intractable, without status migrainosus; O99.283 Endocrine, nutritional and metabolic diseases complicating pregnancy, third trimester; E03.9 Hypothyroidism, unspecified; O99.343 Other mental disorders complicating pregnancy, third trimester; F41.8 Other specified anxiety disorders; O99.613 Diseases of the digestive system complicating pregnancy, third trimester; K58.9 Irritable bowel syndrome, unspecified; Z3A.38 38 weeks gestation of pregnancy
CPT/HCPCS: 59025; 76815; G0463

== ENCOUNTER 2023-01-06 14:35 | Inpatient (IN) | payer OTHER ==
[~2023-01-06] VITALS: Ht 172.7 cm; Wt 100.6 kg
[2023-01-06] MEDS ORDERED: ceFAZolin SOD 2 GM in IV 1 EA IV STA (14:57)
[2023-01-06] MEDS ORDERED: TRANEXAMIC ACID INJection 1,000 MG in NS 100 ML IV PRN (15:00)
[2023-01-06] MEDS ORDERED: LIDOCAINE 1% MDV 20ML VIAL INFIL PRN (15:00)
[2023-01-06] MEDS ORDERED: CARBOPROST TROMETHAMINE 250 MCG/ML AMP IM PRN (15:00)
[2023-01-06] MEDS ORDERED: METHYLERGONOVINE MALEATE 0.2MG/ML 1ML VIAL IM PRN (15:00)
[2023-01-06] MEDS ORDERED: OXYTOCIN DRIP 30 UNITS in IV 1 EA IV PRN ×4 (15:00)
[2023-01-06] MEDS ORDERED: OXYTOCIN INJ 10UNITS/ML 1ML VIAL IM PRN (15:00)
[2023-01-06 15:09] VITALS: BP 137/70
[2023-01-06] MEDS ORDERED: HOME MED LIST COMPLETE! XX SCH (15:20)
[2023-01-06 16:03] LABS: HEMATOCRIT 35.4 % (36.0-47.0); HEMOGLOBIN 11.3 g/dl (12.0-15.5); MEAN CORPUSCULAR HEMOGLOBIN 27.1 pg (27.0-33.0); MEAN CORPUSCULAR HGB CONC 31.9 g/dl (32.0-36.5); MEAN CORPUSCULAR VOLUME 84.9 fl (80.0-96.0); PLATELET COUNT, AUTOMATED 263 10^3/uL (150-450); RED BLOOD COUNT 4.17 10^6/uL (4.00-5.40); WHITE BLOOD COUNT 13.4 10^3/uL (4.0-10.0)
[2023-01-06 16:24] LABS: LDH LACTATE DEHYDROGENASE 198 U/L (120-246)
[2023-01-06] MEDS ORDERED: IRON65TA2 PO (16:24)
[2023-01-06 16:25] LABS: ALT/SGPT 40 U/L (7.0-40); AST/SGOT 23 U/L (<34); BILIRUBIN,TOTAL 0.2 MG/DL (0.3-1.2); CREATININE FOR GFR 0.66 MG/DL (0.55-1.30); GLOMERULAR FILTRATION RATE > 60.0 (>60)
[2023-01-06] MEDS ORDERED: ZYRTTAB8 PO (16:27)
[2023-01-06] MEDS: miSOPROStol 50MCG 1/2 TABLET PO SCH ×3 (16:30→23:51)
[2023-01-06 16:40] VITALS: BP 129/66
[2023-01-06 16:48] LABS: URIC ACID 4.3 MG/DL (3.1-7.8)
[2023-01-06 17:20] VITALS: BP 121/72
[2023-01-06 18:15] VITALS: BP 135/77
[2023-01-06] MEDS: LEVOTHYROXINE 50MCG TABLET (0.05MG) PO SCH (21:04)
[2023-01-06] MEDS: OMEPRAZOLE 20MG CAP PO SCH (21:04)
[2023-01-06] MEDS: FLUTICASONE SALMETEROL INH SCH (21:05)
[2023-01-06] MEDS ORDERED: ceFAZolin SOD 1 GM in D5W MINI-BAG PLUS 50 ML IV SCH (23:00)
[2023-01-07] VITALS (50 sets, daily range): BP systolic 110–148; BP diastolic 63–87
[2023-01-07] MEDS: miSOPROStol 50MCG 1/2 TABLET PO SCH (03:46)
[2023-01-07] MEDS ORDERED: OXYTOCIN DRIP 30 UNITS in IV 1 EA IV SCH (07:50)
[2023-01-07] MEDS: FLUTICASONE SALMETEROL INH SCH (08:00)
[2023-01-07] MEDS: FLUoxetine 20MG CAP PO SCH (08:18)
[2023-01-07] MEDS ORDERED: CETIRIZINE (ZyrTEC) 10 MG TAB PO SCH (09:00)
[2023-01-07] MEDS: LR 1,000 ML IV SCH ×2 (09:20→16:57)
[2023-01-07] MEDS ORDERED: ceFAZolin SOD 2 GM in IV 1 EA IV STA (16:53)
[2023-01-07] MEDS ORDERED: ONDANSETRON 4MG 2ML VIAL IV PRN ×2 (17:35→18:00)
[2023-01-07] MEDS ORDERED: ePHEDrine SULFATE 25 MG/5 ML(5MG/ML) SYRINGE IVP PRN (18:00)
[2023-01-07] MEDS ORDERED: diphenhydrAMINE 50MG/ML VIAL IV PRN (18:00)
[2023-01-07] MEDS ORDERED: NALOXONE INJ 0.4MG/1ML VIAL IV PRN (18:00)
[2023-01-07] MEDS ORDERED: LR 500 ML IV PRN (18:00)
[2023-01-07] MEDS ORDERED: FENTANYL/ROPIVACAINE/NACL BAG 100 ML EPIDURAL SCH (18:00)
[2023-01-07] MEDS ORDERED: EPIDURAL/PCA KEYS XX PRN (18:00)
[2023-01-07] MEDS: LEVOTHYROXINE 50MCG TABLET (0.05MG) PO SCH (21:24)
[2023-01-07] MEDS: OMEPRAZOLE 20MG CAP PO SCH (21:24)
[2023-01-08] VITALS (13 sets, daily range): BP systolic 105–144; BP diastolic 57–90; TEMP 98.1; O2SAT 94–98
[2023-01-08] MEDS: ceFAZolin SOD 1 GM in D5W MINI-BAG PLUS 50 ML IV SCH ×2 (00:44→01:15)
[2023-01-08] MEDS ORDERED: BICITRA 30ML SOLN UDC PO ONE (00:50)
[2023-01-08] MEDS ORDERED: AZITHROMYCIN INJ 500 MG, VIAL MATE ADAPTER 1 EACH in NS 250 ML IV ONE (00:50)
[2023-01-08] MEDS ORDERED: LIDOCAINE 2% W/EPINEPHRINE 20ML VIAL **PRES FREE As Ordered ONE (00:58)
[2023-01-08] MEDS ORDERED: OXYTOCIN 30UNITS IN 0.9% NaCl 500ML IV BAG As Ordered ONE ×2 (00:59→03:00)
[2023-01-08] MEDS ORDERED: ceFAZolin SOD 1 GM in D5W MINI-BAG PLUS 50 ML IV STA (01:06)
[2023-01-08] MEDS ORDERED: AZITHROMYCIN INJ 500MG VIAL As Ordered ONE (01:07)
[2023-01-08] MEDS ORDERED: ONDANSETRON 4MG 2ML VIAL As Ordered ONE (01:30)
[2023-01-08] MEDS ORDERED: KETOROLAC 60MG 2ML VIAL As Ordered ONE (01:34)
[2023-01-08] MEDS ORDERED: MORPHINE PRES-FREE INJ 10 MG/10 ML VIAL As Ordered ONE (01:35)
[2023-01-08] MEDS ORDERED: MEPERIDINE 50 MG/ML 1ML VIAL As Ordered ONE (01:58)
[2023-01-08] MEDS ORDERED: PHENYLephrine 500MCG 5ML (100MCG/ML) SYRINGE As Ordered ONE (02:05)
[2023-01-08] MEDS ORDERED: OXYTOCIN DRIP 30 UNITS in IV 1 EA IV SCH (02:35)
[2023-01-08] MEDS ORDERED: RHOGAM 300MCG (1500IU) INJ IM SCH (02:35)
[2023-01-08] MEDS: ACETAMINOPHEN 500 MG TAB PO SCH ×4 (02:35→20:07)
[2023-01-08] MEDS ORDERED: OXYC-517 PO (03:01)
[2023-01-08] MEDS ORDERED: IBUP-1022 PO (03:01)
[2023-01-08] MEDS ORDERED: ACET-683 PO (03:01)
[2023-01-08] MEDS ORDERED: COLA100C5 PO (03:01)
[2023-01-08] MEDS: KETOROLAC 30 MG/ML 1ML VIAL IV SCH ×4 (04:45→22:47)
[2023-01-08] MEDS: oxyCODONE 5MG TAB PO PRN ×3 (05:07→20:08)
[2023-01-08] MEDS: FLUoxetine 20MG CAP PO SCH (08:09)
[2023-01-08] MEDS: PRENATAL VITAMINS CHEWABLE TABLET PO SCH (08:09)
[2023-01-08] MEDS ORDERED: ONDANSETRON 4MG 2ML VIAL IV PRN (09:35)
[2023-01-08] MEDS ORDERED: NALOXONE INJ 0.4MG/1ML VIAL IV PRN ×2 (09:35)
[2023-01-08] MEDS ORDERED: diphenhydrAMINE 50MG/ML VIAL IV PRN (09:35)
[2023-01-08] MEDS ORDERED: HYDROMORPHONE HCL 0.5 MG/ 0.5 ML SYRINGE IV PRN (09:35)
[2023-01-08] MEDS ORDERED: **NOTE PATIENT COMMENT** MISC XX SCH (09:35)
[2023-01-08] MEDS ORDERED: oxyCODONE 5MG TAB PO PRN (09:35)
[2023-01-08] MEDS ORDERED: fentaNYL 100 MCG/2 ML INJECTION IV PRN (09:35)
[2023-01-08] MEDS ORDERED: METOCLOPRAMIDE INJ 10MG/2ML VIAL IV PRN (09:35)
[2023-01-08] MEDS ORDERED: MEPERIDINE 25 MG/ML 1ML VIAL IV PRN (09:35)
[2023-01-08] MEDS: SLF 3 ML SYR IV SCH ×3 (10:08→22:48)
[2023-01-08] MEDS: LEVOTHYROXINE 50MCG TABLET (0.05MG) PO SCH (20:07)
[2023-01-09 02:00] VITALS: BP 109/64; O2SAT 97
[2023-01-09] MEDS: ACETAMINOPHEN 500 MG TAB PO SCH ×4 (02:35→20:36)
[2023-01-09] MEDS: oxyCODONE 5MG TAB PO PRN ×3 (06:01→18:00)
[2023-01-09] MEDS: IBUPROFEN 600MG TAB PO SCH ×3 (06:01→19:20)
[2023-01-09 06:19] VITALS: BP 119/78; O2SAT 98
[2023-01-09 07:18] LABS: HEMATOCRIT 29.4 % (36.0-47.0); HEMOGLOBIN 9.3 g/dl (12.0-15.5); MEAN CORPUSCULAR HEMOGLOBIN 27.2 pg (27.0-33.0); MEAN CORPUSCULAR HGB CONC 31.6 g/dl (32.0-36.5); PLATELET COUNT, AUTOMATED 194 10^3/uL (150-450); RED BLOOD COUNT 3.42 10^6/uL (4.00-5.40)
[2023-01-09] MEDS: PRENATAL VITAMINS CHEWABLE TABLET PO SCH (08:17)
[2023-01-09] MEDS: FLUoxetine 20MG CAP PO SCH (08:17)
[2023-01-09 10:00] VITALS: BP 124/68; O2SAT 95
[2023-01-09] MEDS: SIMETHICONE 80MG CHEW TAB PO PRN ×3 (11:11→17:59)
[2023-01-09 13:58] VITALS: BP 131/66; O2SAT 97
[2023-01-09] MEDS: DOCUSATE SODIUM 100MG CAPSULE PO PRN ×2 (14:57→20:36)
[2023-01-09 17:59] VITALS: BP 134/70; O2SAT 97
[2023-01-09] MEDS: LEVOTHYROXINE 50MCG TABLET (0.05MG) PO SCH (20:36)
[2023-01-10] MEDS: IBUPROFEN 600MG TAB PO SCH ×2 (01:51→06:24)
[2023-01-10] MEDS: oxyCODONE 5MG TAB PO PRN (01:52)
[2023-01-10 02:00] VITALS: BP 124/79; O2SAT 97
[2023-01-10] MEDS: ACETAMINOPHEN 500 MG TAB PO SCH ×2 (03:22→09:10)
[2023-01-10 06:00] VITALS: BP 126/79; O2SAT 97
[2023-01-10] MEDS: FLUoxetine 20MG CAP PO SCH (08:53)
[2023-01-10] MEDS: SIMETHICONE 80MG CHEW TAB PO PRN (08:53)
[2023-01-10] MEDS: PRENATAL VITAMINS CHEWABLE TABLET PO SCH (08:53)
[2023-01-10] MEDS: DOCUSATE SODIUM 100MG CAPSULE PO PRN (08:53)
[2023-01-10] MEDS ORDERED: MEASLES,MUMPS,RUBELLA VACCINE INJ (MMR-II) SC.IMMUN ONE (09:00)
[2023-01-10 09:57] VITALS: BP 133/75; O2SAT 96
== END 2023-01-10 12:33 | disposition home or self-care (01) | DRG 540 ==
LOC: M LDI 14:35 → M OBS 01-08 04:10
PROVIDERS: ADMIT Advanced Practice Midwife; ATTEND Advanced Practice Midwife
PROC: 10907ZC Drainage of Amniotic Fluid, Therapeutic from Products of Conception, Via Natural or Artificial Opening (ICD-10-PCS; 2023-01-07)
PROC: 3E033VJ Introduction of Other Hormone into Peripheral Vein, Percutaneous Approach (ICD-10-PCS; 2023-01-07)
PROC: 10D00Z1 Extraction of Products of Conception, Low, Open Approach (ICD-10-PCS; principal; 2023-01-08 01:00)
DX: O32.4XX0 Maternal care for high head at term, not applicable or unspecified (principal); E03.9 Hypothyroidism, unspecified; Z37.0 Single live birth; Z3A.39 39 weeks gestation of pregnancy; Z88.8 Allergy status to other drugs, medicaments and biological substances; Z79.899 Other long term (current) drug therapy; Z91.040 Latex allergy status; O99.284 Endocrine, nutritional and metabolic diseases complicating childbirth; F31.9 Bipolar disorder, unspecified; O99.344 Other mental disorders complicating childbirth; F41.9 Anxiety disorder, unspecified; K21.9 Gastro-esophageal reflux disease without esophagitis; O99.62 Diseases of the digestive system complicating childbirth; O75.81 Maternal exhaustion complicating labor and delivery

== ENCOUNTER → 2023-03-30 | Outpatient (CLI) | payer BC, OTHER ==
[~2023-03-30] MED LIST changes: +ACET-683 PO; +COLA100C5 PO; +IBUP-1022 PO; +IRON65TA2 PO; +OXYC-517 PO; +ZYRTTAB8 PO
[2023-03-30 12:50] LABS: BASO # 0.1 10^3/uL (0.0-0.2); BASO % 0.6 % (0.0-1.0); EOS # 0.6 10^3/uL (0.0-0.5); EOS % 6.5 % (0.0-3.0); HEMATOCRIT 41.2 % (36.0-47.0); HEMOGLOBIN 13.1 g/dl (12.0-15.5); LYMPH # 2.6 10^3/uL (1.5-5.0); LYMPH % 28.6 % (24.0-44.0); MEAN CORPUSCULAR HEMOGLOBIN 27.9 pg (27.0-33.0); MEAN CORPUSCULAR HGB CONC 31.8 g/dl (32.0-36.5); MEAN CORPUSCULAR VOLUME 87.8 fl (80.0-96.0); MONO # 0.4 10^3/uL (0.0-0.8); MONO % 4.6 % (2.0-8.0); NEUTROPHILS # 5.3 10^3/uL (1.5-8.5); NEUTROPHILS % 59.5 % (36.0-66.0); PLATELET COUNT, AUTOMATED 412 10^3/uL (150-450); RED BLOOD COUNT 4.69 10^6/uL (4.00-5.40)
[2023-03-30 13:07] LABS: HEMOGLOBIN A1c 4.8 % (4.0-6.0)
[2023-03-30 13:19] LABS: ALBUMIN 3.8 G/DL (3.2-5.2); ALKALINE PHOSPHATASE 109 U/L (46-116); ALT/SGPT 56 U/L (7.0-40); AST/SGOT 23 U/L (<34); BILIRUBIN,TOTAL 0.5 MG/DL (0.3-1.2); BLOOD UREA NITROGEN 8 MG/DL (9-23); CALCIUM LEVEL 9.6 MG/DL (8.5-10.1); CARBON DIOXIDE LEVEL 24 MMOL/L (20-31); CHLORIDE LEVEL 107 MMOL/L (98-107); CHOLESTEROL LEVEL 276 MG/DL (<200); CHOLESTEROL RISK RATIO 7.41 (<5); CREATININE FOR GFR 0.98 MG/DL (0.55-1.30); GLOMERULAR FILTRATION RATE > 60.0 (>60); GLUCOSE, FASTING 85 MG/DL (60-100); HDL CHOLESTEROL 37.2 MG/DL (>40); IRON (FE) 38 UG/DL (50-170); LDL CHOLESTEROL 204.6 MG/DL (<100); NON-HDL-C 238.8 MG/DL; POTASSIUM SERUM 4.3 MMOL/L (3.5-5.1); SODIUM LEVEL 141 MMOL/L (136-145); THYROID STIMULATING HORMONE 1.719 uIU/ML (0.55-4.78); TOTAL IRON BINDING CAPACITY 345 UG/DL (250-425); TOTAL PROTEIN 7.3 G/DL (5.7-8.2); TRIGLYCERIDES LEVEL 171 MG/DL (<150)
[2023-03-30 13:20] LABS: FREE T4 1.15 NG/DL (0.89-1.76)
== END ==
LOC: M WUC 10:29
PROVIDERS: ATTEND Physician Assistant
DX: E03.9 Hypothyroidism, unspecified (principal); D50.8 Other iron deficiency anemias; Z68.31 Body mass index [BMI] 31.0-31.9, adult

== ENCOUNTER → 2023-06-01 | Outpatient (REF) | payer BC, OTHER | LOC: M PLALAB 13:58 | PROVIDERS: ATTEND Obstetrics & Gynecology | DX: N76.0 Acute vaginitis (principal); Z12.4 Encounter for screening for malignant neoplasm of cervix | CPT/HCPCS: 87088; 87186; 87624; G0123 ==

== ENCOUNTER 2023-09-04 21:31 | Emergency (ER) | payer BC ==
[~2023-09-04] VITALS: Ht 172.7 cm; Wt 90.7 kg
[2023-09-04] MEDS ORDERED: BACT800T5 (21:40)
[2023-09-04] MEDS ORDERED: NS 1,000 ML IV ONE (22:00)
[2023-09-04 22:22] LABS: BASO % 0.4 % (0.0-1.0); EOS # 0.8 10^3/uL (0.0-0.5); HEMATOCRIT 39.6 % (36.0-47.0); HEMOGLOBIN 13.3 g/dl (12.0-15.5); LYMPH # 3.7 10^3/uL (1.5-5.0); LYMPH % 37.4 % (24.0-44.0); MEAN CORPUSCULAR HEMOGLOBIN 29.1 pg (27.0-33.0); MEAN CORPUSCULAR HGB CONC 33.6 g/dl (32.0-36.5); MEAN CORPUSCULAR VOLUME 86.7 fl (80.0-96.0); MONO # 0.6 10^3/uL (0.0-0.8); MONO % 6.1 % (2.0-8.0); NEUTROPHILS # 4.7 10^3/uL (1.5-8.5); PLATELET COUNT, AUTOMATED 371 10^3/uL (150-450); RED BLOOD COUNT 4.57 10^6/uL (4.00-5.40); WHITE BLOOD COUNT 9.9 10^3/uL (4.0-10.0)
[2023-09-04] MEDS ORDERED: ISOVUE-370 76% 100ML VIAL As Ordered ONE (22:34)
[2023-09-04 22:43] LABS: LIPASE 37 U/L (12-53)
[2023-09-04 22:45] LABS: ALBUMIN 3.5 G/DL (3.2-5.2); ALKALINE PHOSPHATASE 107 U/L (46-116); ALT/SGPT 41 U/L (7.0-40); AST/SGOT 17 U/L (<34); BILIRUBIN,DIRECT < 0.1 MG/DL (<0.4); BILIRUBIN,TOTAL 0.2 MG/DL (0.3-1.2); TOTAL PROTEIN 7.3 G/DL (5.7-8.2)
[2023-09-04 23:23] VITALS: BP 117/63; TEMP 98.2; O2SAT 100
== END 2023-09-04 23:30 | disposition home or self-care (01) ==
LOC: M ED 21:31
DX: K92.1 Melena (principal); Z91.040 Latex allergy status; Z88.8 Allergy status to other drugs, medicaments and biological substances; Z88.1 Allergy status to other antibiotic agents; Z91.048 Other nonmedicinal substance allergy status
CPT/HCPCS: 74177; 80047; 80076; 81001; 83605; 83690; 84702; 85025; 87040; 93041; 96360; 99284; Q9967

== ENCOUNTER → 2023-09-08 | Outpatient (REF) | payer BC ==
[~2023-09-08] MED LIST changes: +BACT800T5
== END ==
LOC: M LAB REF 21:29 → M SFHCADAM 21:29
PROVIDERS: ATTEND Physician Assistant
DX: R35.0 Frequency of micturition (principal)

== ENCOUNTER → 2023-09-14 | Outpatient (CLI) | payer BC, OTHER | LOC: M WHC 08:58 | PROVIDERS: ATTEND Physician Assistant | DX: R10.9 Unspecified abdominal pain (principal) ==

== ENCOUNTER 2023-11-06 08:12 | Emergency (ER) | payer BC, MEDICAID ==
[~2023-11-06] VITALS: Ht 172.7 cm; Wt 88.6 kg
[2023-11-06 08:52] LABS: BASO % 0.3 % (0.0-1.0); EOS # 0.8 10^3/uL (0.0-0.5); EOS % 8.4 % (0.0-3.0); HEMATOCRIT 40.9 % (36.0-47.0); HEMOGLOBIN 13.8 g/dl (12.0-15.5); LYMPH # 2.4 10^3/uL (1.5-5.0); LYMPH % 26.7 % (24.0-44.0); MEAN CORPUSCULAR HEMOGLOBIN 29.6 pg (27.0-33.0); MEAN CORPUSCULAR HGB CONC 33.7 g/dl (32.0-36.5); MEAN CORPUSCULAR VOLUME 87.6 fl (80.0-96.0); MONO # 0.5 10^3/uL (0.0-0.8); MONO % 5.5 % (2.0-8.0); NEUTROPHILS # 5.4 10^3/uL (1.5-8.5); NEUTROPHILS % 58.9 % (36.0-66.0); PLATELET COUNT, AUTOMATED 369 10^3/uL (150-450); RED BLOOD COUNT 4.67 10^6/uL (4.00-5.40); WHITE BLOOD COUNT 9.1 10^3/uL (4.0-10.0)
[2023-11-06 09:24] LABS: LIPASE 44 U/L (12-53)
[2023-11-06 09:26] LABS: ALBUMIN 3.3 G/DL (3.2-5.2); ALKALINE PHOSPHATASE 115 U/L (46-116); ALT/SGPT 18 U/L (7.0-40); AMYLASE 35 U/L (30-118); AST/SGOT 11 U/L (<34); BILIRUBIN,DIRECT < 0.1 MG/DL (<0.4); BILIRUBIN,TOTAL 0.3 MG/DL (0.3-1.2); BLOOD UREA NITROGEN 10 MG/DL (9-23); CALCIUM LEVEL 9.1 MG/DL (8.5-10.1); CARBON DIOXIDE LEVEL 24 MMOL/L (20-31); CHLORIDE LEVEL 107 MMOL/L (98-107); CREATININE FOR GFR 0.77 MG/DL (0.55-1.30); GLOMERULAR FILTRATION RATE > 60.0 (>60); GLUCOSE, FASTING 93 MG/DL (60-100); SODIUM LEVEL 136 MMOL/L (136-145); TOTAL PROTEIN 6.7 G/DL (5.7-8.2)
[2023-11-06 09:32] LABS: HCG, SERUM QUALITATIVE NEGATIVE (NEGATIVE)
[2023-11-06] MEDS: ACETAMINOPHEN 325 MG TAB PO ONE (10:55)
[2023-11-06 13:03] VITALS: BP 126/66; TEMP 98.1; O2SAT 99
== END 2023-11-06 13:13 | disposition home or self-care (01) ==
LOC: M ED 08:12
DX: D25.9 Leiomyoma of uterus, unspecified (principal); Z87.42 Personal history of other diseases of the female genital tract; Z88.1 Allergy status to other antibiotic agents; Z91.040 Latex allergy status; Z91.048 Other nonmedicinal substance allergy status; Z79.83 Long term (current) use of bisphosphonates; Z79.890 Hormone replacement therapy; Z79.899 Other long term (current) drug therapy

== ENCOUNTER → 2024-01-20 | Outpatient (CLI) | payer BC, MEDICAID ==
[~2024-01-20] MED LIST changes: +FLUO-290 PO; -FLUO10CA18 PO; +GASTROGRAFIN SOLUTION 30ML As Ordered ONE; +ISOVUE-370 76% 100ML VIAL As Ordered ONE; +ONDA-282 PO; -ONDA4TAB6 PO
[2024-01-20 11:32] LABS: BASO % 0.4 % (0.0-1.0); EOS # 0.6 10^3/uL (0.0-0.5); EOS % 6.4 % (0.0-3.0); HEMATOCRIT 43.5 % (36.0-47.0); HEMOGLOBIN 14.3 g/dl (12.0-15.5); LYMPH % 32.9 % (24.0-44.0); MEAN CORPUSCULAR HEMOGLOBIN 28.9 pg (27.0-33.0); MEAN CORPUSCULAR HGB CONC 32.9 g/dl (32.0-36.5); MEAN CORPUSCULAR VOLUME 88.1 fl (80.0-96.0); MONO # 0.4 10^3/uL (0.0-0.8); MONO % 4.7 % (2.0-8.0); NEUTROPHILS % 55.5 % (36.0-66.0); PLATELET COUNT, AUTOMATED 379 10^3/uL (150-450); RED BLOOD COUNT 4.94 10^6/uL (4.00-5.40); WHITE BLOOD COUNT 9.1 10^3/uL (4.0-10.0)
[2024-01-20 11:53] LABS: C REACTIVE PROTEIN QUANTITATIV < 0.40 MG/DL (<1.0); LIPASE 45 U/L (12-53)
[2024-01-20 11:54] LABS: AMYLASE 39 U/L (30-118)
[2024-01-20 11:55] LABS: ALBUMIN 3.8 G/DL (3.2-5.2); ALKALINE PHOSPHATASE 103 U/L (46-116); ALT/SGPT 21 U/L (7.0-40); AST/SGOT 10 U/L (<34); BILIRUBIN,TOTAL 0.4 MG/DL (0.3-1.2); BLOOD UREA NITROGEN 15 MG/DL (9-23); CALCIUM LEVEL 9.8 MG/DL (8.5-10.1); CARBON DIOXIDE LEVEL 25 MMOL/L (20-31); CHLORIDE LEVEL 106 MMOL/L (98-107); CREATININE FOR GFR 0.91 MG/DL (0.55-1.30); GLOMERULAR FILTRATION RATE > 60.0 (>60); GLUCOSE, FASTING 87 MG/DL (60-100); POTASSIUM SERUM 4.7 MMOL/L (3.5-5.1); SODIUM LEVEL 137 MMOL/L (136-145); TOTAL PROTEIN 7.3 G/DL (5.7-8.2)
[2024-01-20 11:57] LABS: FREE T4 1.08 NG/DL (0.89-1.76); THYROID STIMULATING HORMONE 1.666 uIU/ML (0.55-4.78)
[2024-01-20 14:57] LABS: URINE PREG TEST NEGATIVE (NEGATIVE)
[2024-01-20 15:00] LABS: AMORPHOUS SEDIMENT SMALL (NEGATIVE); APPEARANCE, URINE TURBID (CLEAR); BACTERIA, URINE AUTO NEGATIVE (NEGATIVE); BILIRUBIN, URINE AUTO NEGATIVE (NEGATIVE); BLOOD, URINE BLOOD NEGATIVE (NEGATIVE); COLOR, URINE YELLOW (YELLOW); GLUCOSE, URINE (UA) AUTO NEGATIVE (NEGATIVE); KETONE, URINE AUTO NEGATIVE (NEGATIVE); LEUKOCYTE ESTERASE, URINE AUTO NEGATIVE (NEGATIVE); NITRITE, URINE AUTO NEGATIVE (NEGATIVE); PROTEIN, URINE AUTO 1+ mg/dL (NEGATIVE); RBC, URINE AUTO 0 /HPF (0-3); SQUAMOUS EPITHELIAL CELL UR AU 0 /HPF (0-6); WBC, URINE AUTO 0 /HPF (0-3)
[2024-01-20 15:37] LABS: Trichomonas vaginalis (AMP) NOT DETECTED (NEGATIVE)
[2024-01-20 16:00] LABS: GC DNA AMPLIFICATION NEGATIVE (NEGATIVE)
== END ==
LOC: M RAD 10:45
PROVIDERS: ATTEND Physician Assistant
DX: R10.31 Right lower quadrant pain (principal); E03.9 Hypothyroidism, unspecified
CPT/HCPCS: 36415; 74177; 80053; 81001; 82150; 83690; 84439; 84443; 84703; 85025; 86140; 87070; 87077; 87086; 87186; 87661; 87810; 87850; Q9963; Q9967

== ENCOUNTER → 2024-06-04 | Outpatient (REF) | payer BC, MEDICAID ==
[~2024-06-04] MED LIST changes: -GASTROGRAFIN SOLUTION 30ML As Ordered ONE; -ISOVUE-370 76% 100ML VIAL As Ordered ONE
== END ==
LOC: M LAB REF 10:43
PROVIDERS: ATTEND Physician Assistant Medical
DX: R05.9 Cough, unspecified (principal)

== ENCOUNTER 2024-07-22 11:49 | Emergency (ER) | payer BC, MEDICAID ==
[2024-07-22 12:52] LABS: BASO % 0.4 % (0.0-1.0); EOS # 0.5 10^3/uL (0.0-0.5); EOS % 6.7 % (0.0-3.0); HEMATOCRIT 40.8 % (36.0-47.0); HEMOGLOBIN 13.1 g/dl (12.0-15.5); LYMPH # 1.7 10^3/uL (1.5-5.0); LYMPH % 23.7 % (24.0-44.0); MEAN CORPUSCULAR HEMOGLOBIN 28.7 pg (27.0-33.0); MEAN CORPUSCULAR HGB CONC 32.1 g/dl (32.0-36.5); MEAN CORPUSCULAR VOLUME 89.5 fl (80.0-96.0); MONO # 0.5 10^3/uL (0.0-0.8); MONO % 6.7 % (2.0-8.0); NEUTROPHILS # 4.5 10^3/uL (1.5-8.5); NEUTROPHILS % 62.4 % (36.0-66.0); PLATELET COUNT, AUTOMATED 318 10^3/uL (150-450); RED BLOOD COUNT 4.56 10^6/uL (4.00-5.40); WHITE BLOOD COUNT 7.2 10^3/uL (4.0-10.0)
[2024-07-22 13:11] LABS: LIPASE 30 U/L (12-53)
[2024-07-22 13:13] LABS: BLOOD UREA NITROGEN 11 MG/DL (9-23); CALCIUM LEVEL 8.6 MG/DL (8.5-10.1); CARBON DIOXIDE LEVEL 22 MMOL/L (20-31); CHLORIDE LEVEL 110 MMOL/L (98-107); CREATININE FOR GFR 0.82 MG/DL (0.55-1.30); GLOMERULAR FILTRATION RATE > 60.0 (>60); GLUCOSE, FASTING 102 MG/DL (60-100); POTASSIUM SERUM 4.2 MMOL/L (3.5-5.1); SODIUM LEVEL 140 MMOL/L (136-145)
[2024-07-22 13:24] LABS: HCG, SERUM QUALITATIVE NEGATIVE (NEGATIVE)
[2024-07-22 14:24] LABS: APPEARANCE, URINE HAZY (CLEAR); BACTERIA, URINE AUTO 1+ (NEGATIVE); BILIRUBIN, URINE AUTO NEGATIVE (NEGATIVE); BLOOD, URINE BLOOD NEGATIVE (NEGATIVE); COLOR, URINE AMBER (YELLOW); GLUCOSE, URINE (UA) AUTO NEGATIVE (NEGATIVE); KETONE, URINE AUTO TRACE mg/dL (NEGATIVE); LEUKOCYTE ESTERASE, URINE AUTO 1+ (NEGATIVE); MUCUS, URINE SMALL (NEGATIVE); NITRITE, URINE AUTO NEGATIVE (NEGATIVE); PROTEIN, URINE AUTO NEGATIVE (NEGATIVE); RBC, URINE AUTO 4 /HPF (0-3); SPECIFIC GRAVITY URINE AUTO 1.028 (1.002-1.035); SQUAMOUS EPITHELIAL CELL UR AU 6 /HPF (0-6); UROBILINOGEN, URINE AUTO 0.2 mg/dL (0.0-2.0); WBC, URINE AUTO 7 /HPF (0-3)
[2024-07-22 15:15] VITALS: BP 124/83; TEMP 97.4; O2SAT 98
== END 2024-07-22 15:35 | disposition home or self-care (01) ==
LOC: M ED 11:49 → EDBD 11:49 → M ED 15:35
DX: R10.31 Right lower quadrant pain (principal); E03.9 Hypothyroidism, unspecified; I10 Essential (primary) hypertension; F32.A Depression, unspecified; F41.9 Anxiety disorder, unspecified; Z91.048 Other nonmedicinal substance allergy status; Z91.040 Latex allergy status; Z88.1 Allergy status to other antibiotic agents; Z88.8 Allergy status to other drugs, medicaments and biological substances; Z79.2 Long term (current) use of antibiotics; Z79.899 Other long term (current) drug therapy

== ENCOUNTER → 2024-09-22 | Outpatient (CLI) | payer BC | LOC: M PLALAB 10:12 | PROVIDERS: ATTEND Nurse Practitioner Family | DX: O03.4 Incomplete spontaneous abortion without complication (principal) ==

== ENCOUNTER → 2024-09-25 | Outpatient (REF) | payer BC | LOC: M SFHCWAGY 17:31 | PROVIDERS: ATTEND Nurse Practitioner Family | DX: O03.9 Complete or unspecified spontaneous abortion without complication (principal) ==

== ENCOUNTER 2024-09-28 18:20 | Observation (INO) | payer BC ==
[2024-09-28] VITALS (9 sets, daily range): BP systolic 91–106; BP diastolic 54–62; TEMP 96.8–97.9; O2SAT 96–99
[~2024-09-28] VITALS: Ht 167.6 cm; Wt 87.4 kg
[2024-09-28] MEDS: ONDANSETRON 4MG 2ML VIAL IV ONE (18:39)
[2024-09-28] MEDS: MORPHINE 2 MG/ML 1ML VIAL IV ONE (18:39)
[2024-09-28] MEDS: NS 500 ML IV ONE (18:39)
[2024-09-28] MEDS: NS (Normal Saline) 0.9% 1,000 ML IV SCH ×2 (18:55→23:39)
[2024-09-28 18:57] LABS: BASO % 0.5 % (0.0-1.0); EOS # 0.3 10^3/uL (0.0-0.5); EOS % 2.9 % (0.0-3.0); HEMATOCRIT 23.9 % (36.0-47.0); HEMOGLOBIN 7.7 g/dl (12.0-15.5); LYMPH # 1.9 10^3/uL (1.5-5.0); LYMPH % 21.5 % (24.0-44.0); MEAN CORPUSCULAR HEMOGLOBIN 28.8 pg (27.0-33.0); MEAN CORPUSCULAR HGB CONC 32.2 g/dl (32.0-36.5); MEAN CORPUSCULAR VOLUME 89.5 fl (80.0-96.0); MONO # 0.4 10^3/uL (0.0-0.8); MONO % 4.4 % (2.0-8.0); NEUTROPHILS # 6.1 10^3/uL (1.5-8.5); NEUTROPHILS % 70.1 % (36.0-66.0); PLATELET COUNT, AUTOMATED 375 10^3/uL (150-450); RED BLOOD COUNT 2.67 10^6/uL (4.00-5.40); WHITE BLOOD COUNT 8.7 10^3/uL (4.0-10.0)
[2024-09-28 19:08] LABS: BLOOD UREA NITROGEN 11 MG/DL (9-23); CALCIUM LEVEL 7.9 MG/DL (8.5-10.1); CARBON DIOXIDE LEVEL 21 MMOL/L (20-31); CHLORIDE LEVEL 110 MMOL/L (98-107); CREATININE FOR GFR 0.79 MG/DL (0.55-1.30); GLOMERULAR FILTRATION RATE > 60.0 (>60); GLUCOSE, FASTING 124 MG/DL (60-100); HCG, SERUM QUANTITATIVE 830.4 MIU/ML (<4.2); POTASSIUM SERUM 4.6 MMOL/L (3.5-5.1); SODIUM LEVEL 139 MMOL/L (136-145)
[2024-09-28] MEDS: ACETAMINOPHEN 500 MG TAB PO PRN (23:38)
[2024-09-29 00:11] VITALS: BP 107/65; O2SAT 98
[2024-09-29 00:25] VITALS: BP 100/57; TEMP 97.8; O2SAT 99
[2024-09-29 01:30] VITALS: BP 104/56; TEMP 98.4; O2SAT 99
[2024-09-29] MEDS ORDERED: MISO200T83 PO (01:33)
[2024-09-29] MEDS ORDERED: FLUO40CA PO (01:33)
[2024-09-29] MEDS ORDERED: ONDA-83 PO (01:33)
[2024-09-29] MEDS ORDERED: ACET-683 PO (01:33)
[2024-09-29] MEDS ORDERED: IBUP-1730 PO (01:33)
[2024-09-29] MEDS ORDERED: FAMO40TA3 PO (01:33)
[2024-09-29] MEDS ORDERED: HOME MED LIST COMPLETE! XX SCH (01:35)
[2024-09-29 04:30] VITALS: BP 106/52; TEMP 98; O2SAT 98
[2024-09-29 04:44] LABS: BASO % 0.3 % (0.0-1.0); EOS # 0.4 10^3/uL (0.0-0.5); EOS % 3.9 % (0.0-3.0); HEMATOCRIT 25.1 % (36.0-47.0); HEMOGLOBIN 8.3 g/dl (12.0-15.5); LYMPH # 3.6 10^3/uL (1.5-5.0); LYMPH % 33.2 % (24.0-44.0); MEAN CORPUSCULAR HEMOGLOBIN 29.1 pg (27.0-33.0); MEAN CORPUSCULAR HGB CONC 33.1 g/dl (32.0-36.5); MEAN CORPUSCULAR VOLUME 88.1 fl (80.0-96.0); MONO # 0.5 10^3/uL (0.0-0.8); MONO % 4.4 % (2.0-8.0); NEUTROPHILS # 6.4 10^3/uL (1.5-8.5); NEUTROPHILS % 57.8 % (36.0-66.0); PLATELET COUNT, AUTOMATED 301 10^3/uL (150-450); RED BLOOD COUNT 2.85 10^6/uL (4.00-5.40)
[2024-09-29] MEDS: KETOROLAC 30 MG/ML 1ML VIAL IV ONE (04:58)
[2024-09-29 07:30] VITALS: BP 100/58; TEMP 98.7; O2SAT 97
== END 2024-09-29 09:00 | disposition home or self-care (01) ==
LOC: M ED 18:20 → EDBD 18:20 → M ED INP 18:21 → M PED 09-29 00:09 → UNDOADMOB 09-29 00:09 → M ED 09-29 00:09 → M PED 09-29 01:24 → UNDOFXERACCOM 09-29 05:04 → UNDOFXERRRACCOM 09-29 05:04 → UNDODISOB 09-29 09:00
PROVIDERS: ADMIT Obstetrics & Gynecology; ATTEND Obstetrics & Gynecology
DX: N93.8 Other specified abnormal uterine and vaginal bleeding (principal); K21.9 Gastro-esophageal reflux disease without esophagitis; K58.8 Other irritable bowel syndrome; F31.9 Bipolar disorder, unspecified; E03.9 Hypothyroidism, unspecified; Z91.040 Latex allergy status; Z88.1 Allergy status to other antibiotic agents; Z88.8 Allergy status to other drugs, medicaments and biological substances; Z88.2 Allergy status to sulfonamides; Z79.51 Long term (current) use of inhaled steroids; Z79.899 Other long term (current) drug therapy
CPT/HCPCS: 36415; 36430; 76830; 76856; 80048; 84702; 85025; 86850; 86900; 86901; 86920; 93041; 93976; 94760; 96361; 96374; 96375; 99291; J1885; J2405; P9016

== ENCOUNTER → 2024-10-19 | Outpatient (REF) | payer BC ==
[~2024-10-19] MED LIST changes: +FAMO40TA3 PO; +FLUO40CA PO; +IBUP-1730 PO; +MISO200T83 PO; +ONDA-83 PO
[2024-10-19 18:30] LABS: BASO % 0.4 % (0.0-1.0); EOS # 0.8 10^3/uL (0.0-0.5); EOS % 11.6 % (0.0-3.0); HEMATOCRIT 34.5 % (36.0-47.0); HEMOGLOBIN 10.7 g/dl (12.0-15.5); LYMPH # 2.1 10^3/uL (1.5-5.0); LYMPH % 29.3 % (24.0-44.0); MEAN CORPUSCULAR HEMOGLOBIN 27.4 pg (27.0-33.0); MEAN CORPUSCULAR VOLUME 88.5 fl (80.0-96.0); MONO # 0.5 10^3/uL (0.0-0.8); MONO % 7.2 % (2.0-8.0); NEUTROPHILS # 3.7 10^3/uL (1.5-8.5); NEUTROPHILS % 50.9 % (36.0-66.0); PLATELET COUNT, AUTOMATED 330 10^3/uL (150-450); WHITE BLOOD COUNT 7.2 10^3/uL (4.0-10.0)
[2024-10-19 18:34] LABS: HCG, SERUM QUANTITATIVE 6.2 MIU/ML (<4.2)
[2024-10-19 18:36] LABS: IRON (FE) 20 UG/DL (50-170); PERCENT SATURATION 5.5 % (13.2-45.0); THYROID STIMULATING HORMONE 1.235 uIU/ML (0.55-4.78); TOTAL IRON BINDING CAPACITY 361 UG/DL (250-425)
[2024-10-19 18:37] LABS: TOTAL 25(OH) VITAMIN D 17.7 NG/ML (20.0-100.0)
[2024-10-19 18:38] LABS: BLOOD UREA NITROGEN 7 MG/DL (9-23); CALCIUM LEVEL 9.1 MG/DL (8.5-10.1); CARBON DIOXIDE LEVEL 25 MMOL/L (20-31); CHLORIDE LEVEL 107 MMOL/L (98-107); CREATININE FOR GFR 0.87 MG/DL (0.55-1.30); FREE T4 1.14 NG/DL (0.89-1.76); GLOMERULAR FILTRATION RATE > 60.0 (>60); GLUCOSE, FASTING 86 MG/DL (60-100); POTASSIUM SERUM 4.8 MMOL/L (3.5-5.1); SODIUM LEVEL 143 MMOL/L (136-145)
== END ==
LOC: M SFHCADAM 14:08
PROVIDERS: ATTEND Physician Assistant
DX: D62 Acute posthemorrhagic anemia (principal)

== ENCOUNTER → 2025-05-24 | Outpatient (REF) | payer BC ==
[~2025-05-24] MED LIST changes: -IBUP-1022 PO; +IBUP600T42 PO; +LIDO1ADH93 TOP; -LIDO5DIS41 TOP; +PROZ10CA11 PO; -PROZ10CA7 PO
== END ==
LOC: M SFHCADAM 13:00
PROVIDERS: ATTEND Physician Assistant
DX: J00 Acute nasopharyngitis [common cold] (principal)